=== PATIENT | male | born 1935 | race Caucasian/White ===

== ENCOUNTER 2018-02-16 07:42 | Inpatient (IN) ==
[2018-02-16] MEDS ORDERED: 0.9 % Sodium Chloride 1,000 ML IVC ONE ×2 (08:00→11:02)
[2018-02-16] MEDS ORDERED: GI Cocktail 40 ML EACH PO ONE (08:03)
[2018-02-16] MEDS ORDERED: methylPREDNISolone 125 MG/2 ML VIAL IVP ONE (08:03)
[2018-02-16] MEDS ORDERED: Ipratropium/Albuterol Neb 3 ML IH ONE (08:03)
--- NOTE | 2018-02-16 08:12 | Emergency Department Note ---
Disposition Clinical Impression: Esophagitis, COPD exacerbation, Atrial fibrillation with RVR, Pulmonary nodule Pneumonia Qualifiers: Pneumonia type: due to unspecified organism Laterality: bilateral Lung location : lower lobe of lung Qualified Code(s): J18.1 - Lobar pneumonia, unspecified organism Disposition: Admitted As Inpatient Condition: Fair General Adult HPI - General Chief complaint: ED Nausea/Vomiting/Diarrhea Stated complaint: MATT Time Seen by Provider: 02/16/18 07:45 Source: patient Mode of arrival: private vehicle Limitations: no limitations Nursing Notes Reviewed: Yes Vital Signs Reviewed: Yes - History of Present Illness HPI Narrative: 82-year-old male history of atrial fibrillation not on anticoagulation secondary to prior GI bleed, COPD with oxygen use as needed, GERD who presents to the ER with a complaint of weight loss and intolerance to oral intake. States since October that he has lost 28 pounds which is unintentional. He saw his primary care provider the other day who ordered lab work and was trying to get him scheduled for an upper endoscopy. They had not heard back from the primary care provider. States that over the last 2 weeks that he has been able to keep down very few things. He started throwing up his medications as well as any solids and most liquids. Denies any vomiting when he is not trying to ingest something. He denies any chest pain or abdominal pain. He was last scoped roughly 6 years ago. He denies any shortness of breath. Denies prior history of cancer. He did have a CT scan showing a nodule in 2016. No other complaints. Pt Subjective Complaint: Shortness of breath, vomiting Onset (ago): week(s) Pain Scale: 0 Improves with: nothing Worsens with: nothing Associated symptoms: Reports: nausea/vomiting. Denies: chest pain, cough, fever /chills Treatments Prior to Arrival: none - Related Data Home Medications Medication Instructions Recorded Confirmed Furosemide [Lasix] 40 mg PO BID 11/12/15 02/16/18 Hydralazine HCl 50 mg PO BID 11/12/15 02/16/18 Atenolol [Tenormin] 50 mg PO BID 11/13/15 02/16/18 Calcium Carbonate [Tums] 1,000 mg PO Q4HR PRN 11/13/15 02/16/18 Docusate [Colace] 100 mg PO DAILY PRN 11/13/15 02/16/18 Ipratropium/Albuterol Neb [Duoneb] 3 ml IH Q6HR 11/13/15 02/16/18 Ipratropium/Albuterol Sulfate 1 puff IH Q6HR PRN 11/13/15 02/16/18 [Combivent Respimat Inhal [place]] Polyethylene Glycol 3350 [MiraLAX] 17 gm PO DAILY PRN 11/13/15 02/16/18 amLODIPine [Norvasc] 5 mg PO DAILY 11/13/15 02/16/18 Aspirin [[place] Aspirin EC] 81 mg PO DAILY 02/16/18 02/16/18 Diltiazem HCl [Diltiazem 24Hr Cd] 120 mg PO DAILY 02/16/18 02/16/18 Losartan Potassium [Cozaar] 100 mg PO DAILY 02/16/18 02/16/18 Omeprazole [PriLOSEC] 40 mg PO BID 02/16/18 02/16/18 Sucralfate [Carafate] 1 tab PO BID 02/16/18 02/16/18 Tamsulosin [Flomax] 0.4 mg PO DAILY 02/16/18 02/16/18 Allergies Allergy/AdvReac Type Severity Reaction Status Date / Time clonidine Allergy Vomiting Verified 02/16/18 10:08 Warfarin [From Coumadin] Allergy See Verified 02/16/18 10:08 Comments All systems ED: reviewed and negative except as stated. Constitutional: Denies: fever Cardiovascular: Denies: chest pain Respiratory: Denies: cough, dyspnea Gastrointestinal: Reports: vomiting. Denies: abdominal pain, nausea, diarrhea Past Medical History - Past Medical History Attestation: Yes The following information was validated with the patient. Source: patient Medical history: Reports: aortic aneurysm, arthritis, asthma, atrial fibrillation, CHF, COPD, coronary artery disease, GERD, GI bleed, hyperlipidemia , hypertension, osteoporosis, other Surgical history: Reports: cataract, other Psychiatric history: Reports: no psych history - Social History Smoking Status: Heavy tobacco smoker Smokeless Tobacco Status: No Alcohol use: Reports: none Drug use: Reports: none Physical Exam - General Limitations: no limitations General appearance: alert, in no apparent distress - Head Head exam: atraumatic, normocephalic - Eye Eye exam: Present: normal appearance - ENT ENT exam: normal exam - Neck Neck exam: Present: normal inspection - Chest Chest inspection: Present: normal inspection, symmetric chest wall rise - Respiratory Respiratory exam: Present: wheezes (Diffuse), accessory muscle use, prolonged expiratory phase - Cardiovascular Cardiovascular exam: Present: tachycardia, irregular rhythm, normal heart sounds - Abdominal Exam Abdominal exam: Present: soft, Non-Tender. Absent: tenderness, distention, rigidity - Extremities Exam Extremities exam: Present: normal inspection, full ROM - Expanded Upper Extremity Exam Shoulder exam: Present: normal inspection, full ROM Arm exam: Present: normal inspection, full ROM Elbow exam: Present: normal inspection, full ROM Forearm/Wrist exam: Present: normal inspection, full ROM Hand exam: Present: normal inspection, full ROM Vascular exam: Normal: radial pulse - Expanded Lower Extremity Exam Hip/Pelvis exam: Present: normal inspection, full ROM Upper leg exam: Present: normal inspection, full ROM Knee exam: Present: normal inspection, full ROM Lower leg exam: Present: normal inspection, full ROM Ankle exam: Present: normal inspection, full ROM Foot/toe exam: Present: normal inspection, full ROM - Skin Skin exam: Present: warm, dry Course Course Narrative: Patient seen and examined. Vital signs reviewed. He does have increased work of breathing here being tachypnic Around 30 and tachycardic at 130. He has no abdominal pain on exam. I also discussed his prior chest CT demonstrating a spiculated pulmonary nodule in 2017. Patient states that he has not had a biopsy of this and they are sure he has never had a PET scan. Plan for EKG, chest x-ray, baseline labs, likely admission for COPD exacerbation as well as inability to tolerate PO and concern for underlying malignancy. - Reevaluation(s) Reevaluation #1: Discussed results of imaging labs with the patient. Respiratory symptoms seem to have improved after nebulizer treatments and steroids. He remains tachycardic for which she had artery received 1 L. Appears to remain in atrial fibrillation on the monitor. Plan to start a Cardizem bolus and drip as well as a second liter of IV fluids. Vital Signs Temperature 98.3 F 02/16/18 07:48 Pulse Rate 127 02/16/18 07:48 Respiratory Rate 24 02/16/18 07:48 Blood Pressure 123/80 02/16/18 07:48 O2 Sat by Pulse Oximetry 93 02/16/18 07:48 Temperature 98.3 F 02/16/18 07:48 Pulse Rate 135 02/16/18 09:59 Respiratory Rate 18 02/16/18 09:59 Blood Pressure 110/87 02/16/18 09:59 O2 Sat by Pulse Oximetry 91 02/16/18 09:59 Oxygen Delivery Oxygen Delivery Room Air Medical Decision Making - MDM Narrative Medical decision making narrative: 82-year-old male presenting with vomiting and difficulty swallowing with weight loss over the last few months. Patient did have emesis here with his GI cocktail. His EKG demonstrates atrial fibrillation for which she has a past history of. Heart rate is slowly improved with interventions. CT imaging demonstrates dilation of the distal esophagus consistent with likely reflux esophagitis. He also has the appearance of bilateral lower lobe pneumonia of which we are attributing most likely to aspiration. His labs are grossly benign. Patient was started on Unasyn for suspected aspiration pneumonia. Started on Cardizem bolus and drip for rate control. Concern for occult malignancy in the setting of pulmonary nodule, weight loss and difficulty swallowing. The patient is admitted to the hospitalist service for further evaluation. - Lab Data Lab results reviewed: Yes I reviewed the patient's lab results. Result diagrams: 02/16/18 08:07 02/16/18 08:07 Lab Results 02/16/18 02/16/18 02/16/18 Range/Units 08:07 08:07 08:07 WBC 10.3 (4.3-11.1) K/mcL RBC 4.60 (4.19-5.50) M/mcL Hgb 14.5 (12.9-16.9) g/dL Hct 43.8 (37.5-50.1) % MCV 95.2 (83.0-100.0) fL MCH 31.5 (28.0-33.3) pg MCHC 33.1 (31.6-35.5) g/dL RDW 13.7 (11.5-14.5) % Plt Count 168 (140-400) K/mcL MPV 10.0 (9.4-12.4) fL Immature Gran % 0.4 (0-4) % Seg Neutrophils % 84.1 % Lymphocytes % 8.1 % Monocytes % 6.5 % Eosinophils % 0.4 % Basophils % 0.5 % Neutrophils # 8.7 (1.6-8.9) K/mcL Lymphocytes # 0.8 (0.6-4.6) K/mcL Monocytes # 0.7 (0.0-1.3) K/mcL Eosinophils # 0.0 (0.0-0.6) K/mcL Basophils # 0.1 (0.0-0.2) K/mcL PT 13.2 H (9.4-12.1) Seconds INR 1.2 Sodium 141 (136-145) mEq/L Potassium 4.1 (3.5-5.1) mEq/L Chloride 102 (98-107) mEq/L Carbon Dioxide 28 (23-29) mEq/L BUN 36 H (8-23) mg/dL Creatinine 1.29 (0.70-1.30) mg/dL Est GFR ( Amer) > 60 (> 60) Est GFR (Non-Af Amer) 54 L (> 60) BUN/Creatinine Ratio 28 H (6-26) Glucose 103 (70-105) mg/dL Calculated Osmolality 301 H (280-300) Lactic Acid (0.5-2.2) mmol/L Calcium 9.7 (8.6-10.3) mg/dL Total Bilirubin 1.7 H (0.3-1.0) mg/dL Direct Bilirubin 0.6 H (0.0-0.2) mg/dL Indirect Bilirubin 1.1 (0.0-1.2) mg/dL AST 19 (13-39) Units/L ALT 9 (7-52) Units/L Alkaline Phosphatase 79 (34-104) Units/L Troponin I 0.03 (< 0.04) ng/mL B-Natriuretic Peptide (Less than 100) pg/mL Serum Total Protein 7.0 (6.4-8.9) g/dL Albumin 3.9 (3.5-5.7) g/dL Globulin 3.1 (2.4-3.5) g/dL Albumin/Globulin Ratio 1.3 (1.1-2.2) Lipase 41 (11-82) Units/L 02/16/18 02/16/18 02/16/18 Range/Units 08:07 08:21 10:10 WBC (4.3-11.1) K/mcL RBC (4.19-5.50) M/mcL Hgb (12.9-16.9) g/dL Hct (37.5-50.1) % MCV (83.0-100.0) fL MCH (28.0-33.3) pg MCHC (31.6-35.5) g/dL RDW (11.5-14.5) % Plt Count (140-400) K/mcL MPV (9.4-12.4) fL Immature Gran % (0-4) % Seg Neutrophils % % Lymphocytes % % Monocytes % % Eosinophils % % Basophils % % Neutrophils # (1.6-8.9) K/mcL Lymphocytes # (0.6-4.6) K/mcL Monocytes # (0.0-1.3) K/mcL Eosinophils # (0.0-0.6) K/mcL Basophils # (0.0-0.2) K/mcL PT (9.4-12.1) Seconds INR Sodium (136-145) mEq/L Potassium (3.5-5.1) mEq/L Chloride (98-107) mEq/L Carbon Dioxide (23-29) mEq/L BUN (8-23) mg/dL Creatinine (0.70-1.30) mg/dL Est GFR ( Amer) (> 60) Est GFR (Non-Af Amer) (> 60) BUN/Creatinine Ratio (6-26) Glucose (70-105) mg/dL Calculated Osmolality (280-300) Lactic Acid 1.4 1.3 (0.5-2.2) mmol/L Calcium (8.6-10.3) mg/dL Total Bilirubin (0.3-1.0) mg/dL Direct Bilirubin (0.0-0.2) mg/dL Indirect Bilirubin (0.0-1.2) mg/dL AST (13-39) Units/L ALT (7-52) Units/L Alkaline Phosphatase (34-104) Units/L Troponin I (< 0.04) ng/mL B-Natriuretic Peptide 485 H (Less than 100) pg/mL Serum Total Protein (6.4-8.9) g/dL Albumin (3.5-5.7) g/dL Globulin (2.4-3.5) g/dL Albumin/Globulin Ratio (1.1-2.2) Lipase (11-82) Units/L - Radiology Data Radiology results reviewed: Yes I reviewed the patient's radiology results. Chest X-Ray 02/16/18 08:00 IMPRESSION: Right basilar atelectasis or pneumonia. Follow-up to resolution recommended. D/ / Juan David Hensley MD / Juan David Hensley MD Interpreting Provider: Juan David Hensley MD Abdomen/Pelvis CT 02/16/18 08:32 IMPRESSION: New patchy multifocal airspace disease in both lungs with bronchiectasis and peribronchial cuffing as well as endobronchial opacification in both lower lobes. Along with the finding of a dilated esophagus that is fluid-filled to the upper thoracic level, findings suggest pneumonia likely from chronic aspiration. Patchy nodular areas of consolidation noted in both lung bases likely related to the aspiration pneumonia. 12 mm spiculated nodule in the left upper lobe unchanged since at least 2016 examination. Benign etiology is favored given its senior care stability possibly related to chronic inflammatory process in the lungs. Recommend continued follow-up. Dilated esophagus with fluid to the upper thoracic level and circumferential wall thickening in the distal esophagus. This may be secondary to chronic reflux esophagitis but would recommend endoscopic correlation. Subcentimeter nonpathologically enlarged lymph nodes in the mediastinum suggesting chronic reactive lymph nodes, stable since prior exams. No acute abnormality in the abdomen or pelvis. Stable appearance with stable findings suggesting hepatic cirrhosis. Moderate aortic atherosclerotic disease. No acute bowel abnormality. Normal appendix. D/ / 02/16/2018 09:44:09 Awais Donaldson MD / karla Interpreting Provider: Awais Donaldson MD Chest CT 02/16/18 08:32 IMPRESSION: New patchy multifocal airspace disease in both lungs with bronchiectasis and peribronchial cuffing as well as endobronchial opacification in both lower lobes. Along with the finding of a dilated esophagus that is fluid-filled to the upper thoracic level, findings suggest pneumonia likely from chronic aspiration. Patchy nodular areas of consolidation noted in both lung bases likely related to the aspiration pneumonia. 12 mm spiculated nodule in the left upper lobe unchanged since at least 2016 examination. 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 Recommend continued follow-up. Dilated esophagus with fluid to the upper thoracic level and circumferential wall thickening in the distal esophagus. This may be secondary to chronic reflux esophagitis but would recommend endoscopic correlation. Subcentimeter nonpathologically enlarged lymph nodes in the mediastinum suggesting chronic reactive lymph nodes, stable since prior exams. No acute abnormality in the abdomen or pelvis. Stable appearance with stable findings suggesting hepatic cirrhosis. Moderate aortic atherosclerotic disease. No acute bowel abnormality. Normal appendix. D/ / 02/16/2018 09:44:09 Awais Donaldson MD / karla Interpreting Provider: Awais Donaldson MD - EKG Data EKG #1 EKG attestation: Yes I reviewed and interpreted this EKG. EKG results narrative: EKG demonstrates atrial fibrillation with a rate of 136. Normal axis. Normal intervals. Normal R-wave progression. There are lateral ST depressions of roughly [address] elevations. Changes from prior EKG on 11/13/[address] depression. S.B.A.Gisell. - [place].Brian.Wood Situation: Demographics, MOA Background: Presenting Complaint, Relevant PMH, Meds, & Allergies Assessment: Vital Signs, Course and respsone to treatment, Exam Concerns, Patient/Family Expectation, Pertinant Lab Results Recommendation: Barrier(s) to disposition, Recommendation based on pending studies, treatments, or consults S.B.AJasmin Report Given to: Dr. Mary Givens Repor Time: 12:04
[2018-02-16 08:23] LABS: Basophils # 0.1 K/mcL (0.0-0.2); Basophils % 0.5 %; Eosinophils % 0.4 %; Hematocrit 43.8 % (37.5-50.1); Hemoglobin 14.5 g/dL (12.9-16.9); Immature Granulocytes % 0.4 % (0-4); Lymphocytes # 0.8 K/mcL (0.6-4.6); Lymphocytes % 8.1 %; Mean Corpuscular HGB Conc 33.1 g/dL (31.6-35.5); Mean Corpuscular Hemoglobin 31.5 pg (28.0-33.3); Mean Corpuscular Volume 95.2 fL (83.0-100.0); Monocytes # 0.7 K/mcL (0.0-1.3); Monocytes % 6.5 %; Neutrophils # 8.7 K/mcL (1.6-8.9); Platelet Count 168 K/mcL (140-400); Red Cell Distribution Width 13.7 % (11.5-14.5); Segmented Neutrophils % 84.1 %
[2018-02-16 08:30] LABS: INR 1.2; Prothrombin Time 13.2 Seconds (9.4-12.1)
[2018-02-16] MEDS ORDERED: Isovue-370 500 ML INFUS..BTL IV ONE (08:32)
[2018-02-16 08:38] LABS: Troponin I 0.03 ng/mL (< 0.04)
--- NOTE | 2018-02-16 08:41 | Emergency Department Note ---
Disposition Clinical Impression: Esophagitis, COPD exacerbation, Atrial fibrillation with RVR, Pulmonary nodule Pneumonia Qualifiers: Pneumonia type: due to unspecified organism Laterality: bilateral Lung location : lower lobe of lung Qualified Code(s): J18.1 - Lobar pneumonia, unspecified organism Disposition: Admitted As Inpatient Condition: Fair General Adult HPI - General Chief complaint: ED Nausea/Vomiting/Diarrhea Stated complaint: MATT Time Seen by Provider: 02/16/18 07:45 Source: patient Mode of arrival: private vehicle Limitations: no limitations Nursing Notes Reviewed: Yes Vital Signs Reviewed: Yes - History of Present Illness Pain Scale: 0 Improves with: nothing Worsens with: nothing Associated symptoms: Reports: nausea/vomiting. Denies: chest pain, cough, fever /chills Treatments Prior to Arrival: none - Related Data Home Medications Medication Instructions Recorded Confirmed Furosemide [Lasix] 40 mg PO BID 11/12/15 02/16/18 Hydralazine HCl 50 mg PO BID 11/12/15 02/16/18 Atenolol [Tenormin] 50 mg PO BID 11/13/15 02/16/18 Calcium Carbonate [Tums] 1,000 mg PO Q4HR PRN 11/13/15 02/16/18 Docusate [Colace] 100 mg PO DAILY PRN 11/13/15 02/16/18 Ipratropium/Albuterol Neb [Duoneb] 3 ml IH Q6HR 11/13/15 02/16/18 Ipratropium/Albuterol Sulfate 1 puff IH Q6HR PRN 11/13/15 02/16/18 [Combivent Respimat Inhal [place]] Polyethylene Glycol 3350 [MiraLAX] 17 gm PO DAILY PRN 11/13/15 02/16/18 amLODIPine [Norvasc] 5 mg PO DAILY 11/13/15 02/16/18 Aspirin [[place] Aspirin EC] 81 mg PO DAILY 02/16/18 02/16/18 Diltiazem HCl [Diltiazem 24Hr Cd] 120 mg PO DAILY 02/16/18 02/16/18 Losartan Potassium [Cozaar] 100 mg PO DAILY 02/16/18 02/16/18 Omeprazole [PriLOSEC] 40 mg PO BID 02/16/18 02/16/18 Sucralfate [Carafate] 1 tab PO BID 02/16/18 02/16/18 Tamsulosin [Flomax] 0.4 mg PO DAILY 02/16/18 02/16/18 Allergies Allergy/AdvReac Type Severity Reaction Status Date / Time clonidine Allergy Vomiting Verified 02/16/18 10:08 Warfarin [From Coumadin] Allergy See Verified 02/16/18 10:08 Comments Constitutional: Denies: fever Cardiovascular: Denies: chest pain Respiratory: Denies: cough, dyspnea Gastrointestinal: Reports: vomiting. Denies: abdominal pain, nausea, diarrhea Past Medical History - Past Medical History Medical history: Reports: aortic aneurysm, arthritis, asthma, atrial fibrillation, CHF, COPD, coronary artery disease, GERD, GI bleed, hyperlipidemia , hypertension, osteoporosis, other Surgical history: Reports: cataract, other Psychiatric history: Reports: no psych history - Social History Smoking Status: Heavy tobacco smoker Smokeless Tobacco Status: No Alcohol use: Reports: none Drug use: Reports: none Physical Exam - General Limitations: no limitations General appearance: alert, in no apparent distress Course Vital Signs Temperature 98.3 F 02/16/18 07:48 Pulse Rate 127 02/16/18 07:48 Respiratory Rate 24 02/16/18 07:48 Blood Pressure 123/80 02/16/18 07:48 O2 Sat by Pulse Oximetry 93 02/16/18 07:48 Temperature 98.0 F 02/16/18 13:50 Pulse Rate 117 02/16/18 13:50 Respiratory Rate 16 02/16/18 15:26 Blood Pressure 118/76 02/16/18 13:50 O2 Sat by Pulse Oximetry 93 02/16/18 15:26 Oxygen Delivery Oxygen Delivery Room Air Medical Decision Making - Lab Data Result diagrams: 02/16/18 08:07 02/16/18 08:07 Lab Results 02/16/18 02/16/18 02/16/18 Range/Units 08:07 08:07 08:07 WBC 10.3 (4.3-11.1) K/mcL RBC 4.60 (4.19-5.50) M/mcL Hgb 14.5 (12.9-16.9) g/dL Hct 43.8 (37.5-50.1) % MCV 95.2 (83.0-100.0) fL MCH 31.5 (28.0-33.3) pg MCHC 33.1 (31.6-35.5) g/dL RDW 13.7 (11.5-14.5) % Plt Count 168 (140-400) K/mcL MPV 10.0 (9.4-12.4) fL Immature Gran % 0.4 (0-4) % Seg Neutrophils % 84.1 % Lymphocytes % 8.1 % Monocytes % 6.5 % Eosinophils % 0.4 % Basophils % 0.5 % Neutrophils # 8.7 (1.6-8.9) K/mcL Lymphocytes # 0.8 (0.6-4.6) K/mcL Monocytes # 0.7 (0.0-1.3) K/mcL Eosinophils # 0.0 (0.0-0.6) K/mcL Basophils # 0.1 (0.0-0.2) K/mcL PT 13.2 H (9.4-12.1) Seconds INR 1.2 Sodium 141 (136-145) mEq/L Potassium 4.1 (3.5-5.1) mEq/L Chloride 102 (98-107) mEq/L Carbon Dioxide 28 (23-29) mEq/L BUN 36 H (8-23) mg/dL Creatinine 1.29 (0.70-1.30) mg/dL Est GFR ( Amer) > 60 (> 60) Est GFR (Non-Af Amer) 54 L (> 60) BUN/Creatinine Ratio 28 H (6-26) Glucose 103 (70-105) mg/dL Calculated Osmolality 301 H (280-300) Lactic Acid (0.5-2.2) mmol/L Calcium 9.7 (8.6-10.3) mg/dL Total Bilirubin 1.7 H (0.3-1.0) mg/dL Direct Bilirubin 0.6 H (0.0-0.2) mg/dL Indirect Bilirubin 1.1 (0.0-1.2) mg/dL AST 19 (13-39) Units/L ALT 9 (7-52) Units/L Alkaline Phosphatase 79 (34-104) Units/L Troponin I 0.03 (< 0.04) ng/mL B-Natriuretic Peptide (Less than 100) pg/mL Serum Total Protein 7.0 (6.4-8.9) g/dL Albumin 3.9 (3.5-5.7) g/dL Globulin 3.1 (2.4-3.5) g/dL Albumin/Globulin Ratio 1.3 (1.1-2.2) Lipase 41 (11-82) Units/L 02/16/18 02/16/18 02/16/18 Range/Units 08:07 08:21 10:10 WBC (4.3-11.1) K/mcL RBC (4.19-5.50) M/mcL Hgb (12.9-16.9) g/dL Hct (37.5-50.1) % MCV (83.0-100.0) fL MCH (28.0-33.3) pg MCHC (31.6-35.5) g/dL RDW (11.5-14.5) % Plt Count (140-400) K/mcL MPV (9.4-12.4) fL Immature Gran % (0-4) % Seg Neutrophils % % Lymphocytes % % Monocytes % % Eosinophils % % Basophils % % Neutrophils # (1.6-8.9) K/mcL Lymphocytes # (0.6-4.6) K/mcL Monocytes # (0.0-1.3) K/mcL Eosinophils # (0.0-0.6) K/mcL Basophils # (0.0-0.2) K/mcL PT (9.4-12.1) Seconds INR Sodium (136-145) mEq/L Potassium (3.5-5.1) mEq/L Chloride (98-107) mEq/L Carbon Dioxide (23-29) mEq/L BUN (8-23) mg/dL Creatinine (0.70-1.30) mg/dL Est GFR ( Amer) (> 60) Est GFR (Non-Af Amer) (> 60) BUN/Creatinine Ratio (6-26) Glucose (70-105) mg/dL Calculated Osmolality (280-300) Lactic Acid 1.4 1.3 (0.5-2.2) mmol/L Calcium (8.6-10.3) mg/dL Total Bilirubin (0.3-1.0) mg/dL Direct Bilirubin (0.0-0.2) mg/dL Indirect Bilirubin (0.0-1.2) mg/dL AST (13-39) Units/L ALT (7-52) Units/L Alkaline Phosphatase (34-104) Units/L Troponin I (< 0.04) ng/mL B-Natriuretic Peptide 485 H (Less than 100) pg/mL Serum Total Protein (6.4-8.9) g/dL Albumin (3.5-5.7) g/dL Globulin (2.4-3.5) g/dL Albumin/Globulin Ratio (1.1-2.2) Lipase (11-82) Units/L Attestation Statement - Attestation Attestation: Resident Attestation: I examined this patient and my medical decision making was reviewed with the Resident Physician. I agree with the documented findings, disposition and treatment plan as described except to the extent set forth below. We independently had [id number] contact with the patient. Resident Dr. Eldridge Patient with past medical history of COPD with home oxygen as needed, A. fib, CHF presenting to the emergency department today for evaluation of multiple complaints. Patient's most concerning complaint per the patient is decreased ability to keep down his home medications. Patient has not been able to tolerate his medicines very well over the last week. He states that he has kept it down approximately 3 or 4 times. The patient states that he has pain burning and discomfort with eating. The patient's pills or foods stay in his system for approximately 20-30 minutes and then he vomits. Patient states that he has otherwise had no significant abdominal pain or bowel movements. Patient also appears to be in respiratory distress. He does have a history of COPD. He does have significant wheezing bilaterally. States this has been getting progressively worse. Unknown initial onset. No significant swelling in the lower extremities. We have done a thorough chart review and it has concern for possible malignancy in the lung. Previous spiculated lesion has increased in size over the course of multiple CT scans. Does have a family history of both colon cancer as well as prostate cancer. The patient will undergo further evaluation for dyspnea as well as CT scan with IV contrast of the chest abdomen pelvis to further evaluate possible malignancy versus other explanation for inability to tolerate by mouth. Awake alert and oriented 3, moderate respiratory distress, conversational and able to speak in full sentences. Lungs with moderate wheezing throughout. Heart rate irregular rate and rhythm. Abdomen soft nontender to palpation. No significant peripheral edema. CT scan shows no significant change to spiculated mass. The description of's spiculated however is concerning. He does have concern for pneumonia. Given the fact the patient has not been able to tolerate anything by mouth and has had multiple episodes of vomiting possible aspiration is a concern. The patient also has thickening and fluid within the esophagus. No obstruction. Concern for esophagitis but will need further endoscopy to correlate. Please see resident note for further details and disposition.
[2018-02-16 08:44] LABS: Alanine Aminotransferase 9 Units/L (7-52); Albumin 3.9 g/dL (3.5-5.7); Albumin/Globulin Ratio 1.3 (1.1-2.2); Alkaline Phosphatase 79 Units/L (34-104); Aspartate Amino Transferase 19 Units/L (13-39); BUN/Creatinine Ratio 28 (6-26); Bilirubin,Direct 0.6 mg/dL (0.0-0.2); Bilirubin,Indirect 1.1 mg/dL (0.0-1.2); Bilirubin,Total 1.7 mg/dL (0.3-1.0); Blood Urea Nitrogen 36 mg/dL (8-23); Calcium 9.7 mg/dL (8.6-10.3); Carbon Dioxide 28 mEq/L (23-29); Chloride 102 mEq/L (98-107); Globulin 3.1 g/dL (2.4-3.5); Glucose 103 mg/dL (70-105); Lipase 41 Units/L (11-82); Osmolality,Calculated 301 (280-300); Potassium 4.1 mEq/L (3.5-5.1); Sodium 141 mEq/L (136-145); eGFR For Non-African Americans 54 (> 60)
[2018-02-16] MEDS ORDERED: Ampicillin/Sulbactam 3,000 MG in 0.9 % Sodium Chloride Mini Bag 100 ML IVPB ONE (09:44)
[2018-02-16] MEDS ORDERED: Famotidine 20 MG/2 ML VIAL IVP ONE (12:04)
[2018-02-16] MEDS ORDERED: Naloxone 0.4 MG/ML INJ IVP PRN (13:03)
[2018-02-16] MEDS ORDERED: NON-FORMULARY MEDICATION 1 EACH EACH (Ipratropium/Albuterol Sulfate [Combivent Respimat In IH PRN (13:13)
[2018-02-16] MEDS ORDERED: *HR* Promethazine 25 MG/ML VIAL IVP PRN (13:13)
[2018-02-16] MEDS ORDERED: Ondansetron 4 MG/2 ML VIAL IVP PRN (13:13)
--- NOTE | 2018-02-16 13:41 | Internal Med History&Physical ---
<Pablito White [place] - Last Filed: 02/16/18 15:38> Date of Encounter: 02/16/18 Time of Encounter: 12:30 Internal Medicine - H&P: HPI Chief complaint: Nausea and Vomiting Admitted From: Emergency Dept Plans for Post Hospital Care: Home History of present illness: Mr. Lloyd is a 82 year old male w/PMH of aortic aneurysm, arthritis, asthma, atrial fibrillation not on anticoagulation, CHF, COPD, CAD, GERD, previous GI bleed, HLD, HTN, and osteoporosis presents from the ED w/CC of nausea and vomiting for the past 2-3 weeks when he tries to eat or drink anything. Denies coffee-ground or hematemesis. Pt. reports 33 pound unintentional weight loss since October. States PCP was going to order EGD but has not done so yet. Reports hx of SOB d/t COPD, CHF, asthma, and GERD No alleviating factors. States he smokes 1/2 PPD. Pt. reports cough and wheezing but denies recent illness, fever , chills, changes in vision, headache, unusual bleeding, chest pain, abdominal pain, diarrhea, constipation, dizziness, lightheadedness, numbness, tingling, presyncope, or syncope. Past Med Surg Social Fam HX - Past Medical History Source: patient, old records reviewed, obtained from family Medical history: aortic aneurysm, arthritis, asthma, atrial fibrillation, CHF, COPD, coronary artery disease, GERD, GI bleed, hyperlipidemia, hypertension, osteoporosis, other Additional medical history: Thoracic aortic aneurysm without rupture. Diastolic heart failureLeft ventriculare hypertrophy. DDD. Myalgia. Lumbar stenosis Psychiatric history: no psych history - Past Surgical History Surgical History: cataract, other - Social History Smoking Status: Current every day smoker Packs per day: 1/2 PPD Smokeless Tobacco Status: No Alcohol use: none Drug use: none Current living situation: Home, With Family Activity Level: Independent ambulation Recent Out of Country Travel Within the Last 8 Weeks: No Exposure or Possible Exposure to Illness During Travel: No - Family History Father Adopted: No Family Member Ethnicity: Non- Living Status: Hx Family Cancer: Yes (prostate) Internal Medicine - H&P: Meds RX: Furosemide [Lasix] 40 mg PO BID 11/12/15 [History] RX: Hydralazine HCl 50 mg PO BID 11/12/15 [History] RX: Atenolol [Tenormin] 50 mg PO BID 11/13/15 [History] RX: Calcium Carbonate [Tums] 1,000 mg PO Q4HR PRN 11/13/15 [History] RX: Docusate [Colace] 100 mg PO DAILY PRN 11/13/15 [History] RX: Ipratropium/Albuterol Neb [Duoneb] 3 ml IH Q6HR 11/13/15 [History] RX: Ipratropium/Albuterol Sulfate [Combivent Respimat Inhal [place]] 1 puff IH Q6HR PRN 11/13/15 [History] RX: Polyethylene Glycol 3350 [MiraLAX] 17 gm PO DAILY PRN 11/13/15 [History] RX: amLODIPine [Norvasc] 5 mg PO DAILY 11/13/15 [History] Aspirin [[place] Aspirin EC] 81 mg PO DAILY 02/16/18 [History] Diltiazem HCl [Diltiazem 24Hr Cd] 120 mg PO DAILY 02/16/18 [History] Losartan Potassium [Cozaar] 100 mg PO DAILY 02/16/18 [History] RX: Omeprazole [PriLOSEC] 40 mg PO BID 02/16/18 [History] RX: Sucralfate [Carafate] 1 tab PO BID 02/16/18 [History] RX: Tamsulosin [Flomax] 0.4 mg PO DAILY 02/16/18 [History] 3 Allergy/AdvReac Type Severity Reaction Status Date / Time clonidine Allergy Vomiting Verified 02/16/18 10:08 Warfarin [From Coumadin] Allergy See Verified 02/16/18 10:08 Comments All Systems PM: A 10-system review of systems was performed and is negative for pertinent findings except as documented above in the HPI. - Constitutional Constitutional: as per HPI, weakness, weight loss (33 pounds since October), no chills, no fever(s), no night sweats - EENT Eyes: no change in vision, no discharge, no pain, no photophobia Ears: no ear discharge, no ear pain, no tinnitus Nose, mouth and throat: no dysphagia, no nasal discharge, no neck pain, no sore throat - Breasts Breasts: as per HPI - Cardiovascular Cardiovascular ROS IM: as per HPI, dyspnea, dyspnea on exertion, edema, irregular heart rhythm, no chest pain, no diaphoresis, no lightheadedness, no palpitations, no syncope - Respiratory Respiratory: as per HPI, cough, dyspnea, dyspnea on exertion, wheezing, chest congestion, no excessive phlegm production - Gastrointestinal Gastrointestinal: as per HPI, dyspepsia, heartburn, nausea, vomiting, no abdominal pain, no diarrhea, no hematemesis, no hematochezia, no melena - Genitourinary Genitourinary ROS male: as per HPI - Musculoskeletal Musculoskeletal ROS IM: as per HPI, arthralgias, no numbness, no tingling - Integumentary Integumentary IM: no rash, no unusual bruising - Neurological Neurological ROS: no confusion, no convulsions, no focal weakness, no numbness, no tingling, no tremor(s) - Psychiatric Psychiatric: as per HPI - Endocrine Endocrine IM: as per HPI - Hematologic/Lymphatic Hematologic/Lymphatic: no easy bruising - Allergic/Immunologic Allergic/Immunologic: as per HPI, wheezing - Constitutional Vitals: Temp Pulse Resp BP Pulse Ox 98.3 F 135 18 110/87 91 02/16/18 07:48 02/16/18 09:59 02/16/18 09:59 02/16/18 09:59 02/16/18 09:59 General appearance: Present: cooperative, A&O X 3, pleasant, no acute distress, underweight, loss of weight, answers questions appropriately Exam: Patient examined at bedside in ED. Pt. reports SOB, nausea, and vomiting for the past several weeks. Also reports weakness. States he has lost 33 pound since October. Reports cough and current tobacco use. Denies any other complaints at this time. VS: 98.0F temp, HR 117, RR 16, BP 118/76, SPO2 93% on room air. - Head Head exam: Present: atraumatic, normocephalic - Eye Eye exam: Present: PERRL, conjuntiva pink, sclera anicteric Pupils: Present: PERRL - ENT ENT exam: Present: normal exam - Neck Neck exam general surgery: Present: normal inspection, supple, trachea midline. Absent: lymphadenopathy - Respiratory Respiratory exam: Present: CTAB. Absent: accessory muscle use, rales, rhonchi, wheezes - Cardiovascular Cardiovascular exam: Present: irregular rhythm. Absent: diastolic murmur, gallop, rubs, systolic murmur - GI/Abdominal GI/Abdominal exam: Present: normal bowel sounds, soft, no peritoneal signs. Absent: distended, tenderness - Rectal Rectal exam: Present: deferred - Additional comments: exam deferred. - Extremities Exam Extremities exam: Present: warm, radial pulses palpable and symmetrical. Absent : calf tenderness, cyanotic, pedal edema - Back Exam Back exam: Present: normal inspection - Neurological Exam Neurological exam: Present: alert, CN II-XII intact, oriented X3, no focal deficits. Absent: pronater drift, facial droop, speech deficit - Psychiatric Psychiatric exam: Present: normal affect, normal mood - Skin Skin exam: Present: dry, intact Internal Med - H&P Results - Labs CBC & Chem 7: 02/16/18 08:07 02/16/18 08:07 - EKG Data Prior EKG available for review: yes EKG comments: 02/16/18 13:58 EKG dated 11/13/15 shows sinus rhythm with frequent supraventricular premature complexes and moderate intraventricular conduction delay. EKG dated 02/16/18 shows atrial fibrillation, ST depression that is probably rate related, and borderline prolonged QT interval. - Diagnostic Studies CT scan - chest Additional comments: Impressions Chest X-Ray 02/16/18 08:00 IMPRESSION: Right basilar atelectasis or pneumonia. Follow-up to resolution recommended. D/ / Juan David Hensley MD / Juan David Hensley MD Interpreting Provider: Juan David Hensley MD Abdomen/Pelvis CT 02/16/18 08:32 IMPRESSION: New patchy multifocal airspace disease in both lungs with bronchiectasis and peribronchial cuffing as well as endobronchial opacification in both lower lobes. Along with the finding of a dilated esophagus that is fluid-filled to the upper thoracic level, findings suggest pneumonia likely from chronic aspiration. Patchy nodular areas of consolidation noted in both lung bases likely related to the aspiration pneumonia. 12 mm spiculated nodule in the left upper lobe unchanged since at least 2016 examination. 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 Recommend continued follow-up. Dilated esophagus with fluid to the upper thoracic level and circumferential wall thickening in the distal esophagus. This may be secondary to chronic reflux esophagitis but would recommend endoscopic correlation. Subcentimeter nonpathologically enlarged lymph nodes in the mediastinum suggesting chronic reactive lymph nodes, stable since prior exams. No acute abnormality in the abdomen or pelvis. Stable appearance with stable findings suggesting hepatic cirrhosis. Moderate aortic atherosclerotic disease. No acute bowel abnormality. Normal appendix. Thoracic aortic aneurysm measuring 5.4 cm in diameter. D/ / 02/16/2018 09:44:09 Awais Donaldson MD / karla Interpreting Provider: Awais Donaldson MD Chest CT 02/16/18 08:32 IMPRESSION: New patchy multifocal airspace disease in both lungs with bronchiectasis and peribronchial cuffing as well as endobronchial opacification in both lower lobes. Along with the finding of a dilated esophagus that is fluid-filled to the upper thoracic level, findings suggest pneumonia likely from chronic aspiration. Patchy nodular areas of consolidation noted in both lung bases likely related to the aspiration pneumonia. 12 mm spiculated nodule in the left upper lobe unchanged since at least 2016 examination. 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 Recommend continued follow-up. Dilated esophagus with fluid to the upper thoracic level and circumferential wall thickening in the distal esophagus. This may be secondary to chronic reflux esophagitis but would recommend endoscopic correlation. Subcentimeter nonpathologically enlarged lymph nodes in the mediastinum suggesting chronic reactive lymph nodes, stable since prior exams. No acute abnormality in the abdomen or pelvis. Stable appearance with stable findings suggesting hepatic cirrhosis. Moderate aortic atherosclerotic disease. No acute bowel abnormality. Normal appendix. Thoracic aortic aneurysm measuring 5.4 cm in diameter. D/ / 02/16/2018 09:44:09 Awais Donaldson MD / karla Interpreting Provider: Awais Donaldson MD Chest x-ray Additional comments: Impressions Chest X-Ray 02/16/18 08:00 IMPRESSION: Right basilar atelectasis or pneumonia. Follow-up to resolution recommended. D/ / Juan David Hensley MD / Juan David Hensley MD Interpreting Provider: Juan David Hensley MD CT scan - abdomen Additional comments: Impressions Abdomen/Pelvis CT 02/16/18 08:32 IMPRESSION: New patchy multifocal airspace disease in both lungs with bronchiectasis and peribronchial cuffing as well as endobronchial opacification in both lower lobes. Along with the finding of a dilated esophagus that is fluid-filled to the upper thoracic level, findings suggest pneumonia likely from chronic aspiration. Patchy nodular areas of consolidation noted in both lung bases likely related to the aspiration pneumonia. 12 mm spiculated nodule in the left upper lobe unchanged since at least 2016 examination. 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 Recommend continued follow-up. Dilated esophagus with fluid to the upper thoracic level and circumferential wall thickening in the distal esophagus. This may be secondary to chronic reflux esophagitis but would recommend endoscopic correlation. Subcentimeter nonpathologically enlarged lymph nodes in the mediastinum suggesting chronic reactive lymph nodes, stable since prior exams. No acute abnormality in the abdomen or pelvis. Stable appearance with stable findings suggesting hepatic cirrhosis. Moderate aortic atherosclerotic disease. No acute bowel abnormality. Normal appendix. Thoracic aortic aneurysm measuring 5.4 cm in diameter. D/ / 02/16/2018 09:44:09 Awais Donaldson MD / karla Interpreting Provider: Awais Donaldson MD - Assessment and plan (1) Aspiration pneumonia Current Visit: Yes Status: Acute Assessment and plan: Acute aspiration pneumonia r/t recurrent nausea and vomiting for the past 2-3 weeks. States he is unable to keep any food or liquids down and vomits when he tries to eat. CT of the chest today shows new patchy multifocal airspace disease in both lungs with bronchiectasis and peribronchial cuffing as well as endobronchial opacification in both lower lobes. Along with the finding of a dilated esophagus that is fluid-filled to the upper thoracic level, findings suggest pneumonia likely from chronic aspiration. Patchy nodular areas of consolidation noted in both lung bases likely related to the aspiration pneumonia. Continuous aspiration precautions. Elevate head of bed. GI consult ordered for EGD which needs confirmed d/t ordering on weekend. Pt. reports PCP was attempting to schedule EGD but has not done so yet. Protonix drip. Pt. given GI cocktail in ED. IVPB Unasyn given in ED and will continue 3,000 mg Q6HR for aspiration pneumonia. Xopenex IH w/Respiratory consult for flutter valve. Respiratory infection panel ordered. Blood cultures x2 ordered in ED. Supplemental O2 with titration and SPO2 monitoring. Clear liquid diet ordered to be advanced as tolerated. IVP Zofran and Phenergan for N/V. Pt. discussed w/ Dr. Pate who agrees w/plan of care. Pt. is high risk for further morbidity and complications d/t current aspiration PNA, N/V for 2-3 weeks resulting in unintented weight loss, esophagitis, current CHF exacerbation, SOB d/t COPD/CHF, hx, and risk factors. Observation. Qualifiers: Aspiration pneumonia type: due to regurgitated food Laterality: bilateral Lung location: lower lobe of lung Qualified Code(s): J69.0 - Pneumonitis due to inhalation of food and vomit (2) Esophagitis Current Visit: Yes Status: Acute Assessment and plan: Acute on chronic esophagitis d/t poorly controlled GERD. CT today shows dilated esophagus with fluid to the upper thoracic level and circumferential bulging thickening in the distal esophagus. This may be secondary to chronic reflux esophagitis but would recommend endoscopic correlation. GI consult ordered which needs confirmed d/t ordering on weekend. Pt. reports PCP was attempting to schedule EGD but has not done so yet. Protonix drip. Pt. given GI cocktail in ED. (3) Acute exacerbation of CHF (congestive heart failure) Current Visit: Yes Status: Acute Assessment and plan: Hx of chronic diastolic CHF. Acute exacerbation w/BNP of 485 today. Pt. reports taking PO lasix. No pedal edema at this time but wheezing present in bilateral lungs on exam. Will hold PO lasix at this time d/t current hypotension. Echo in 11/2015 showed LVEF of 55%, normal left ventricular size and systolic function, indeterminate diastolic function, dilated RV with normal function, moderate aortic regurgitation, mild mitral regurgitation, nild tricuspid regurgitation, estimated RVSP was 41 mmHg, mild pulmonary HTN, and dilated aortic root measuring 4.6 cm. Ascending aorta not well visualized. Echocardiogram ordered. Continuous cardiac telemetry. Holding BP meds d/t current hypotension. Cardizem drip for current Afib w/RVR. Qualifiers: Heart failure type: diastolic Qualified Code(s): I50.33 - Acute on chronic diastolic (congestive) heart failure (4) Nausea and vomiting Current Visit: Yes Status: Acute Assessment and plan: Acute nausea and vomiting for the past 2-3 weeks. Hx of poorly controlled GERD. Esophagitis on imaging. Reports 33 pound unintentional weight loss since October. IVP Zofran and Phenergan ordered PRN for N/V. Will start with clear liquid diet and advance as tolerated. Nutrition consult. GI consult for EGD. Monitor I&O and daily weight. Qualifiers: Vomiting type: cyclical vomiting Vomiting Intractability: non-intractable Qualified Code(s): G43.A0 - Cyclical vomiting, not intractable (5) Unintentional weight loss Current Visit: Yes Status: Acute Assessment and plan: Acute unintentional weight loss of 33 pounds since October. Pt. reports N/V for the past several weeks and inability to keep anything down. Vomiting occurs when attempting to eat/drink. Esophagitis on imaging. GI consult ordered but not confirmed d/t after-hours consult status. Nutritional consult ordered for PO supplementation. Will start w/liquid diet and advance as tolerated. Monitor I &O and daily weight. (6) SOB (shortness of breath) Current Visit: Yes Status: Acute Assessment and plan: Acute on chronic SOB d/t COPD, current tobacco abuse, and current CHF exacerbation. Xopenex IH w/flutter valve. Supplemental O2 w/titration and SpO2 monitoring. (7) Aortic aneurysm Current Visit: Yes Status: Chronic Assessment and plan: Hx of chronic thoracic aortic aneurysm w/o rupture. Previous CT in 2016 shows no acute abnormality of the thoracic aorta. The ascending aorta is diffusely dilated measuring 5.8 cm in maximum dimension which is stable. Normal variant of a bovine arch is again demonstrated. There are atherosclerotic calcifications involving the aorta. CT today shows an ascending thoracic aortic aneurysm measuring approximately 5.4 cm in diameter at the level of the main pulmonary artery. Mild to moderate atherosclerotic calcifications are noted in the thoracic aorta. No evidence of aortic dissection. Stable. [place]side consult w /Dr. Ruiz w/recommendation to speak w/Radiology regarding comparison of CT today w/CT from 11/2015. Spoke w/Dr. Donaldson who read today's CT who stated that current ascending thoracic aortic aneurysm appears stable but patient should follow-up with vascular surgery as outpatient for monitoring. I appreciate the consults and recommendations as always. Qualifiers: Aortic location: thoracic aorta Presence of rupture: without rupture Qualified Code(s): I71.2 - Thoracic aortic aneurysm, without rupture (8) COPD (chronic obstructive pulmonary disease) Current Visit: Yes Status: Chronic Assessment and plan: Hx of chronic COPD. Stable. Continue pts. inhaler and add Xopenex IH w/ Respiratory consult added for flutter valve. 125 mg IVP Solu-Medrol given in ED and will follow w/60 mg Q8HR IVP. Supplemental O2 w/titration and SpO2 monitoring. Qualifiers: COPD type: emphysema Emphysema type: unspecified Qualified Code(s): 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, unspecified (9) GERD (gastroesophageal reflux disease) Current Visit: Yes Status: Chronic Assessment and plan: Hx of chronic GERD that is poorly controlled. Hold pts. PO Prilosec and start Protonix drip. IVP Zofran and Phenergan PRN for N/V. Monitor I&O. Qualifiers: Esophagitis presence: with esophagitis Qualified Code(s): K21.0 - Gastro- esophageal reflux disease with esophagitis (10) HLD (hyperlipidemia) Current Visit: Yes Status: Chronic Assessment and plan: Hx of chronic HLD. Lipid panel in a.m. labs. Patient does not currently take statin. Consider adding Lipitor based on lipid panel results. Qualifiers: Hyperlipidemia type: pure hypercholesterolemia Qualified Code(s): E78.00 - Pure hypercholesterolemia, unspecified; E78.0 - Pure hypercholesterolemia (11) HTN (hypertension) Current Visit: Yes Status: Chronic Assessment and plan: Hx of chronic HTN. Pt. currently hypotensive on admission, so pts. PO HTN medications held for now. Will continue Cardizem drip for Afib and monitor VS. Will resume PO medications if pt. becomes hypertensive. Qualifiers: Hypertension type: essential hypertension Qualified Code(s): I10 - Essential (primary) hypertension (12) Atrial fibrillation with RVR Current Visit: Yes Status: Chronic Assessment and plan: Hx of Afib. Now w/RVR on admission. Cardizem drip ordered. Continuous cardiac telemetry. Monitor. (13) DVT prophylaxis Current Visit: Yes Status: Acute Assessment and plan: Bilateral SCDs on LEs for DVT prophylaxis d/t hx of poor response to Coumadin/ anticoagulation and GI bleed. (14) SAMSON (acute kidney injury) Current Visit: Yes Status: Acute Assessment and plan: SAMSON w/GFR of 54 and creatinine of 1.29 on admission. GFR 58 on 02/12. Will use IV fluids judiciously due to current acute exacerbation of CHF. Avoid nephrotoxins. Monitor I&O, daily weight, and f/u labs. - Time Spent With Patient Total time spent is greater than 50% in coordination of care (as documented) at patient's floor/unit and/or counseling patient: Greater than 35 minutes <Mary Pate - Last Filed: 02/16/18 16:49> Date of Encounter: 02/16/18 Internal Medicine - H&P: HPI History of present illness: Mr. Lloyd is a 82 year old male All Systems PM: A 10-system review of systems was performed and is negative for pertinent findings except as documented above in the HPI. - Constitutional Vitals: Temp Pulse Resp BP Pulse Ox 98.0 F 117 16 118/76 93 02/16/18 13:50 02/16/18 13:50 02/16/18 15:26 02/16/18 13:50 02/16/18 15:26 Internal Med - H&P Results - Labs CBC & Chem 7: 02/16/18 08:07 02/16/18 08:07 - Assessment and plan (1) Esophagitis Current Visit: Yes Status: Acute (2) Atrial fibrillation with RVR Current Visit: Yes Status: Chronic (3) Nausea and vomiting Current Visit: Yes Status: Acute Qualifiers: Vomiting type: cyclical vomiting Vomiting Intractability: non-intractable Qualified Code(s): G43.A0 - Cyclical vomiting, not intractable (4) Aspiration pneumonia Current Visit: Yes Status: Acute Qualifiers: Aspiration pneumonia type: due to regurgitated food Laterality: bilateral Lung location: lower lobe of lung Qualified Code(s): J69.0 - Pneumonitis due to inhalation of food and vomit (5) Unintentional weight loss Current Visit: Yes Status: Acute (6) SOB (shortness of breath) Current Visit: Yes Status: Acute (7) Acute exacerbation of CHF (congestive heart failure) Current Visit: Yes Status: Acute Qualifiers: Heart failure type: diastolic Qualified Code(s): I50.33 - Acute on chronic diastolic (congestive) heart failure (8) Aortic aneurysm Current Visit: Yes Status: Chronic Qualifiers: Aortic location: thoracic aorta Presence of rupture: without rupture Qualified Code(s): I71.2 - Thoracic aortic aneurysm, without rupture (9) COPD (chronic obstructive pulmonary disease) Current Visit: Yes Status: Chronic Qualifiers: COPD type: emphysema Emphysema type: unspecified Qualified Code(s): 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, unspecified (10) GERD (gastroesophageal reflux disease) Current Visit: Yes Status: Chronic Qualifiers: Esophagitis presence: with esophagitis Qualified Code(s): K21.0 - Gastro- esophageal reflux disease with esophagitis (11) HLD (hyperlipidemia) Current Visit: Yes Status: Chronic Qualifiers: Hyperlipidemia type: pure hypercholesterolemia Qualified Code(s): E78.00 - Pure hypercholesterolemia, unspecified; E78.0 - Pure hypercholesterolemia (12) HTN (hypertension) Current Visit: Yes Status: Chronic Qualifiers: Hypertension type: essential hypertension Qualified Code(s): I10 - Essential (primary) hypertension (13) DVT prophylaxis Current Visit: Yes Status: Acute (14) SAMSON (acute kidney injury) Current Visit: Yes Status: Acute - Time Spent With Patient Total time spent is greater than 50% in coordination of care (as documented) at patient's floor/unit and/or counseling patient: - Attending Attestation I have personally performed a face to face evaluation on this patient. I have reviewed and agree with the care plan. History and Exam by me shows: Mr. Lloyd is a 82 year old male w/PMH of aortic aneurysm, arthritis, asthma, atrial fibrillation not on anticoagulation, CHF, COPD, CAD, GERD, previous GI bleed, presented to the ED with complaint of nausea and vomiting for the past 2- 3 weeks . As per patient his symptoms worsen when he eats or drinks liquids. He has never had any symptoms like this before. Vomiting is usually food/ drinks that he had ate/drank a few minutes prior, not bile-stained, no blood in his vomitus. In addition he reports unintentional weight loss that started about a few months ago and is more than 30 pounds. He visited his PCP with these complaints and was told that an EGD would be ordered however it was not done so so he decided to come to the emergency department for further evaluation. he denies , fever, chills, chest pain, abdominal pain, diarrhea, constipation, dizziness, lightheadedness, numbness, or syncope. As per patient he follow-up with Dr. Gillis about his thoracic aorta aneurysm and was offered surgery however he would not like to have any invasive surgery performed on his thoracic aortic aneurysm. at bedside I discussed CODE STATUS in depth with patient and he would like to be full code Afebrile, tachycardic in the 117, blood pressure 118/76, saturating 93% on room air General: Patient is alert, oriented, no acute distress, Head: atraumatic, normocephalic, Eye: normal appearance, PERRL, no scleral icterus, no conjunctival injection ENT: mucous membranes moist, normal external ear exam Neck: normal inspection, trachea midline, full ROM, no carotid bruits Chest: normal inspection, symmetric chest rise Respiratory: Decreased breath sounds in the posterior lung soliz with occasional crackles, no wheezing Cardiovascular: Irregularly irregular s1 and s2 , no rubs Abdomen: Bowel sounds present normoactive x-4 quadrants. Abdomen is soft, nondistended. no Epigastric tenderness. No guarding or rebound. No organomegaly noted, obese musculoskeletal: Spontaneously moving all extremities. no edema, no calf tenderness Skin: warm, dry, intact., Multiple ecchymosis in the bilateral upper extremities in different stages of healing Neuro: Alert and oriented x4. Sensation light touch intact. Cranial nerves 2- 12 is intact. No focal deficit Psych: Patient's affect is normal CT chest, abdomen and pelvis: New patchy multifocal airspace disease in both lungs with bronchiectasis and peribronchial cuffing as well as endobronchial opacification in both lower lobes. Along with the finding of a dilated esophagus that is fluid-filled to the upper thoracic level, findings suggest pneumonia likely from chronic aspiration. Patchy nodular areas of consolidation noted in both lung bases likely related to the aspiration pneumonia. 12 mm spiculated nodule in the left upper lobe unchanged since at least 2016 examination. 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 Recommend continued follow-up. Dilated esophagus with fluid to the upper thoracic level and circumferential wall thickening in the distal esophagus. This may be secondary to chronic reflux esophagitis but would recommend endoscopic correlation. Subcentimeter nonpathologically enlarged lymph nodes in the mediastinum suggesting chronic reactive lymph nodes, stable since prior exams. No acute abnormality in the abdomen or pelvis. Stable appearance with stable findings suggesting hepatic cirrhosis. Moderate aortic atherosclerotic disease. No acute bowel abnormality. Normal appendix. Thoracic aortic aneurysm measuring 5.4 cm in diameter. A/P Aspiration pneumonia chronic Esophagitis Atrial fibrillation with RVR not on AC thoracic aorta aneurysm - chronic / stable size COPD Current every day smoker Patient was started on Cardizem drip will continue as he is unable to tolerate by mouth medications Hold all oral antihypertensive medications Continue Unasyn for aspiration pneumonia GI consult for chronic esophagitis for EGD Nothing by mouth Continue PPI drip Patient was previously seen with Dr. Gillis who recommended thoracic aorta aneurysm repair however patient declines to do any invasive procedures for his aneurysm Counseled extensively on smoking cessation Continue inhalers ASpiration precautions, elevated head of bed Rest of the management as per [facility] documentation
[2018-02-16] MEDS: Pantoprazole 40 MG in 0.9 % Sodium Chloride Mini Bag 100 ML IVC SCH ×2 (14:40→19:47)
[2018-02-16] MEDS: Nicotine 14 MG PATCH.TD24 TD SCH (15:16)
[2018-02-16] MEDS: Levalbuterol Neb 1.25 MG/3 ML IH SCH ×2 (15:26→22:51)
[2018-02-16] MEDS: Ampicillin/Sulbactam 3,000 MG in 0.9 % Sodium Chloride Mini Bag 100 ML IVPB SCH ×2 (18:28→23:38)
[2018-02-16 19:28] LABS: Adenovirus Not Detected (Not Detect); Bordetella Pertussis Not Detected (Not Detect); Chlamydophila pneumoniae Not Detected (Not Detect); Coronavirus 229E Not Detected (Not Detect); Coronavirus HKU1 Not Detected (Not Detect); Coronavirus NL63 Not Detected (Not Detect); Coronavirus OC43 Not Detected (Not Detect); Human Metapneumovirus Not Detected (Not Detect); Human Rhinovirus/Enterovirus Not Detected (Not Detect); Influenza A Subtype 2009 H1 Not Detected (Not Detect); Influenza A Untypeable Not Detected (Not Detect); Influenza B Not Detected (Not Detect); Mycoplasma pneumoniae Not Detected (Not Detect); Parainfluenza Virus 1 Not Detected (Not Detect); Parainfluenza Virus 2 Not Detected (Not Detect); Parainfluenza Virus 3 Not Detected (Not Detect); Parainfluenza Virus 4 Not Detected (Not Detect); Respiratory Syncytial Virus Not Detected (Not Detect)
[2018-02-16] MEDS: methylPREDNISolone 125 MG/2 ML VIAL IVP SCH (19:50)
[2018-02-16] MEDS: Sucralfate 1 GM TABLET PO SCH (20:09)
[2018-02-16] MEDS: hydrALAZINE 25 MG TABLET PO SCH ×2 (20:09→20:14)
[2018-02-16] MEDS ORDERED: Furosemide 40 MG TABLET PO SCH (21:00)
[2018-02-17] MEDS: Pantoprazole 40 MG in 0.9 % Sodium Chloride Mini Bag 100 ML IVC SCH ×3 (02:26→11:39)
[2018-02-17] MEDS: Levalbuterol Neb 1.25 MG/3 ML IH SCH ×4 (03:26→22:01)
[2018-02-17] MEDS: methylPREDNISolone 125 MG/2 ML VIAL IVP SCH ×3 (03:36→23:43)
[2018-02-17 04:45] LABS: Hematocrit 39.7 % (37.5-50.1); Hemoglobin 13.1 g/dL (12.9-16.9); Immature Granulocytes % 0.3 % (0-4); Lymphocytes # 0.7 K/mcL (0.6-4.6); Lymphocytes % 9.3 %; Mean Corpuscular Hemoglobin 31.3 pg (28.0-33.3); Mean Corpuscular Volume 94.7 fL (83.0-100.0); Mean Platelet Volume 10.5 fL (9.4-12.4); Monocytes # 0.2 K/mcL (0.0-1.3); Monocytes % 2.3 %; Neutrophils # 6.4 K/mcL (1.6-8.9); Platelet Count 156 K/mcL (140-400); Red Blood Count 4.19 M/mcL (4.19-5.50); Red Cell Distribution Width 14.1 % (11.5-14.5); Segmented Neutrophils % 88.1 %
[2018-02-17 04:49] LABS: INR 1.1; Prothrombin Time 12.8 Seconds (9.4-12.1)
[2018-02-17 04:52] LABS: Activated Partial Thrombo Time 31.2 Seconds (26.0-36.0)
[2018-02-17 05:05] LABS: Albumin 3.7 g/dL (3.5-5.7); Albumin/Globulin Ratio 1.2 (1.1-2.2); Calcium 9.3 mg/dL (8.6-10.3); Chol/HDL Ratio 3.1 (0-4.9); Magnesium 2.1 mg/dL (1.6-2.6); Total Protein 6.7 g/dL (6.4-8.9)
[2018-02-17] MEDS: Ampicillin/Sulbactam 3,000 MG in 0.9 % Sodium Chloride Mini Bag 100 ML IVPB SCH ×4 (05:14→23:44)
[2018-02-17] MEDS: Aspirin Enteric Coated 81 MG Tablet PO SCH (07:37)
[2018-02-17] MEDS: Sucralfate 1 GM TABLET PO SCH ×2 (07:37→17:35)
[2018-02-17] MEDS: Nicotine 14 MG PATCH.TD24 TD SCH (07:37)
[2018-02-17 08:11] LABS: Estimated Average Glucose 103 mg/dl; Hemoglobin A1C 5.2 %
[2018-02-17] MEDS ORDERED: Diltiazem CD (24hr) 120 MG CAPSULE PO SCH (09:00)
[2018-02-17] MEDS ORDERED: amLODIPine 5 MG TABLET PO SCH (09:00)
--- NOTE | 2018-02-17 09:35 | Gastroenterology Consult Note ---
<KrystalAracelis Collins - Last Filed: 02/17/18 09:46> Date of Encounter: 02/17/18 Time of Encounter: 08:55 - Assessment and plan (1) Nausea and vomiting Current Visit: Yes Status: Acute Assessment and plan: CT shows esophageal dilation and thickening. Will schedule for EGD today to rule out esophagitis vs malignancy. Continue PPI, carafate and antiemetics. Qualifiers: Vomiting type: cyclical vomiting Vomiting Intractability: non-intractable Qualified Code(s): G43.A0 - Cyclical vomiting, not intractable (2) Hepatic cirrhosis Current Visit: Yes Status: Acute Assessment and plan: Seen on CT abdomen, is compensated, LFTs are normal, would recommend workup as an outpatient. Qualifiers: Hepatic cirrhosis type: unspecified hepatic cirrhosis Ascites presence: without ascites Qualified Code(s): K74.60 - Unspecified cirrhosis of liver (3) Pneumonia Current Visit: Yes Status: Acute Assessment and plan: May be related to chronic aspiration. Has been started on Unasyn by primary care team. Qualifiers: Pneumonia type: aspiration pneumonia Laterality: bilateral Lung location : lower lobe of lung (4) Unintentional weight loss Current Visit: Yes Status: Acute - Time Spent With Patient Total time spent is greater than 50% in coordination of care (as documented) at patient's floor/unit and/or counseling patient: GI History of Present Illness - Data of Consult Patient: new to practice Consult date: 02/17/18 Requesting Physician: Harry Torres - Consult Narrative Reason for consult: nausea, vomiting and weight loss History of present illness: Mr. Lloyd is a 82 year old male w/PMH of aortic aneurysm, arthritis, asthma, atrial fibrillation not on anticoagulation, CHF, COPD, CAD, GERD, previous GI bleed, HLD, HTN, and osteoporosis. He presents from the ED with complaints of nausea and vomiting which has been ongoing for the past couple months but much worse for the past 2-3 weeks. He states he has been unable to keep any food or liquids down. He complains of odynophagia and burning in his throat whenever he tries to eat or drink anything. He was started on omeprazole but states he hasn' t been able to keep that down either. He denies coffee-ground or hematemesis. Pt. reports 33 pound unintentional weight loss since October. Reports hx of SOB d/ t COPD, CHF, asthma, and GERD No alleviating factors. States he smokes 1/2 PPD. Pt. reports cough and wheezing but denies recent illness, fever, chills, changes in vision, headache, unusual bleeding, chest pain, abdominal pain, diarrhea, constipation, dizziness, lightheadedness, numbness, tingling, presyncope, or syncope. Ct of the abdomen and chest showed bilateral pneumonia likely aspiration, hepatic cirrhosis, aortic aneurysm, and dilated esophagus with fluid to the upper thoracic level and circumferential wall thickening in the distal esophagus. He denies nsaids other than a baby asa. He denies coronary stents or pacemaker. He states he uses O2 at home on occasion. EGD 06/13/2012 hiatal hernia, acute gastritis, gastric ulcers with clean base, negative for H. pylori or dysplasia normal duodenum. Colonoscopy June, 4 mm benign polyp in the rectum. Past Med Surg Social Fam HX - Past Medical History Medical history: aortic aneurysm, arthritis, asthma, atrial fibrillation, CHF, COPD, coronary artery disease, GERD, GI bleed, hyperlipidemia, hypertension, osteoporosis, other Additional medical history: Thoracic aortic aneurysm without rupture. Diastolic heart failureLeft ventriculare hypertrophy. DDD. Myalgia. Lumbar stenosis Psychiatric history: no psych history - Past Surgical History Surgical History: cataract, other - Social History Smoking Status: Heavy tobacco smoker Packs per day: 1/2 PPD Smokeless Tobacco Status: No Alcohol use: none Drug use: none - Family History Father Adopted: No Family Member Ethnicity: Non- Living Status: Hx Family Cancer: Yes (prostate) Review of Systems: GI: as per [place] GENERAL: denies fever, has some chills EYES: denies yellow discoloration ENT: see HPI CARDIO: denies chest pain, palpitations RESP: see HPI : denies change in color of urine NEURO: denies any weakness HEME: Denies any bruising MS: denies joint pain, joint swelling or back pain. DERM: denies rash or itching PSYCH: history of anxiety denies depression - Constitutional Vitals: Temp Pulse Resp BP Pulse Ox 97.6 F 103 18 118/72 95 02/17/18 07:00 02/17/18 07:00 02/17/18 07:00 02/17/18 07:00 02/17/18 07:00 Exam: CONSTITUTIONAL:~alert, no acute distress.~HEAD:~normocephalic.~EYES:~no jaundice.~NECK:~no obvious swelling.~HEART:~regular rate and rhythm, no murmurs. ~LUNGS:~bilateral fair air entry, and wheezes.~ABDOMEN:~non distended, soft, non tender, no masses pulpable, no organomegaly.~RECTAL EXAM:~Deferred.~ EXTREMITIES:~no clubbing, cyanosis or edema.~SKIN:~no stigmata of chronic liver disease.~NEUROLOGIC:~no obvious focal defect.~~~~ Results - Labs CBC & Chem 7: 02/17/18 04:10 02/17/18 04:10 Labs: Last Result Calcium 9.3 mg/dL (8.6-10.3) 02/17/18 04:10 Troponin I 0.03 ng/mL (< 0.04) 02/16/18 08:07 Triglycerides 56 mg/dL (< 150) 02/17/18 04:10 Entire Visit Hgb 13.1 g/dL (12.9-16.9) 02/17/18 04:10 Hct 39.7 % (37.5-50.1) 02/17/18 04:10 PT 12.8 Seconds (9.4-12.1) H 02/17/18 04:10 Total Bilirubin 1.0 mg/dL (0.3-1.0) 02/17/18 04:10 AST 22 Units/L (13-39) 02/17/18 04:10 ALT 10 Units/L (7-52) 02/17/18 04:10 Lipase 41 Units/L (11-82) 02/16/18 08:07 - ABG ABG results: PT/INR, D-dimer PT 12.8 Seconds (9.4-12.1) H 02/17/18 04:10 Consult Discharge Plan - Plan Referrals: Connie Hyde MD [Primary Care Provider] - <Keesha Riggins - Last Filed: 02/17/18 13:25> Date of Encounter: 02/17/18 Time of Encounter: 13:00 - Time Spent With Patient Total time spent is greater than 50% in coordination of care (as documented) at patient's floor/unit and/or counseling patient: GI History of Present Illness - Data of Consult Requesting Physician: Harry Torres - Consult Narrative History of present illness: Mr. Lloyd is a 82 year old male - Constitutional Vitals: Temp Pulse Resp BP Pulse Ox 97.5 F L 112 14 131/70 95 02/17/18 12:52 02/17/18 12:52 02/17/18 12:52 02/17/18 12:52 02/17/18 12:52 Results - Labs CBC & Chem 7: 02/17/18 04:10 02/17/18 04:10 Labs: Last Result Calcium 9.3 mg/dL (8.6-10.3) 02/17/18 04:10 Troponin I 0.03 ng/mL (< 0.04) 02/16/18 08:07 Triglycerides 56 mg/dL (< 150) 02/17/18 04:10 Entire Visit Hgb 13.1 g/dL (12.9-16.9) 02/17/18 04:10 Hct 39.7 % (37.5-50.1) 02/17/18 04:10 PT 12.8 Seconds (9.4-12.1) H 02/17/18 04:10 Total Bilirubin 1.0 mg/dL (0.3-1.0) 02/17/18 04:10 AST 22 Units/L (13-39) 02/17/18 04:10 ALT 10 Units/L (7-52) 02/17/18 04:10 Lipase 41 Units/L (11-82) 02/16/18 08:07 - ABG ABG results: PT/INR, D-dimer PT 12.8 Seconds (9.4-12.1) H 02/17/18 04:10 - Attending Attestation I have personally performed a face to face evaluation on this patient. I have reviewed and agree with the care plan. History and Exam by me shows: Patient seen. Patient with dysphagia and weight loss and abnormal CT of the esophagus. On examination no epigastric tenderness. Assessment: Abnormal CT of the esophagus in this patient with dysphagia rule out esophagitis rule out mass. Recommendation : EGD
--- NOTE | 2018-02-17 10:59 | Anesthesia Evaluation PreOp ---
Date of Encounter: 02/17/18 Time of Encounter: 13:31 - Past History Planned Operation: EGD Cardiac History: CHF, HTN, Hyperlipidemia, Arrhythmia (PAF RVR ON ADMISSION), Other (CAD, TAAA) Pulmonary History: Smoker, Asthma, COPD, Other (NAYELI LOWER LOBE PNEUMONIA) Other Medical History: Renal (CKD, SAMSON), Other (ESOPHAGEAL DILATION, 33 LB UNINTENDED WEIGHT LOSS OVER 4 MONTHS) Anesthesia History: No Prior Anesthetic Complications, Past Anesthesia Alcohol Use: none Drug use: none Medications and Allergies Furosemide [Lasix] 40 mg PO BID 11/12/15 [History] Hydralazine HCl 50 mg PO BID 11/12/15 [History] Atenolol [Tenormin] 50 mg PO BID 11/13/15 [History] Calcium Carbonate [Tums] 1,000 mg PO Q4HR PRN 11/13/15 [History] Docusate [Colace] 100 mg PO DAILY PRN 11/13/15 [History] Ipratropium/Albuterol Neb [Duoneb] 3 ml IH Q6HR 11/13/15 [History] Ipratropium/Albuterol Sulfate [Combivent Respimat Inhal Winter] 1 puff IH Q6HR PRN 11/13/15 [History] Polyethylene Glycol 3350 [MiraLAX] 17 gm PO DAILY PRN 11/13/15 [History] amLODIPine [Norvasc] 5 mg PO DAILY 11/13/15 [History] Aspirin [[place] Aspirin EC] 81 mg PO DAILY 02/16/18 [History] Diltiazem HCl [Diltiazem 24Hr Cd] 120 mg PO DAILY 02/16/18 [History] Losartan Potassium [Cozaar] 100 mg PO DAILY 02/16/18 [History] Omeprazole [PriLOSEC] 40 mg PO BID 02/16/18 [History] Sucralfate [Carafate] 1 tab PO BID 02/16/18 [History] Tamsulosin [Flomax] 0.4 mg PO DAILY 02/16/18 [History] 3 Allergy/AdvReac Type Severity Reaction Status Date / Time clonidine Allergy Vomiting Verified 02/16/18 10:08 Warfarin [From Coumadin] Allergy See Verified 02/16/18 10:08 Comments - Meds/Allergy Pre-op Review Medications Reviewed: Yes Allergies Reviewed: Yes Beta Blockers on Current Med List: Yes Anesthesia Results - Labs 02/17/18 04:10 02/17/18 04:10 Laboratory Last Values WBC 7.3 K/mcL (4.3-11.1) 02/17/18 04:10 RBC 4.19 M/mcL (4.19-5.50) 02/17/18 04:10 Hgb 13.1 g/dL (12.9-16.9) 02/17/18 04:10 Hct 39.7 % (37.5-50.1) 02/17/18 04:10 MCV 94.7 fL (83.0-100.0) 02/17/18 04:10 MCH 31.3 pg (28.0-33.3) 02/17/18 04:10 MCHC 33.0 g/dL (31.6-35.5) 02/17/18 04:10 RDW 14.1 % (11.5-14.5) 02/17/18 04:10 Plt Count 156 K/mcL (140-400) 02/17/18 04:10 MPV 10.5 fL (9.4-12.4) 02/17/18 04:10 Immature Gran % 0.3 % (0-4) 02/17/18 04:10 Seg Neutrophils % 88.1 % 02/17/18 04:10 Lymphocytes % 9.3 % 02/17/18 04:10 Monocytes % 2.3 % 02/17/18 04:10 Eosinophils % 0.0 % 02/17/18 04:10 Basophils % 0.0 % 02/17/18 04:10 Neutrophils # 6.4 K/mcL (1.6-8.9) 02/17/18 04:10 Lymphocytes # 0.7 K/mcL (0.6-4.6) 02/17/18 04:10 Monocytes # 0.2 K/mcL (0.0-1.3) 02/17/18 04:10 Eosinophils # 0.0 K/mcL (0.0-0.6) 02/17/18 04:10 Basophils # 0.0 K/mcL (0.0-0.2) 02/17/18 04:10 PT 12.8 Seconds (9.4-12.1) H 02/17/18 04:10 INR 1.1 02/17/18 04:10 APTT 31.2 Seconds (26.0-36.0) 02/17/18 04:10 Sodium 143 mEq/L (136-145) 02/17/18 04:10 Potassium 4.0 mEq/L (3.5-5.1) 02/17/18 04:10 Chloride 103 mEq/L (98-107) 02/17/18 04:10 Carbon Dioxide 26 mEq/L (23-29) 02/17/18 04:10 BUN 42 mg/dL (8-23) H 02/17/18 04:10 Creatinine 1.45 mg/dL (0.70-1.30) H 02/17/18 04:10 Est GFR ( Amer) 57 (> 60) L 02/17/18 04:10 Est GFR (Non-Af Amer) 47 (> 60) L 02/17/18 04:10 BUN/Creatinine Ratio 29 (6-26) H 02/17/18 04:10 Glucose 134 mg/dL (70-105) H 02/17/18 04:10 Est Mean Plasma Glucose 103 mg/dl 02/17/18 04:10 Hemoglobin A1c 5.2 % (-5.6) 02/17/18 04:10 Calculated Osmolality 308 (280-300) H 02/17/18 04:10 Lactic Acid 1.3 mmol/L (0.5-2.2) 02/16/18 10:10 Calcium 9.3 mg/dL (8.6-10.3) 02/17/18 04:10 Magnesium 2.1 mg/dL (1.6-2.6) 02/17/18 04:10 Total Bilirubin 1.0 mg/dL (0.3-1.0) 02/17/18 04:10 Direct Bilirubin 0.6 mg/dL (0.0-0.2) H 02/16/18 08:07 Indirect Bilirubin 1.1 mg/dL (0.0-1.2) 02/16/18 08:07 AST 22 Units/L (13-39) 02/17/18 04:10 ALT 10 Units/L (7-52) 02/17/18 04:10 Alkaline Phosphatase 66 Units/L (34-104) 02/17/18 04:10 Troponin I 0.03 ng/mL (< 0.04) 02/16/18 08:07 B-Natriuretic Peptide 485 pg/mL (Less than 100) H 02/16/18 08:07 Serum Total Protein 6.7 g/dL (6.4-8.9) 02/17/18 04:10 Albumin 3.7 g/dL (3.5-5.7) 02/17/18 04:10 Globulin 3.0 g/dL (2.4-3.5) 02/17/18 04:10 Albumin/Globulin Ratio 1.2 (1.1-2.2) 02/17/18 04:10 Triglycerides 56 mg/dL (< 150) 02/17/18 04:10 Cholesterol 110 mg/dL (< 200) 02/17/18 04:10 LDL Cholesterol, Calc 63 mg/dL (0-99) 02/17/18 04:10 VLDL Cholesterol, Calc 11 mg/dL (< 31) 02/17/18 04:10 HDL Cholesterol 36 mg/dL (40-59) L 02/17/18 04:10 Cholesterol/HDL Ratio 3.1 (0-4.9) 02/17/18 04:10 Lipase 41 Units/L (11-82) 02/16/18 08:07 Chlamy pneumoniae PCR Not Detected (Not Detect) 02/16/18 14:35 Adenovirus (PCR) Not Detected (Not Detect) 02/16/18 14:35 B. pertussis DNA (PCR) Not Detected (Not Detect) 02/16/18 14:35 B.parapertussis DNA PCR Not Detected (Not Detect) 02/16/18 14:35 Coronavirus OC43 (PCR) Not Detected (Not Detect) 02/16/18 14:35 Coronavirus HKU1 (PCR) Not Detected (Not Detect) 02/16/18 14:35 Coronavirus 229E (PCR) Not Detected (Not Detect) 02/16/18 14:35 Coronavirus NL63 (PCR) Not Detected (Not Detect) 02/16/18 14:35 Human Metapneumovir PCR Not Detected (Not Detect) 02/16/18 14:35 Influenza A (H1) PCR Not Detected (Not Detect) 02/16/18 14:35 Influ A (H1N1/09) PCR Not Detected (Not Detect) 02/16/18 14:35 Influenza A (H3) PCR Not Detected (Not Detect) 02/16/18 14:35 Influenza A Untype (PCR) Not Detected (Not Detect) 02/16/18 14:35 Influenza Type B (PCR) Not Detected (Not Detect) 02/16/18 14:35 M.pneumoniae DNA (PCR) Not Detected (Not Detect) 02/16/18 14:35 Parainfluenza 1 (PCR) Not Detected (Not Detect) 02/16/18 14:35 Parainfluenza 2 (PCR) Not Detected (Not Detect) 02/16/18 14:35 Parainfluenza 3 (PCR) Not Detected (Not Detect) 02/16/18 14:35 Parainfluenza 4 (PCR) Not Detected (Not Detect) 02/16/18 14:35 RSV (PCR) Not Detected (Not Detect) 02/16/18 14:35 Entero/Rhino (PCR) Not Detected (Not Detect) 02/16/18 14:35 - Imaging Additional studies: TTE 11/2015: LVEF 55%. Normal left ventricular size and systolic function. Indeterminate diastolic function. Dilated RV with normal function. Moderate aortic regurgitation. Mild mitral regurgitation. Mild tricuspid regurgitation. Estimated RVSP was 41 mmHg. Mild pulmonary hypertension. Dilated aortic root measuring 4.6 cm. Ascending aorta is not well visualized. Anesthesia Exam Vital Signs/O2 Sat, Most Current Temp Pulse Resp BP Pulse Ox 97.6 F 96 18 118/62 95 02/17/18 10:36 02/17/18 10:36 02/17/18 10:36 02/17/18 10:36 02/17/18 10:36 NPO (# of Hours): 8 - HEENT Mallampati: I Teeth: Poor dentition Oral Opening: Greater than 3 - Cardiac Rhythm: Regular - Pulmonary Breath Sounds: bilateral Clear Respiratory Effort: Symmetrical - Additional Findings Active Medications Acetaminophen (Tylenol) 650 mg PO Q6H PRN PRN Reason: Mild Pain/Fever Stop: 08/18/18 13:04 Amlodipine Besylate (Norvasc) 5 mg PO DAILY [facility] PRN Reason: Protocol Stop: 08/19/18 09:01 Aspirin (Aspirin Ec) 81 mg PO DAILY [facility] Stop: 08/19/18 09:01 Last Admin: 02/17/18 07:37 Dose: 81 mg Atenolol (Tenormin) 50 mg PO BID [facility] Stop: 08/18/18 21:01 Last Admin: 02/16/18 20:09 Dose: 50 mg Calcium Carbonate (Tums) 1,000 mg PO Q4H PRN; Protocol PRN Reason: Heartburn Stop: 08/18/18 13:14 Diltiazem HCl (Cardizem Cd) 120 mg PO DAILY [facility] Stop: 08/19/18 09:01 Furosemide (Lasix) 40 mg PO BIDDIURETIC [facility] Stop: 08/19/18 17:01 Hydralazine HCl (Hydralazine) 50 mg PO BID [facility] Stop: 08/18/18 21:01 Last Admin: 02/16/18 20:14 Dose: 50 mg Diltiazem HCl 50 mg/ Sodium (Chloride) 50 mls @ 5 mls/hr IVC .Q10H [facility]; 5 MG/HR PRN Reason: Protocol Stop: 08/18/18 09:46 Last Admin: 02/17/18 07:34 Dose: 15 mg/hr, 15 mls/hr Ampicillin Sodium/Sulbactam Sodium 3,000 mg/ Sodium Chloride 100 mls @ 200 mls/ hr IVPB Q6HR [facility] Stop: 08/18/18 18:01 Last Infusion: 02/17/18 05:50 Dose: Infused Levalbuterol HCl (Xopenex) 1.25 mg IH [id number] [facility] Stop: 08/18/18 16:01 Last Admin: 02/17/18 10:49 Dose: 1.25 mg Losartan Potassium (Cozaar) 100 mg PO DAILY [facility] Stop: 08/19/18 09:01 Methylprednisolone (Solu-Medrol) 60 mg IVP Q8HR [facility] Stop: 08/19/18 08:01 Naloxone HCl (Narcan) 0.4 mg IVP Q2MIN PRN PRN Reason: SEE COMMENTS Stop: 08/18/18 13:04 Nicotine (Nicoderm) 14 mg TD DAILY [facility] PRN Reason: Protocol Stop: 08/18/18 13:46 Last Admin: 02/17/18 07:37 Dose: 14 mg Ondansetron HCl (Zofran) 4 mg IVP Q4H PRN; Protocol PRN Reason: Nausea And Vomiting Stop: 08/18/18 13:14 Pantoprazole Sodium (Protonix) 40 mg IVP Q12HR [facility] Stop: 08/19/18 10:07 Promethazine HCl (Phenergan) 12.5 mg IVP Q4H PRN PRN Reason: Nausea And Vomiting Stop: 08/18/18 13:14 Sucralfate (Carafate) 1 gm PO 0730,1630 [facility] Stop: 08/19/18 16:31 Tamsulosin HCl (Flomax) 0.4 mg PO DAILY [facility] PRN Reason: Protocol Stop: 08/19/18 09:01 Last Admin: 02/17/18 07:36 Dose: 0.4 mg Anesthesia Assess/Plan ASA Score: 3 Anesthetic Plan: MAC Monitoring Plan: Standard Monitors Recovery Plan: Other
--- NOTE | 2018-02-17 11:14 | Electrocardiograph Report ---
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
[2018-02-17] MEDS: 0.9 % Sodium Chloride w KCl 20 MEQ/1,000 ML MLS IVC SCH (11:37)
[2018-02-17] MEDS: Pantoprazole 40 MG VIAL IVP SCH ×2 (11:52→17:35)
[2018-02-17] MEDS ORDERED: Lidocaine -MPF 2% 2 ML VIAL ONE (12:20)
[2018-02-17] MEDS ORDERED: *HR* Propofol 200 MG/20 ML VIAL IVP ONE (12:22)
[2018-02-17] MEDS ORDERED: 0.9 % Sodium Chloride 500 ML IVC SCH (13:00)
[2018-02-17] MEDS ORDERED: Furosemide 40 MG TABLET PO SCH (17:00)
--- NOTE | 2018-02-18 00:09 | Internal Med Progress Note ---
Hospitalist Progress Note - Encounter Date of Encounter: 02/17/18 Time of Encounter: 19:00 - Subjective Interval History: SUBJECTIVE: The patient feels better. Her nausea and vomiting are under control, when he is taking antiemetics. He continues to have mild/moderate midepigastric pain. Denies chest pain. Denies difficulty breathing; on room air oxygen. He makes fair amounts of urine. OBJECTIVE: Skin: Free of rash and discoloration. ENMT: Oral/pharyngeal mucosa is normal in appearance. Eyes: Sclera is white. There is no discharge from eyes. Respiratory: Normal breath sounds; no crackles or wheezes. CV: Heart is regular; no gallop or murmur. GI: Abdomen is soft and not tender. There is no palpable mass or visceromegaly. Neuro: There is no focal deficits. ADDITIONAL DATA: Upper endoscopy is pending. CBC shows normal findings. Pro time INR is 1.1. Electrolytes are normal. Creatinine is 1.45; 1.29 yesterday. ASSESSMENT AND PLAN: This patient likely developed aspiration pneumonia secondary to nausea and vomiting due to some process in the lower esophagus. It could be esophagitis secondary to long-standing/severe GERD. The patient is treated with Unasyn. He additionally gets Solu-Medrol and nebulizer treatments with Xopenex. He is on Protonix IV drip. Acute kidney injury. Secondary to loss of body fluids. We will continue IV fluids. Chronic atrial fibrillation. Rate controlled. We will continue Cardizem CD. He has underlying aortic aneurysm of ascending aorta. This will require outpatient follow-up visits with cardiovascular surgeon. Hypertension. Seems to be under control. We will continue atenolol, Cardizem CD and amlodipine. COPD. Stable. It is not oxygen dependent. We will continue nebulizer treatments with Xopenex. - Exam Vitals: Temp Pulse Resp BP Pulse Ox 98.3 F 115 18 114/55 92 02/17/18 23:32 02/17/18 23:32 02/17/18 23:32 02/17/18 23:32 02/17/18 23:32 Exam: xx - Assessment and Plan (1) Aspiration pneumonia Current Visit: Yes Status: Acute (2) Esophagitis Current Visit: Yes Status: Acute (3) Nausea and vomiting Current Visit: Yes Status: Acute (4) GERD (gastroesophageal reflux disease) Current Visit: Yes Status: Chronic (5) SAMSON (acute kidney injury) Current Visit: Yes Status: Acute (6) Aortic aneurysm Current Visit: Yes Status: Chronic (7) Atrial fibrillation Current Visit: No Status: Chronic (8) HTN (hypertension) Current Visit: Yes Status: Chronic (9) COPD (chronic obstructive pulmonary disease) Current Visit: Yes Status: Chronic - Time Spent with Patient Total time spent is greater than 50% in coordination of care (as documented) at patient's floor/unit and/or counseling patient: 25 - 35 minutes Plan of Care Discussed with: patient Internal Medicine: Result - Labs CBC & Chem 7: 02/17/18 04:10 02/17/18 04:10 - ABG Interpretation ABG results: PT/INR, D-dimer PT 12.8 Seconds (9.4-12.1) H 02/17/18 04:10 Consult Discharge Plan - Plan Referrals: Connie Hyde MD [Primary Care Provider] - (1) Aspiration pneumonia Qualifiers: Aspiration pneumonia type: due to regurgitated food Laterality: bilateral Lung location: lower lobe of lung Qualified Code(s): J69.0 - Pneumonitis due to inhalation of food and vomit (3) Nausea and vomiting Qualifiers: Vomiting type: cyclical vomiting Vomiting Intractability: non-intractable Qualified Code(s): 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 - Cyclical vomiting, not intractable (4) GERD (gastroesophageal reflux disease) Qualifiers: Esophagitis presence: with esophagitis Qualified Code(s): K21.0 - Gastro- esophageal reflux disease with esophagitis (6) Aortic aneurysm Qualifiers: Aortic location: thoracic aorta Presence of rupture: without rupture Qualified Code(s): I71.2 - Thoracic aortic aneurysm, without rupture (7) Atrial fibrillation Qualifiers: Atrial fibrillation type: chronic Qualified Code(s): I48.2 - Chronic atrial fibrillation (8) HTN (hypertension) Qualifiers: Hypertension type: essential hypertension Qualified Code(s): I10 - Essential (primary) hypertension (9) 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
[2018-02-18] MEDS: Levalbuterol Neb 1.25 MG/3 ML IH SCH ×4 (03:48→21:53)
[2018-02-18] MEDS: Pantoprazole 40 MG VIAL IVP SCH ×2 (05:21→16:33)
[2018-02-18] MEDS: Ampicillin/Sulbactam 3,000 MG in 0.9 % Sodium Chloride Mini Bag 100 ML IVPB SCH ×3 (05:21→16:34)
[2018-02-18] MEDS: 0.9 % Sodium Chloride w KCl 20 MEQ/1,000 ML MLS IVC SCH (05:22)
[2018-02-18 05:24] LABS: Hematocrit 38.6 % (37.5-50.1); Hemoglobin 12.7 g/dL (12.9-16.9); Immature Granulocytes % 0.4 % (0-4); Lymphocytes # 0.4 K/mcL (0.6-4.6); Lymphocytes % 5.6 %; Mean Corpuscular HGB Conc 32.9 g/dL (31.6-35.5); Mean Corpuscular Hemoglobin 31.2 pg (28.0-33.3); Mean Corpuscular Volume 94.8 fL (83.0-100.0); Mean Platelet Volume 10.2 fL (9.4-12.4); Monocytes # 0.2 K/mcL (0.0-1.3); Monocytes % 2.5 %; Neutrophils # 6.9 K/mcL (1.6-8.9); Platelet Count 146 K/mcL (140-400); Red Blood Count 4.07 M/mcL (4.19-5.50); Segmented Neutrophils % 91.5 %
[2018-02-18 05:41] LABS: Alanine Aminotransferase 13 Units/L (7-52); Albumin 3.5 g/dL (3.5-5.7); Albumin/Globulin Ratio 1.4 (1.1-2.2); Alkaline Phosphatase 58 Units/L (34-104); Aspartate Amino Transferase 34 Units/L (13-39); BUN/Creatinine Ratio 35 (6-26); Bilirubin,Total 0.7 mg/dL (0.3-1.0); Blood Urea Nitrogen 44 mg/dL (8-23); Calcium 8.8 mg/dL (8.6-10.3); Carbon Dioxide 25 mEq/L (23-29); Chloride 109 mEq/L (98-107); Globulin 2.5 g/dL (2.4-3.5); Glucose 136 mg/dL (70-105); Osmolality,Calculated 317 (280-300); Potassium 3.5 mEq/L (3.5-5.1); Sodium 147 mEq/L (136-145); eGFR For Non-African Americans 56 (> 60)
[2018-02-18] MEDS: methylPREDNISolone 125 MG/2 ML VIAL IVP SCH (08:17)
[2018-02-18] MEDS: Nicotine 14 MG PATCH.TD24 TD SCH (08:17)
[2018-02-18] MEDS: Sucralfate 1 GM TABLET PO SCH ×2 (08:17→16:33)
[2018-02-18] MEDS: Aspirin Enteric Coated 81 MG Tablet PO SCH (08:17)
--- NOTE | 2018-02-18 09:02 | Gastroenterology Progress Note ---
Date of Encounter: 02/19/18 Time of Encounter: 08:45 - Assessment and plan (1) Esophageal obstruction Current Visit: Yes Status: Acute Assessment and plan: S/p EGD, pt has ulceration and likely mass at GE junction, biopsies are pending. Will be difficult to stent due to the location and would be at high risk for migration. He may need j-tube. He is advised only ice chips or small sips of clear liquids. Pt and his informed of EGD results and verbalize understanding, Dr Riggins to discuss treatment options with pt and when pathology is complete. (2) Nausea and vomiting Current Visit: Yes Status: Resolved Assessment and plan: Continue PPI, carafate and antiemetics. Qualifiers: Vomiting type: cyclical vomiting Vomiting Intractability: non-intractable Qualified Code(s): G43.A0 - Cyclical vomiting, not intractable (3) Hepatic cirrhosis Current Visit: Yes Status: Acute Assessment and plan: Seen on CT abdomen, is compensated, LFTs are normal, would recommend workup as an outpatient. Qualifiers: Hepatic cirrhosis type: unspecified hepatic cirrhosis Ascites presence: without ascites Qualified Code(s): K74.60 - Unspecified cirrhosis of liver (4) Pneumonia Current Visit: Yes Status: Acute Assessment and plan: Likely chronic aspiration, advised only small sips of clear liquids. Has been started on Unasyn by primary care team. Qualifiers: Pneumonia type: due to unspecified organism Laterality: bilateral Lung location: lower lobe of lung Qualified Code(s): J18.1 - Lobar pneumonia, unspecified organism (5) Unintentional weight loss Current Visit: Yes Status: Acute - Time Spent With Patient Total time spent is greater than 50% in coordination of care (as documented) at patient's floor/unit and/or counseling patient: - Subjective Interval history: 82 year old male who is status post EGD which showed severe stricture, likely mass at GE junction. He also had ulcers in the esophagus. He is tolerating small sips of clear liquids. - Constitutional Vitals: Temp Pulse Resp BP Pulse Ox 98.1 F 120 18 117/75 93 02/18/18 05:12 02/18/18 05:12 02/18/18 05:12 02/18/18 08:56 02/18/18 05:12 Exam: CONSTITUTIONAL:~alert, no acute distress.~HEAD:~normocephalic.~EYES:~no jaundice.~NECK:~no obvious swelling.~HEART:~regular rate and rhythm, no murmurs.~LUNGS:~bilateral fair air entry, bilateral wheezes noted.~ABDOMEN:~non distended, soft, non tender, no masses palpable, no organomegaly.~RECTAL EXAM:~Deferred.~EXTREMITIES:~no clubbing, cyanosis or edema.~SKIN:~no stigmata of chronic liver disease.~NEUROLOGIC:~no obvious focal defect.~~~~ Results - Labs CBC & Chem 7: 02/19/18 04:40 02/19/18 04:40 Labs: Last Result Calcium 8.8 mg/dL (8.6-10.3) 02/18/18 05:00 Troponin I 0.03 ng/mL (< 0.04) 02/16/18 08:07 Triglycerides 56 mg/dL (< 150) 02/17/18 04:10 Entire Visit Hgb 12.7 g/dL (12.9-16.9) L 02/18/18 05:00 Hct 38.6 % (37.5-50.1) 02/18/18 05:00 PT 12.8 Seconds (9.4-12.1) H 02/17/18 04:10 Total Bilirubin 0.7 mg/dL (0.3-1.0) 02/18/18 05:00 AST 34 Units/L (13-39) 02/18/18 05:00 ALT 13 Units/L (7-52) 02/18/18 05:00 Lipase 41 Units/L (11-82) 02/16/18 08:07 - ABG ABG results: PT/INR, D-dimer PT 12.8 Seconds (9.4-12.1) H 02/17/18 04:10 Consult Discharge Plan - Plan Referrals: Connie Hyde MD [Primary Care Provider] -
[2018-02-18] MEDS: *HR* Metoprolol 5 MG/5 ML VIAL IVP SCH ×3 (09:09→09:28)
--- NOTE | 2018-02-18 10:01 | Internal Med Progress Note ---
Hospitalist Progress Note - Encounter Date of Encounter: 02/18/18 Time of Encounter: 10:01 - Subjective Interval History: Seen and evaluated at the bedside with his Continues to have difficulty swallowing Heart rate is uncontrolled on Cardizem drip He denies any new complaints EGD from 02/17 noted. Pinhole sized esophagus and mass at that she EEG which was biopsied Consult surgery for PEG tube placement as recommended by GI, patient and his educated about the new findings and agreed with plan of care - Exam Vitals: Temp Pulse Resp BP Pulse Ox 98.1 F 120 18 117/75 93 02/18/18 05:12 02/18/18 05:12 02/18/18 05:12 02/18/18 08:56 02/18/18 05:12 Exam: Gen: Elderly male in no form of distress, alert and awake and oriented 3 Skin: Free of rash and discoloration. ENMT: Oral/pharyngeal mucosa is normal in appearance. Eyes: Sclera is white. There is no discharge from eyes. Respiratory: Normal breath sounds; no crackles or wheezes. CV:Irregular rhythm, no m/g/r, tachcyardic GI: Abdomen is soft and not tender. There is no palpable mass or visceromegaly. Neuro: There is no focal deficits. - Assessment and Plan (1) Atrial fibrillation Current Visit: Yes Status: Acute Assessment and Plan: Uncontrolled HR Continue cardizem Resume home dose of atenolol (crushed) Add metoprolol IV prn (with hold ordered for low BP) ECHO noted for decreased EF 45-50% and multiple WM hypokinesis, EF from 2016 was WNL Will consult cardiology Continue other home meds (2) Esophagitis Current Visit: Yes Status: Acute Assessment and Plan: Acute on chronic esophagitis d/t poorly controlled GERD. CT 02/16 shows dilated esophagus with fluid to the upper thoracic level and circumferential bulging thickening in the distal esophagus. This may be secondary to chronic reflux esophagitis but would recommend endoscopic correlation. GI review noted s/p EGD with regional sphincter also to size of a pinhole scope was not able to be passed, ulcerated lesion on the lower end of the esophagus near the GE junction was biopsied, middle esophagus pretty contained multiple oval-shaped also started biopsied was superficial. Continue nothing by mouth status Continue PPIs Consult general surgery for PEG tube placement as recommended by GI Nothing by mouth except medications (3) Nausea and vomiting Current Visit: Yes Status: Acute Assessment and Plan: as above (4) Aspiration pneumonia Current Visit: Yes Status: Acute Assessment and Plan: Acute aspiration pneumonia r/t recurrent nausea and vomiting for the past 2-3 weeks. States he is unable to keep any food or liquids down and vomits when he tries to eat. CT of the chest 02/16 showed new patchy multifocal airspace disease in both lungs with bronchiectasis and peribronchial cuffing as well as endobronchial opacification in both lower lobes. Continue Unasyn (5) Aortic aneurysm Current Visit: Yes Status: Chronic Assessment and Plan: He has underlying aortic aneurysm of ascending aorta. This will require outpatient follow-up visits with cardiovascular surgeon. (6) COPD (chronic obstructive pulmonary disease) Current Visit: Yes Status: Chronic Assessment and Plan: Hx of chronic COPD. Stable. Wean off solumedrol Continue nebs prn (7) GERD (gastroesophageal reflux disease) Current Visit: Yes Status: Chronic Assessment and Plan: see esophagitis (8) HTN (hypertension) Current Visit: Yes Status: Chronic Assessment and Plan: Continue current meds (9) SAMSON (acute kidney injury) Current Visit: Yes Status: Acute Assessment and Plan: Improved Discontinue current IVF regimen Resume d5/Normal saline if surgery is postponed Consider nutrition eval (10) Esophageal obstruction Current Visit: Yes Status: Acute Assessment and Plan: Due to ulcerated mass GI eval appreciated (11) Malnutrition Current Visit: Yes Status: Acute Assessment and Plan: continue current care (12) CHF (congestive heart failure) Current Visit: Yes Status: Acute Assessment and Plan: Consult cardiology Currently euvolemic - Time Spent with Patient Total time spent is greater than 50% in coordination of care (as documented) at patient's floor/unit and/or counseling patient: Plan of Care Discussed with: family Internal Medicine: Result - Labs CBC & Chem 7: 02/18/18 05:00 02/18/18 05:00 Labs: Short CBC 02/18/18 Range/Units 05:00 WBC 7.5 (4.3-11.1) K/mcL Hgb 12.7 L (12.9-16.9) g/dL Hct 38.6 (37.5-50.1) % Plt Count 146 (140-400) K/mcL Neutrophils # 6.9 (1.6-8.9) K/mcL BMP 02/18/18 05:00 Sodium 147 H Potassium 3.5 Chloride 109 H Carbon Dioxide 25 BUN 44 H Creatinine 1.25 Glucose 136 H Calcium 8.8 Liver Function 02/18/18 Range/Units 05:00 Total Bilirubin 0.7 (0.3-1.0) mg/dL AST 34 (13-39) Units/L ALT 13 (7-52) Units/L Alkaline Phosphatase 58 (34-104) Units/L Albumin 3.5 (3.5-5.7) g/dL - ABG Interpretation ABG results: PT/INR, D-dimer PT 12.8 Seconds (9.4-12.1) H 02/17/18 04:10 Consult Discharge Plan - Plan Referrals: Connie Hyde MD [Primary Care Provider] - (1) Atrial fibrillation Qualifiers: Atrial fibrillation type: chronic Qualified Code(s): I48.2 - Chronic atrial fibrillation (3) Nausea and vomiting Qualifiers: Vomiting type: cyclical vomiting Vomiting Intractability: non-intractable Qualified Code(s): G43.A0 - Cyclical vomiting, not intractable (4) Aspiration pneumonia Qualifiers: Aspiration pneumonia type: due to regurgitated food Laterality: bilateral Lung location: lower lobe of lung Qualified Code(s): J69.0 - Pneumonitis due to inhalation of food and vomit (5) Aortic aneurysm Qualifiers: Aortic location: thoracic aorta Presence of rupture: without rupture Qualified Code(s): I71.2 - Thoracic aortic aneurysm, without rupture (6) 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 (7) GERD (gastroesophageal reflux disease) Qualifiers: Esophagitis presence: with esophagitis Qualified Code(s): K21.0 - Gastro- esophageal reflux disease with esophagitis (8) HTN (hypertension) Qualifiers: Hypertension type: essential hypertension Qualified Code(s): I10 - Essential (primary) hypertension (11) Malnutrition Qualifiers: Malnutrition type: protein-calorie malnutrition Protein-calorie malnutrition severity: severe Qualified Code(s): E43 - Unspecified severe protein-calorie malnutrition (12) CHF (congestive heart failure) Qualifiers: Heart failure type: systolic Heart failure chronicity: acute Qualified Code( s): I50.21 - Acute systolic (congestive) heart failure
[2018-02-18] MEDS: MethylPREDNISolone 40 MG/ML VIAL IVP SCH (16:33)
--- NOTE | 2018-02-18 16:51 | General Surgery Consult Note ---
<Maira Stinson - Last Filed: 02/18/18 18:10> Date of Encounter: 02/18/18 Time of Encounter: 16:42 Assessment and Plan (1) Esophageal obstruction Current Visit: Yes Status: Acute Per patients' wishes we will await pathology report from esophageal ulcers before making any surgical plans. - we would suggest diet changed to clears per primary and GI - agree with consulting nutrition for clear liquid supplements Surgery will continue to follow History of Present Illness Consult date: 02/18/18 Reason for consult: abdominal pain Requesting physician: Rivera Garner History of present illness: 82 y/o male with multiple chronic medial conditions presented with nausea and vomiting was found to have distal esophagus wall thickening on CT resulting in dilations of esophagus. He was evaluated by GI and under went a endoscope on that found a pinhole sized esophageal sphincter that would not allow scope to pass with multiple ulcers with biospy pending. GI suspects mass at GE junctions and suggests peg tube for feeding thus the surgical consult. Patient admits to 3-4 months of dysphasia with inability to consume meat that worsened over the last 2 weeks . He has emesis when ever he attempts to consume a significant volume. He has burning acid reflux pain. Last full meal was over 2 weeks ago with weight loss of 38lns since October. History of chronic constipation. He had no surgical history. Past Med Surg Social Fam HX - Past Medical History Medical history: aortic aneurysm, arthritis, asthma, atrial fibrillation, CHF, COPD, coronary artery disease, GERD, GI bleed, hyperlipidemia, hypertension, osteoporosis, other Additional medical history: Thoracic aortic aneurysm without rupture. Diastolic heart failureLeft ventriculare hypertrophy. DDD. Myalgia. Lumbar stenosis Psychiatric history: no psych history - Past Surgical History Surgical History: cataract, other - Social History Smoking Status: Heavy tobacco smoker Packs per day: 1/2 PPD Smokeless Tobacco Status: No Alcohol use: none Drug use: none - Family History Father Adopted: No Family Member Ethnicity: Non- Living Status: Hx Family Cancer: Yes (prostate) Medications and Allergies Furosemide [Lasix] 40 mg PO BID 11/12/15 [History] Hydralazine HCl 50 mg PO BID 11/12/15 [History] Atenolol [Tenormin] 50 mg PO BID 11/13/15 [History] Calcium Carbonate [Tums] 1,000 mg PO Q4HR PRN 11/13/15 [History] Docusate [Colace] 100 mg PO DAILY PRN 11/13/15 [History] Ipratropium/Albuterol Neb [Duoneb] 3 ml IH Q6HR 11/13/15 [History] Ipratropium/Albuterol Sulfate [Combivent Respimat Inhal [place]] 1 puff IH Q6HR PRN 11/13/15 [History] Polyethylene Glycol 3350 [MiraLAX] 17 gm PO DAILY PRN 11/13/15 [History] amLODIPine [Norvasc] 5 mg PO DAILY 11/13/15 [History] Aspirin [[place] Aspirin EC] 81 mg PO DAILY 02/16/18 [History] Diltiazem HCl [Diltiazem 24Hr Cd] 120 mg PO DAILY 02/16/18 [History] Losartan Potassium [Cozaar] 100 mg PO DAILY 02/16/18 [History] Omeprazole [PriLOSEC] 40 mg PO BID 02/16/18 [History] Sucralfate [Carafate] 1 tab PO BID 02/16/18 [History] Tamsulosin [Flomax] 0.4 mg PO DAILY 02/16/18 [History] 3 Allergy/AdvReac Type Severity Reaction Status Date / Time clonidine Allergy Vomiting Verified 02/16/18 10:08 Warfarin [From Coumadin] Allergy See Verified 02/16/18 10:08 Comments Review of Systems All systems PM: The remainder of the systems were reviewed and are negative - Constitutional no chills, no fever(s) - Cardiovascular no chest pain, no irregular heart rhythm, no palpitations - Respiratory cough, dyspnea on exertion, chest congestion - Gastrointestinal constipation, dyspepsia, dysphagia, early satiety, nausea, vomiting - Genitourinary no dysuria, no hematuria, no urinary incontinence - Musculoskeletal no arthralgias, no joint swelling - Neurological no burning sensations, no headache(s), no syncope General Surgery Exam Initial Vital Signs Temp Pulse Resp BP Pulse Ox 98.3 F 127 24 123/80 93 02/16/18 07:48 02/16/18 07:48 02/16/18 07:48 02/16/18 07:48 02/16/18 07:48 - General physical appearance well developed, no distress, cachectic - Eyes normal ocular movement - ENT normal pinna, normal nares, decreased hearing - Respiratory normal expansion, normal respiratory effort wheezing: bilateral - Cardiovascular Cardiovascular exam: Present: RRR, no murmurs/rubs/gallops - Abdomen Abdomen general surgery: Present: bowel sounds present (decreased), soft, non tender. Absent: guarding, rebound Hernia: Present: none - Integumentary Integumentary general surgery: Present: warm and dry, no abnormal pigmentation. Absent: diaphoresis - Neurologic Present: CN 2-12 grossly intact, normal coordination, normal sensation - Musculoskeletal Present: normal gait, normal posture - Psychiatric Psychiatric general surgery: Present: A&Ox3, speech is normal, memory intact Exam Initial Vital Signs Temp Pulse Resp BP Pulse Ox 98.3 F 127 24 123/80 93 02/16/18 07:48 02/16/18 07:48 02/16/18 07:48 02/16/18 07:48 02/16/18 07:48 Results - Labs 02/18/18 05:00 02/18/18 05:00 Abnormal lab results RBC 4.07 M/mcL (4.19-5.50) L 02/18/18 05:00 Hgb 12.7 g/dL (12.9-16.9) L 02/18/18 05:00 Lymphocytes # 0.4 K/mcL (0.6-4.6) L 02/18/18 05:00 PT 12.8 Seconds (9.4-12.1) H 02/17/18 04:10 Sodium 147 mEq/L (136-145) H 02/18/18 05:00 Chloride 109 mEq/L (98-107) H 02/18/18 05:00 BUN 44 mg/dL (8-23) H 02/18/18 05:00 Est GFR (Non-Af Amer) 56 (> 60) L 02/18/18 05:00 BUN/Creatinine Ratio 35 (6-26) H 02/18/18 05:00 Glucose 136 mg/dL (70-105) H 02/18/18 05:00 POC Glucose 134 mg/dL (70-99) H 02/17/18 06:21 Calculated Osmolality 317 (280-300) H 02/18/18 05:00 Direct Bilirubin 0.6 mg/dL (0.0-0.2) H 02/16/18 08:07 B-Natriuretic Peptide 485 pg/mL (Less than 100) H 02/16/18 08:07 Serum Total Protein 6.0 g/dL (6.4-8.9) L 02/18/18 05:00 HDL Cholesterol 36 mg/dL (40-59) L 02/17/18 04:10 Diabetes panel 02/18/18 Range/Units 05:00 Sodium 147 H (136-145) mEq/L Potassium 3.5 (3.5-5.1) mEq/L Chloride 109 H (98-107) mEq/L Carbon Dioxide 25 (23-29) mEq/L BUN 44 H (8-23) mg/dL Creatinine 1.25 (0.70-1.30) mg/dL Glucose 136 H (70-105) mg/dL Calcium 8.8 (8.6-10.3) mg/dL AST 34 (13-39) Units/L ALT 13 (7-52) Units/L Alkaline Phosphatase 58 (34-104) Units/L Albumin 3.5 (3.5-5.7) g/dL Calcium panel 02/18/18 Range/Units 05:00 Calcium 8.8 (8.6-10.3) mg/dL Albumin 3.5 (3.5-5.7) g/dL Pituitary panel 02/18/18 Range/Units 05:00 Sodium 147 H (136-145) mEq/L Potassium 3.5 (3.5-5.1) mEq/L Chloride 109 H (98-107) mEq/L Carbon Dioxide 25 (23-29) mEq/L BUN 44 H (8-23) mg/dL Creatinine 1.25 (0.70-1.30) mg/dL Glucose 136 H (70-105) mg/dL Calcium 8.8 (8.6-10.3) mg/dL Adrenal panel 02/18/18 Range/Units 05:00 Sodium 147 H (136-145) mEq/L Potassium 3.5 (3.5-5.1) mEq/L Chloride 109 H (98-107) mEq/L Carbon Dioxide 25 (23-29) mEq/L BUN 44 H (8-23) mg/dL Creatinine 1.25 (0.70-1.30) mg/dL Glucose 136 H (70-105) mg/dL Calcium 8.8 (8.6-10.3) mg/dL Total Bilirubin 0.7 (0.3-1.0) mg/dL AST 34 (13-39) Units/L ALT 13 (7-52) Units/L Alkaline Phosphatase 58 (34-104) Units/L Albumin 3.5 (3.5-5.7) g/dL All other labs normal. Consult Discharge Plan - Plan Referrals: Connie Hyde MD [Primary Care Provider] - <Francisco Javier Ramirez - Last Filed: 02/18/18 22:24> Date of Encounter: 02/18/18 Review of Systems All systems PM: The remainder of the systems were reviewed and are negative General Surgery Exam Initial Vital Signs Temp Pulse Resp BP Pulse Ox 98.3 F 127 24 123/80 93 02/16/18 07:48 02/16/18 07:48 02/16/18 07:48 02/16/18 07:48 02/16/18 07:48 Exam Initial Vital Signs Temp Pulse Resp BP Pulse Ox 98.3 F 127 24 123/80 93 02/16/18 07:48 02/16/18 07:48 02/16/18 07:48 02/16/18 07:48 02/16/18 07:48 Results - Labs 02/18/18 05:00 02/18/18 05:00 Abnormal lab results RBC 4.07 M/mcL (4.19-5.50) L 02/18/18 05:00 Hgb 12.7 g/dL (12.9-16.9) L 02/18/18 05:00 Lymphocytes # 0.4 K/mcL (0.6-4.6) L 02/18/18 05:00 PT 12.8 Seconds (9.4-12.1) H 02/17/18 04:10 Sodium 147 mEq/L (136-145) H 02/18/18 05:00 Chloride 109 mEq/L (98-107) H 02/18/18 05:00 BUN 44 mg/dL (8-23) H 02/18/18 05:00 Est GFR (Non-Af Amer) 56 (> 60) L 02/18/18 05:00 BUN/Creatinine Ratio 35 (6-26) H 02/18/18 05:00 Glucose 136 mg/dL (70-105) H 02/18/18 05:00 POC Glucose 134 mg/dL (70-99) H 02/17/18 06:21 Calculated Osmolality 317 (280-300) H 02/18/18 05:00 Direct Bilirubin 0.6 mg/dL (0.0-0.2) H 02/16/18 08:07 B-Natriuretic Peptide 485 pg/mL (Less than 100) H 02/16/18 08:07 Serum Total Protein 6.0 g/dL (6.4-8.9) L 02/18/18 05:00 HDL Cholesterol 36 mg/dL (40-59) L 02/17/18 04:10 Diabetes panel 02/18/18 Range/Units 05:00 Sodium 147 H (136-145) mEq/L Potassium 3.5 (3.5-5.1) mEq/L Chloride 109 H (98-107) mEq/L Carbon Dioxide 25 (23-29) mEq/L BUN 44 H (8-23) mg/dL Creatinine 1.25 (0.70-1.30) mg/dL Glucose 136 H (70-105) mg/dL Calcium 8.8 (8.6-10.3) mg/dL AST 34 (13-39) Units/L ALT 13 (7-52) Units/L Alkaline Phosphatase 58 (34-104) Units/L Albumin 3.5 (3.5-5.7) g/dL Calcium panel 02/18/18 Range/Units 05:00 Calcium 8.8 (8.6-10.3) mg/dL Albumin 3.5 (3.5-5.7) g/dL Pituitary panel 02/18/18 Range/Units 05:00 Sodium 147 H (136-145) mEq/L Potassium 3.5 (3.5-5.1) mEq/L Chloride 109 H (98-107) mEq/L Carbon Dioxide 25 (23-29) mEq/L BUN 44 H (8-23) mg/dL Creatinine 1.25 (0.70-1.30) mg/dL Glucose 136 H (70-105) mg/dL Calcium 8.8 (8.6-10.3) mg/dL Adrenal panel 02/18/18 Range/Units 05:00 Sodium 147 H (136-145) mEq/L Potassium 3.5 (3.5-5.1) mEq/L Chloride 109 H (98-107) mEq/L Carbon Dioxide 25 (23-29) mEq/L BUN 44 H (8-23) mg/dL Creatinine 1.25 (0.70-1.30) mg/dL Glucose 136 H (70-105) mg/dL Calcium 8.8 (8.6-10.3) mg/dL Total Bilirubin 0.7 (0.3-1.0) mg/dL AST 34 (13-39) Units/L ALT 13 (7-52) Units/L Alkaline Phosphatase 58 (34-104) Units/L Albumin 3.5 (3.5-5.7) g/dL All other labs normal. - Attending Attestation I examined this patient and my medical decision-making was reviewed with the Resident Physician. I agree with the documented findings, disposition and treatment plan as described except to the extent set forth below. The patient is seen and evaluated on the floor. He is had progressive dysphagia. Upper endoscopy by Dr. Riggins demonstrated a very narrow opening between the esophagus and stomach. The irregular mucosa in this area was biopsied. Dr. Riggins was unable to enter the stomach with an endoscope. CAT scan of the chest and abdomen demonstrated several findings. There is a pulmonary nodule as well as some airspace disease. I really did not see much in the way of mediastinal adenopathy when I reviewed the films. He has at least 2 enlarged lymph nodes in the celiac plexus. The distal esophagus and proximal stomach is suggestive of a mass. 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 We have been consult for a feeding tube. Certainly at this point, he may be resectable. I would favor jejunostomy tube if feeding tube is indicated. He should be started on supplemental clear liquids as long as he can swallow. Final decision on surgical plan will be based on oncology evaluation as well as pathologic biopsies. I will be glad to follow along with you. Francisco Javier Ramirez MD FACS
[2018-02-19] MEDS: Ampicillin/Sulbactam 3,000 MG in 0.9 % Sodium Chloride Mini Bag 100 ML IVPB SCH ×5 (00:12→23:39)
[2018-02-19] MEDS: Levalbuterol Neb 1.25 MG/3 ML IH SCH ×4 (03:56→22:18)
[2018-02-19] MEDS: Pantoprazole 40 MG VIAL IVP SCH (04:45)
[2018-02-19] MEDS: MethylPREDNISolone 40 MG/ML VIAL IVP SCH ×2 (04:45→17:39)
[2018-02-19] MEDS: *HR* Metoprolol 5 MG/5 ML VIAL IVP PRN ×2 (04:45→23:40)
[2018-02-19 05:10] LABS: Hematocrit 38.8 % (37.5-50.1); Immature Granulocytes % 0.3 % (0-4); Lymphocytes # 0.4 K/mcL (0.6-4.6); Lymphocytes % 5.4 %; Mean Corpuscular HGB Conc 33.5 g/dL (31.6-35.5); Mean Corpuscular Hemoglobin 31.9 pg (28.0-33.3); Mean Corpuscular Volume 95.3 fL (83.0-100.0); Mean Platelet Volume 10.4 fL (9.4-12.4); Monocytes # 0.3 K/mcL (0.0-1.3); Monocytes % 4.1 %; Neutrophils # 6.2 K/mcL (1.6-8.9); Platelet Count 146 K/mcL (140-400); Red Blood Count 4.07 M/mcL (4.19-5.50); Segmented Neutrophils % 90.2 %
[2018-02-19 05:30] LABS: Alanine Aminotransferase 17 Units/L (7-52); Albumin 3.6 g/dL (3.5-5.7); Albumin/Globulin Ratio 1.3 (1.1-2.2); Alkaline Phosphatase 54 Units/L (34-104); Aspartate Amino Transferase 30 Units/L (13-39); BUN/Creatinine Ratio 37 (6-26); Bilirubin,Total 0.8 mg/dL (0.3-1.0); Blood Urea Nitrogen 40 mg/dL (8-23); Calcium 8.9 mg/dL (8.6-10.3); Carbon Dioxide 28 mEq/L (23-29); Chloride 108 mEq/L (98-107); Globulin 2.8 g/dL (2.4-3.5); Glucose 126 mg/dL (70-105); Osmolality,Calculated 317 (280-300); Potassium 3.4 mEq/L (3.5-5.1); Sodium 148 mEq/L (136-145); Total Protein 6.4 g/dL (6.4-8.9); eGFR For Non-African Americans > 60 (> 60)
--- NOTE | 2018-02-19 08:00 | General Surgery Progress Note ---
<Maira Stinson - Last Filed: 02/19/18 18:16> Date of Encounter: 02/19/18 Time of Encounter: 07:58 - Assessment and Plan (1) Esophageal obstruction Current Visit: Yes Status: Acute Patient had wished to put off surgical intervention until after patholgy results came back but now unable to tolerate any PO. Considering the likelihood that the esophageal constriction is due to mass that may need future additional surgical intervention J peg would persevere the arterial structures better than a gastric PEG. Also PEG insertion by endoscope would be complicated by the pinhole sized constriction at GE junction - consult PICC team and start TPN - nutrition already consulted, please start TPN and plan for j peg - Plan for j peg with Dr Ramirez in next 24-48 hours as add on - serial abdominal exams - supportive care and pain management - NPO except ice chips, NPO at midnight Surgery will continue to follow Subjective Patient reports: still having pain (burning ereflux pain wiht liquids), flatus, no bowel movement, afebrile Narrative: He now can not tolerate even small volumes of liquids with out vomiting. He is constipated with out bowel movement in over one week Objective Vital Signs - Last 8 Hours Temp Pulse Resp BP Pulse Ox 02/19/18 07:17 97.7 F 97 17 115/63 94 02/19/18 04:07 97.9 F 120 18 115/73 98 02/19/18 03:56 18 93 Intake and Output 02/18/18 02/18/18 02/19/18 15:59 23:59 07:59 Intake Total 1260 / 1260 150 / 150 100 / 100 Balance 1260 / 1260 150 / 150 100 / 100 Intake: IV Fluids 1200 / 1200 150 / 150 100 / 100 KCl 20 mEq in 0.9% Sodium 1000 / 1000 Chloride 20 meq In 1,000 ml @ 75 mls/hr IVC .[id number] [facility] Rx#: [id number] Cardizem 50 MG In 0.9 % Sodium 100 / 100 50 / 50 Chloride 40 ML @ 5 MG/HR 5 mls/ hr IVC .Q10H [facility] Rx#:[id number] Unasyn 3,000 MG In 0.9 % Sodium 100 / 100 100 / 100 100 / 100 Chloride (Mini-Bag +) 100 ML @ 200 mls/hr IVPB Q6HR [facility] Rx#: [id number] Oral 60 / 60 0 / 0 Other: Meal Breakfast Percent of Meal Consumed 15% # Voids 1 1 Weight 80.796 kg Patient Weight 02/19/18 23:59 Weight 80.796 kg - General physical appearance well developed, moderate pain, chronically ill - Eyes normal ocular movement - ENT normal pinna, normal nares, normal mucosa, decreased hearing - Respiratory normal expansion, normal respiratory effort wheezing: bilateral - Cardiovascular Cardiovascular exam: Present: RRR, distant heart sounds - Abdomen Abdomen: Present: bowel sounds present, soft. Absent: guarding, rebound Hernia: none - Neurologic CN 2-12 grossly intact, normal coordination, normal sensation - Musculoskeletal normal gait - Psychiatric oriented to time, oriented to person, oriented to place, speech is normal, memory intact - Labs 02/19/18 04:40 02/19/18 04:40 Diabetes panel 02/19/18 Range/Units 04:40 Sodium 148 H (136-145) mEq/L Potassium 3.4 L (3.5-5.1) mEq/L Chloride 108 H (98-107) mEq/L Carbon Dioxide 28 (23-29) mEq/L BUN 40 H (8-23) mg/dL Creatinine 1.09 (0.70-1.30) mg/dL Glucose 126 H (70-105) mg/dL Calcium 8.9 (8.6-10.3) mg/dL AST 30 (13-39) Units/L ALT 17 (7-52) Units/L Alkaline Phosphatase 54 (34-104) Units/L Albumin 3.6 (3.5-5.7) g/dL Calcium panel 02/19/18 Range/Units 04:40 Calcium 8.9 (8.6-10.3) mg/dL Albumin 3.6 (3.5-5.7) g/dL Pituitary panel 02/19/18 Range/Units 04:40 Sodium 148 H (136-145) mEq/L Potassium 3.4 L (3.5-5.1) mEq/L Chloride 108 H (98-107) mEq/L Carbon Dioxide 28 (23-29) mEq/L BUN 40 H (8-23) mg/dL Creatinine 1.09 (0.70-1.30) mg/dL Glucose 126 H (70-105) mg/dL Calcium 8.9 (8.6-10.3) mg/dL Adrenal panel 02/19/18 Range/Units 04:40 Sodium 148 H (136-145) mEq/L Potassium 3.4 L (3.5-5.1) mEq/L Chloride 108 H (98-107) mEq/L Carbon Dioxide 28 (23-29) mEq/L BUN 40 H (8-23) mg/dL Creatinine 1.09 (0.70-1.30) mg/dL Glucose 126 H (70-105) mg/dL Calcium 8.9 (8.6-10.3) mg/dL Total Bilirubin 0.8 (0.3-1.0) mg/dL AST 30 (13-39) Units/L ALT 17 (7-52) Units/L Alkaline Phosphatase 54 (34-104) Units/L Albumin 3.6 (3.5-5.7) g/dL Consult Discharge Plan - Plan Referrals: Connie Hyde MD [Primary Care Provider] - 02/27/18 9:00 am (Dr. Gutierres in radiation 02/27/18 at 9 AM in the cancer center. ) <Francisco Javier Ramirez - Last Filed: 02/20/18 16:48> Objective Vital Signs - Last 8 Hours Temp Pulse Resp BP Pulse Ox 02/20/18 16:30 97.5 F L 125 18 109/72 98 02/20/18 16:25 22 98 02/20/18 09:00 24 98 Intake and Output 02/20/18 02/20/18 02/20/18 07:59 15:59 23:59 Intake Total 100 / 100 0 / 0 Balance 100 / 100 0 / 0 Intake: IV Fluids 100 / 100 Unasyn 3,000 MG In 0.9 % Sodium 100 / 100 Chloride (Mini-Bag +) 100 ML @ 200 mls/hr IVPB Q6HR [facility] Rx#: [id number] Oral 0 / 0 Other: Meal Lunch Percent of Meal Consumed 0% - Labs 02/20/18 05:35 02/20/18 05:25 Diabetes panel 02/20/18 02/20/18 Range/Units 05:25 05:35 Sodium 141 (136-145) mEq/L Potassium 3.8 (3.5-5.1) mEq/L Chloride 106 (98-107) mEq/L Carbon Dioxide 30 H (23-29) mEq/L BUN 40 H (8-23) mg/dL Creatinine 1.02 (0.70-1.30) mg/dL Glucose 189 H (70-105) mg/dL Calcium 8.6 (8.6-10.3) mg/dL AST 24 (13-39) Units/L ALT 18 (7-52) Units/L Alkaline Phosphatase 44 (34-104) Units/L Albumin 3.3 L (3.5-5.7) g/dL Triglycerides 76 (< 150) mg/dL Calcium panel 02/20/18 02/20/18 Range/Units 05:25 05:35 Calcium 8.6 (8.6-10.3) mg/dL Phosphorus 2.7 (2.7-4.5) mg/dL Albumin 3.3 L (3.5-5.7) g/dL Pituitary panel 02/20/18 Range/Units 05:25 Sodium 141 (136-145) mEq/L Potassium 3.8 (3.5-5.1) mEq/L Chloride 106 (98-107) mEq/L Carbon Dioxide 30 H (23-29) mEq/L BUN 40 H (8-23) mg/dL Creatinine 1.02 (0.70-1.30) mg/dL Glucose 189 H (70-105) mg/dL Calcium 8.6 (8.6-10.3) mg/dL Adrenal panel 02/20/18 Range/Units 05:25 Sodium 141 (136-145) mEq/L Potassium 3.8 (3.5-5.1) mEq/L Chloride 106 (98-107) mEq/L Carbon Dioxide 30 H (23-29) mEq/L BUN 40 H (8-23) mg/dL Creatinine 1.02 (0.70-1.30) mg/dL Glucose 189 H (70-105) mg/dL Calcium 8.6 (8.6-10.3) mg/dL Total Bilirubin 0.8 (0.3-1.0) mg/dL AST 24 (13-39) Units/L ALT 18 (7-52) Units/L Alkaline Phosphatase 44 (34-104) Units/L Albumin 3.3 L (3.5-5.7) g/dL - Attending Attestation I examined this patient and my medical decision-making was reviewed with the Resident Physician. I agree with the documented findings, disposition and treatment plan as described except to the extent set forth below. The patient is seen and evaluated on morning rounds with resident. Patient appears to have gastroesophageal junction. Operative planning be based on whether or not diagnostic pathology has been obtained on biopsy. We will plan jejunostomy tube after histologic diagnosis is made. I have recommended PICC line and TPN Francisco Javier Ramirez MD FACS
[2018-02-19] MEDS: Sucralfate 1 GM TABLET PO SCH (09:37)
[2018-02-19] MEDS: D5% in Water 1,000 ML IVC SCH ×2 (09:37→23:38)
[2018-02-19] MEDS: Aspirin Enteric Coated 81 MG Tablet PO SCH (09:38)
[2018-02-19] MEDS: Nicotine 14 MG PATCH.TD24 TD SCH (09:38)
[2018-02-19] MEDS ORDERED: hydrOXYzine pamoate 25 MG CAPSULE PO PRN (10:13)
--- NOTE | 2018-02-19 10:25 | Internal Med Progress Note ---
Hospitalist Progress Note - Encounter Date of Encounter: 02/19/18 Time of Encounter: 10:25 - Subjective Interval History: Seen and evaluated at the bedside with his Very aggravated this a.m Continues to have difficulty swallowing solids, able to swallow liquids He denies any new complaints EGD from 02/17 noted. Pinhole sized esophagus and mass at that she EEG which was biopsied Consult surgery for J-tube placement , appreciate input GI following According to surgery draft, will need PICC and TPN Biopsy is pending - Exam Vitals: Temp Pulse Resp BP Pulse Ox 97.7 F 97 17 115/63 94 02/19/18 07:17 02/19/18 07:17 02/19/18 07:17 02/19/18 07:17 02/19/18 07:17 Exam: Gen: Elderly male in no form of distress, alert and awake and oriented 3 Skin: Free of rash and discoloration. ENMT: Oral/pharyngeal mucosa is normal in appearance. Eyes: Sclera is white. There is no discharge from eyes. Respiratory: Normal breath sounds; no crackles or wheezes. CV:Irregular rhythm, no m/g/r, tachcyardic GI: Abdomen is soft and not tender. There is no palpable mass or visceromegaly. Neuro: There is no focal deficits. - Assessment and Plan (1) Atrial fibrillation Current Visit: Yes Status: Acute Assessment and Plan: Uncontrolled HR Continue cardizem Continue home dose of atenolol (crushed) Add metoprolol IV prn (with hold ordered for low BP) ECHO noted for decreased EF 45-50% and multiple WM hypokinesis, EF from 2016 was WNL cardiology eval pending Patient is aymptomatic Continue other home meds (2) Esophagitis Current Visit: Yes Status: Acute Assessment and Plan: Acute on chronic esophagitis d/t poorly controlled GERD. CT 02/16 shows dilated esophagus with fluid to the upper thoracic level and circumferential bulging thickening in the distal esophagus. This may be secondary to chronic reflux esophagitis but would recommend endoscopic correlation. GI review noted s/p EGD with regional sphincter also to size of a pinhole scope was not able to be passed, ulcerated lesion on the lower end of the esophagus near the GE junction was biopsied, middle esophagus pretty contained multiple oval-shaped also started biopsied was superficial. Continue nothing by mouth status, except for meds Continue PPIs Consulted general surgery for J tube placement-input appreciated Biopsy is pending-Will need Onc consulted after biopsy report (3) Nausea and vomiting Current Visit: Yes Status: Resolved Assessment and Plan: resolved as above (4) Aspiration pneumonia Current Visit: Yes Status: Acute Assessment and Plan: Acute aspiration pneumonia r/t recurrent nausea and vomiting for the past 2-3 weeks. States he is unable to keep any food or liquids down and vomits when he tries to eat. CT of the chest 02/16 showed new patchy multifocal airspace disease in both lungs with bronchiectasis and peribronchial cuffing as well as endobronchial opacification in both lower lobes. Continue Unasyn-Day 4 (5) Aortic aneurysm Current Visit: Yes Status: Chronic Assessment and Plan: He has underlying aortic aneurysm of ascending aorta. This will require outpatient follow-up visits with cardiovascular surgeon. (6) COPD (chronic obstructive pulmonary disease) Current Visit: Yes Status: Chronic Assessment and Plan: Hx of chronic COPD. Stable. Wean off solumedrol Continue nebs prn (7) GERD (gastroesophageal reflux disease) Current Visit: Yes Status: Chronic Assessment and Plan: see esophagitis (8) HTN (hypertension) Current Visit: Yes Status: Chronic Assessment and Plan: Continue current meds (9) SAMSON (acute kidney injury) Current Visit: Yes Status: Resolved Assessment and Plan: Improved Discontinue current IVF regimen Resume d5/W due to hypernatremia [employer] Consultant consulted (10) Esophageal obstruction Current Visit: Yes Status: Acute Assessment and Plan: Due to ulcerated mass GI eval appreciated (11) Malnutrition Current Visit: Yes Status: Acute Assessment and Plan: continue current care (12) CHF (congestive heart failure) Current Visit: Yes Status: Acute Assessment and Plan: Consult cardiology Currently euvolemic (13) Hypernatremia Current Visit: Yes Status: Acute Assessment and Plan: Na 148 this a.m Encourage free water Started on D5W Continue to monitor (14) Tobacco abuse Current Visit: Yes Status: Chronic Assessment and Plan: Encouraged cessation Continue NRT - Time Spent with Patient Total time spent is greater than 50% in coordination of care (as documented) at patient's floor/unit and/or counseling patient: Plan of Care Discussed with: patient Internal Medicine: Result - Labs CBC & Chem 7: 02/19/18 04:40 02/19/18 04:40 Labs: Short CBC 02/19/18 Range/Units 04:40 WBC 6.9 (4.3-11.1) K/mcL Hgb 13.0 (12.9-16.9) g/dL Hct 38.8 (37.5-50.1) % Plt Count 146 (140-400) K/mcL Neutrophils # 6.2 (1.6-8.9) K/mcL BMP 02/19/18 04:40 Sodium 148 H Potassium 3.4 L Chloride 108 H Carbon Dioxide 28 BUN 40 H Creatinine 1.09 Glucose 126 H Calcium 8.9 Liver Function 02/19/18 Range/Units 04:40 Total Bilirubin 0.8 (0.3-1.0) mg/dL AST 30 (13-39) Units/L ALT 17 (7-52) Units/L Alkaline Phosphatase 54 (34-104) Units/L Albumin 3.6 (3.5-5.7) g/dL - ABG Interpretation ABG results: PT/INR, D-dimer PT 12.8 Seconds (9.4-12.1) H 02/17/18 04:10 - Impressions Impressions Echocardiogram 02/18/18 13:20 Impressions: LVEF 45-50%. Mild left ventricular diastolic dysfunction. Mild concentric left ventricular hypertrophy. Normal right ventricular structure and function. Severely dilated left atrium. Mild-moderate aortic regurgitation. The aortic root is moderately dilated. Mild pulmonary hypertension. Consult Discharge Plan - Plan Referrals: Connie Hyde MD [Primary Care Provider] - (1) Atrial fibrillation Qualifiers: Atrial fibrillation type: chronic Qualified Code(s): I48.2 - Chronic atrial fibrillation (3) Nausea and vomiting Qualifiers: Vomiting type: cyclical vomiting Vomiting Intractability: non-intractable Qualified Code(s): G43.A0 - Cyclical vomiting, not intractable (4) Aspiration pneumonia Qualifiers: Aspiration pneumonia type: due to regurgitated food Laterality: bilateral Lung location: lower lobe of lung Qualified Code(s): J69.0 - Pneumonitis due to inhalation of food and vomit (5) Aortic aneurysm Qualifiers: Aortic location: thoracic aorta Presence of rupture: without rupture Qualified Code(s): I71.2 - Thoracic aortic aneurysm, without rupture (6) 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 (7) GERD (gastroesophageal reflux disease) Qualifiers: Esophagitis presence: with esophagitis Qualified Code(s): K21.0 - Gastro- esophageal reflux disease with esophagitis (8) HTN (hypertension) Qualifiers: Hypertension type: essential hypertension Qualified Code(s): I10 - Essential (primary) hypertension (11) Malnutrition Qualifiers: Malnutrition type: protein-calorie malnutrition Protein-calorie malnutrition severity: severe Qualified Code(s): E43 - Unspecified severe protein-calorie malnutrition (12) CHF (congestive heart failure) Qualifiers: Heart failure type: systolic Heart failure chronicity: chronic Qualified Code(s): I50.22 - Chronic systolic (congestive) heart failure
--- NOTE | 2018-02-19 10:50 | Cardiology Consult Note ---
<Alyssa Corey - Last Filed: 02/19/18 12:39> Date of Encounter: 02/19/18 Time of Encounter: 09:40 Assessment and Plan (1) Atrial fibrillation Current Visit: Yes Status: Acute Heart rate has been 100-130s.RVR on admission likely to patient unable to tolerate PO medications for 2 weeks. Improving. Today now 90-110. Not on anticoagulation secondary to GIB. Evaluated in the past. High risk for stroke. Only on Aspirin. Discussed this with the patient. No anticoagulation at this time as he has a history of GIB, unknown esophageal mass, and possibility of further procedures. On Cardizem IV 15mls/hr. Continue IV medications and switch to PO home medications until he can tolerate PO and keep down his medications. Continue current management. No further intervention from cardiology standpoint. Qualifiers: Atrial fibrillation type: chronic Qualified Code(s): I48.2 - Chronic atrial fibrillation (2) CHF (congestive heart failure) Current Visit: Yes Status: Acute Echo completed on 02/18/18 showed EF now 45-50%, decreased from 55% on last echo. There is mild left ventricular diastolic dysfunction, mild concentric left ventricular hypertrophy, dilated left atrium, mild-moderate aortic regurgitation, mild pulmonary hypertension, stable dilated aortic root. Clinically does not appear to be fluid overloaded. Resume home medications when he can tolerate and keep down his medications. Qualifiers: Heart failure type: systolic Heart failure chronicity: chronic Qualified Code(s): I50.22 - Chronic systolic (congestive) heart failure (3) Esophagitis Current Visit: Yes Status: Acute Acute on chronic, poorly controlled GERD. Esophageal mass on EGD. Management per GI and surgery. Biopsies pending. Plan for PICC for TPN. (4) Aspiration pneumonia Current Visit: Yes Status: Acute On Unasyn. Management per medicine. Qualifiers: Aspiration pneumonia type: due to regurgitated food Laterality: bilateral Lung location: lower lobe of lung Qualified Code(s): J69.0 - Pneumonitis due to inhalation of food and vomit (5) Esophageal obstruction Current Visit: Yes Status: Acute Plan as above. GI following patient. (6) Aortic aneurysm Current Visit: Yes Status: Chronic Of ascending aorta. Stable on CT. Not ruptured. Will need outpatient follow up with cardiovascular surgery. Qualifiers: Aortic location: thoracic aorta Presence of rupture: without rupture Qualified Code(s): I71.2 - Thoracic aortic aneurysm, without rupture (7) HTN (hypertension) Current Visit: Yes Status: Chronic Blood pressures stable. Continue current medications Qualifiers: Hypertension type: essential hypertension Qualified Code(s): I10 - Essential (primary) hypertension Discussion w patient/family: The assessment and plan as outlined above was discussed with the patient and/or family members who expressed understanding and agreement. All questions were answered. Thank you for involving us in the care of your patient. Please call with any questions. History of Present Illness Consult date: 02/18/18 Requesting physician: Rivera Garner Consult reason: AFib with RVR, new low EF Chief complaint: nausea and vomiting History of present illness: Mr. Lloyd is a 82 year old male with past medical history including atrial fibrillation not on anticoagulation secondary to history of GI bleed on warfarin , aortic aneurysm, congestive heart failure, COPD, hyperlipidemia, hypertension , who presents to the ED on 02/16/18 with chief complaint of nausea, vomiting, difficulty holding down his medications for two weeks. He complains of dysphagia and has been able to keep his medications down approximately 3-4 times since his symptoms started. He develops burning and epigastric discomfort when swallowing. He denies any other abdominal pain, diarrhea, chest pain, shortness of breath, fevers. States he lost approximately 30 pounds since October unintentionally. He followed up with his PCP this past week who started him on Cardizem and ordered lab work. He was going to be scheduled for an upper endoscopy. In the ED, patient was started on cardizem drip and IV fluids for atrial fibrillation with RVR, rate 130s. Imaging showed reflux esophagitis, bilateral lower lobe aspiration pneumonia. Patient was evaluated by gastroenterology and had an upper endoscopy on 02/17/18 which showed regional sphincter pinhole sized, ulcerated lesion near GE junction was biopsied, multiple oval shaped ulcers in mid esophagus that was biopsied. Seen by surgery for possible PEG placement. Patient would like to wait until biopsy results return. He will have a PICC line placed to start TPN. Echocardiogram was also completed that showed EF now 45-50%, decreased from 55% on last echo. There is mild left ventricular diastolic dysfunction, mild concentric left ventricular hypertrophy, dilated left atrium, mild-moderate aortic regurgitation, mild pulmonary hypertension, stable dilated aortic root. Patient's heart rate has been uncontrolled, ranging from 100-130s the past few days. He remains on cardizem drip and was restarted on atenolol yesterday. Cardiology consulted for atrial fibrillation with RVR and new low ejection fraction. This morning, heart rate better controlled. Heart rate in the 90s-110. He still remains on cardizem drip 15mls/hr. Patient denies chest pin, shortness of breath, palpitations. States he felt nauseous and discomfort when he swallowed his medications and water this morning. Past Med Surg Social Fam HX - Past Medical History Medical history: aortic aneurysm, arthritis, asthma, atrial fibrillation, CHF, COPD, coronary artery disease, GERD, GI bleed, hyperlipidemia, hypertension, osteoporosis, other Additional medical history: Thoracic aortic aneurysm without rupture. Diastolic heart failureLeft ventriculare hypertrophy. DDD. Myalgia. Lumbar stenosis Psychiatric history: no psych history - Past Surgical History Surgical History: cataract, other - Social History Smoking Status: Heavy tobacco smoker Packs per day: 1/2 PPD Smokeless Tobacco Status: No Alcohol use: none Drug use: none - Family History Father Adopted: No Family Member Ethnicity: Non- Living Status: Hx Family Cancer: Yes (prostate) Medications and Allergies Furosemide [Lasix] 40 mg PO BID 11/12/15 [History] Hydralazine HCl 50 mg PO BID 11/12/15 [History] Atenolol [Tenormin] 50 mg PO BID 11/13/15 [History] Calcium Carbonate [Tums] 1,000 mg PO Q4HR PRN 11/13/15 [History] Docusate [Colace] 100 mg PO DAILY PRN 11/13/15 [History] Ipratropium/Albuterol Neb [Duoneb] 3 ml IH Q6HR 11/13/15 [History] Ipratropium/Albuterol Sulfate [Combivent Respimat Inhal [place]] 1 puff IH Q6HR PRN 11/13/15 [History] Polyethylene Glycol 3350 [MiraLAX] 17 gm PO DAILY PRN 11/13/15 [History] amLODIPine [Norvasc] 5 mg PO DAILY 11/13/15 [History] Aspirin [[place] Aspirin EC] 81 mg PO DAILY 02/16/18 [History] Diltiazem HCl [Diltiazem 24Hr Cd] 120 mg PO DAILY 02/16/18 [History] Losartan Potassium [Cozaar] 100 mg PO DAILY 02/16/18 [History] Omeprazole [PriLOSEC] 40 mg PO BID 02/16/18 [History] Sucralfate [Carafate] 1 tab PO BID 02/16/18 [History] Tamsulosin [Flomax] 0.4 mg PO DAILY 02/16/18 [History] 3 Allergy/AdvReac Type Severity Reaction Status Date / Time clonidine Allergy Vomiting Verified 02/16/18 10:08 Warfarin [From Coumadin] Allergy See Verified 02/16/18 10:08 Comments All Systems Review: The remainder of the systems were reviewed and are negative - Constitutional Constitutional: weakness, weight loss, no headache(s) - EENT Eyes: no blurred vision Nose, mouth and throat: dysphagia - Cardiovascular Cardiovascular: irregular heart rhythm, no chest pain at rest, no chest pain with exertion, no dyspnea on exertion, no leg edema, no lightheadedness, no palpitations - Respiratory Respiratory: no cough, no dyspnea - Gastrointestinal Gastrointestinal: dysphagia, nausea, no abdominal pain, no diarrhea, no hematemesis, no hematochezia - Genitourinary Genitourinary: no dysuria - Musculoskeletal Musculoskeletal: no back pain, no myalgias - Integumentary Integumentary: no rash - Neurological Neurological: no dizziness, no numbness, no tingling - Hematological/Lymphatic Hematologic/Lymphatic: no easy bleeding Physical Examination Vital Signs, Last 4 Hours Temp Pulse Resp BP Pulse Ox 02/19/18 07:17 97.7 F 97 17 115/63 94 General: Conversant, No Apparent Distress HEENT: Atraumatic, Normocephaly Neck: No JVD, Normal carotid pulses Cardiac: Other (irregular rate and rhythm. Rate 90's at time of evaluation.) Lungs: Other (Bilateral expiratory wheezing. No crackles.) Neuro: Alert and responsive, No focal deficits noted Abdomen: Soft, Non-Tender Skin: No rashes noted on visualized skin Musculoskeletal: No Chest Wall Tenderness Extremities: No Edema Results 02/19/18 04:40 02/19/18 04:40 Lab Results 02/19/18 02/19/18 04:40 04:40 WBC 6.9 Hgb 13.0 Hct 38.8 Plt Count 146 Sodium 148 H Potassium 3.4 L Chloride 108 H Carbon Dioxide 28 BUN 40 H Creatinine 1.09 Glucose 126 H Calcium 8.9 Total Bilirubin 0.8 AST 30 ALT 17 Alkaline Phosphatase 54 - Imaging and Cardiology Echo: report reviewed Consult Discharge Plan - Plan Referrals: Connie Hyde MD [Primary Care Provider] - <Franci Colbert - Last Filed: 02/19/18 14:44> Date of Encounter: 02/19/18 - Attending Attestation Patient was seen and evaluated independently by me. Findings, assessment and plan were discussed at length with patient, questions answered. Agree with nurse practitioner's documentation. Addition as follows, 82 yoCM ho chronic Afib no A/C due to ho GIB, ascending aortic aneurysm 5.4cm f/ u CT surgery, CAD, GIB, GERD, HTN, HLD. P/w dysphagia, EGD severe GE junction obstruction, biopsy result pending. PEG/J- tube in plan. Consulted for Afib with RVR unable to take pills. VR better on cardizem drip. LVEF 45-50%. No cp, palpitations, dizziness. VSS, no JVD, CTA, IR , tachy, NT, no LE edema. 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 All questions were answered. Thank you for involving us in the care of your patient. Please call with any questions. History of Present Illness History of present illness: Mr. Lloyd is a 82 year old male All Systems Review: The remainder of the systems were reviewed and are negative Physical Examination Vital Signs, Last 4 Hours Temp Pulse Resp BP Pulse Ox 02/19/18 11:10 18 92 02/19/18 10:54 97.8 F 121 17 108/63 94 Results 02/19/18 04:40 02/19/18 04:40 Lab Results 02/19/18 02/19/18 02/19/18 04:40 04:40 11:19 WBC 6.9 Hgb 13.0 Hct 38.8 Plt Count 146 Sodium 148 H Potassium 3.4 L Chloride 108 H Carbon Dioxide 28 BUN 40 H Creatinine 1.09 Glucose 126 H Calcium 8.9 Magnesium 2.3 Total Bilirubin 0.8 AST 30 ALT 17 Alkaline Phosphatase 54
[2018-02-19] MEDS ORDERED: D10% in Water 500 ML IVC PRN (11:40)
[2018-02-19 11:55] LABS: Magnesium 2.3 mg/dL (1.6-2.6); Phosphorous 2.5 mg/dL (2.7-4.5)
--- NOTE | 2018-02-19 16:58 | Oncology Inp Consult Note ---
<MacoAllison Cortez - Last Filed: 02/20/18 12:00> Date of Encounter: 02/18/18 Time of Encounter: 16:58 Assessment and Plan (1) Esophageal adenocarcinoma Status: Acute Assessment and plan: GE junction mass biopsy revels well-differentiated adenocarcinoma at least intramucosal. CT chest abdomen and pelvis with IV contrast 02/16/2018 showed fluid-filled esophagus. Also up to 8 mm mediastinal lymphadenopathy. 12 mm spiculated nodule left upper lobe stable since 2016 EGD showed malignant ulcerated lesion in the GE junction, with esophageal sphincter closed to the size of a pinhole. Pathology reveals adenocarcinoma well differentiated. Dr. Ramirez is planning to do a J-tube for feeding purposes, he has had a 30 pound weight loss over the past 3 months, he is unable to swallow any food/liquid without vomiting x2 weeks If necessary would proceed with PET scan We discussed imaging, diagnostic results, and pathology consistent with esophageal adenocarcinoma. Treatment options were introduced which may include concurrent chemoradiation versus neoadjuvant chemotherapy followed by surgical intervention Mr. Lloyd is of poor performance status at this time (ECOG 2-3) but this may improve with placement of J PEG and nutritional support. Toxicity and surgical candidacy is of concern. We will arrange for consult with radiation oncology and follow up with Dr. Martinez as an outpatient. Patient wishes to undergo J PEG placement and be discharged from the hospital and feeling a bit better prior to discussing treatment options which is a reasonable request. (2) CHF (congestive heart failure) Status: Acute Assessment and plan: Echo completed on 02/18/18 showed EF now 45-50%, decreased from 55% on last echo. Also, admitted with AiFib with RVR (he had been unable to tolerate his PO medications x2 weeks) Not on Anticoagulation secondary to history of significant GIB on coumadin Cardiology following, HR is improving Qualifiers: Heart failure type: systolic Heart failure chronicity: chronic Qualified Code(s): I50.22 - Chronic systolic (congestive) heart failure - Data of Consult Patient: new to practice Consult date: 02/19/18 Requesting Physician: Rivera Garner MD Primary Care Provider: Connie Hyde - Consult Narrative Reason for consult: Esophageal adenocarcinoma History of present illness: Mr. Lloyd is a 82 year old male w/PMH of aortic aneurysm, arthritis, asthma, atrial fibrillation not on anticoagulation, CHF, COPD, CAD, GERD, previous GI bleed, HLD, HTN, and osteoporosis presented to the ED on 02/16/2018 with report of nausea and vomiting for the past 2-3 weeks when he tries to eat or drink anything. Denies coffee-ground or hematemesis. He reports 33 pound unintentional weight loss since October. States PCP was going to order EGD but has not done so yet. Reports hx of SOB d/t COPD, CHF, asthma, and GERD. He has smoked about 1/2 PPD on average for 65 years. Pt. reports cough and wheezing but denies recent illness, fever, chills, changes in vision, headache, unusual bleeding, chest pain, abdominal pain, diarrhea, constipation, dizziness, lightheadedness, numbness, tingling, presyncope, or syncope. He had an EGD with Dr. Riggins on 02/17/2018 which revealed that his esophageal sphincter was closed tto a pinhole with an ulcerated lesion at the lower end of the esophagus near the GE junction, biopsies were taken. GE junction pathology reveals well-differentiated adenocarcinoma at least intramucosal. He has had a surgical evaluation and is planned for J-Peg placement tomorrow. He is on TPN. Mr. Lloyd has a family history of cancer with his father having prostate cancer, at age 85 due to other complications, his brother at age 66 from colon cancer and his second brother at age 79 from prostate cancer. Past Med Surg Social Fam HX - Past Medical History Medical history: aortic aneurysm, arthritis, asthma, atrial fibrillation, CHF, COPD, coronary artery disease, GERD, GI bleed, hyperlipidemia, hypertension, osteoporosis, other Additional medical history: Thoracic aortic aneurysm without rupture. Diastolic heart failureLeft ventriculare hypertrophy. DDD. Myalgia. Lumbar stenosis Psychiatric history: no psych history - Past Surgical History Surgical History: cataract, other - Social History Smoking Status: Heavy tobacco smoker Packs per day: 1/2 PPD Smokeless Tobacco Status: No Alcohol use: none Drug use: none - Family History Father Adopted: No Family Member Ethnicity: Non- Living Status: Hx Family Cancer: Yes (prostate) Medications and Allergies RX: Furosemide [Lasix] 40 mg PO BID 11/12/15 [History] RX: Hydralazine HCl 50 mg PO BID 11/12/15 [History] RX: Atenolol [Tenormin] 50 mg PO BID 11/13/15 [History] RX: Calcium Carbonate [Tums] 1,000 mg PO Q4HR PRN 11/13/15 [History] RX: Docusate [Colace] 100 mg PO DAILY PRN 11/13/15 [History] RX: Ipratropium/Albuterol Neb [Duoneb] 3 ml IH Q6HR 11/13/15 [History] RX: Ipratropium/Albuterol Sulfate [Combivent Respimat Inhal [place]] 1 puff IH Q6HR PRN 11/13/15 [History] RX: Polyethylene Glycol 3350 [MiraLAX] 17 gm PO DAILY PRN 11/13/15 [History] RX: amLODIPine [Norvasc] 5 mg PO DAILY 11/13/15 [History] Aspirin [[place]una Aspirin EC] 81 mg PO DAILY 02/16/18 [History] Diltiazem HCl [Diltiazem 24Hr Cd] 120 mg PO DAILY 02/16/18 [History] Losartan Potassium [Cozaar] 100 mg PO DAILY 02/16/18 [History] RX: Omeprazole [PriLOSEC] 40 mg PO BID 02/16/18 [History] RX: Sucralfate [Carafate] 1 tab PO BID 02/16/18 [History] RX: Tamsulosin [Flomax] 0.4 mg PO DAILY 02/16/18 [History] Allergy/AdvReac Type Severity Reaction Status Date / Time clonidine Allergy Vomiting Verified 02/16/18 10:08 Warfarin [From Coumadin] Allergy See Verified 02/16/18 10:08 Comments Constitutional: Present: anorexia, fatigue, weakness, weight loss. Absent: chills, fever(s), night sweats Eyes: Absent: change in vision Nose, mouth and throat: Present: as per HPI, dysphagia. Absent: mouth lesions Cardiovascular: Absent: chest pain, palpitations Respiratory: Present: cough, dyspnea, wheezing Gastrointestinal: Present: as per HPI, dysphagia, heartburn, odynophagia, vomiting. Absent: change in bowel habits, coffee ground emesis, hematemesis, hematochezia, melena Additional comments: denies dysuria Musculoskeletal: Present: muscle weakness Integumentary: Absent: wounds Neurological: Absent: focal weakness, frequent falls Hematologic/Lymphatic: Present: as per HPI Oncology - Exam - Constitutional Vitals: Temp Pulse Resp BP Pulse Ox 97.9 F 106 18 111/70 94 02/19/18 15:13 02/19/18 15:13 02/19/18 15:27 02/19/18 15:13 02/19/18 15:27 General appearance: cooperative, no acute distress, no febrile - Head Head exam: Present: atraumatic - Respiratory Respiratory exam: Present: wheezes. Absent: respiratory distress - Cardiovascular Cardiovascular exam: Present: RRR, +S1, +S2 - GI/Abdominal GI/Abdominal exam: Present: hypoactive bowel sounds, soft. Absent: guarding, rebound, tenderness - Extremities Exam Extremities exam: Absent: calf tenderness - Neurological Exam Neurological exam: Present: alert, oriented X3, no focal deficits, strengths equal and symetr throughout - Psychiatric Psychiatric exam: Present: flat affect - Skin Skin exam: Present: dry, intact, normal color, warm Oncology - Results Labs: 02/19/18 02/19/18 02/19/18 11:19 04:40 04:40 WBC 6.9 RBC 4.07 L Hgb 13.0 Hct 38.8 MCV 95.3 MCH 31.9 MCHC 33.5 RDW 14.0 Plt Count 146 MPV 10.4 Immature Gran % 0.3 Seg Neutrophils % 90.2 Lymphocytes % 5.4 Monocytes % 4.1 Eosinophils % 0.0 Basophils % 0.0 Neutrophils # 6.2 Lymphocytes # 0.4 L Monocytes # 0.3 Eosinophils # 0.0 Basophils # 0.0 Sodium 148 H Potassium 3.4 L Chloride 108 H Carbon Dioxide 28 BUN 40 H Creatinine 1.09 Est GFR ( Amer) > 60 Est GFR (Non-Af Amer) > 60 BUN/Creatinine Ratio 37 H Glucose 126 H Calculated Osmolality 317 H Calcium 8.9 Phosphorus 2.5 L Magnesium 2.3 Total Bilirubin 0.8 AST 30 ALT 17 Alkaline Phosphatase 54 Serum Total Protein 6.4 Albumin 3.6 Globulin 2.8 Albumin/Globulin Ratio 1.3 02/18/18 02/18/18 05:00 05:00 WBC 7.5 RBC 4.07 L Hgb 12.7 L Hct 38.6 MCV 94.8 MCH 31.2 MCHC 32.9 RDW 14.0 Plt Count 146 MPV 10.2 Immature Gran % 0.4 Seg Neutrophils % 91.5 Lymphocytes % 5.6 Monocytes % 2.5 Eosinophils % 0.0 Basophils % 0.0 Neutrophils # 6.9 Lymphocytes # 0.4 L Monocytes # 0.2 Eosinophils # 0.0 Basophils # 0.0 Sodium 147 H Potassium 3.5 Chloride 109 H Carbon Dioxide 25 BUN 44 H Creatinine 1.25 Est GFR ( Amer) > 60 Est GFR (Non-Af Amer) 56 L BUN/Creatinine Ratio 35 H Glucose 136 H Calculated Osmolality 317 H Calcium 8.8 Phosphorus Magnesium Total Bilirubin 0.7 AST 34 ALT 13 Alkaline Phosphatase 58 Serum Total Protein 6.0 L Albumin 3.5 Globulin 2.5 Albumin/Globulin Ratio 1.4 Consult Discharge Plan - Plan Referrals: Connie Hyde MD [Primary Care Provider] - 02/27/18 9:00 am (Dr. Gutierres in radiation 02/27/18 at 9 AM in the cancer center. ) <Rolando Martinez S - Last Filed: 02/20/18 14:04> Date of Encounter: 02/19/18 - Data of Consult Requesting Physician: Rivera Garner MD Primary Care Provider: Connie Hyde - Consult Narrative History of present illness: Mr. Lloyd is a 82 year old male Oncology - Exam - Constitutional Vitals: Temp Pulse Resp BP Pulse Ox 97.9 F 106 18 111/70 94 02/19/18 15:13 02/19/18 15:13 02/19/18 15:27 02/19/18 15:13 02/19/18 15:27 Oncology - Results Labs: 02/19/18 02/19/18 02/19/18 11:19 04:40 04:40 WBC 6.9 RBC 4.07 L Hgb 13.0 Hct 38.8 MCV 95.3 MCH 31.9 MCHC 33.5 RDW 14.0 Plt Count 146 MPV 10.4 Immature Gran % 0.3 Seg Neutrophils % 90.2 Lymphocytes % 5.4 Monocytes % 4.1 Eosinophils % 0.0 Basophils % 0.0 Neutrophils # 6.2 Lymphocytes # 0.4 L Monocytes # 0.3 Eosinophils # 0.0 Basophils # 0.0 Sodium 148 H Potassium 3.4 L Chloride 108 H Carbon Dioxide 28 BUN 40 H Creatinine 1.09 Est GFR ( Amer) > 60 Est GFR (Non-Af Amer) > 60 BUN/Creatinine Ratio 37 H Glucose 126 H Calculated Osmolality 317 H Calcium 8.9 Phosphorus 2.5 L Magnesium 2.3 Total Bilirubin 0.8 AST 30 ALT 17 Alkaline Phosphatase 54 Serum Total Protein 6.4 Albumin 3.6 Globulin 2.8 Albumin/Globulin Ratio 1.3 02/18/18 02/18/18 05:00 05:00 WBC 7.5 RBC 4.07 L Hgb 12.7 L Hct 38.6 MCV 94.8 MCH 31.2 MCHC 32.9 RDW 14.0 Plt Count 146 MPV 10.2 Immature Gran % 0.4 Seg Neutrophils % 91.5 Lymphocytes % 5.6 Monocytes % 2.5 Eosinophils % 0.0 Basophils % 0.0 Neutrophils # 6.9 Lymphocytes # 0.4 L Monocytes # 0.2 Eosinophils # 0.0 Basophils # 0.0 Sodium 147 H Potassium 3.5 Chloride 109 H Carbon Dioxide 25 BUN 44 H Creatinine 1.25 Est GFR ( Amer) > 60 Est GFR (Non-Af Amer) 56 L BUN/Creatinine Ratio 35 H Glucose 136 H Calculated Osmolality 317 H Calcium 8.8 Phosphorus Magnesium Total Bilirubin 0.7 AST 34 ALT 13 Alkaline Phosphatase 58 Serum Total Protein 6.0 L Albumin 3.5 Globulin 2.5 Albumin/Globulin Ratio 1.4 - Attending Attestation 1. GE junction adenocarcinoma CT chest abdomen and pelvis 02/16/2018 showed fluid-filled esophagus. Also up to 8 mm mediastinal lymphadenopathy. 12 mm spiculated nodule left upper lobe stable since 2016 Multifocal airspace disease both lungs EGD showed malignant mass in the GE junction with significant narrowing. Pathology showed adenocarcinoma well differentiated. Dr. Ramirez is planning to do a J-tube for feeding purposes Treatment recommendation If necessary would proceed with PET scan Reviewed NCCN guidelines If there is no evidence of metastasis treatment options include 1. Concurrent chemoradiation (either nodule or definitive) versus neoadjuvant chemotherapy followed by surgery followed by further chemotherapy Recent trials shown FLOT superior to ECF-based chemotherapy regimen . But has significant toxicity as well. Given his poor performance status and not be a candidate for neoadjuvant chemotherapy 2. Congestive heart failure. Echocardiogram showed ejection fraction 45% to 50% Had a long discussion with the patient and the family. He is depressed over the diagnosis. He wants to feeling better now including the swallowing problem. I did percent chemoradiation is an option. We will make an appointment with radiation oncology as an outpatient. The patient and the family family understands the natural course and consequences of not getting treatment. We will make further recommendation as an outpatient Inpatient Charges Provider: Dr. Nato Martinez Consult - Inpatient Medicare Only: [id number]
[2018-02-19] MEDS ORDERED: Clinimix E 5%-15% SOLUTION 2,000 ML with MVI, adult with vitamin K 10 ML IVC SCH (17:00)
--- NOTE | 2018-02-19 19:05 | Anesthesia Evaluation PreOp ---
Date of Encounter: 02/19/18 Time of Encounter: 23:40 - Past History Planned Operation: Jejunostomy Tube Insertion Cardiac History: CHF, HTN, Hyperlipidemia, Arrhythmia (paroxysmal A-Fib), Other (thoracic AAA) Pulmonary History: Smoker (65 years), Asthma, COPD, Other (aspiration pneumonia) HEAD CHOPPER History: Denies Any Significant HX Other Medical History: Hepatic (cirrhosis), Renal (CKD) Anesthesia History: Past Anesthesia (no prior GA) Alcohol Use: none Drug use: none Medications and Allergies Furosemide [Lasix] 40 mg PO BID 11/12/15 [History] Hydralazine HCl 50 mg PO BID 11/12/15 [History] Atenolol [Tenormin] 50 mg PO BID 11/13/15 [History] Calcium Carbonate [Tums] 1,000 mg PO Q4HR PRN 11/13/15 [History] Docusate [Colace] 100 mg PO DAILY PRN 11/13/15 [History] Ipratropium/Albuterol Neb [Duoneb] 3 ml IH Q6HR 11/13/15 [History] Ipratropium/Albuterol Sulfate [Combivent Respimat Inhal [place]] 1 puff IH Q6HR PRN 11/13/15 [History] Polyethylene Glycol 3350 [MiraLAX] 17 gm PO DAILY PRN 11/13/15 [History] amLODIPine [Norvasc] 5 mg PO DAILY 11/13/15 [History] Aspirin [Avery Aspirin EC] 81 mg PO DAILY 02/16/18 [History] Diltiazem HCl [Diltiazem 24Hr Cd] 120 mg PO DAILY 02/16/18 [History] Losartan Potassium [Cozaar] 100 mg PO DAILY 02/16/18 [History] Omeprazole [PriLOSEC] 40 mg PO BID 02/16/18 [History] Sucralfate [Carafate] 1 tab PO BID 02/16/18 [History] Tamsulosin [Flomax] 0.4 mg PO DAILY 02/16/18 [History] 3 Allergy/AdvReac Type Severity Reaction Status Date / Time clonidine Allergy Vomiting Verified 02/16/18 10:08 Warfarin [From Coumadin] Allergy See Verified 02/16/18 10:08 Comments - Meds/Allergy Pre-op Review Medications Reviewed: Yes Allergies Reviewed: Yes Beta Blockers on Current Med List: Yes If Beta Blockers taken, Date/Time (Last Dose taken): 02/19/2018 at 2041 Anesthesia Results - Labs 02/19/18 04:40 02/19/18 04:40 - Imaging EKG: report reviewed (02/16/[address] depression, probably rate related) Additional studies: 02/18/2018 Echo Impressions: LVEF 45-50%. Mild left ventricular diastolic dysfunction. Mild concentric left ventricular hypertrophy. Normal right ventricular structure and function. Severely dilated left atrium. Mild-moderate aortic regurgitation. The aortic root is moderately dilated. Mild pulmonary hypertension. TTE 11/2015: LVEF 55%. Normal left ventricular size and systolic function. Indeterminate diastolic function. Dilated RV with normal function. Moderate aortic regurgitation. Mild mitral regurgitation. Mild tricuspid regurgitation. Estimated RVSP was 41 mmHg. Mild pulmonary hypertension. Dilated aortic root measuring 4.6 cm. Ascending aorta is not well visualized. Anesthesia Exam Vital Signs/O2 Sat/Glucose, Most Recent Temp Pulse Resp BP Pulse Ox 97.9 F 106 18 111/70 94 02/19/18 15:13 02/19/18 15:13 02/19/18 15:27 02/19/18 15:13 02/19/18 15:27 Blood Glucose* 153 Height: 6'/1.83m Weight: 178 lbs/80.796 kg - HEENT Pupil (Motor): EOMI Mallampati: II Teeth: Normal, Missing Oral Opening: Greater than 3 - HEAD CHOPPER LOC: Oriented HEAD CHOPPER Motor: Normal RUE, Normal LUE, Normal RLE, Normal LLE, Normal Face HEAD CHOPPER Sensory: Normal: RUE, LUE, RLE, LLE, Face - Cardiac Rhythm: Regular Murmur: None - Pulmonary Breath Sounds: bilateral Rhonchi (bilateral wheezes ) Respiratory Effort: Symmetrical Anesthesia Assess/Plan ASA Score: 4 Modified [place] Scale for Level of Consciousness: Cooperative, oriented, and tranquil Anesthetic Plan: General Monitoring Plan: Standard Monitors Recovery Plan: PACU
[2018-02-20] MEDS: Levalbuterol Neb 1.25 MG/3 ML IH SCH ×4 (09:00→21:17)
[2018-02-20] MEDS ORDERED: Levalbuterol Neb 1.25 MG/3 ML IH ONE ×2 (10:03)
[2018-02-20] MEDS ORDERED: Aspirin Enteric Coated 81 MG Tablet PO ONE (10:03)
[2018-02-20] MEDS ORDERED: Pantoprazole 40 MG VIAL IVC ONE (10:03)
[2018-02-20] MEDS ORDERED: D5 IVC ONE (10:03)
[2018-02-20] MEDS ORDERED: Nicotine 14 MG PATCH.TD24 TD ONE (10:03)
[2018-02-20] MEDS ORDERED: WATER IVC ONE (10:03)
[2018-02-20] MEDS ORDERED: MethylPREDNISolone 40 MG/ML VIAL IVP ONE (10:03)
[2018-02-20] MEDS ORDERED: hydrOXYzine pamoate 25 MG CAPSULE PO ONE (10:03)
[2018-02-20] MEDS ORDERED: 0.9 % Sodium Chloride (Mini-Bag +) 100 ML IVBAG IVC ONE (10:03)
[2018-02-20 11:42] LABS: Basophils % 0.1 %; Hemoglobin 12.5 g/dL (12.9-16.9); Immature Granulocytes % 0.5 % (0-4); Lymphocytes # 0.3 K/mcL (0.6-4.6); Lymphocytes % 4.2 %; Mean Corpuscular HGB Conc 32.1 g/dL (31.6-35.5); Mean Corpuscular Hemoglobin 31.3 pg (28.0-33.3); Mean Corpuscular Volume 97.7 fL (83.0-100.0); Mean Platelet Volume 10.8 fL (9.4-12.4); Monocytes # 0.4 K/mcL (0.0-1.3); Monocytes % 4.9 %; Neutrophils # 6.9 K/mcL (1.6-8.9); Platelet Count 129 K/mcL (140-400); Red Blood Count 3.99 M/mcL (4.19-5.50); Red Cell Distribution Width 13.6 % (11.5-14.5); Segmented Neutrophils % 90.3 %
[2018-02-20 11:49] LABS: Alanine Aminotransferase 18 Units/L (7-52); Albumin 3.3 g/dL (3.5-5.7); Albumin/Globulin Ratio 1.4 (1.1-2.2); Alkaline Phosphatase 44 Units/L (34-104); Aspartate Amino Transferase 24 Units/L (13-39); BUN/Creatinine Ratio 39 (6-26); Bilirubin,Total 0.8 mg/dL (0.3-1.0); Blood Urea Nitrogen 40 mg/dL (8-23); Calcium 8.6 mg/dL (8.6-10.3); Carbon Dioxide 30 mEq/L (23-29); Chloride 106 mEq/L (98-107); Globulin 2.3 g/dL (2.4-3.5); Glucose 189 mg/dL (70-105); Osmolality,Calculated 307 (280-300); Potassium 3.8 mEq/L (3.5-5.1); Sodium 141 mEq/L (136-145); Total Protein 5.6 g/dL (6.4-8.9); eGFR For Non-African Americans > 60 (> 60)
[2018-02-20 11:49] LABS: Magnesium 2.3 mg/dL (1.6-2.6); Phosphorous 2.7 mg/dL (2.7-4.5)
[2018-02-20] MEDS: Ampicillin/Sulbactam 3,000 MG in 0.9 % Sodium Chloride Mini Bag 100 ML IVPB SCH ×3 (11:50→17:28)
[2018-02-20] MEDS: MethylPREDNISolone 40 MG/ML VIAL IVP SCH ×2 (12:15→17:29)
[2018-02-20] MEDS: Pantoprazole 40 MG VIAL IVP SCH (12:16)
[2018-02-20] MEDS: Nicotine 14 MG PATCH.TD24 TD SCH (12:16)
[2018-02-20] MEDS: Aspirin Enteric Coated 81 MG Tablet PO SCH (12:16)
[2018-02-20] MEDS: D5% in Water 1,000 ML IVC SCH (12:17)
--- NOTE | 2018-02-20 13:02 | Internal Med Progress Note ---
Hospitalist Progress Note - Encounter Date of Encounter: 02/20/18 Time of Encounter: 08:40 - Subjective Interval History: Seen and evaluated at the bedside with his Biopsy confirmed adenocarcinoma of the GEJ junction, he has no new complains He had just returned from the bathroom this am and was significantly SOB We will stop IVF and continue TPN, labs are WNL He is awaiting surgery - Exam Vitals: Temp Pulse Resp BP Pulse Ox 98.0 F 122 24 119/53 98 02/19/18 23:04 02/19/18 23:04 02/20/18 09:00 02/19/18 23:04 02/20/18 09:00 Exam: Gen: Elderly male in no form of distress, alert and awake and oriented 3 Skin: Free of rash and discoloration. ENMT: Oral/pharyngeal mucosa is normal in appearance. Eyes: Sclera is white. There is no discharge from eyes. Respiratory: Diffuse bilateral wheezes CV:Irregular rhythm, no m/g/r, tachcyardic GI: Abdomen is soft and not tender. There is no palpable mass or visceromegaly. Neuro: There is no focal deficits. - Assessment and Plan (1) Atrial fibrillation Current Visit: Yes Status: Acute Assessment and Plan: HR mostly controlled Continue cardizem Continue home dose of atenolol (crushed) Add metoprolol IV prn (with hold ordered for low BP) ECHO noted for decreased EF 45-50% and multiple WM hypokinesis, EF from 2016 was WNL cardiology eval noted Patient is aymptomatic Continue other home meds (2) Esophagitis Current Visit: Yes Status: Acute Assessment and Plan: Acute on chronic esophagitis d/t poorly controlled GERD. CT 02/16 shows dilated esophagus with fluid to the upper thoracic level and circumferential bulging thickening in the distal esophagus. This may be secondary to chronic reflux esophagitis but would recommend endoscopic correlation. GI review noted s/p EGD with regional sphincter also to size of a pinhole scope was not able to be passed, ulcerated lesion on the lower end of the esophagus near the GE junction was biopsied, middle esophagus pretty contained multiple oval-shaped also started biopsied Bisopsy showed adenocarcinoma, Oncology consulted, eval noted Continue nothing by mouth status, except for meds Continue PPIs Consulted general surgery for J tube placement-input appreciated (3) Nausea and vomiting Current Visit: Yes Status: Resolved Assessment and Plan: resolved as above (4) Aspiration pneumonia Current Visit: Yes Status: Acute Assessment and Plan: Acute aspiration pneumonia r/t recurrent nausea and vomiting for the past 2-3 weeks. States he is unable to keep any food or liquids down and vomits when he tries to eat. CT of the chest 02/16 showed new patchy multifocal airspace disease in both lungs with bronchiectasis and peribronchial cuffing as well as endobronchial opacification in both lower lobes. Continue Unasyn-Day 5 (5) Aortic aneurysm Current Visit: Yes Status: Chronic Assessment and Plan: He has underlying aortic aneurysm of ascending aorta. This will require outpatient follow-up visits with cardiovascular surgeon. (6) COPD (chronic obstructive pulmonary disease) Current Visit: Yes Status: Chronic Assessment and Plan: Hx of chronic COPD. Stable. Wean off solumedrol Continue nebs prn (7) GERD (gastroesophageal reflux disease) Current Visit: Yes Status: Chronic Assessment and Plan: see esophagitis (8) HTN (hypertension) Current Visit: Yes Status: Chronic Assessment and Plan: Continue current meds (9) SAMSON (acute kidney injury) Current Visit: Yes Status: Resolved Assessment and Plan: Resolved (10) Esophageal obstruction Current Visit: Yes Status: Acute Assessment and Plan: Due to GEJ adenocarcinoma GI eval appreciated (11) Malnutrition Current Visit: Yes Status: Acute Assessment and Plan: continue current care TPN per pharmaceutical officer (12) CHF (congestive heart failure) Current Visit: Yes Status: Acute Assessment and Plan: Cardio eval noted Currently euvolemic (13) Hypernatremia Current Visit: Yes Status: Resolved Assessment and Plan: Na 141 today, improved from 148 02/19 (14) Tobacco abuse Current Visit: Yes Status: Chronic Assessment and Plan: Encouraged cessation Continue NRT (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 Current Visit: Yes Status: Acute Assessment and Plan: onc eval noted - Time Spent with Patient Total time spent is greater than 50% in coordination of care (as documented) at patient's floor/unit and/or counseling patient: Plan of Care Discussed with: family Internal Medicine: Result - Labs CBC & Chem 7: 02/20/18 05:35 02/20/18 05:25 Labs: Short CBC 02/20/18 Range/Units 05:35 WBC 7.6 (4.3-11.1) K/mcL Hgb 12.5 L (12.9-16.9) g/dL Hct 39.0 (37.5-50.1) % Plt Count 129 L (140-400) K/mcL Neutrophils # 6.9 (1.6-8.9) K/mcL BMP 02/20/18 05:25 Sodium 141 Potassium 3.8 Chloride 106 Carbon Dioxide 30 H BUN 40 H Creatinine 1.02 Glucose 189 H Calcium 8.6 Liver Function 02/20/18 Range/Units 05:25 Total Bilirubin 0.8 (0.3-1.0) mg/dL AST 24 (13-39) Units/L ALT 18 (7-52) Units/L Alkaline Phosphatase 44 (34-104) Units/L Albumin 3.3 L (3.5-5.7) g/dL - ABG Interpretation ABG results: PT/INR, D-dimer PT 12.8 Seconds (9.4-12.1) H 02/17/18 04:10 Consult Discharge Plan - Plan Referrals: Connie Hyde MD [Primary Care Provider] - (1) Atrial fibrillation Qualifiers: Atrial fibrillation type: chronic Qualified Code(s): I48.2 - Chronic atrial fibrillation (3) Nausea and vomiting Qualifiers: Vomiting type: cyclical vomiting Vomiting Intractability: non-intractable Qualified Code(s): G43.A0 - Cyclical vomiting, not intractable (4) Aspiration pneumonia Qualifiers: Aspiration pneumonia type: due to regurgitated food Laterality: bilateral Lung location: lower lobe of lung Qualified Code(s): J69.0 - Pneumonitis due to inhalation of food and vomit (5) Aortic aneurysm Qualifiers: Aortic location: thoracic aorta Presence of rupture: without rupture Qualified Code(s): I71.2 - Thoracic aortic aneurysm, without rupture (6) 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 (7) GERD (gastroesophageal reflux disease) Qualifiers: Esophagitis presence: with esophagitis Qualified Code(s): K21.0 - Gastro- esophageal reflux disease with esophagitis (8) HTN (hypertension) Qualifiers: Hypertension type: essential hypertension Qualified Code(s): I10 - Essential (primary) hypertension (11) Malnutrition Qualifiers: Malnutrition type: protein-calorie malnutrition Protein-calorie malnutrition severity: severe Qualified Code(s): E43 - Unspecified severe protein-calorie malnutrition (12) CHF (congestive heart failure) Qualifiers: Heart failure type: systolic Heart failure chronicity: chronic Qualified Code(s): I50.22 - Chronic systolic (congestive) heart failure
--- NOTE | 2018-02-20 13:43 | Event Note ---
Date of Encounter: 02/20/18 Time of Encounter: 08:15 - Cardiology Event Note Patient seen and examined during [employer] down time. Labs and vitals reviewed since. No electrolyte abnormalities. Heart rate ranges from 110-140s. Please see complete Cardiology progress note completed on paper chart and scanned during [employer] down time. Recommend current management for atrial fibrillation with RVR and resume home medications when patient able to tolerate PO/has J tube placed. On cardizem drip, prn lopressor IV, and atenolol PO. No anticoagulation due to history of GI bleed and future procedures. Continue aspirin. No additional orders at this time.
--- NOTE | 2018-02-20 15:19 | Event Note ---
Date of Encounter: 02/20/18 Time of Encounter: 15:19 Please see hard chart for surgery progress note
[2018-02-20] MEDS: *HR* Metoprolol 5 MG/5 ML VIAL IVP PRN (16:46)
[2018-02-20] MEDS ORDERED: Clinimix E 5%-15% SOLUTION 2,000 ML with MVI, adult with vitamin K 10 ML IVC SCH (17:00)
[2018-02-21] MEDS ORDERED: 0.9 % Sodium Chloride 1,000 ML IVC SCH (00:01)
[2018-02-21] MEDS: Ampicillin/Sulbactam 3,000 MG in 0.9 % Sodium Chloride Mini Bag 100 ML IVPB SCH ×5 (00:29→23:20)
[2018-02-21] MEDS: Levalbuterol Neb 1.25 MG/3 ML IH SCH ×4 (03:26→22:11)
[2018-02-21 04:56] LABS: Hematocrit 38.1 % (37.5-50.1); Hemoglobin 12.5 g/dL (12.9-16.9); Immature Granulocytes % 0.7 % (0-4); Lymphocytes # 0.3 K/mcL (0.6-4.6); Lymphocytes % 4.1 %; Mean Corpuscular HGB Conc 32.8 g/dL (31.6-35.5); Mean Corpuscular Hemoglobin 31.4 pg (28.0-33.3); Mean Corpuscular Volume 95.7 fL (83.0-100.0); Mean Platelet Volume 10.8 fL (9.4-12.4); Monocytes # 0.3 K/mcL (0.0-1.3); Monocytes % 4.4 %; Neutrophils # 6.2 K/mcL (1.6-8.9); Platelet Count 117 K/mcL (140-400); Red Blood Count 3.98 M/mcL (4.19-5.50); Red Cell Distribution Width 13.3 % (11.5-14.5); Segmented Neutrophils % 90.8 %
[2018-02-21 04:59] LABS: VBG Ionized Calcium 1.16 mmol/L (1.15-1.35)
[2018-02-21 05:00] LABS: INR 1.3; Prothrombin Time 14.3 Seconds (9.4-12.1)
[2018-02-21 05:10] LABS: BUN/Creatinine Ratio 45 (6-26); Blood Urea Nitrogen 40 mg/dL (8-23); Calcium 8.3 mg/dL (8.6-10.3); Carbon Dioxide 33 mEq/L (23-29); Chloride 104 mEq/L (98-107); Glucose 188 mg/dL (70-105); Magnesium 2.3 mg/dL (1.6-2.6); Osmolality,Calculated 307 (280-300); Phosphorous 2.7 mg/dL (2.7-4.5); Potassium 3.8 mEq/L (3.5-5.1); Sodium 141 mEq/L (136-145); eGFR For Non-African Americans > 60 (> 60)
[2018-02-21] MEDS: MethylPREDNISolone 40 MG/ML VIAL IVP SCH ×2 (06:10→17:03)
--- NOTE | 2018-02-21 08:52 | Cardiology Progress Note ---
Date of Encounter: 02/21/18 Time of Encounter: 08:30 Assessment and Plan (1) Atrial fibrillation Current Visit: Yes Status: Acute RVR on admisison likely to patient not able to tolerate PO medications for 2 weeks due to vomiting, dysphagia Heart rate 75-105 overnight. No anticoagulation at this time as he has a history of GIB, and possibility of further procedures. Continue current management with Cardizem drip, atenolol 50mg BID, prn lopressor. Convert to home oral medications once J tube placed or able to tolerate PO medications. Qualifiers: Atrial fibrillation type: chronic Qualified Code(s): I48.2 - Chronic atrial fibrillation (2) CHF (congestive heart failure) Current Visit: Yes Status: Acute Echo completed on 02/18/18 showed EF now 45-50%. There is mild left ventricular diastolic dysfunction, mild concentric left ventricular hypertrophy, dilated left atrium, mild-moderate aortic regurgitation, mild pulmonary hypertension, stable dilated aortic root. Euvolemic. Resume home medications when feeding tube placed. Qualifiers: Heart failure type: systolic Heart failure chronicity: chronic Qualified Code(s): I50.22 - Chronic systolic (congestive) heart failure (3) Esophageal adenocarcinoma Current Visit: Yes Status: Acute Management per surgery and oncology. (4) Aspiration pneumonia Current Visit: Yes Status: Acute On Unasyn. Management per medicine. Qualifiers: Aspiration pneumonia type: due to regurgitated food Laterality: bilateral Lung location: lower lobe of lung Qualified Code(s): J69.0 - Pneumonitis due to inhalation of food and vomit (5) Aortic aneurysm Current Visit: Yes Status: Chronic Ascending aorta. Stable on CT. Outpatient follow up with cardiovascular surgery. Qualifiers: Aortic location: thoracic aorta Presence of rupture: without rupture Qualified Code(s): I71.2 - Thoracic aortic aneurysm, without rupture (6) HTN (hypertension) Current Visit: Yes Status: Chronic Blood pressures stable. Continue current medications Qualifiers: Hypertension type: essential hypertension Qualified Code(s): I10 - Essential (primary) hypertension Discussion w patient/family: The assessment and plan as outlined above was discussed with the patient and/or family members who expressed understanding and agreement. All questions were answered. Thank you for involving us in the care of your patient. Please call with any questions. Subjective Principal diagnosis: atrial fibrillation, esophageal adenocarcinoma Interval history: Patient states he is doing well. Denies chest pain, shortness of breath, lightheadedness, or any new complaints. Heart rate 75-105 overnight and this mor shannon. Improved from yesterday. Objective Vital Signs, Last 4 Hours Temp Pulse Resp BP Pulse Ox 02/21/18 07:00 97.9 F 97 17 115/59 98 General: Conversant, No Apparent Distress HEENT: Atraumatic, Normocephaly Neck: No JVD Cardiac: No Murmur, Other (irregular rhythm, rate 90s.) Lungs: Normal Breath Sounds, No Wheeze, Rales, Rhonchi Neuro: Alert and responsive, No focal deficits noted Abdomen: Soft, Non-Tender Skin: No rashes noted on visualized skin Musculoskeletal: No Chest Wall Tenderness Extremities: No Edema Results 02/21/18 04:29 02/21/18 04:29 Lab Results 02/20/18 02/20/18 02/20/18 05:25 05:35 05:35 WBC 7.6 Hgb 12.5 L Hct 39.0 Plt Count 129 L INR Sodium 141 Potassium 3.8 Chloride 106 Carbon Dioxide 30 H BUN 40 H Creatinine 1.02 Glucose 189 H Calcium 8.6 Magnesium 2.3 Total Bilirubin 0.8 AST 24 ALT 18 Alkaline Phosphatase 44 02/21/18 02/21/18 02/21/18 04:29 04:29 04:29 WBC 6.8 Hgb 12.5 L Hct 38.1 Plt Count 117 L INR 1.3 Sodium 141 Potassium 3.8 Chloride 104 Carbon Dioxide 33 H BUN 40 H Creatinine 0.88 Glucose 188 H Calcium 8.3 L Magnesium 2.3 Total Bilirubin AST ALT Alkaline Phosphatase Consult Discharge Plan - Plan Referrals: Connie Hyde MD [Primary Care Provider] - 02/27/18 9:00 am (Dr. Gutierres in radiation 02/27/18 at 9 AM in the cancer center. )
--- NOTE | 2018-02-21 08:53 | Internal Med Progress Note ---
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 ENMT: Oral/pharyngeal mucosa is normal in appearance. Eyes: Sclera is white. There is no discharge from eyes. Respiratory: coarse breath sounds bilaterally,, no rhonchi, no wheezes CV:Irregular rhythm, no m/g/r, tachcyardic GI: Abdomen is soft and not tender. There is no palpable mass or visceromegaly. Neuro: There is no focal deficits. - Assessment and Plan (1) Atrial fibrillation Current Visit: Yes Status: Acute Assessment and Plan: HR mostly controlled Continue cardizem Continue home dose of atenolol (crushed) Continue metoprolol IV prn (with hold ordered for low BP) ECHO noted for decreased EF 45-50% and multiple WM hypokinesis, EF from 2016 was WNL cardiology eval noted Patient is aymptomatic Continue other home meds (2) Esophagitis Current Visit: Yes Status: Acute Assessment and Plan: Acute on chronic esophagitis d/t poorly controlled GERD. CT 02/16 shows dilated esophagus with fluid to the upper thoracic level and circumferential bulging thickening in the distal esophagus. This may be secondary to chronic reflux esophagitis but would recommend endoscopic correlation. GI review noted s/p EGD with regional sphincter also to size of a pinhole scope was not able to be passed, ulcerated lesion on the lower end of the esophagus near the GE junction was biopsied, middle esophagus pretty contained multiple oval-shaped also started biopsied Bisopsy showed adenocarcinoma, Oncology consulted, eval noted Continue nothing by mouth status, except for meds Continue PPIs Consulted general surgery for J tube placement-input appreciated, for surgery today 02/21 p.m (3) Nausea and vomiting Current Visit: Yes Status: Resolved Assessment and Plan: resolved as above (4) Aspiration pneumonia Current Visit: Yes Status: Acute Assessment and Plan: Acute aspiration pneumonia r/t recurrent nausea and vomiting for the past 2-3 weeks. States he is unable to keep any food or liquids down and vomits when he tries to eat. CT of the chest 02/16 showed new patchy multifocal airspace disease in both lungs with bronchiectasis and peribronchial cuffing as well as endobronchial opacification in both lower lobes. Continue Unasyn-Day 10/13 (5) Aortic aneurysm Current Visit: Yes Status: Chronic Assessment and Plan: He has underlying aortic aneurysm of ascending aorta. This will require outpatient follow-up visits with cardiovascular surgeon. (6) COPD (chronic obstructive pulmonary disease) Current Visit: Yes Status: Chronic Assessment and Plan: Hx of chronic COPD. Stable. Wean off solumedrol Continue nebs prn (7) GERD (gastroesophageal reflux disease) Current Visit: Yes Status: Chronic Assessment and Plan: see esophagitis (8) HTN (hypertension) Current Visit: Yes Status: Chronic Assessment and Plan: Continue current meds (9) SAMSON (acute kidney injury) Current Visit: Yes Status: Resolved Assessment and Plan: Resolved (10) Esophageal obstruction Current Visit: Yes Status: Acute Assessment and Plan: Due to GEJ adenocarcinoma GI eval appreciated (11) Malnutrition Current Visit: Yes Status: Acute Assessment and Plan: continue current care TPN per district engineer, for J tube placement today (12) CHF (congestive heart failure) Current Visit: Yes Status: Acute Assessment and Plan: Cardio eval noted Currently euvolemic (13) Hypernatremia Current Visit: Yes Status: Resolved Assessment and Plan: Na 141 today, improved from 148 02/19 (14) Tobacco abuse Current Visit: Yes Status: Chronic Assessment and Plan: Encouraged cessation Continue NRT (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 Current Visit: Yes Status: Acute Assessment and Plan: onc eval noted - Time Spent with Patient Total time spent is greater than 50% in coordination of care (as documented) at patient's floor/unit and/or counseling patient: Plan of Care Discussed with: patient Internal Medicine: Result - Labs CBC & Chem 7: 02/21/18 04:29 02/21/18 04:29 Labs: Short CBC 02/20/18 02/21/18 Range/Units 05:35 04:29 WBC 7.6 6.8 (4.3-11.1) K/mcL Hgb 12.5 L 12.5 L (12.9-16.9) g/dL Hct 39.0 38.1 (37.5-50.1) % Plt Count 129 L 117 L (140-400) K/mcL Neutrophils # 6.9 6.2 (1.6-8.9) K/mcL BMP 02/20/18 02/21/18 05:25 04:29 Sodium 141 141 Potassium 3.8 3.8 Chloride 106 104 Carbon Dioxide 30 H 33 H BUN 40 H 40 H Creatinine 1.02 0.88 Glucose 189 H 188 H Calcium 8.6 8.3 L Liver Function 02/20/18 Range/Units 05:25 Total Bilirubin 0.8 (0.3-1.0) mg/dL AST 24 (13-39) Units/L ALT 18 (7-52) Units/L Alkaline Phosphatase 44 (34-104) Units/L Albumin 3.3 L (3.5-5.7) g/dL - ABG Interpretation ABG results: PT/INR, D-dimer PT 14.3 Seconds (9.4-12.1) H 02/21/18 04:29 Consult Discharge Plan - Plan Referrals: Cnonie Hyde MD [Primary Care Provider] - 02/27/18 9:00 am (Dr. Gutierres in radiation 02/27/18 at 9 AM in the cancer center. ) (1) Atrial fibrillation Qualifiers: Atrial fibrillation type: chronic Qualified Code(s): I48.2 - Chronic atrial fibrillation (3) Nausea and vomiting Qualifiers: Vomiting type: cyclical vomiting Vomiting Intractability: non-intractable Qualified Code(s): G43.A0 - Cyclical vomiting, not intractable (4) Aspiration pneumonia Qualifiers: Aspiration pneumonia type: due to regurgitated food Laterality: bilateral Lung location: lower lobe of lung Qualified Code(s): J69.0 - Pneumonitis due to inhalation of food and vomit (5) Aortic aneurysm Qualifiers: Aortic location: thoracic aorta Presence of rupture: without rupture Qualified Code(s): I71.2 - Thoracic aortic aneurysm, without rupture (6) 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 (7) GERD (gastroesophageal reflux disease) Qualifiers: Esophagitis presence: with esophagitis Qualified Code(s): K21.0 - Gastro- esophageal reflux disease with esophagitis (8) HTN (hypertension) Qualifiers: Hypertension type: essential hypertension Qualified Code(s): I10 - Essential (primary) hypertension (11) Malnutrition Qualifiers: Malnutrition type: protein-calorie malnutrition Protein-calorie malnutrition severity: severe Qualified Code(s): E43 - Unspecified severe protein-calorie malnutrition (12) CHF (congestive heart failure) Qualifiers: Heart failure type: systolic Heart failure chronicity: chronic Qualified Code(s): I50.22 - Chronic systolic (congestive) heart failure
--- NOTE | 2018-02-21 09:28 | Event Note ---
Date of Encounter: 02/21/18 Time of Encounter: 09:25 Plan for OR today as add on with Dr Ramirez for j tube insertion in order to preserve the options of future transhiatal esophagectomy if needed for cancer treatment. Plan to start tube feeds over the weekend. Continue TPN until tolerating tube feeds.
[2018-02-21] MEDS: Pantoprazole 40 MG VIAL IVP SCH (09:57)
[2018-02-21] MEDS: Nicotine 14 MG PATCH.TD24 TD SCH (09:57)
[2018-02-21] MEDS: 0.9 % Sodium Chloride 1,000 ML IVC SCH (11:46)
[2018-02-21] MEDS ORDERED: Clinimix E 5%-15% SOLUTION 2,000 ML with MVI, adult with vitamin K 10 ML IVC SCH (17:00)
[2018-02-21] MEDS ORDERED: CefOXitin 1,000 MG VIAL ONE (18:29)
[2018-02-21] MEDS ORDERED: *HR* Rocuronium Bromide 50 MG/5 ML VIAL ONE (18:35)
[2018-02-21] MEDS ORDERED: *HR* Propofol 200 MG/20 ML VIAL IVP ONE (18:35)
[2018-02-21] MEDS ORDERED: Lidocaine -MPF 2% 2 ML VIAL ONE (18:35)
[2018-02-21] MEDS ORDERED: *HR* Succinylcholine 200 MG/10 ML VIAL IVP ONE (18:35)
[2018-02-21] MEDS ORDERED: Ondansetron 4 MG/2 ML VIAL ONE (18:35)
[2018-02-21] MEDS ORDERED: *HR* FentaNYL (PF) 100 MCG/2 ML VIAL ONE (18:35)
--- NOTE | 2018-02-21 20:03 | Operative Note ---
Date of procedure: 02/21/18 Pre-op diagnosis: gastroesophageal cancer Post-op diagnosis: same Procedure: #1 jejunostomy tube #2 enteroenterostomy Anesthesia: BULMAROA Surgeon: Francisco Javier Ramirez Was there an administrative sales assistant present: Yes Government Contracts Manager: Beth Myers Estimated blood loss (cc): 10 Specimen: None Condition: stable Disposition: PACU Procedure in Detail: After informed consent patient was taken major operating suite placed in position given adequate general endotracheal anesthesia. The abdomen was prepped and draped in sterile fashion utilizing ChloraPrep standard draping techniques. Timeout was taken patient was identified. I made a vertical midline incision about the width of my hand just above the umbilicus. I am of the abdomen. I identified the ligament of Treitz and proximal jejunum. I created a enteroenterostomy with seromuscular stitches of 2-0 silk on the back wall and I opened the 2 sides of the small bowel and created a mucosal layer using running 3-0 chromic and then an anterior layer of interrupted 2-0 silk. This gave an excellent technical result. This enteroenterostomy was at the bottom of a 15 cm loop. At the apex of the loop I placed a box stitch and placed the jejunostomy tube into the lumen and pass the enteroenterostomy. I closed the box stitch and then creating a day 4 stitches wietzel tunnel using 2- 0 silk. I then brought the jejunostomy through the anterior abdominal wall and secured this with 2 buttons secured heavy silks. The small bowel was attached to the jejunostomy entry site on the anterior abdominal wall with a pursestring of 3-0 Prolene. This given excellent technical result. The enteroenterostomy will prevent any obstructive symptoms from the jejunostomy. The abdomen and irrigated with copious amounts of antibiotic containing solution. I closed the fascia with looped 0 PDS. Skin was closed with interrupted Vicryl and skin clips. She tolerated the procedure well.
--- NOTE | 2018-02-21 21:13 | Anesthesia Evaluation Post Op ---
Date of Encounter: 02/21/18 Time of Encounter: 21:10 - Vital Signs Vital Signs: Vital Signs/O2 Sat, Most Current Temp Pulse Resp BP Pulse Ox 97.4 F L 117 18 111/87 95 02/21/18 20:41 02/21/18 21:01 02/21/18 21:01 02/21/18 21:01 02/21/18 21:01 - Lungs Lungs: Clear Ascult./Percussion (decreased BS) - Airway Airway: Non-obstructed - Cardiovascular Irregular Rate, Baseline Rhythm - Mental Status Mental Status: Asleep with brisk response to light stimulation - Pain Pain Scale: 2 Pain Scale used: Numeric (1 - 10) - Nausea Vomiting Nausea Vomiting: Not Present - Hydration Hydration: NPO, Has not voided - Discharge PostOp Status: Transfer Patient to floor
[2018-02-21] MEDS: Acetaminophen 325 MG TABLET PO PRN (23:20)
[2018-02-22] MEDS: Levalbuterol Neb 1.25 MG/3 ML IH SCH ×4 (03:43→22:35)
[2018-02-22] MEDS: Ampicillin/Sulbactam 3,000 MG in 0.9 % Sodium Chloride Mini Bag 100 ML IVPB SCH ×3 (06:17→17:32)
[2018-02-22 06:44] LABS: Alanine Aminotransferase 83 Units/L (7-52); Albumin 3.1 g/dL (3.5-5.7); Albumin/Globulin Ratio 1.3 (1.1-2.2); Alkaline Phosphatase 41 Units/L (34-104); Aspartate Amino Transferase 53 Units/L (13-39); BUN/Creatinine Ratio 47 (6-26); Blood Urea Nitrogen 38 mg/dL (8-23); Calcium 8.6 mg/dL (8.6-10.3); Carbon Dioxide 34 mEq/L (23-29); Chloride 106 mEq/L (98-107); Globulin 2.3 g/dL (2.4-3.5); Glucose 211 mg/dL (70-105); Magnesium 2.2 mg/dL (1.6-2.6); Osmolality,Calculated 309 (280-300); Phosphorous 2.2 mg/dL (2.7-4.5); Potassium 3.8 mEq/L (3.5-5.1); Sodium 142 mEq/L (136-145); Total Protein 5.4 g/dL (6.4-8.9); eGFR For Non-African Americans > 60 (> 60)
[2018-02-22] MEDS: Pantoprazole 40 MG VIAL IVP SCH (08:01)
[2018-02-22] MEDS: MethylPREDNISolone 40 MG/ML VIAL IVP SCH (08:01)
[2018-02-22] MEDS: Aspirin Enteric Coated 81 MG Tablet PO SCH (08:02)
[2018-02-22] MEDS: Nicotine 14 MG PATCH.TD24 TD SCH (08:02)
[2018-02-22] MEDS: 0.9 % Sodium Chloride 1,000 ML IVC SCH (08:23)
--- NOTE | 2018-02-22 09:09 | Event Note ---
Date of Encounter: 02/22/18 Time of Encounter: 09:08 - Cardiology Event Note Discussed and reviewed with Dr.John Parra, recommend starting cardizem CD 180mg oral, when able to take oral medications, then wean cardizem drip to off. Cardiology will sign off and will follow in outpatient setting. Follow up set.
--- NOTE | 2018-02-22 10:05 | Internal Med Progress Note ---
Hospitalist Progress Note - Encounter Date of Encounter: 02/22/18 Time of Encounter: 10:03 - Subjective Interval History: POD 1 Seen and evaluated at the bedside Patient with known Afib, CHFrEF, HTN, tobacco abuse, COPD, CRF on O2, admitted and being managed for aspiration PNA secondary to dysphagia with biopsy findings of adenocarcinoma of the GEJ he is on TPN and is s/p j-tube placement and enterostomy 02/21 p.m He is pain free and has no new complains - Exam Vitals: Temp Pulse Resp BP Pulse Ox 97.9 F 78 18 119/73 98 02/22/18 07:00 02/22/18 07:00 02/22/18 07:00 02/22/18 07:00 02/22/18 07:00 Exam: Gen: Elderly male in no form of distress, alert and awake and oriented 3 Skin: Free of rash and discoloration. ENMT: Oral/pharyngeal mucosa is normal in appearance. Eyes: Sclera is white. There is no discharge from eyes. Respiratory: coarse breath sounds bilaterally,, no rhonchi, no wheezes CV:Irregular rhythm, no m/g/r, tachcyardic GI: Abdomen is soft and not tender. There is no palpable mass or visceromegaly. L mid quadrant J tube, dressings soaked with blood, no tenderness Neuro: There is no focal deficits. - Assessment and Plan (1) Atrial fibrillation Current Visit: Yes Status: Acute Assessment and Plan: HR mostly controlled Continue cardizem Continue home dose of atenolol after J tube begins to be used for feeds Continue metoprolol IV prn (with hold ordered for low BP) ECHO noted for decreased EF 45-50% and multiple WM hypokinesis, EF from 2016 was WNL cardiology eval noted Patient is asymptomatic Continue other home meds (2) Esophagitis Current Visit: Yes Status: Acute Assessment and Plan: Acute on chronic esophagitis d/t poorly controlled GERD. CT 02/16 shows dilated esophagus with fluid to the upper thoracic level and c ircumferential bulging thickening in the distal esophagus. This may be secondary to chronic reflux esophagitis but would recommend endoscopic correlation. GI review noted s/p EGD with regional sphincter also to size of a pinhole scope was not able to be passed, ulcerated lesion on the lower end of the esophagus near the GE junction was biopsied, middle esophagus pretty contained multiple oval-shaped also started biopsied Bisopsy showed adenocarcinoma, Oncology consulted, eval noted Continue nothing by mouth status, except for meds Continue PPIs s/p J tube placement and entero-enterostomy 02/21 p.m Per surgery, tube feeds may resume tmrw, will await final recs, continue TPN (3) Nausea and vomiting Current Visit: Yes Status: Resolved Assessment and Plan: resolved as above (4) Aspiration pneumonia Current Visit: Yes Status: Acute Assessment and Plan: Acute aspiration pneumonia r/t recurrent nausea and vomiting for the past 2-3 weeks. States he is unable to keep any food or liquids down and vomits when he tries to eat. CT of the chest 02/16 showed new patchy multifocal airspace disease in both lungs with bronchiectasis and peribronchial cuffing as well as endobronchial opacification in both lower lobes. Continue Unasyn-Day 11/12 (5) Aortic aneurysm Current Visit: Yes Status: Chronic Assessment and Plan: He has underlying aortic aneurysm of ascending aorta. This will require outpatient follow-up visits with cardiovascular surgeon. (6) COPD (chronic obstructive pulmonary disease) Current Visit: Yes Status: Chronic Assessment and Plan: Hx of chronic COPD. Stable. Wean off solumedrol Continue nebs prn (7) GERD (gastroesophageal reflux disease) Current Visit: Yes Status: Chronic Assessment and Plan: see esophagitis (8) HTN (hypertension) Current Visit: Yes Status: Chronic Assessment and Plan: Continue current meds (9) SAMSON (acute kidney injury) Current Visit: Yes Status: Resolved Assessment and Plan: Resolved (10) Esophageal obstruction Current Visit: Yes Status: Acute Assessment and Plan: Due to GEJ adenocarcinoma GI eval appreciated (11) Malnutrition Current Visit: Yes Status: Acute Assessment and Plan: continue current care TPN per autocad operator, s/p J tube placement, for TF from a.m per surgery (12) CHF (congestive heart failure) Current Visit: Yes Status: Chronic Assessment and Plan: Cardio eval noted Currently euvolemic (13) Hypernatremia Current Visit: Yes Status: Resolved Assessment and Plan: Na 142 today, improved from 148 02/19 Will begin free water by J tube when cleared by surgery Continue ice chips as tolerated (14) Tobacco abuse Current Visit: Yes Status: Chronic Assessment and Plan: Encouraged cessation Continue NRT (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 Current Visit: Yes Status: Acute Assessment and Plan: onc aakash noted - Time Spent with Patient Total time spent is greater than 50% in coordination of care (as documented) at patient's floor/unit and/or counseling patient: Plan of Care Discussed with: patient Internal Medicine: Result - Labs CBC & Chem 7: 02/21/18 04:29 02/22/18 06:16 Labs: BMP 02/22/18 06:16 Sodium 142 Potassium 3.8 Chloride 106 Carbon Dioxide 34 H BUN 38 H Creatinine 0.81 Glucose 211 H Calcium 8.6 Liver Function 02/22/18 Range/Units 06:16 Total Bilirubin 1.0 (0.3-1.0) mg/dL AST 53 H (13-39) Units/L ALT 83 H (7-52) Units/L Alkaline Phosphatase 41 (34-104) Units/L Albumin 3.1 L (3.5-5.7) g/dL - ABG Interpretation ABG results: PT/INR, D-dimer PT 14.3 Seconds (9.4-12.1) H 02/21/18 04:29 - Impressions Impressions KUB X-Ray 02/21/18 20:24 IMPRESSION: Limited field of view. No retained surgical instruments or sponges identified. D/ / Brian Givens MD / Brian Givens MD Interpreting Provider: Brian Givens MD Consult Discharge Plan - Plan Referrals: Connie Hyde MD [Primary Care Provider] - 02/27/18 9:00 am (Dr. Gutierres in radiation 02/27/18 at 9 AM in the cancer center. ) (1) Atrial fibrillation Qualifiers: Atrial fibrillation type: chronic Qualified Code(s): I48.2 - Chronic atrial fibrillation (3) Nausea and vomiting Qualifiers: Vomiting type: cyclical vomiting Vomiting Intractability: non-intractable Qualified Code(s): G43.A0 - Cyclical vomiting, not intractable (4) Aspiration pneumonia Qualifiers: Aspiration pneumonia type: due to regurgitated food Laterality: bilateral Lung location: lower lobe of lung Qualified Code(s): J69.0 - Pneumonitis due to inhalation of food and vomit (5) Aortic aneurysm Qualifiers: Aortic location: thoracic aorta Presence of rupture: without rupture Qualified Code(s): I71.2 - Thoracic aortic aneurysm, without rupture (6) 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 (7) GERD (gastroesophageal reflux disease) Qualifiers: Esophagitis presence: with esophagitis Qualified Code(s): K21.0 - Gastro- esophageal reflux disease with esophagitis (8) HTN (hypertension) Qualifiers: Hypertension type: essential hypertension Qualified Code(s): I10 - Essential (primary) hypertension (11) Malnutrition Qualifiers: Malnutrition type: protein-calorie malnutrition Protein-calorie malnutrition severity: severe Qualified Code(s): E43 - Unspecified severe protein-calorie malnutrition (12) CHF (congestive heart failure) Qualifiers: Heart failure type: systolic Heart failure chronicity: chronic Qualified Code(s): I50.22 - Chronic systolic (congestive) heart failure
--- NOTE | 2018-02-22 12:06 | General Surgery Progress Note ---
<Antonia Gustafson - Last Filed: 02/22/18 12:03> Date of Encounter: 02/22/18 Time of Encounter: 10:00 - Assessment and Plan (1) Esophageal adenocarcinoma Current Visit: Yes Status: Acute ate of procedure: 02/21/18 Pre-op diagnosis: gastroesophageal cancer Post-op diagnosis: same Procedure: #1 jejunostomy tube #2 enteroenterostomy Anesthesia: GETA Surgeon: Francisco Javier Ramirez POD #1 as above. Exam is unremarkable. OK for ICe chips. Consideration given for starting TF tomorrow. Surgery will continue to follow. Subjective Patient reports: no new complaints, feels better, voiding w/o difficulty, flatus, no bowel movement, afebrile Objective Vital Signs - Last 8 Hours Temp Pulse Resp BP Pulse Ox 02/22/18 11:16 98.9 F 82 18 116/72 99 02/22/18 10:49 16 98 02/22/18 07:00 97.9 F 78 18 119/73 98 02/22/18 05:19 98 F 97 18 114/73 98 Intake and Output 02/21/18 02/22/18 02/22/18 23:59 07:59 15:59 Intake Total 300 / 300 225 / 225 495 / 495 Output Total 305 / 305 Balance -5 / -5 225 / 225 495 / 495 Intake: IV Fluids 300 / 300 225 / 225 475 / 475 0.9 % Sodium Chloride 1,000 ML 200 / 200 @ 75 mls/hr IVC .[id number] [facility] Rx #:[id number] Cardizem 125 MG In 0.9 % Sodium 0 / 0 125 / 125 125 / 125 Chloride 100 ML @ 5 MG/HR 5 mls/hr IVC .Q24H [facility] Rx#: [id number] Unasyn 3,000 MG In 0.9 % Sodium 100 / 100 100 / 100 100 / 100 Chloride (Mini-Bag +) 100 ML @ 200 mls/hr IVPB Q6HR [facility] Rx#: [id number] Intralipid 20% 250 ML @ 21 mls/ 250 / 250 hr IVPB DAILY@1700 [facility] Rx#: [id number] Oral 0 / 0 20 / 20 Output: Urine 300 / 300 Estimated Blood Loss 5 / 5 Other: # Voids 1 Blood Glucose* 162 200 155 - General physical appearance no distress, no pain - Eyes normal ocular movement - ENT atraumatic, normocephalic - Neck Neck exam: trachea midline - Respiratory normal expansion, normal respiratory effort, clear to auscultation - Abdomen Abdomen: Present: bowel sounds present, soft, non tender, wound (J-tube site un remarkable) Hernia: none - Integumentary no rash - Neurologic normal sensation - Musculoskeletal normal posture - Psychiatric oriented to time, oriented to person, oriented to place - Labs 02/21/18 04:29 02/22/18 06:16 Diabetes panel 02/22/18 Range/Units 06:16 Sodium 142 (136-145) mEq/L Potassium 3.8 (3.5-5.1) mEq/L Chloride 106 (98-107) mEq/L Carbon Dioxide 34 H (23-29) mEq/L BUN 38 H (8-23) mg/dL Creatinine 0.81 (0.70-1.30) mg/dL Glucose 211 H (70-105) mg/dL Calcium 8.6 (8.6-10.3) mg/dL AST 53 H (13-39) Units/L ALT 83 H (7-52) Units/L Alkaline Phosphatase 41 (34-104) Units/L Albumin 3.1 L (3.5-5.7) g/dL Calcium panel 02/22/18 Range/Units 06:16 Calcium 8.6 (8.6-10.3) mg/dL Phosphorus 2.2 L (2.7-4.5) mg/dL Albumin 3.1 L (3.5-5.7) g/dL Pituitary panel 02/22/18 Range/Units 06:16 Sodium 142 (136-145) mEq/L Potassium 3.8 (3.5-5.1) mEq/L Chloride 106 (98-107) mEq/L Carbon Dioxide 34 H (23-29) mEq/L BUN 38 H (8-23) mg/dL Creatinine 0.81 (0.70-1.30) mg/dL Glucose 211 H (70-105) mg/dL Calcium 8.6 (8.6-10.3) mg/dL Adrenal panel 02/22/18 Range/Units 06:16 Sodium 142 (136-145) mEq/L Potassium 3.8 (3.5-5.1) mEq/L Chloride 106 (98-107) mEq/L Carbon Dioxide 34 H (23-29) mEq/L BUN 38 H (8-23) mg/dL Creatinine 0.81 (0.70-1.30) mg/dL Glucose 211 H (70-105) mg/dL Calcium 8.6 (8.6-10.3) mg/dL Total Bilirubin 1.0 (0.3-1.0) mg/dL AST 53 H (13-39) Units/L ALT 83 H (7-52) Units/L Alkaline Phosphatase 41 (34-104) Units/L Albumin 3.1 L (3.5-5.7) g/dL Consult Discharge Plan - Plan Referrals: Connie Hyde MD [Primary Care Provider] - 02/27/18 9:00 am (Dr. Gutierres in radiation 02/27/18 at 9 AM in the cancer center. ) <Zakcary Madden - Last Filed: 02/22/18 13:13> Objective Vital Signs - Last 8 Hours Temp Pulse Resp BP Pulse Ox 02/22/18 11:16 98.9 F 82 18 116/72 99 02/22/18 10:49 16 98 02/22/18 07:00 97.9 F 78 18 119/73 98 02/22/18 05:19 98 F 97 18 114/73 98 Intake and Output 02/21/18 02/22/18 02/22/18 23:59 07:59 15:59 Intake Total 300 / 300 225 / 225 495 / 495 Output Total 305 / 305 Balance -5 / -5 225 / 225 495 / 495 Intake: IV Fluids 300 / 300 225 / 225 475 / 475 0.9 % Sodium Chloride 1,000 ML 200 / 200 @ 75 mls/hr IVC .[id number] [facility] Rx #:[id number] Cardizem 125 MG In 0.9 % Sodium 0 / 0 125 / 125 125 / 125 Chloride 100 ML @ 5 MG/HR 5 mls/hr IVC .Q24H [facility] Rx#: [id number] Unasyn 3,000 MG In 0.9 % Sodium 100 / 100 100 / 100 100 / 100 Chloride (Mini-Bag +) 100 ML @ 200 mls/hr IVPB Q6HR [facility] Rx#: [id number] Intralipid 20% 250 ML @ 21 mls/ 250 / 250 hr IVPB DAILY@1700 [facility] Rx#: [id number] Oral 0 / 0 Output: Urine 300 / 300 Estimated Blood Loss / Other: Meal Pt. is NPO # Voids 1 Blood Glucose* 162 200 155 - Labs 02/21/18 04:29 02/22/18 06:16 Diabetes panel 02/22/18 Range/Units 06:16 Sodium 142 (136-145) mEq/L Potassium 3.8 (3.5-5.1) mEq/L Chloride 106 (98-107) mEq/L Carbon Dioxide 34 H (23-29) mEq/L BUN 38 H (8-23) mg/dL Creatinine 0.81 (0.70-1.30) mg/dL Glucose 211 H (70-105) mg/dL Calcium 8.6 (8.6-10.3) mg/dL AST 53 H (13-39) Units/L ALT 83 H (7-52) Units/L Alkaline Phosphatase 41 (34-104) Units/L Albumin 3.1 L (3.5-5.7) g/dL Calcium panel 02/22/18 Range/Units 06:16 Calcium 8.6 (8.6-10.3) mg/dL Phosphorus 2.2 L (2.7-4.5) mg/dL Albumin 3.1 L (3.5-5.7) g/dL Pituitary panel 02/22/18 Range/Units 06:16 Sodium 142 (136-145) mEq/L Potassium 3.8 (3.5-5.1) mEq/L Chloride 106 (98-107) mEq/L Carbon Dioxide 34 H (23-29) mEq/L BUN 38 H (8-23) mg/dL Creatinine 0.81 (0.70-1.30) mg/dL Glucose 211 H (70-105) mg/dL Calcium 8.6 (8.6-10.3) mg/dL Adrenal panel 02/22/18 Range/Units 06:16 Sodium 142 (136-145) mEq/L Potassium 3.8 (3.5-5.1) mEq/L Chloride 106 (98-107) mEq/L Carbon Dioxide 34 H (23-29) mEq/L BUN 38 H (8-23) mg/dL Creatinine 0.81 (0.70-1.30) mg/dL Glucose 211 H (70-105) mg/dL Calcium 8.6 (8.6-10.3) mg/dL Total Bilirubin 1.0 (0.3-1.0) mg/dL AST 53 H (13-39) Units/L ALT 83 H (7-52) Units/L Alkaline Phosphatase 41 (34-104) Units/L Albumin 3.1 L (3.5-5.7) g/dL - Attending Attestation patient seen and examined. i have reviewed all labs, imaging, and notes. I have discussed the case in detail with the FOOD RUNNER. I agree with the above assessment and plan and wish to add the following... TF in AM
[2018-02-22] MEDS ORDERED: Clinimix E 5%-15% SOLUTION 2,000 ML with MVI, adult with vitamin K 10 ML IVC SCH ×2 (17:00→20:54)
[2018-02-22] MEDS: Acetaminophen 325 MG TABLET PO PRN (20:42)
[2018-02-22] MEDS ORDERED: *HR* Metoprolol 5 MG/5 ML VIAL IVP PRN (20:54)
[2018-02-22] MEDS ORDERED: Acetaminophen 325 MG TABLET PO PRN (20:54)
[2018-02-22] MEDS ORDERED: D10% in Water 500 ML IVC PRN (20:54)
[2018-02-22] MEDS ORDERED: Naloxone 0.4 MG/ML INJ IVP PRN (20:54)
[2018-02-22] MEDS ORDERED: *HR* Promethazine 25 MG/ML VIAL IVP PRN (20:54)
[2018-02-22] MEDS ORDERED: Ondansetron 4 MG/2 ML VIAL IVP PRN (20:54)
[2018-02-23] MEDS: Ampicillin/Sulbactam 3,000 MG in 0.9 % Sodium Chloride Mini Bag 100 ML IVPB SCH ×5 (00:58→23:11)
[2018-02-23] MEDS: Levalbuterol Neb 1.25 MG/3 ML IH SCH ×4 (03:41→22:07)
[2018-02-23 07:00] LABS: Basophils % 0.2 %; Hematocrit 36.3 % (37.5-50.1); Immature Granulocytes % 1.1 % (0-4); Lymphocytes # 0.3 K/mcL (0.6-4.6); Lymphocytes % 2.2 %; Mean Corpuscular HGB Conc 33.1 g/dL (31.6-35.5); Mean Corpuscular Hemoglobin 31.7 pg (28.0-33.3); Mean Corpuscular Volume 95.8 fL (83.0-100.0); Mean Platelet Volume 11.5 fL (9.4-12.4); Monocytes # 0.7 K/mcL (0.0-1.3); Monocytes % 5.7 %; Neutrophils # 11.8 K/mcL (1.6-8.9); Platelet Count 105 K/mcL (140-400); Red Blood Count 3.79 M/mcL (4.19-5.50); Red Cell Distribution Width 13.4 % (11.5-14.5); Segmented Neutrophils % 90.8 %
[2018-02-23 07:21] LABS: Magnesium 2.2 mg/dL (1.6-2.6); Phosphorous 2.3 mg/dL (2.7-4.5)
[2018-02-23] MEDS: amLODIPine 5 MG TABLET PO SCH (09:57)
[2018-02-23] MEDS: Nicotine 14 MG PATCH.TD24 TD SCH (09:58)
[2018-02-23] MEDS: MethylPREDNISolone 40 MG/ML VIAL IVP SCH (09:58)
[2018-02-23] MEDS: Pantoprazole 40 MG VIAL IVP SCH (09:58)
[2018-02-23] MEDS: Aspirin Enteric Coated 81 MG Tablet PO SCH (09:58)
--- NOTE | 2018-02-23 11:11 | Internal Med Progress Note ---
Hospitalist Progress Note - Encounter Date of Encounter: 02/23/18 Time of Encounter: 11:11 - Subjective Interval History: POD 2 Seen and evaluated at the bedside Patient with known Afib, CHFrEF, HTN, tobacco abuse, COPD, CRF on O2, admitted and being managed for aspiration PNA secondary to dysphagia with biopsy findings of adenocarcinoma of the GEJ he is on TPN and is s/p j-tube placement and enterostomy 02/[address] flores this mrn, who stated we may begin using the J tube for feeds Awaiting nutrition and dietitian for same The patient complains of pain this morning also be relieved by Tylenol. abdomen is soft and nontender he is not in obvious distress - Exam Vitals: Temp Pulse Resp BP Pulse Ox 97.7 F 74 21 141/74 96 02/23/18 07:53 02/23/18 07:53 02/23/18 10:14 02/23/18 07:53 02/23/18 10:14 Exam: Gen: Elderly male in no form of distress, alert and awake and oriented 3 Skin: Free of rash and discoloration. ENMT: Oral/pharyngeal mucosa is normal in appearance. Eyes: Sclera is white. There is no discharge from eyes. Respiratory: coarse breath sounds bilaterally,, no rhonchi, no wheezes CV:Irregular rhythm, no m/g/r, tachcyardic GI: Abdomen is soft and not tender. There is no palpable mass or visceromegaly. L mid quadrant J tube, dressings clean, no tenderness Neuro: There is no focal deficits. - Assessment and Plan (1) Atrial fibrillation Current Visit: Yes Status: Acute Assessment and Plan: HR mostly controlled Continue cardizem IV, we will switch to po via J tube when patient tolerates Continue home dose of atenolol after J tube begins to be used for feeds Continue metoprolol IV prn (with hold ordered for low BP) ECHO noted for decreased EF 45-50% and multiple WM hypokinesis, EF from 2016 was WNL cardiology eval noted Patient is asymptomatic Continue other home meds (2) Esophagitis Current Visit: Yes Status: Acute Assessment and Plan: Acute on chronic esophagitis d/t poorly controlled GERD. CT 02/16 shows dilated esophagus with fluid to the upper thoracic level and circumferential bulging thickening in the distal esophagus. This may be secondary to chronic reflux esophagitis but would recommend endoscopic correlation. GI review noted s/p EGD with regional sphincter also to size of a pinhole scope was not able to be passed, ulcerated lesion on the lower end of the esophagus near the GE junction was biopsied, middle esophagus pretty contained multiple oval-shaped also started biopsied Bisopsy showed adenocarcinoma, Oncology consulted, eval noted Continue nothing by mouth status, except for meds Continue PPIs s/p J tube placement and entero-enterostomy 02/21 p.m Per surgery, tube feeds may resume today Continue current care per dietary and surgery (3) Nausea and vomiting Current Visit: Yes Status: Resolved Assessment and Plan: resolved as above (4) Aspiration pneumonia Current Visit: Yes Status: Acute Assessment and Plan: Acute aspiration pneumonia r/t recurrent nausea and vomiting for the past 2-3 weeks. States he is unable to keep any food or liquids down and vomits when he tries to eat. CT of the chest 02/16 showed new patchy multifocal airspace disease in both lungs with bronchiectasis and peribronchial cuffing as well as endobronchial opacification in both lower lobes. Continue Unasyn-Day 12/13 (5) Aortic aneurysm Current Visit: Yes Status: Chronic Assessment and Plan: He has underlying aortic aneurysm of ascending aorta. This will require outpatient follow-up visits with cardiovascular surgeon. (6) COPD (chronic obstructive pulmonary disease) Current Visit: Yes Status: Chronic Assessment and Plan: Hx of chronic COPD. Stable. Wean off solumedrol Continue nebs prn (7) GERD (gastroesophageal reflux disease) Current Visit: Yes Status: Chronic Assessment and Plan: see esophagitis (8) HTN (hypertension) Current Visit: Yes Status: Chronic Assessment and Plan: Continue current meds (9) SAMSON (acute kidney injury) Current Visit: Yes Status: Resolved Assessment and Plan: Resolved (10) Esophageal obstruction Current Visit: Yes Status: Acute Assessment and Plan: Due to GEJ adenocarcinoma GI eval appreciated (11) Malnutrition Current Visit: Yes Status: Acute Assessment and Plan: continue current care TPN per planner intern, s/p J tube placement, for TF from a.m per surgery (12) CHF (congestive heart failure) Current Visit: Yes Status: Chronic Assessment and Plan: Cardio eval noted Currently euvolemic (13) Hypernatremia Current Visit: Yes Status: Resolved Assessment and Plan: Na 142 02/22, improved from 148 02/19 labs from today pending Will begin free water by J tube when cleared by surgery Continue ice chips as tolerated (14) Tobacco abuse Current Visit: Yes Status: Chronic Assessment and Plan: Encouraged cessation Continue NRT (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 Current Visit: Yes Status: Acute Assessment and Plan: onc aakash noted - Time Spent with Patient Total time spent is greater than 50% in coordination of care (as documented) at patient's floor/unit and/or counseling patient: Plan of Care Discussed with: family Internal Medicine: Result - Labs CBC & Chem 7: 02/23/18 06:38 02/22/18 06:16 Labs: Short CBC 02/23/18 Range/Units 06:38 WBC 13.0 H D (4.3-11.1) K/mcL Hgb 12.0 L (12.9-16.9) g/dL Hct 36.3 L (37.5-50.1) % Plt Count 105 L (140-400) K/mcL Neutrophils # 11.8 H (1.6-8.9) K/mcL - ABG Interpretation ABG results: PT/INR, D-dimer PT 14.3 Seconds (9.4-12.1) H 02/21/18 04:29 Consult Discharge Plan - Plan Referrals: Connie Hyde MD [Primary Care Provider] - 02/27/18 9:00 am (Dr. Gutierres in radiation 02/27/18 at 9 AM in the cancer center. ) (1) Atrial fibrillation Qualifiers: Atrial fibrillation type: chronic Qualified Code(s): I48.2 - Chronic atrial fibrillation (3) Nausea and vomiting Qualifiers: Vomiting type: cyclical vomiting Vomiting Intractability: non-intractable Qualified Code(s): G43.A0 - Cyclical vomiting, not intractable (4) Aspiration pneumonia Qualifiers: Aspiration pneumonia type: due to regurgitated food Laterality: bilateral Lung location: lower lobe of lung Qualified Code(s): J69.0 - Pneumonitis due to inhalation of food and vomit (5) Aortic aneurysm Qualifiers: Aortic location: thoracic aorta Presence of rupture: without rupture Qualified Code(s): I71.2 - Thoracic aortic aneurysm, without rupture (6) 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 (7) GERD (gastroesophageal reflux disease) Qualifiers: Esophagitis presence: with esophagitis Qualified Code(s): K21.0 - Gastro- esophageal reflux disease with esophagitis (8) HTN (hypertension) Qualifiers: Hypertension type: essential hypertension Qualified Code(s): I10 - Essential (primary) hypertension (11) Malnutrition Qualifiers: Malnutrition type: protein-calorie malnutrition Protein-calorie malnutrition severity: severe Qualified Code(s): E43 - Unspecified severe protein-calorie malnutrition (12) CHF (congestive heart failure) Qualifiers: Heart failure type: systolic Heart failure chronicity: chronic Qualified Code(s): I50.22 - Chronic systolic (congestive) heart failure
--- NOTE | 2018-02-23 11:51 | General Surgery Progress Note ---
Date of Encounter: 02/23/18 Time of Encounter: 11:49 - Assessment and Plan (1) Esophageal adenocarcinoma Current Visit: Yes Status: Acute 82M with esophageal CA POD #2 s/p feeding jejunstomy; HDS; start tube feeds today cont TPN activity as tolerated will cont to follow Subjective Patient reports: no new complaints, pain is less Objective Vital Signs - Last 8 Hours Temp Pulse Resp BP Pulse Ox 02/23/18 11:18 97.7 F 103 18 117/81 96 02/23/18 10:14 21 96 02/23/18 07:53 97.7 F 74 18 141/74 91 Intake and Output 02/22/18 02/23/18 02/23/18 23:59 07:59 15:59 Intake Total 225 / 225 100 / 100 130 / 130 Balance 225 / 225 100 / 100 130 / 130 Intake: IV Fluids 225 / 225 100 / 100 100 / 100 Cardizem 125 MG In 0.9 % Sodium 125 / 125 Chloride 100 ML @ 5 MG/HR 5 mls/hr IVC .Q24H [facility] Rx#: [id number] Unasyn 3,000 MG In 0.9 % Sodium 100 / 100 100 / 100 100 / 100 Chloride (Mini-Bag +) 100 ML @ 200 mls/hr IVPB Q6HR [facility] Rx#: [id number] Oral 0 / 0 30 / 30 Other: Meal NPO Blood Glucose* 157 157 139 - General physical appearance no distress - Respiratory normal expansion, normal respiratory effort - Cardiovascular Cardiovascular exam: Present: RRR - Abdomen Abdomen: Present: soft, tender (appropriately tender) - Integumentary no rash - Neurologic CN 2-12 grossly intact - Labs 02/23/18 06:38 02/22/18 06:16 Calcium panel 02/23/18 Range/Units 06:38 Phosphorus 2.3 L (2.7-4.5) mg/dL Consult Discharge Plan - Plan Referrals: Connie Hyde MD [Primary Care Provider] - 02/27/18 9:00 am (Dr. Gutierres in radiation 02/27/18 at 9 AM in the cancer center. )
[2018-02-23] MEDS: hydrOXYzine pamoate 25 MG CAPSULE PO PRN (13:10)
[2018-02-23] MEDS ORDERED: OXYCODONE Oral CONC 10 MG/0.5 ML ORAL.SYG SL PRN (13:52)
[2018-02-23] MEDS: OXYCODONE Oral CONC 10 MG/0.5 ML ORAL.SYG SL PRN (14:10)
[2018-02-23] MEDS ORDERED: Clinimix E 5%-15% SOLUTION 2,000 ML with MVI, adult with vitamin K 10 ML IVC SCH ×2 (17:00)
[2018-02-23] MEDS ORDERED: Furosemide 20 MG/2 ML VIAL IVP ONE (18:37)
[2018-02-24 01:25] LABS: BUN/Creatinine Ratio 47 (6-26); Blood Urea Nitrogen 38 mg/dL (8-23); Calcium 8.2 mg/dL (8.6-10.3); Carbon Dioxide 37 mEq/L (23-29); Chloride 103 mEq/L (98-107); Glucose 194 mg/dL (70-105); Osmolality,Calculated 308 (280-300); Potassium 3.6 mEq/L (3.5-5.1); Sodium 142 mEq/L (136-145); eGFR For Non-African Americans > 60 (> 60)
[2018-02-24] MEDS: Levalbuterol Neb 1.25 MG/3 ML IH SCH (04:21)
[2018-02-24] MEDS: Ampicillin/Sulbactam 3,000 MG in 0.9 % Sodium Chloride Mini Bag 100 ML IVPB SCH ×4 (05:08→23:44)
[2018-02-24 05:37] LABS: Basophils % 0.3 %; Hematocrit 34.7 % (37.5-50.1); Hemoglobin 11.4 g/dL (12.9-16.9); Immature Granulocytes % 1.4 % (0-4); Lymphocytes # 0.4 K/mcL (0.6-4.6); Lymphocytes % 2.7 %; Mean Corpuscular HGB Conc 32.9 g/dL (31.6-35.5); Mean Corpuscular Hemoglobin 31.7 pg (28.0-33.3); Mean Corpuscular Volume 96.4 fL (83.0-100.0); Mean Platelet Volume 11.4 fL (9.4-12.4); Monocytes # 0.8 K/mcL (0.0-1.3); Monocytes % 6.2 %; Platelet Count 109 K/mcL (140-400); Red Cell Distribution Width 13.3 % (11.5-14.5); Segmented Neutrophils % 89.4 %
[2018-02-24 05:53] LABS: BUN/Creatinine Ratio 51 (6-26); Blood Urea Nitrogen 38 mg/dL (8-23); Calcium 8.2 mg/dL (8.6-10.3); Carbon Dioxide 37 mEq/L (23-29); Chloride 103 mEq/L (98-107); Glucose 158 mg/dL (70-105); Osmolality,Calculated 308 (280-300); Potassium 3.6 mEq/L (3.5-5.1); Sodium 143 mEq/L (136-145); eGFR For Non-African Americans > 60 (> 60)
[2018-02-24 05:54] LABS: Phosphorous 3.2 mg/dL (2.7-4.5)
[2018-02-24] MEDS: OXYCODONE Oral CONC 10 MG/0.5 ML ORAL.SYG SL PRN (06:44)
[2018-02-24] MEDS: hydrOXYzine pamoate 25 MG CAPSULE PO PRN ×2 (06:44→18:45)
--- NOTE | 2018-02-24 07:53 | General Surgery Progress Note ---
<Hugh Vega S - Last Filed: 02/24/18 07:51> Date of Encounter: 02/24/18 Time of Encounter: 07:51 - Assessment and Plan (1) Esophageal adenocarcinoma Current Visit: Yes Status: Acute Post-op day 3 feeding jejunostomy for esophageal cancer Started tube feeds yesterday Advanced trickle feeds to 25 cc/hr today Continue TPN Will continue to follow Subjective Patient reports: no new complaints, no flatus, no bowel movement, afebrile Objective Vital Signs - Last 8 Hours Temp Pulse Resp BP Pulse Ox 02/24/18 07:13 98.6 F 90 18 120/69 98 02/24/18 04:52 97.9 F 82 17 145/63 98 02/24/18 04:23 16 99 02/24/18 01:16 97.5 F L 99 17 122/74 96 Intake and Output 02/23/18 02/23/18 02/24/18 15:59 23:59 07:59 Intake Total 230 / 230 255 / 255 984 / 984 Balance 230 / 230 255 / 255 984 / 984 Intake: IV Fluids 200 / 200 225 / 225 835 / 835 Cardizem 125 MG In 0.9 % Sodium 125 / 125 125 / 125 Chloride 100 ML @ 5 MG/HR 5 mls/hr IVC .Q24H [facility] Rx#: [id number] Unasyn 3,000 MG In 0.9 % Sodium 200 / 200 100 / 100 200 / 200 Chloride (Mini-Bag +) 100 ML @ 200 mls/hr IVPB Q6HR [facility] Rx#: [id number] Intralipid 20% 250 ML @ 21 mls/ 250 / 250 hr IVPB DAILY@1700 [facility] Rx#: [id number] Sodium Phosphate 30 MMOL In 0.9 260 / 260 % Sodium Chloride 250 ML @ 42 mls/hr IVPB ONCE ONE Rx#: [id number] Oral 30 / 30 30 / 30 Tube Feeding 149 / 149 Other: Meal NPO Weight 88 kg Blood Glucose* 139 183 154 Patient Weight 02/24/18 23:59 Weight 88 kg - General physical appearance well developed - Respiratory normal expansion, normal respiratory effort - Cardiovascular Cardiovascular exam: Present: RRR - Abdomen Abdomen: Present: bowel sounds present, soft, tender (appropriately tender) - Incision Incision: Present: clean and dry, intact - Psychiatric oriented to time, oriented to person, oriented to place - Labs 02/24/18 05:00 02/24/18 05:00 Diabetes panel 02/24/18 02/24/18 Range/Units 00:50 05:00 Sodium 142 143 (136-145) mEq/L Potassium 3.6 3.6 (3.5-5.1) mEq/L Chloride 103 103 (98-107) mEq/L Carbon Dioxide 37 H 37 H (23-29) mEq/L BUN 38 H 38 H (8-23) mg/dL Creatinine 0.81 0.74 (0.70-1.30) mg/dL Glucose 194 H 158 H (70-105) mg/dL Calcium 8.2 L 8.2 L (8.6-10.3) mg/dL Calcium panel 02/24/18 02/24/18 02/24/18 Range/Units 00:50 05:00 05:00 Calcium 8.2 L 8.2 L (8.6-10.3) mg/dL Phosphorus 3.2 (2.7-4.5) mg/dL Pituitary panel 02/24/18 02/24/18 Range/Units 00:50 05:00 Sodium 142 143 (136-145) mEq/L Potassium 3.6 3.6 (3.5-5.1) mEq/L Chloride 103 103 (98-107) mEq/L Carbon Dioxide 37 H 37 H (23-29) mEq/L BUN 38 H 38 H (8-23) mg/dL Creatinine 0.81 0.74 (0.70-1.30) mg/dL Glucose 194 H 158 H (70-105) mg/dL Calcium 8.2 L 8.2 L (8.6-10.3) mg/dL Adrenal panel 02/24/18 02/24/18 Range/Units 00:50 05:00 Sodium 142 143 (136-145) mEq/L Potassium 3.6 3.6 (3.5-5.1) mEq/L Chloride 103 103 (98-107) mEq/L Carbon Dioxide 37 H 37 H (23-29) mEq/L BUN 38 H 38 H (8-23) mg/dL Creatinine 0.81 0.74 (0.70-1.30) mg/dL Glucose 194 H 158 H (70-105) mg/dL Calcium 8.2 L 8.2 L (8.6-10.3) mg/dL Consult Discharge Plan - Plan Referrals: Connie Hyde MD [Primary Care Provider] - 02/27/18 9:00 am (Dr. Gutierres in radiation 02/27/18 at 9 AM in the cancer center. ) <Francisco Javier Ramirez - Last Filed: 02/24/18 08:36> Objective Vital Signs - Last 8 Hours Temp Pulse Resp BP Pulse Ox 02/24/18 07:13 98.6 F 90 18 120/69 98 02/24/18 04:52 97.9 F 82 17 145/63 98 02/24/18 04:23 16 99 02/24/18 01:16 97.5 F L 99 17 122/74 96 Intake and Output 02/23/18 02/24/18 02/24/18 23:59 07:59 15:59 Intake Total 255 / 255 1014 / 1014 Balance 255 / 255 1014 / 1014 Intake: IV Fluids 225 / 225 835 / 835 Cardizem 125 MG In 0.9 % Sodium 125 / 125 125 / 125 Chloride 100 ML @ 5 MG/HR 5 mls/hr IVC .Q24H [facility] Rx#: [id number] Unasyn 3,000 MG In 0.9 % Sodium 100 / 100 200 / 200 Chloride (Mini-Bag +) 100 ML @ 200 mls/hr IVPB Q6HR [facility] Rx#: [id number] Intralipid 20% 250 ML @ 21 mls/ 250 / 250 hr IVPB DAILY@1700 [facility] Rx#: [id number] Sodium Phosphate 30 MMOL In 0.9 260 / 260 % Sodium Chloride 250 ML @ 42 mls/hr IVPB ONCE ONE Rx#: [id number] Oral 30 / 30 Tube Feeding 149 / 149 Free Water Intake Amount 30 / 30 Other: Weight 88 kg Blood Glucose* 183 154 Patient Weight 02/24/18 23:59 Weight 88 kg - Labs 02/24/18 05:00 02/24/18 05:00 Diabetes panel 02/24/18 02/24/18 Range/Units 00:50 05:00 Sodium 142 143 (136-145) mEq/L Potassium 3.6 3.6 (3.5-5.1) mEq/L Chloride 103 103 (98-107) mEq/L Carbon Dioxide 37 H 37 H (23-29) mEq/L BUN 38 H 38 H (8-23) mg/dL Creatinine 0.81 0.74 (0.70-1.30) mg/dL Glucose 194 H 158 H (70-105) mg/dL Calcium 8.2 L 8.2 L (8.6-10.3) mg/dL Calcium panel 02/24/18 02/24/18 02/24/18 Range/Units 00:50 05:00 05:00 Calcium 8.2 L 8.2 L (8.6-10.3) mg/dL Phosphorus 3.2 (2.7-4.5) mg/dL Pituitary panel 02/24/18 02/24/18 Range/Units 00:50 05:00 Sodium 142 143 (136-145) mEq/L Potassium 3.6 3.6 (3.5-5.1) mEq/L Chloride 103 103 (98-107) mEq/L Carbon Dioxide 37 H 37 H (23-29) mEq/L BUN 38 H 38 H (8-23) mg/dL Creatinine 0.81 0.74 (0.70-1.30) mg/dL Glucose 194 H 158 H (70-105) mg/dL Calcium 8.2 L 8.2 L (8.6-10.3) mg/dL Adrenal panel 02/24/18 02/24/18 Range/Units 00:50 05:00 Sodium 142 143 (136-145) mEq/L Potassium 3.6 3.6 (3.5-5.1) mEq/L Chloride 103 103 (98-107) mEq/L Carbon Dioxide 37 H 37 H (23-29) mEq/L BUN 38 H 38 H (8-23) mg/dL Creatinine 0.81 0.74 (0.70-1.30) mg/dL Glucose 194 H 158 H (70-105) mg/dL Calcium 8.2 L 8.2 L (8.6-10.3) mg/dL - Attending Attestation I examined this patient and my medical decision-making was reviewed with the Resident Physician. I agree with the documented findings, disposition and treatment plan as described except to the extent set forth below. The patient is seen and evaluated with the resident and the clinical nurse pr actitioner on morning rounds. He has good bowel sounds and is tolerating 10 mL/h of feedings. We will advance to 25 mL/h and continue the TPN today. We will continue to work with oncology to see if neoadjuvant therapy will be necessary for the gastroesophageal junction tumor. Francisco Javier Ramirez MD FACS
[2018-02-24] MEDS: Aspirin Enteric Coated 81 MG Tablet PO SCH (08:03)
[2018-02-24] MEDS: MethylPREDNISolone 40 MG/ML VIAL IVP SCH ×2 (08:04→11:46)
[2018-02-24] MEDS: Pantoprazole 40 MG VIAL IVP SCH (08:04)
[2018-02-24] MEDS: Nicotine 14 MG PATCH.TD24 TD SCH (08:04)
[2018-02-24] MEDS: amLODIPine 5 MG TABLET PO SCH (08:04)
--- NOTE | 2018-02-24 11:34 | Internal Med Progress Note ---
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 ENMT: Oral/pharyngeal mucosa is normal in appearance. Eyes: Sclera is white. There is no discharge from eyes. Respiratory: coarse breath sounds bilaterally,, no rhonchi, no wheezes CV:Irregular rhythm, no m/g/r, GI: Abdomen is soft and not tender. There is no palpable mass or visceromegaly. L mid quadrant J tube, no tenderness Neuro: There is no focal deficits. - Assessment and Plan (1) Atrial fibrillation Current Visit: Yes Status: Acute Assessment and Plan: HR mostly controlled ECHO noted for decreased EF 45-50% and multiple WM hypokinesis, EF from 2016 was WNL cardiology eval noted Patient is asymptomatic Wean off IV cardizem Started on Cardizem by J tube 60mg TID Continue Atenolol by J tube Continue Metorpolol IV prn Continue other home meds No anticoagulation at this time as he has a history of GIB (2) Esophagitis Current Visit: Yes Status: Acute Assessment and Plan: Acute on chronic esophagitis d/t poorly controlled GERD. CT 02/16 shows dilated esophagus with fluid to the upper thoracic level and circumferential bulging thickening in the distal esophagus. This may be secondary to chronic reflux esophagitis but would recommend endoscopic correlation. GI review noted s/p EGD with regional sphincter also to size of a pinhole scope was not able to be passed, ulcerated lesion on the lower end of the esophagus near the GE junction was biopsied, middle esophagus pretty contained multiple oval-shaped also started biopsied Bisopsy showed adenocarcinoma, Oncology consulted, eval noted Continue PPIs s/p J tube placement and entero-enterostomy 02/21 p.m Continue tube feeds Continue current care per dietary and surgery (3) Nausea and vomiting Current Visit: Yes Status: Resolved Assessment and Plan: resolved as above (4) Aspiration pneumonia Current Visit: Yes Status: Acute Assessment and Plan: Acute aspiration pneumonia r/t recurrent nausea and vomiting for the past 2-3 weeks. States he is unable to keep any food or liquids down and vomits when he tries to eat. CT of the chest 02/16 showed new patchy multifocal airspace disease in both lungs with bronchiectasis and peribronchial cuffing as well as endobronchial opacification in both lower lobes. Continue Unasyn-Day 01/13 (5) Aortic aneurysm Current Visit: Yes Status: Chronic Assessment and Plan: He has underlying aortic aneurysm of ascending aorta. This will require outpatient follow-up visits with cardiovascular surgeon. (6) COPD (chronic obstructive pulmonary disease) Current Visit: Yes Status: Chronic Assessment and Plan: Hx of chronic COPD. Stable. Wean off solumedrol Continue nebs prn (7) GERD (gastroesophageal reflux disease) Current Visit: Yes Status: Chronic Assessment and Plan: see esophagitis Change PPI to G tube (8) HTN (hypertension) Current Visit: Yes Status: Chronic Assessment and Plan: Continue current meds (9) SAMSON (acute kidney injury) Current Visit: Yes Status: Resolved Assessment and Plan: Resolved (10) Esophageal obstruction Current Visit: Yes Status: Acute Assessment and Plan: Due to GEJ adenocarcinoma GI eval appreciated (11) Malnutrition Current Visit: Yes Status: Acute Assessment and Plan: continue current care TPN per gold charmer, s/p J tube placement, for TF from a.m per surgery Continue feeds (12) CHF (congestive heart failure) Current Visit: Yes Status: Chronic Assessment and Plan: Cardio eval noted Resume home dose of lasix, patient began having SOB and is on TPN for prolonged time MOnitor Chem (13) Hypernatremia Current Visit: Yes Status: Resolved Assessment and Plan: Na 142 02/22, improved from 148 02/19 Na stable at 142 Start free water by J tube Continue ice chips as tolerated (14) Tobacco abuse Current Visit: Yes Status: Chronic Assessment and Plan: Encouraged cessation Continue NRT (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 Current Visit: Yes Status: Acute Assessment and Plan: onc aakash noted - Time Spent with Patient Total time spent is greater than 50% in coordination of care (as documented) at patient's floor/unit and/or counseling patient: Plan of Care Discussed with: patient Internal Medicine: Result - Labs CBC & Chem 7: 02/24/18 05:00 02/24/18 05:00 Labs: Short CBC 02/24/18 Range/Units 05:00 WBC 13.5 H (4.3-11.1) K/mcL Hgb 11.4 L (12.9-16.9) g/dL Hct 34.7 L (37.5-50.1) % Plt Count 109 L (140-400) K/mcL Neutrophils # 12.0 H (1.6-8.9) K/mcL BMP 02/24/18 02/24/18 00:50 05:00 Sodium 142 143 Potassium 3.6 3.6 Chloride 103 103 Carbon Dioxide 37 H 37 H BUN 38 H 38 H Creatinine 0.81 0.74 Glucose 194 H 158 H Calcium 8.2 L 8.2 L - ABG Interpretation ABG results: PT/INR, D-dimer PT 14.3 Seconds (9.4-12.1) H 02/21/18 04:29 Consult Discharge Plan - Plan Referrals: Connie Hyde MD [Primary Care Provider] - 02/27/18 9:00 am (Dr. Gutierres in radiation 02/27/18 at 9 AM in the cancer center. ) (1) Atrial fibrillation Qualifiers: Atrial fibrillation type: chronic Qualified Code(s): I48.2 - Chronic atrial fibrillation (3) Nausea and vomiting Qualifiers: Vomiting type: cyclical vomiting Vomiting Intractability: non-intractable Qualified Code(s): G43.A0 - Cyclical vomiting, not intractable (4) Aspiration pneumonia Qualifiers: Aspiration pneumonia type: due to regurgitated food Laterality: bilateral Lung location: lower lobe of lung Qualified Code(s): J69.0 - Pneumonitis due to inhalation of food and vomit (5) Aortic aneurysm Qualifiers: Aortic location: thoracic aorta Presence of rupture: without rupture Qualified Code(s): I71.2 - Thoracic aortic aneurysm, without rupture (6) 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 (7) GERD (gastroesophageal reflux disease) Qualifiers: Esophagitis presence: with esophagitis Qualified Code(s): K21.0 - Gastro- esophageal reflux disease with esophagitis (8) HTN (hypertension) Qualifiers: Hypertension type: essential hypertension Qualified Code(s): I10 - Essential (primary) hypertension (11) Malnutrition Qualifiers: Malnutrition type: protein-calorie malnutrition Protein-calorie malnutrition severity: severe Qualified Code(s): E43 - Unspecified severe protein-calorie malnutrition (12) CHF (congestive heart failure) Qualifiers: Heart failure type: systolic Heart failure chronicity: chronic Qualified Code(s): I50.22 - Chronic systolic (congestive) heart failure
[2018-02-24] MEDS: Furosemide Oral Soln 40 MG/4 ML UDC PO SCH (11:46)
[2018-02-24] MEDS ORDERED: Clinimix E 5%-15% SOLUTION 2,000 ML with MVI, adult with vitamin K 10 ML IVC SCH (17:00)
[2018-02-25 04:15] LABS: Basophils % 0.3 %; Hematocrit 37.2 % (37.5-50.1); Hemoglobin 12.2 g/dL (12.9-16.9); Immature Granulocytes % 1.7 % (0-4); Lymphocytes # 0.5 K/mcL (0.6-4.6); Lymphocytes % 3.3 %; Mean Corpuscular HGB Conc 32.8 g/dL (31.6-35.5); Mean Corpuscular Hemoglobin 31.6 pg (28.0-33.3); Mean Corpuscular Volume 96.4 fL (83.0-100.0); Mean Platelet Volume 11.4 fL (9.4-12.4); Monocytes % 6.5 %; Neutrophils # 13.3 K/mcL (1.6-8.9); Platelet Count 143 K/mcL (140-400); Red Blood Count 3.86 M/mcL (4.19-5.50); Red Cell Distribution Width 13.3 % (11.5-14.5); Segmented Neutrophils % 88.2 %
[2018-02-25 04:59] LABS: BUN/Creatinine Ratio 50 (6-26); Blood Urea Nitrogen 40 mg/dL (8-23); Calcium 8.4 mg/dL (8.6-10.3); Carbon Dioxide 38 mEq/L (23-29); Chloride 101 mEq/L (98-107); Glucose 165 mg/dL (70-105); Osmolality,Calculated 309 (280-300); Sodium 143 mEq/L (136-145); eGFR For Non-African Americans > 60 (> 60)
[2018-02-25] MEDS: Ampicillin/Sulbactam 3,000 MG in 0.9 % Sodium Chloride Mini Bag 100 ML IVPB SCH ×3 (05:32→16:39)
[2018-02-25] MEDS: OXYCODONE Oral CONC 10 MG/0.5 ML ORAL.SYG SL PRN (06:15)
--- NOTE | 2018-02-25 08:13 | General Surgery Progress Note ---
<GaryHugh S - Last Filed: 02/25/18 08:28> Date of Encounter: 02/25/18 Time of Encounter: 08:11 - Assessment and Plan (1) Esophageal adenocarcinoma Current Visit: Yes Status: Acute Post-op day 4 for feeding jejunostomy and enteroenterostomy for esophageal cancer On tube feeds Advanced trickle feeds 25 > 35 cc/hr today Continue TPN Started patient on IV Reglan 20 mg every 8 hours for 36 hours Will continue to follow Subjective Patient reports: no new complaints, still having pain, flatus, no bowel movement, afebrile Narrative: No acute events overnight. Patient still complains of abdominal pain this morning. He denies nausea/vomiting, CP, SOB. No bowel movements this AM. Passing some flatus. Objective Vital Signs - Last 8 Hours Temp Pulse Resp BP Pulse Ox 02/25/18 07:07 97.7 F 114 20 117/69 97 02/25/18 03:56 20 96 02/25/18 03:45 97.4 F L 104 19 130/87 96 Intake and Output 02/24/18 02/25/18 02/25/18 23:59 07:59 15:59 Intake Total 1175 / 1175 100 / 100 Balance 1175 / 1175 100 / 100 Intake: IV Fluids 225 / 225 100 / 100 Cardizem 125 MG In 0.9 % Sodium 125 / 125 Chloride 100 ML @ 5 MG/HR 5 mls/hr IVC .Q24H [facility] Rx#: [id number] Unasyn 3,000 MG In 0.9 % Sodium 100 / 100 100 / 100 Chloride (Mini-Bag +) 100 ML @ 200 mls/hr IVPB Q6HR [facility] Rx#: [id number] Tube Feeding 200 / 200 Free Water 250 / 250 Free Water Intake Amount 500 / 500 Other: # Voids 1 1 Blood Glucose* 201 207 - General physical appearance well developed - Respiratory normal expansion, normal respiratory effort - Cardiovascular Cardiovascular exam: Present: RRR - Abdomen Abdomen: Present: bowel sounds present, soft, non tender - Incision Incision: Present: clean and dry, intact - Integumentary no rash - Psychiatric oriented to time, oriented to person, oriented to place - Labs 02/25/18 03:35 02/25/18 03:35 Diabetes panel 02/25/18 Range/Units 03:35 Sodium 143 (136-145) mEq/L Potassium 4.0 (3.5-5.1) mEq/L Chloride 101 (98-107) mEq/L Carbon Dioxide 38 H (23-29) mEq/L BUN 40 H (8-23) mg/dL Creatinine 0.80 (0.70-1.30) mg/dL Glucose 165 H (70-105) mg/dL Calcium 8.4 L (8.6-10.3) mg/dL Calcium panel 02/25/18 Range/Units 03:35 Calcium 8.4 L (8.6-10.3) mg/dL Phosphorus 3.0 (2.7-4.5) mg/dL Pituitary panel 02/25/18 Range/Units 03:35 Sodium 143 (136-145) mEq/L Potassium 4.0 (3.5-5.1) mEq/L Chloride 101 (98-107) mEq/L Carbon Dioxide 38 H (23-29) mEq/L BUN 40 H (8-23) mg/dL Creatinine 0.80 (0.70-1.30) mg/dL Glucose 165 H (70-105) mg/dL Calcium 8.4 L (8.6-10.3) mg/dL Adrenal panel 02/25/18 Range/Units 03:35 Sodium 143 (136-145) mEq/L Potassium 4.0 (3.5-5.1) mEq/L Chloride 101 (98-107) mEq/L Carbon Dioxide 38 H (23-29) mEq/L BUN 40 H (8-23) mg/dL Creatinine 0.80 (0.70-1.30) mg/dL Glucose 165 H (70-105) mg/dL Calcium 8.4 L (8.6-10.3) mg/dL Consult Discharge Plan - Plan Referrals: Rolando Martinez MD [Partnered Physician] - 03/07/18 1:30 pm (Please follow up as schedule...) Connie Hyde MD [Primary Care Provider] - 02/27/18 9:00 am (Dr. Gutierres in radiation 02/27/18 at 9 AM in the cancer center. ) <Francisco Javier Ramirez - Last Filed: 02/26/18 06:57> Objective Vital Signs - Last 8 Hours Temp Pulse Resp BP Pulse Ox 02/26/18 05:44 98.1 F 116 17 113/70 98 02/26/18 00:37 97.6 F 95 17 111/66 98 Intake and Output 02/25/18 02/25/18 02/26/18 15:59 23:59 07:59 Intake Total 654 / 654 100 / 100 254 / 254 Output Total 500 / 500 Balance 654 / 654 -400 / -400 254 / 254 Intake: IV Fluids 154 / 154 100 / 100 254 / 254 Unasyn 3,000 MG In 0.9 % Sodium 100 / 100 100 / 100 200 / 200 Chloride (Mini-Bag +) 100 ML @ 200 mls/hr IVPB Q6HR [facility] Rx#: [id number] Reglan 20 MG In 0.9 % Sodium 54 / 54 54 / 54 Chloride 50 ML @ 108 mls/hr IVPB Q8HR [facility] Rx#:[id number] Free Water Intake Amount 500 / 500 Output: Urine 500 / 500 Other: Blood Glucose* 190 242 - Labs 02/26/18 04:00 02/26/18 04:00 Diabetes panel 02/26/18 Range/Units 04:00 Sodium 141 (136-145) mEq/L Potassium 3.7 (3.5-5.1) mEq/L Chloride 100 (98-107) mEq/L Carbon Dioxide 38 H (23-29) mEq/L BUN 47 H (8-23) mg/dL Creatinine 0.76 (0.70-1.30) mg/dL Glucose 212 H (70-105) mg/dL Calcium 8.1 L (8.6-10.3) mg/dL Calcium panel 02/26/18 02/26/18 Range/Units 04:00 04:00 Calcium 8.1 L (8.6-10.3) mg/dL Phosphorus 2.6 L (2.7-4.5) mg/dL Pituitary panel 02/26/18 Range/Units 04:00 Sodium 141 (136-145) mEq/L Potassium 3.7 (3.5-5.1) mEq/L Chloride 100 (98-107) mEq/L Carbon Dioxide 38 H (23-29) mEq/L BUN 47 H (8-23) mg/dL Creatinine 0.76 (0.70-1.30) mg/dL Glucose 212 H (70-105) mg/dL Calcium 8.1 L (8.6-10.3) mg/dL Adrenal panel 02/26/18 Range/Units 04:00 Sodium 141 (136-145) mEq/L Potassium 3.7 (3.5-5.1) mEq/L Chloride 100 (98-107) mEq/L Carbon Dioxide 38 H (23-29) mEq/L BUN 47 H (8-23) mg/dL Creatinine 0.76 (0.70-1.30) mg/dL Glucose 212 H (70-105) mg/dL Calcium 8.1 L (8.6-10.3) mg/dL - Attending Attestation I examined this patient and my medical decision-making was reviewed with the Resident Physician. I agree with the documented findings, disposition and treatment plan as described except to the extent set forth below. The patient is seen and evaluated by the resident. We will increase tube feedings. As soon as he has flatus and bowel movement TPN to be weaned to off. Francisco Javier Ramirez MD FACS
[2018-02-25] MEDS ORDERED: Metoclopramide 10 MG/2 ML VIAL IVP SCH (08:15)
[2018-02-25] MEDS: Nicotine 14 MG PATCH.TD24 TD SCH (09:31)
[2018-02-25] MEDS: Aspirin Enteric Coated 81 MG Tablet PO SCH (09:31)
[2018-02-25] MEDS: amLODIPine 5 MG TABLET PO SCH (09:31)
[2018-02-25] MEDS: Furosemide Oral Soln 40 MG/4 ML UDC PO SCH (09:32)
[2018-02-25] MEDS: MethylPREDNISolone 40 MG/ML VIAL IVP SCH (09:32)
--- NOTE | 2018-02-25 14:34 | Electrocardiograph Report ---
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
[2018-02-25] MEDS: Metoclopramide 20 MG in 0.9 % Sodium Chloride 50 ML IVPB SCH (15:13)
[2018-02-25] MEDS: hydrOXYzine pamoate 25 MG CAPSULE PO PRN ×2 (16:17→19:54)
[2018-02-25] MEDS ORDERED: Clinimix E 5%-15% SOLUTION 2,000 ML with MVI, adult with vitamin K 10 ML IVC SCH (17:00)
--- NOTE | 2018-02-25 19:20 | Internal Med Progress Note ---
Hospitalist Progress Note - Encounter Date of Encounter: 02/25/18 Time of Encounter: 11:00 - Subjective Interval History: Patient with dysphagia secondary to adenocarcinoma of the GE junction now requiring TPN with tube feeds through J-tube; general surgery/nutrition following Patient has completed a 10 day course of Unasyn for aspiration pneumonia Patient declining [facility] facility therefore being set up for home health - Exam Vitals: Temp Pulse Resp BP Pulse Ox 97.6 F 97 16 145/83 98 02/25/18 15:55 02/25/18 15:55 02/25/18 16:50 02/25/18 15:55 02/25/18 16:50 Exam: Gen.: Nonacute distress, alert and oriented 3 ENT: Mucosal membranes moist Respiratory: Lungs are clear to auscultation bilaterally without any wheezing rhonchi or rales Cardiovascular: Normal S1 and S2 regular rate rhythm no murmurs rubs or gallops Abdomen: Soft, nontender and nondistended with positive bowel sounds Extremities: No lower extremity edema Skin: Normal color - Assessment and Plan (1) Esophageal adenocarcinoma Current Visit: Yes Status: Acute Assessment and Plan: Patient with dysphagia secondary to esophageal obstruction due to adenocarcinoma of the GE junction Hematology oncology consulted with recommendations to follow-up as an outpatient for continue dialogue about options. (2) Malnutrition Current Visit: Yes Status: Acute Assessment and Plan: TPN per informatics manager s/p J tube placement, for TF Recommendations per general surgery to start patient on IV Reglan and to advance feeds (3) Atrial fibrillation Current Visit: Yes Status: Acute Assessment and Plan: ECHO noted for decreased EF 45-50% and multiple WM hypokinesis, EF from 2016 was WNL Patient this morning with continued atrial fibrillation with RVR on Cardizem by J tube 60mg TID Cardizem dose increased to 360 mg daily; continue to monitor No anticoagulation at this time as he has a history of GIB (4) Aspiration pneumonia Current Visit: Yes Status: Acute Assessment and Plan: Patient will complete a 10 day course of Unasyn today (5) Aortic aneurysm Current Visit: Yes Status: Chronic Assessment and Plan: Patient noted to have an underlying aortic aneurysm of ascending aorta which will require outpatient follow-up visits with cardiovascular surgeon. (6) COPD (chronic obstructive pulmonary disease) Current Visit: Yes Status: Chronic Assessment and Plan: Stable; continue nebs as needed (7) GERD (gastroesophageal reflux disease) Current Visit: Yes Status: Chronic Assessment and Plan: Continue PPI and Carafate (8) HTN (hypertension) Current Visit: Yes Status: Chronic Assessment and Plan: Continue current meds (9) SAMSON (acute kidney injury) Current Visit: Yes Status: Resolved Assessment and Plan: Resolved (10) CHF (congestive heart failure) Current Visit: Yes Status: Chronic Assessment and Plan: Echocardiogram on 02/18/18 showed LVEF of 45-50% with mild left ventricular diastolic dysfunction Patient currently euvolemic; continue home dose of furosemide (11) Tobacco abuse Current Visit: Yes Status: Chronic Assessment and Plan: Continue NRT - Time Spent with Patient Total time spent is greater than 50% in coordination of care (as documented) at patient's floor/unit and/or counseling patient: Internal Medicine: Result - Labs CBC & Chem 7: 02/26/18 04:00 02/26/18 04:00 Labs: Short CBC 02/25/18 Range/Units 03:35 WBC 15.1 H (4.3-11.1) K/mcL Hgb 12.2 L (12.9-16.9) g/dL Hct 37.2 L (37.5-50.1) % Plt Count 143 (140-400) K/mcL Neutrophils # 13.3 H (1.6-8.9) K/mcL BMP 02/25/18 03:35 Sodium 143 Potassium 4.0 Chloride 101 Carbon Dioxide 38 H BUN 40 H Creatinine 0.80 Glucose 165 H Calcium 8.4 L - ABG Interpretation ABG results: PT/INR, D-dimer PT 14.3 Seconds (9.4-12.1) H 02/21/18 04:29 Consult Discharge Plan - Plan Referrals: Rolando Martinez MD [Partnered Physician] - 03/07/18 1:30 pm (Please follow up as schedule...) Connie Hyde MD [Primary Care Provider] - 02/27/18 9:00 am (Dr. Gutierres in radiation 02/27/18 at 9 AM in the cancer center. ) (2) Malnutrition Qualifiers: Malnutrition type: protein-calorie malnutrition Protein-calorie malnutrition severity: severe Qualified Code(s): E43 - Unspecified severe protein-calorie malnutrition (3) Atrial fibrillation Qualifiers: Atrial fibrillation type: chronic Qualified Code(s): I48.2 - Chronic atrial fibrillation (4) Aspiration pneumonia Qualifiers: Aspiration pneumonia type: due to regurgitated food Laterality: bilateral Lung location: lower lobe of lung Qualified Code(s): J69.0 - Pneumonitis due to inhalation of food and vomit (5) Aortic aneurysm Qualifiers: Aortic location: thoracic aorta Presence of rupture: without rupture Qualified Code(s): I71.2 - Thoracic aortic aneurysm, without rupture (6) 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
[2018-02-26] MEDS: Metoclopramide 20 MG in 0.9 % Sodium Chloride 50 ML IVPB SCH ×3 (00:53→16:16)
[2018-02-26] MEDS: Ampicillin/Sulbactam 3,000 MG in 0.9 % Sodium Chloride Mini Bag 100 ML IVPB SCH ×3 (00:59→11:25)
[2018-02-26] MEDS: OXYCODONE Oral CONC 10 MG/0.5 ML ORAL.SYG SL PRN ×2 (03:23→23:00)
[2018-02-26] MEDS: hydrOXYzine pamoate 25 MG CAPSULE PO PRN ×3 (03:23→23:53)
[2018-02-26 04:39] LABS: Basophils % 0.2 %; Hematocrit 34.3 % (37.5-50.1); Hemoglobin 11.3 g/dL (12.9-16.9); Immature Granulocytes % 1.8 % (0-4); Lymphocytes # 0.3 K/mcL (0.6-4.6); Lymphocytes % 2.4 %; Mean Corpuscular HGB Conc 32.9 g/dL (31.6-35.5); Mean Corpuscular Hemoglobin 31.2 pg (28.0-33.3); Mean Corpuscular Volume 94.8 fL (83.0-100.0); Monocytes % 6.8 %; Neutrophils # 12.8 K/mcL (1.6-8.9); Platelet Count 133 K/mcL (140-400); Red Blood Count 3.62 M/mcL (4.19-5.50); Red Cell Distribution Width 13.1 % (11.5-14.5); Segmented Neutrophils % 88.8 %
[2018-02-26 04:57] LABS: Phosphorous 2.6 mg/dL (2.7-4.5)
[2018-02-26 05:00] LABS: BUN/Creatinine Ratio 62 (6-26); Blood Urea Nitrogen 47 mg/dL (8-23); Calcium 8.1 mg/dL (8.6-10.3); Carbon Dioxide 38 mEq/L (23-29); Chloride 100 mEq/L (98-107); Glucose 212 mg/dL (70-105); Osmolality,Calculated 311 (280-300); Potassium 3.7 mEq/L (3.5-5.1); Sodium 141 mEq/L (136-145); eGFR For Non-African Americans > 60 (> 60)
[2018-02-26] MEDS: Furosemide Oral Soln 40 MG/4 ML UDC PO SCH (08:00)
[2018-02-26] MEDS: amLODIPine 5 MG TABLET PO SCH (08:00)
[2018-02-26] MEDS: Aspirin 81 MG TAB.CHEW PO SCH (08:01)
[2018-02-26] MEDS: Nicotine 14 MG PATCH.TD24 TD SCH (08:18)
[2018-02-26] MEDS: predniSONE 20 MG TABLET PO SCH (08:19)
--- NOTE | 2018-02-26 08:20 | General Surgery Progress Note ---
<Hugh Vega - Last Filed: 02/26/18 08:59> Date of Encounter: 02/26/18 Time of Encounter: 08:18 - Assessment and Plan (1) Esophageal adenocarcinoma Current Visit: Yes Status: Acute Post-op day 5 for feeding jejunostomy and enteroenterostomy for esophageal cancer On tube feeds Advanced trickle feeds 35 > 45 cc/hr today Continue TPN Started patient on IV Reglan 20 mg every 8 hours (02/25) - discontinue after 36 hours Ordered 10 mg dulcolax suppositories daily until BM Physical therapy consulted to assist with patient out of bed Will continue to follow (2) Aspiration pneumonia Current Visit: Yes Status: Acute Management per primary team Patient completed 10 day course of unasyn on 02/25 WBC 15.1 > 14.4 today Ordered incentive spirometer today, would recommend respiratory therapy assist with use 2-3 times per day Patient saturating at 98% on 2 liter nasal cannula Qualifiers: Aspiration pneumonia type: due to regurgitated food Laterality: bilateral Lung location: lower lobe of lung Qualified Code(s): J69.0 - Pneumonitis due to inhalation of food and vomit Subjective Patient reports: no new complaints, feels better, pain is less, no bowel movement, afebrile Narrative: Denies nausea, vomiting. Objective Vital Signs - Last 8 Hours Temp Pulse Resp BP Pulse Ox 02/26/18 07:08 97.9 F 124 18 107/65 99 02/26/18 05:44 98.1 F 116 17 113/70 98 02/26/18 00:37 97.6 F 95 17 111/66 98 Intake and Output 02/25/18 02/26/18 02/26/18 23:59 07:59 15:59 Intake Total 100 / 100 254 / 254 Output Total 500 / 500 Balance -400 / -400 254 / 254 Intake: IV Fluids 100 / 100 254 / 254 Unasyn 3,000 MG In 0.9 % Sodium 100 / 100 200 / 200 Chloride (Mini-Bag +) 100 ML @ 200 mls/hr IVPB Q6HR [facility] Rx#: [id number] Reglan 20 MG In 0.9 % Sodium 54 / 54 Chloride 50 ML @ 108 mls/hr IVPB Q8HR [facility] Rx#:[id number] Output: Urine 500 / 500 Other: Blood Glucose* 242 202 - General physical appearance well developed - Respiratory normal expansion, normal respiratory effort - Cardiovascular Cardiovascular exam: Present: RRR - Abdomen Abdomen: Present: bowel sounds present, soft, non tender - Incision Incision: Present: clean and dry, intact - Integumentary no rash - Psychiatric oriented to time, oriented to person, oriented to place - Labs 02/26/18 04:00 02/26/18 04:00 Diabetes panel 02/26/18 Range/Units 04:00 Sodium 141 (136-145) mEq/L Potassium 3.7 (3.5-5.1) mEq/L Chloride 100 (98-107) mEq/L Carbon Dioxide 38 H (23-29) mEq/L BUN 47 H (8-23) mg/dL Creatinine 0.76 (0.70-1.30) mg/dL Glucose 212 H (70-105) mg/dL Calcium 8.1 L (8.6-10.3) mg/dL Calcium panel 02/26/18 02/26/18 Range/Units 04:00 04:00 Calcium 8.1 L (8.6-10.3) mg/dL Phosphorus 2.6 L (2.7-4.5) mg/dL Pituitary panel 02/26/18 Range/Units 04:00 Sodium 141 (136-145) mEq/L Potassium 3.7 (3.5-5.1) mEq/L Chloride 100 (98-107) mEq/L Carbon Dioxide 38 H (23-29) mEq/L BUN 47 H (8-23) mg/dL Creatinine 0.76 (0.70-1.30) mg/dL Glucose 212 H (70-105) mg/dL Calcium 8.1 L (8.6-10.3) mg/dL Adrenal panel 02/26/18 Range/Units 04:00 Sodium 141 (136-145) mEq/L Potassium 3.7 (3.5-5.1) mEq/L Chloride 100 (98-107) mEq/L Carbon Dioxide 38 H (23-29) mEq/L BUN 47 H (8-23) mg/dL Creatinine 0.76 (0.70-1.30) mg/dL Glucose 212 H (70-105) mg/dL Calcium 8.1 L (8.6-10.3) mg/dL Consult Discharge Plan - Plan Referrals: Rolando Martinez MD [Partnered Physician] - 03/07/18 1:30 pm (Please follow up as schedule...) Connie Hyde MD [Primary Care Provider] - 02/27/18 9:00 am (Dr. Gutierres in radiation 02/27/18 at 9 AM in the cancer center. ) <Francisco Javier Ramirez - Last Filed: 02/27/18 08:17> Objective Vital Signs - Last 8 Hours Temp Pulse Resp BP Pulse Ox 02/27/18 07:39 97.6 F 117 18 99/54 99 02/27/18 07:27 18 98 02/27/18 04:33 98 F 112 17 101/77 97 02/27/18 02:54 18 99 Intake and Output 02/26/18 02/27/18 02/27/18 23:59 07:59 15:59 Other: Stool Size Large # Voids 1 Blood Glucose* 109 106 - Labs 02/26/18 04:00 02/26/18 04:00 - Attending Attestation I examined this patient and my medical decision-making was reviewed with the Resident Physician. I agree with the documented findings, disposition and treatment plan as described except to the extent set forth below. The patient is seen and evaluated with the resident and the clinical nurse practitioner on morning rounds. He does have a few bowel sounds. He has no nausea or vomiting. He has not had any flatus or bowel movement yet. We will increase his tube feeding rate and begin weaning his TPN soon as he has a bowel movement. Overall is doing quite well Francisco Javier Ramirez MD FACS
--- NOTE | 2018-02-26 08:25 | Internal Med Progress Note ---
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 now requiring TPN with tube feeds through J-tube; transitioning TPN to all tube feeds Patient now rate controlled with atrial fibrillation after increasing Cardizem dose yesterday Patient has completed a 10 day course of Unasyn for aspiration pneumonia Patient declining intermediate facility therefore being set up for home health Patient also with diffuse rash on upper torso with no improvement in addition to inguinal and sacral area; dermatology consulted for recommendations - Exam Vitals: Temp Pulse Resp BP Pulse Ox 97.9 F 124 18 107/65 99 02/26/18 07:08 02/26/18 07:08 02/26/18 07:08 02/26/18 07:08 02/26/18 07:08 Exam: Gen.: Nonacute distress, alert and oriented 3 ENT: Mucosal membranes moist Respiratory: Lungs are clear to auscultation bilaterally without any wheezing rhonchi or rales Cardiovascular: Normal S1 and S2 regular rate rhythm no murmurs rubs or gallops Abdomen: Soft, nontender and nondistended with positive bowel sounds Extremities: No lower extremity edema Skin: Chest-rays demarcated erythematous scaly plaque; inguinal region bilateral erythematous plaque; sacral lesion excoriated erythematous lesions - Assessment and Plan (1) Malnutrition Current Visit: Yes Status: Acute Assessment and Plan: TPN being transitioned to all tube feeds per [employer] recommendations s/p J tube placement, for TF Recommendations per general surgery to continue IV Reglan and to advance feeds (2) Esophageal adenocarcinoma Current Visit: Yes Status: Acute Assessment and Plan: Patient with dysphagia secondary to esophageal obstruction due to adenocarcinoma of the GE junction Hematology oncology consulted with recommendations to follow-up as an outpatient for continue dialogue about options. (3) Atrial fibrillation Current Visit: Yes Status: Acute Assessment and Plan: Patient yesterday morning with continued atrial fibrillation with RVR on Cardizem by J tube 60mg TID Cardizem dose increased to 360 mg daily yesterday; continue to monitor No anticoagulation at this time as he has a history of GIB (4) Aspiration pneumonia Current Visit: Yes Status: Acute Assessment and Plan: Patient completed a 10 day course of Unasyn on 02/25/18 (5) Aortic aneurysm Current Visit: Yes Status: Chronic Assessment and Plan: Patient noted to have an underlying aortic aneurysm of ascending aorta which will require outpatient follow-up visits with cardiovascular surgeon. (6) COPD (chronic obstructive pulmonary disease) Current Visit: Yes Status: Chronic Assessment and Plan: Stable; continue nebs as needed (7) GERD (gastroesophageal reflux disease) Current Visit: Yes Status: Chronic Assessment and Plan: Continue PPI and Carafate (8) HTN (hypertension) Current Visit: Yes Status: Chronic Assessment and Plan: Controlled; continue current meds (9) SAMSON (acute kidney injury) Current Visit: Yes Status: Resolved Assessment and Plan: Resolved (10) CHF (congestive heart failure) Current Visit: Yes Status: Chronic Assessment and Plan: Echocardiogram on 02/18/18 showed LVEF of 45-50% with mild left ventricular diastolic dysfunction Patient currently euvolemic; continue home dose of furosemide (11) Tobacco abuse Current Visit: Yes Status: Chronic Assessment and Plan: Continue NRT - Time Spent with Patient Total time spent is greater than 50% in coordination of care (as documented) at patient's floor/unit and/or counseling patient: Internal Medicine: Result - Labs CBC & Chem 7: 02/26/18 04:00 02/26/18 04:00 Labs: Short CBC 02/26/18 Range/Units 04:00 WBC 14.4 H (4.3-11.1) K/mcL Hgb 11.3 L (12.9-16.9) g/dL Hct 34.3 L (37.5-50.1) % Plt Count 133 L (140-400) K/mcL Neutrophils # 12.8 H (1.6-8.9) K/mcL BMP 02/26/18 04:00 Sodium 141 Potassium 3.7 Chloride 100 Carbon Dioxide 38 H BUN 47 H Creatinine 0.76 Glucose 212 H Calcium 8.1 L - ABG Interpretation ABG results: PT/INR, D-dimer PT 14.3 Seconds (9.4-12.1) H 02/21/18 04:29 Consult Discharge Plan - Plan Referrals: Rolando Martinez MD [Partnered Physician] - 03/07/18 1:30 pm (Please follow up as schedule...) Connie Hyde MD [Primary Care Provider] - 02/27/18 9:00 am (Dr. Gutierres in radiation 02/27/18 at 9 AM in the cancer center. ) (1) Malnutrition Qualifiers: Malnutrition type: protein-calorie malnutrition Protein-calorie malnutrition severity: severe Qualified Code(s): E43 - Unspecified severe protein-calorie malnutrition (3) Atrial fibrillation Qualifiers: Atrial fibrillation type: chronic Qualified Code(s): I48.2 - Chronic atrial fibrillation (4) Aspiration pneumonia Qualifiers: Aspiration pneumonia type: due to regurgitated food Laterality: bilateral Lung location: lower lobe of lung Qualified Code(s): J69.0 - Pneumonitis due to inhalation of food and vomit (5) Aortic aneurysm Qualifiers: Aortic location: thoracic aorta Presence of rupture: without rupture Qualified Code(s): I71.2 - Thoracic aortic aneurysm, without rupture (6) 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
[2018-02-26] MEDS: Bisacodyl 10 MG RECTAL SUPPOSITORY RC SCH (11:25)
--- NOTE | 2018-02-26 17:47 | Dermatology Consult Note ---
Date of Encounter: 02/26/18 Time of Encounter: 17:44 History of Present Illness Reason for Consult: Rash History of Present Illness: Bessy Collins, is an 82-year-old male admitted to the hospital due to symptoms of malnutrition and a newly diagnosed esophageal adenocarcinoma. He has had a rash on his buttocks for a few months. He reports moderate intermittent tenderness. Since being in the hospital, the rash has spread to his thighs and chest. He has mild intermittent itching. He reports trying anti fungal creams and moisturizers at home with no help. He denies any history of skin rashes in the past. Review of Systems General/Constitutional: Patient denies fevers, chills, nor recent unintended weight loss, night sweats, no change in appetite or malaise. Hematologic: Patient denies new or enlarging lumps or bumps. Skin: Patient denies new or changing moles, or rash other than what is mentioned above. Past Med Surg Social Fam HX - Past Medical History Medical history: aortic aneurysm, arthritis, asthma, atrial fibrillation, CHF, COPD, coronary artery disease, GERD, GI bleed, hyperlipidemia, hypertension, osteoporosis, other Additional medical history: Thoracic aortic aneurysm without rupture. Diastolic heart failureLeft ventriculare hypertrophy. DDD. Myalgia. Lumbar stenosis Psychiatric history: no psych history - Past Surgical History Surgical History: cataract, other - Social History Smoking Status: Heavy tobacco smoker Packs per day: 1/2 PPD Smokeless Tobacco Status: No Alcohol use: none Drug use: none - Family History Father Adopted: No Family Member Ethnicity: Non- Living Status: Hx Family Cancer: Yes (prostate) Medications and Allergies Furosemide [Lasix] 40 mg PO BID 11/12/15 [History] Hydralazine HCl 50 mg PO BID 11/12/15 [History] Atenolol [Tenormin] 50 mg PO BID 11/13/15 [History] Calcium Carbonate [Tums] 1,000 mg PO Q4HR PRN 11/13/15 [History] Docusate [Colace] 100 mg PO DAILY PRN 11/13/15 [History] Ipratropium/Albuterol Neb [Duoneb] 3 ml IH Q6HR 11/13/15 [History] Ipratropium/Albuterol Sulfate [Combivent Respimat Inhal [place]] 1 puff IH Q6HR PRN 11/13/15 [History] Polyethylene Glycol 3350 [MiraLAX] 17 gm PO DAILY PRN 11/13/15 [History] amLODIPine [Norvasc] 5 mg PO DAILY 11/13/15 [History] Aspirin [[place] Aspirin EC] 81 mg PO DAILY 02/16/18 [History] Diltiazem HCl [Diltiazem 24Hr Cd] 120 mg PO DAILY 02/16/18 [History] Losartan Potassium [Cozaar] 100 mg PO DAILY 02/16/18 [History] Omeprazole [PriLOSEC] 40 mg PO BID 02/16/18 [History] Sucralfate [Carafate] 1 tab PO BID 02/16/18 [History] Tamsulosin [Flomax] 0.4 mg PO DAILY 02/16/18 [History] Allergy/AdvReac Type Severity Reaction Status Date / Time clonidine Allergy Vomiting Verified 02/16/18 10:08 Warfarin [From Coumadin] Allergy See Verified 02/16/18 10:08 Comments Examination Vital Signs: Temp Pulse Resp BP Pulse Ox 98.0 F 82 18 124/75 100 02/26/18 15:15 02/26/18 15:15 02/26/18 15:15 02/26/18 15:15 02/26/18 15:15 General Examination: The patient appears alert, oriented X3, in no acute distress, healthy-appearing, normal mood. A detailed skin examination of sites including: scalp, head, neck, face, conjunctive, lids, lips, back, chest/breast/axilla, abdomen, bilateral upper extremities including hands/digits/fingernails, bilateral lower extremities including feet/digits/toenails, genital/groin/buttock, lymph nodes, was completed and found to be normal except: -Well-defined pink scaly plaques involving medial and lateral thighs, scrotum, mons pubis, buttocks- focally eroded on buttocks. Light pink well-defined scaly patches on Central chest -History of toenails bilaterally peeling skin of heels bilaterally - Assessment and Plan (1) Rash and other nonspecific skin eruption Current Visit: Yes Status: Acute Favor psoriasiform dermatitis --psoriais vs Basex paraneoplastic dermatitis vs sebopsoriasis vs nutritional deficiency doubt fungal origin punch biopsy taken today and submitted to [facility] for faster processing -- recommend topical triamcinolone cream 0.1 % TWICE DAILY TO AFFECTED AREAS X 2 WEEKS, THEN TWICE WEEKLY NEEDED FOR RASH Procedure: Dermatology Date of procedure: 02/26/18 Procedure: Punch biopsy(s) of the lesion noted above to establish and confirm diagnosis. The procedure, risks, benefits, alternatives and expected outcomes were discussed with the patient and consent was obtained. Time out called. Patient identified, procedure verified, site(s) identified and verified. Patient and staff present in agreement. Area(s) prepped with alcohol and anesthetized with 1.0% lidocaine with epinephrine at 1:100,000 concentration. [default value] ml of lidocaine with epinephrine were injected left thigh Biopsy(s) of lesion performed. Lesion(s) closed with 5-0 fast gut absorbable suture and bandaging applied. Specimen(s) sent to pathology. Patient instructed in routine post-op care. Patient instructed in routine post-op care and wound care handout given. Consult Discharge Plan - Plan Referrals: Rolando Martinez MD [Partnered Physician] - 03/07/18 1:30 pm (Please follow up as schedule...) Connie Hyde MD [Primary Care Provider] - 02/27/18 9:00 am (Dr. Gutierres in radiation 02/27/18 at 9 AM in the cancer center. )
[2018-02-26] MEDS: MICONAZOLE NITRATE 57 GM TUBE TP SCH (20:24)
[2018-02-27] MEDS: Albuterol 2.5 MG/3 ML NEBULIZER IH PRN ×2 (02:52→07:24)
[2018-02-27] MEDS: OXYCODONE Oral CONC 10 MG/0.5 ML ORAL.SYG SL PRN ×2 (05:32→17:37)
[2018-02-27] MEDS ORDERED: *HR* LORazepam 2 MG/ML VIAL IVP ONE (07:42)
[2018-02-27] MEDS ORDERED: Albuterol 2.5 MG/3 ML NEBULIZER IH PRN (07:45)
[2018-02-27] MEDS: Aspirin 81 MG TAB.CHEW PO SCH (08:14)
[2018-02-27] MEDS: Nicotine 14 MG PATCH.TD24 TD SCH (08:15)
[2018-02-27] MEDS: predniSONE 20 MG TABLET PO SCH (08:15)
[2018-02-27] MEDS: Bisacodyl 10 MG RECTAL SUPPOSITORY RC SCH (08:15)
[2018-02-27] MEDS: Furosemide Oral Soln 40 MG/4 ML UDC PO SCH (08:15)
[2018-02-27] MEDS: amLODIPine 5 MG TABLET PO SCH (08:16)
[2018-02-27] MEDS: MICONAZOLE NITRATE 57 GM TUBE TP SCH (08:17)
[2018-02-27 10:29] LABS: Hematocrit 32.3 % (37.5-50.1); Hemoglobin 10.7 g/dL (12.9-16.9); Immature Granulocytes % 1.4 % (0-4); Lymphocytes % 2.6 %; Mean Corpuscular HGB Conc 33.1 g/dL (31.6-35.5); Mean Corpuscular Hemoglobin 31.8 pg (28.0-33.3); Mean Corpuscular Volume 95.8 fL (83.0-100.0); Mean Platelet Volume 10.9 fL (9.4-12.4); Monocytes % 5.3 %; Platelet Count 118 K/mcL (140-400); Red Blood Count 3.37 M/mcL (4.19-5.50); Red Cell Distribution Width 13.4 % (11.5-14.5); Segmented Neutrophils % 90.1 %
[2018-02-27 10:30] LABS: Basophils % 0.1 %; Eosinophils # 0.1 K/mcL (0.0-0.6); Eosinophils % 0.5 %; Lymphocytes # 0.4 K/mcL (0.6-4.6); Monocytes # 0.8 K/mcL (0.0-1.3); Neutrophils # 13.4 K/mcL (1.6-8.9)
--- NOTE | 2018-02-27 10:45 | General Surgery Progress Note ---
<Antonia Gustafson - Last Filed: 02/27/18 08:19> Date of Encounter: 02/27/18 Time of Encounter: 07:30 - Assessment and Plan (1) Esophageal adenocarcinoma Current Visit: Yes Status: Acute ate of procedure: 02/21/18 Pre-op diagnosis: gastroesophageal cancer Post-op diagnosis: same Procedure: #1 jejunostomy tube #2 enteroenterostomy Anesthesia: GETA Surgeon: Francisco Javier Ramierz POD #6 as above. Exam is unremarkable. Advance to TF goal. Wean TPN PT/OT Add IV lorazepam x1 days for acute anxiety. Surgery will sign off at this time. Thank you for allowing us to participate in Mr. Lloyd's care. (2) Aspiration pneumonia Current Visit: Yes Status: Acute TF as above. Further dietary recommendations per primary team. Recommend speech therapy consult for pleasure p.o. Qualifiers: Aspiration pneumonia type: due to regurgitated food Laterality: bilateral Lung location: lower lobe of lung Qualified Code(s): J69.0 - Pneumonitis due to inhalation of food and vomit Subjective Narrative: Unable to obtain ROS. Pt is anxious and unable to answer ROS at this time. RT at bedside Objective Vital Signs - Last 8 Hours Temp Pulse Resp BP Pulse Ox 02/27/18 07:39 97.6 F 117 18 99/54 99 02/27/18 07:27 18 98 02/27/18 04:33 98 F 112 17 101/77 97 02/27/18 02:54 18 99 Intake and Output 02/26/18 02/27/18 02/27/18 23:59 07:59 15:59 Other: Stool Size Large # Voids 1 Blood Glucose* 109 106 - General physical appearance moderate distress, other (RT at bedside; O2 therapy in progress) - ENT atraumatic, normocephalic - Respiratory other (decreased; restless; RT in progress) - Cardiovascular Cardiovascular exam: Present: tachycardia - Abdomen Abdomen: Present: bowel sounds present, soft, non tender - Neurologic other (anxious) - Labs 02/26/18 04:00 02/26/18 04:00 Consult Discharge Plan - Plan Additional Instructions: Tube feeds per dietary recommendations Report any fevers, chills, increase in abdominal pain, or inability to pass gas/have BM. Referrals: Rolando Martinez MD [Partnered Physician] - 03/07/18 1:30 pm (Please follow up as schedule...) Connie Hyde MD [Primary Care Provider] - 02/27/18 9:00 am (Dr. Gutierres in radiation 02/27/18 at 9 AM in the cancer center. ) Francisco Javier Ramirez MD [Partnered Physician] - 03/11/18 8:55 am <Francisco Javier Ramirez - Last Filed: 02/27/18 11:24> Objective Vital Signs - Last 8 Hours Temp Pulse Resp BP Pulse Ox 02/27/18 10:57 97.6 F 82 18 102/62 100 02/27/18 07:39 97.6 F 117 18 99/54 99 02/27/18 07:27 18 98 02/27/18 04:33 98 F 112 17 101/77 97 Intake and Output 02/26/18 02/27/18 02/27/18 23:59 07:59 15:59 Intake Total 649 / 649 Output Total 0 / 0 Balance 649 / 649 Intake: Oral 0 / 0 Tube Feeding 449 / 449 Free Water 200 / 200 Output: Urine 0 / 0 Other: Meal Breakfast/Enteral TF Percent of Meal Consumed 0% Stool Size Large # Voids 1 Blood Glucose* 109 106 132 - Labs 02/27/18 10:18 02/27/18 10:18 Diabetes panel 02/27/18 Range/Units 10:18 Sodium 141 (136-145) mEq/L Potassium 3.6 (3.5-5.1) mEq/L Chloride 99 (98-107) mEq/L Carbon Dioxide 39 H (23-29) mEq/L BUN 50 H (8-23) mg/dL Creatinine 0.83 (0.70-1.30) mg/dL Glucose 117 H (70-105) mg/dL Calcium 7.9 L (8.6-10.3) mg/dL Calcium panel 02/27/18 Range/Units 10:18 Calcium 7.9 L (8.6-10.3) mg/dL Pituitary panel 02/27/18 Range/Units 10:18 Sodium 141 (136-145) mEq/L Potassium 3.6 (3.5-5.1) mEq/L Chloride 99 (98-107) mEq/L Carbon Dioxide 39 H (23-29) mEq/L BUN 50 H (8-23) mg/dL Creatinine 0.83 (0.70-1.30) mg/dL Glucose 117 H (70-105) mg/dL Calcium 7.9 L (8.6-10.3) mg/dL Adrenal panel 02/27/18 Range/Units 10:18 Sodium 141 (136-145) mEq/L Potassium 3.6 (3.5-5.1) mEq/L Chloride 99 (98-107) mEq/L Carbon Dioxide 39 H (23-29) mEq/L BUN 50 H (8-23) mg/dL Creatinine 0.83 (0.70-1.30) mg/dL Glucose 117 H (70-105) mg/dL Calcium 7.9 L (8.6-10.3) mg/dL - Attending Attestation I examined this patient and my medical decision-making was reviewed with the Resident Physician. I agree with the documented findings, disposition and treatment plan as described except to the extent set forth below. The patient is seen and evaluated with the clinical nurse practitioner on morning rounds. He has started have bowel function. We will recommend advancing to target tube feeding rate and wean TPN to off. I will be glad to follow him as an outpatient in conjunction with oncology to coordinate future surgical therapy Francisco Javier Ramirez MD FACS
[2018-02-27 10:48] LABS: BUN/Creatinine Ratio 60 (6-26); Blood Urea Nitrogen 50 mg/dL (8-23); Calcium 7.9 mg/dL (8.6-10.3); Carbon Dioxide 39 mEq/L (23-29); Chloride 99 mEq/L (98-107); Glucose 117 mg/dL (70-105); Osmolality,Calculated 306 (280-300); Potassium 3.6 mEq/L (3.5-5.1); Sodium 141 mEq/L (136-145); eGFR For Non-African Americans > 60 (> 60)
--- NOTE | 2018-02-27 15:33 | Discharge Summary ---
- NOTES TO OUTPATIENT PROVIDER Notes to Outpatient Provider: Patient to follow-up with hematology oncology for management of esophageal adenocarcinoma Orders not resulted at time of discharge: Pending orders 02/21/18 04:29 Ionized Calcium,venous blood AM 0400 Date of Encounter: 02/27/18 Time of Encounter: 11:00 - Discharge Diagnosis (1) Malnutrition Priority: Secondary Status: Acute Qualifiers: Malnutrition type: protein-calorie malnutrition Protein-calorie malnutrition severity: severe Qualified Code(s): E43 - Unspecified severe protein-calorie malnutrition (2) Esophageal adenocarcinoma Priority: Primary Status: Acute (3) Atrial fibrillation Priority: Secondary Status: Acute Qualifiers: Atrial fibrillation type: chronic Qualified Code(s): I48.2 - Chronic atrial fibrillation (4) Aspiration pneumonia Priority: Primary Status: Acute Qualifiers: Aspiration pneumonia type: due to regurgitated food Laterality: bilateral Lung location: lower lobe of lung Qualified Code(s): J69.0 - Pneumonitis due to inhalation of food and vomit (5) Aortic aneurysm Priority: Secondary Status: Chronic Qualifiers: Aortic location: thoracic aorta Presence of rupture: without rupture Qualified Code(s): I71.2 - Thoracic aortic aneurysm, without rupture (6) COPD (chronic obstructive pulmonary disease) Priority: Secondary Status: Chronic Qualifiers: COPD type: emphysema Emphysema type: unspecified Qualified Code(s): 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, unspecified (7) GERD (gastroesophageal reflux disease) Priority: Secondary Status: Chronic Qualifiers: Esophagitis presence: with esophagitis Qualified Code(s): K21.0 - Gastro- esophageal reflux disease with esophagitis (8) HTN (hypertension) Priority: Secondary Status: Chronic Qualifiers: Hypertension type: essential hypertension Qualified Code(s): I10 - Essential (primary) hypertension (9) SAMSON (acute kidney injury) Priority: Secondary Status: Resolved (10) CHF (congestive heart failure) Priority: Secondary Status: Chronic Qualifiers: Heart failure type: systolic Heart failure chronicity: chronic Qualified Code(s): I50.22 - Chronic systolic (congestive) heart failure (11) Tobacco abuse Priority: Secondary Status: Chronic Hospital course: Patient is an 82-year-old male with past medical history significant for CHFrEF, chronic hypoxic respiratory failure, smoker, atrial fibrillation (not on oral anticoagulation) hypertension, history of GI bleed and thoracic aortic aneurysm who presented to the ER on 02/17/18 due to nausea and vomiting. In the ER, CT of the chest showed new patchy multifocal airspace disease and bilateral lungs with bronchiectasis and peribronchial cuffing as well as endobronchial opacification in both lower lobes. She was also found to be in atrial fibrillation with RVR in addition to acute renal failure. During patients hospital stay, his heart rate for his atrial fibrillation was controlled. Patient also completed a 10 day course of Unasyn for aspiration pneumonia. His dysphagia and was worked up in GI consult with recommendations for EGD which showed esophageal adenocarcinoma the GE junction per biopsy. Hematology oncology was consulted with recommendations for patient to follow-up as an outpatient for workup/treatment. Nutrition was also consulted due to malnutrition secondary to esophageal obstruction and TPN was started. General surgery was also consulted due to nutritional needs and a J-tube was placed. Patient was later weaned off TPN and tube feeds to J-tube were titrated to goal rate. 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 Physical therapy was consulted with recommendations for fdc facility placement for strengthening and reconditioning. Patient is medically stable to be discharged to fdc facility. - Time Spent with Patient Total time spent providing and/or coordinating discharge services: Less than 30 minutes - Discharge Medications Home Medications: Furosemide [Lasix] 40 mg PO BID 11/12/15 [History] Hydralazine HCl 50 mg PO BID 11/12/15 [History] Atenolol [Tenormin] 50 mg PO BID 11/13/15 [History] Calcium Carbonate [Tums] 1,000 mg PO Q4HR PRN 11/13/15 [History] Docusate [Colace] 100 mg PO DAILY PRN 11/13/15 [History] Ipratropium/Albuterol Neb [Duoneb] 3 ml IH Q6HR 11/13/15 [History] Ipratropium/Albuterol Sulfate [Combivent Respimat Inhal [place]] 1 puff IH Q6HR PRN 11/13/15 [History] Polyethylene Glycol 3350 [MiraLAX] 17 gm PO DAILY PRN 11/13/15 [History] amLODIPine [Norvasc] 5 mg PO DAILY 11/13/15 [History] Aspirin [[place] Aspirin EC] 81 mg PO DAILY 02/16/18 [History] Diltiazem HCl [Diltiazem 24Hr Cd] 120 mg PO DAILY 02/16/18 [History] Losartan Potassium [Cozaar] 100 mg PO DAILY 02/16/18 [History] Omeprazole [PriLOSEC] 40 mg PO BID 02/16/18 [History] Sucralfate [Carafate] 1 tab PO BID 02/16/18 [History] Tamsulosin [Flomax] 0.4 mg PO DAILY 02/16/18 [History] Allergies/Adverse Reactions: Allergy/AdvReac Type Severity Reaction Status Date / Time clonidine Allergy Vomiting Verified 02/16/18 10:08 Warfarin [From Coumadin] Allergy See Verified 02/16/18 10:08 Comments Date of admission: 02/17/18 17:26 Primary care physician: Connie Hyde Consults: 02/16/18 13:05 Consult to Medical Esthetician [CONS] Routine Reason for SW Consult: Please assess patient for possible home needs for post-discharge planning. 02/16/18 13:08 Consult to Gastroenterology [CONS] Routine Consulting Provider: Gastroenterology Faye Reason for Consult: Patient has hx of GI upset w/vomiting for the past 2-3 weeks. States he is unable to keep anything down. Reports unintentional weight loss of 33 pounds since October. Imaging shows esophagitis. Pts. PCP was attempting to schedule EGD but has not done so yet. Pt. has also been aspirating and has aspiration PNA. Pt. needs EGD. Protnix drip ordered. Will use Zofran/Phenergan and attempt clear liquid diet if pt. can tolerate. Call Completed: No 02/16/18 13:21 Consult to Respiratory Therapy [CONS] Routine Reason for Consult: Add flutter valve to pts. Xopenex breathing txs. Call Completed: Yes 02/16/18 13:29 Consult to Nutrition [CONS] Routine Comment: TPN now not tolerate PO, plan for j peg later wk Consulting Provider: NUTRITION Reason for Dietary Consult: PO Supplementation TPN Start and Manage Tube Feed Start & Manage 02/18/18 12:31 Consult to Surgery [CONS] Routine Consulting Provider: Surgery [facility] Reason for Consult: GEJ mass, dysphagia, for PEG tube placement Call Completed: Yes 02/18/18 14:56 Consult to Cardiology [CONS] Routine Comment: Consulting Provider: Cardiology Faye Reason for Consult: Afib with RVR, new low EF, Patient admitted for SAMSON with esophageal mass Call Completed: No 02/19/18 07:56 Consult to Invasive Line Access Team [CONS] Routine Reason for Consult: TPN Line Type: PICC 02/19/18 15:28 Consult to Oncology [CONS] Routine Consulting Provider: [facility] Reason for Consult: Adenocarcinoma of esophagus-GEJ Call Completed: Yes 02/24/18 11:02 Consult to Physical Therapy [CONS] Routine Comment: Evaluate, develop and implement POC Reason for Consult: eval for poss ecf Does patient have active BEDREST order?: No Is patient medically & hemodynamically stable?: Yes 02/25/18 19:19 Consult to Wound Care [CONS] Routine Reason for Consult: Excoriations on sacral area Call Completed: No 02/26/18 17:18 Consult to Dermatology [CONS] Routine Consulting Provider: Dermatology Faye Reason for Consult: Rash Call Completed: Yes 02/27/18 10:10 Consult to Speech Therapy [CONS] Routine Comment: Evaluate, develop and implement POC Reason for Consult: Pleasure by mouth Call Completed: No - Constitutional Vitals: Temp Pulse Resp BP Pulse Ox 97.6 F 82 18 102/62 100 02/27/18 10:57 02/27/18 10:57 02/27/18 10:57 02/27/18 10:57 02/27/18 10:57 General appearance: Present: cooperative, A&O X 3, pleasant, no acute distress, underweight, loss of weight, answers questions appropriately Exam: Gen.: Nonacute distress, alert and oriented 3 ENT: Mucosal membranes moist Respiratory: Lungs are clear to auscultation bilaterally without any wheezing rhonchi or rales Cardiovascular: Normal S1 and S2 regular rate rhythm no murmurs rubs or gallops Abdomen: Soft, nontender and nondistended with positive bowel sounds Extremities: No lower extremity edema Skin: Chest-rays demarcated erythematous scaly plaque; inguinal region bilateral erythematous plaque; sacral lesion excoriated erythematous lesions - Patient Status Disposition: Transfer SNF Condition: Fair - Ambulatory Orders Ambulatory Orders: PET CT skull to thigh DX/initi [PE] Time Frame: 03/05/18, Facility: [facility], Location: Radiology - Discharge Instructions Follow Up With: Francisco Javier Ramirez MD [Partnered Physician] - 03/11/18 8:55 am Rolando Martinez MD [Partnered Physician] - 03/07/18 1:00 pm (Please follow up as schedule...) Drew Bui MD [Partnered Physician] - 03/07/18 1:30 pm (In radiation) Connie Hyde MD [Primary Care Provider] - 02/27/18 9:00 am (Dr. Gutierres in radiation 02/27/18 at 9 AM in the cancer center. ) Additional Instructions: Tube feeds per dietary recommendations Report any fevers, chills, increase in abdominal pain, or inability to pass gas/have BM.
--- NOTE | 2018-02-27 15:36 | Physician Discharge Referral ---
ExtendedCare Referral Info Institutional Level of Care: Skilled - Diagnosis (1) Malnutrition Status: Acute (2) Esophageal adenocarcinoma Status: Acute (3) Atrial fibrillation Status: Acute (4) Aspiration pneumonia Status: Acute (5) Aortic aneurysm Status: Chronic (6) COPD (chronic obstructive pulmonary disease) Status: Chronic (7) GERD (gastroesophageal reflux disease) Status: Chronic (8) HTN (hypertension) Status: Chronic (9) SAMSON (acute kidney injury) Status: Resolved (10) CHF (congestive heart failure) Status: Chronic (11) Tobacco abuse Status: Chronic - Transfer Medications Home Medications: Furosemide [Lasix] 40 mg PO BID 11/12/15 [History] Hydralazine HCl 50 mg PO BID 11/12/15 [History] Atenolol [Tenormin] 50 mg PO BID 11/13/15 [History] Calcium Carbonate [Tums] 1,000 mg PO Q4HR PRN 11/13/15 [History] Docusate [Colace] 100 mg PO DAILY PRN 11/13/15 [History] Ipratropium/Albuterol Neb [Duoneb] 3 ml IH Q6HR 11/13/15 [History] Ipratropium/Albuterol Sulfate [Combivent Respimat Inhal [place]] 1 puff IH Q6HR PRN 11/13/15 [History] Polyethylene Glycol 3350 [MiraLAX] 17 gm PO DAILY PRN 11/13/15 [History] amLODIPine [Norvasc] 5 mg PO DAILY 11/13/15 [History] Aspirin [[place] Aspirin EC] 81 mg PO DAILY 02/16/18 [History] Diltiazem HCl [Diltiazem 24Hr Cd] 120 mg PO DAILY 02/16/18 [History] Losartan Potassium [Cozaar] 100 mg PO DAILY 02/16/18 [History] Omeprazole [PriLOSEC] 40 mg PO BID 02/16/18 [History] Sucralfate [Carafate] 1 tab PO BID 02/16/18 [History] Tamsulosin [Flomax] 0.4 mg PO DAILY 02/16/18 [History] Allergies/Adverse Reactions: Allergy/AdvReac Type Severity Reaction Status Date / Time clonidine Allergy Vomiting Verified 02/16/18 10:08 Warfarin [From Coumadin] Allergy See Verified 02/16/18 10:08 Comments - Respiratory Orders Smoking Cessation: Smoking cessation has been advised. For more information, call the [place] Tobacco Quit Line at 9-287-FGTL-NOW. CERTIFICATION: I certify that the transfer of the above named patient to an Extended Care Facility is necessary for the continuing treatment of the diagnosis listed. The above information is true and accurate reflection of patient's current condition. Confidential - Redisclosure prohibited without a patient's written consent.
[2018-02-27] MEDS ORDERED: Triamcinolone Acet 0.1% CRM 15 GM TUBE TP SCH (21:00)
[2018-02-28] MEDS: Nicotine 14 MG PATCH.TD24 TD SCH (07:50)
[2018-02-28] MEDS: Furosemide Oral Soln 40 MG/4 ML UDC PO SCH (07:51)
[2018-02-28] MEDS: Aspirin 81 MG TAB.CHEW PO SCH (07:52)
[2018-02-28] MEDS: predniSONE 20 MG TABLET PO SCH (07:52)
[2018-02-28] MEDS: amLODIPine 5 MG TABLET PO SCH (07:52)
[2018-02-28] MEDS: hydrOXYzine pamoate 25 MG CAPSULE PO PRN (07:52)
[2018-02-28 11:30] VITALS: BP 119/69
--- NOTE | 2018-02-28 12:02 | Oncology Inp Progress Note ---
Date of Encounter: 02/28/18 Time of Encounter: 12:02 (1) Esophageal adenocarcinoma Status: Acute Assessment and plan: GE junction mass biopsy revels well-differentiated adenocarcinoma at least intramucosal. CT chest abdomen and pelvis with IV contrast 02/16/2018 showed fluid-filled esophagus. Also up to 8 mm mediastinal lymphadenopathy. 12 mm spiculated nodule left upper lobe stable since 2016 EGD showed malignant ulcerated lesion in the GE junction, with esophageal sphincter closed to the size of a pinhole. Pathology reveals adenocarcinoma well differentiated. Treatment options were introduced which may include concurrent chemoradiation versus neoadjuvant chemotherapy followed by surgical intervention Mr. Lloyd is of poor performance status at this time (ECOG 2-3) but this may improve with placement of J PEG and physical therapy/nutritional support. Treatment toxicity and surgical candidacy is of concern. Patient has follow up arranged with radiation oncology and medical oncology next week following PET scan. He is preparing for discharge today to a nursing facility for short term rehab. He continues to appear agitated and reluctant to discuss treatment options, this will be an ongoing discussion. (2) CHF (congestive heart failure) Status: Chronic Assessment and plan: Echo completed on 02/18/18 showed EF now 45-50%, decreased from 55% on last echo. Also, admitted with AiFib with RVR (he had been unable to tolerate his PO medications x2 weeks) Not on Anticoagulation secondary to history of significant GIB on coumadin Cardiology following, HR is improving Qualifiers: Heart failure type: systolic Heart failure chronicity: chronic Qualified Code(s): I50.22 - Chronic systolic (congestive) heart failure (3) Anxiety Status: Acute Assessment and plan: History of depression/anxiety not controlled on any medication Since diagnosis and hospitalization, anxiety has worsened He is sensitive to hydroxyzine and ativan which have caused significant drowsiness Discussed options for medical management with patient and at bedside today Recommendation made to trial buspar (4) Malnutrition Status: Acute Assessment and plan: POD #6 of jejunostomy tube and enteroenterostomy. He has successfully advanced to TF goal. Discharging to SNF today Oncology dietitian will continue to follow patient on an outpatient basis Qualifiers: Malnutrition type: protein-calorie malnutrition Protein-calorie malnut rition severity: severe Qualified Code(s): E43 - Unspecified severe protein- calorie malnutrition Oncology: Subj Interval history: Mr. Gabino had no acute events overnight. He denies fever/chill, pain, SOB, chest/abdominal pain, nausea, vomiting or diarrhea. Tolerating goal on his TF well. Continues to express concern for depression/anxiety. He had a bowel movement this morning. He has been OOB to use the bathroom - Constitutional Vitals: Vital Signs Temp Pulse Resp BP Pulse Ox 02/28/18 11:21 98.2 F 88 16 119/69 97 02/28/18 07:22 99.0 F 105 16 103/61 99 02/28/18 04:54 97.6 F 108 15 103/66 100 02/27/18 23:56 97.6 F 83 17 109/62 97 02/27/18 20:06 97.7 F 96 16 99/69 97 02/27/18 16:23 98.0 F 102 16 106/75 98 Intake and Output 02/27/18 02/28/18 02/28/18 23:59 07:59 15:59 Intake Total 240 / 240 100 / 100 Output Total 0 / 0 Balance 240 / 240 0 / 0 100 / 100 Intake: Oral 240 / 240 Free Water Intake Amount 100 / 100 Output: Urine 0 / 0 Other: Meal Dinner Percent of Meal Consumed 25% # Voids 1 Weight 85.5 kg Blood Glucose* 172 162 200 Patient Weight 02/28/18 23:59 Weight 85.5 kg General appearance: no acute distress, no febrile - Head Head exam: Present: atraumatic - ENT ENT exam: Present: mucous membranes moist - Respiratory Respiratory exam: Present: wheezes. Absent: respiratory distress - Cardiovascular Cardiovascular exam: Present: RRR, +S1, +S2 - GI/Abdominal GI/Abdominal exam: Present: normal bowel sounds, soft. Absent: tenderness - Extremities Exam Extremities exam: Absent: calf tenderness Additional comments: Generalized edema - Neurological Exam Neurological exam: Present: alert, oriented X3, no focal deficits, strengths equal and symetr throughout - Psychiatric Psychiatric exam: Present: normal affect, normal mood - Skin Skin exam: Present: dry, intact, normal color, warm Oncology: Obj Data - Labs CBC & Chem 7: 02/27/18 10:18 02/27/18 10:18 - ABG Interpretation ABG results: PT/INR, D-dimer PT 14.3 Seconds (9.4-12.1) H 02/21/18 04:29 Consult Discharge Plan - Plan Additional Instructions: Tube feeds per dietary recommendations Report any fevers, chills, increase in abdominal pain, or inability to pass gas/have BM. Referrals: Francisco Javier Ramirez MD [Partnered Physician] - 03/11/18 8:55 am Rolando Martinez MD [Partnered Physician] - 03/07/18 1:00 pm (Please follow up as schedule...) Drew Bui MD [Partnered Physician] - 03/07/18 1:30 pm (In radiation) Connie Hyde MD [Primary Care Provider] - 02/27/18 9:00 am (Dr. Gutierres in radiation 02/27/18 at 9 AM in the cancer center. ) Inpatient Charges Provider: Allison Dewey CNP Follow up - Inpatient: [id number]
--- NOTE | 2018-02-28 19:41 | Internal Med Progress Note ---
Hospitalist Progress Note - Encounter Date of Encounter: 02/28/18 Time of Encounter: 11:00 - Subjective Interval History: Patient's bed available today for half-way facility and medically stable to be discharged - Exam Vitals: Temp Pulse Resp BP Pulse Ox 98.2 F 88 16 119/69 97 02/28/18 11:21 02/28/18 11:21 02/28/18 11:21 02/28/18 11:21 02/28/18 11:21 Exam: Gen.: Nonacute distress, alert and oriented 3 Skin: pale - Assessment and Plan (1) Malnutrition Status: Acute Assessment and Plan: Continue tube feeds via J-tube (2) Esophageal adenocarcinoma Status: Acute Assessment and Plan: Patient with dysphagia secondary to esophageal obstruction due to adenocarcinoma of the GE junction Hematology oncology consulted with recommendations to follow-up as an outpatient for continue dialogue about options. - Time Spent with Patient Total time spent is greater than 50% in coordination of care (as documented) at patient's floor/unit and/or counseling patient: Internal Medicine: Result - Labs CBC & Chem 7: 02/27/18 10:18 02/27/18 10:18 - ABG Interpretation ABG results: PT/INR, D-dimer PT 14.3 Seconds (9.4-12.1) H 02/21/18 04:29 Consult Discharge Plan - Plan Additional Instructions: Tube feeds per dietary recommendations Report any fevers, chills, increase in abdominal pain, or inability to pass gas/have BM. Referrals: Francisco Javier Ramirez MD [Partnered Physician] - 03/11/18 8:55 am Rolando Martinez MD [Partnered Physician] - 03/07/18 1:00 pm (Please follow up as schedule...) Drew Bui MD [Partnered Physician] - 03/07/18 1:30 pm (In radiation) Connie Hyde MD [Primary Care Provider] - 02/27/18 9:00 am (Dr. Gutierres in radiation 02/27/18 at 9 AM in the cancer center. ) (1) Malnutrition Qualifiers: Malnutrition type: protein-calorie malnutrition Protein-calorie malnutrition severity: severe Qualified Code(s): E43 - Unspecified severe protein-calorie malnutrition
== END 2018-02-28 12:30 | DRG 374 ==
LOC: EMEROOARM 07:42 → 2ANU 07:42 → SUATTDRO 12:26 → 2ANU 12:52 → SUATTDRO 02-17 17:26 → 2ANU 02-26 23:41
PROVIDERS: ADMIT Internal Medicine; ATTEND Hospitalist
PROC: ENDOEBX (2018-02-17 13:30)

== ENCOUNTER 2018-03-31 04:11 | Inpatient (IN) ==
--- NOTE | 2018-03-31 04:49 | Emergency Department Note ---
Disposition Clinical Impression: Acute retention of urine, Atrial fibrillation with RVR, Esophageal adenocarcinoma, Fecal impaction in rectum Pneumonia Qualifiers: Pneumonia type: due to unspecified organism Laterality: unspecified laterality Lung location: unspecified part of lung Qualified Code(s): J18.9 - Pneumonia, unspecified organism Disposition: Admitted As Inpatient Condition: Good Referrals: Connie Hyde MD [Primary Care Provider] - Forms: ED Satisfaction Letter Time of Disposition: 07:18 General Adult HPI - General Chief complaint: ED Urogenital-Male Stated complaint: urinary problem Time Seen by Provider: 03/31/18 04:19 Source: patient, family, EMS Limitations: no limitations Nursing Notes Reviewed: Yes Vital Signs Reviewed: Yes - History of Present Illness HPI Narrative: 82-year-old male smoker with known history of gastroesophageal cancer presents with complaint of urinary retention, decreased bowel movements and and generalized abdominal pain. No BM in the last ten days. He feels most of his pressure is over the suprapubic region. He mentions he has not been able to urinate since 2 days ago, and has not had a bowel movement 2 days. Patient currently has a J-tube placed and is currently nothing by mouth other than clear liquids. His mentions that had noticed some drainage around the G-tube insertion site and that it appears further out. He does mention that he takes tamsulosin, but otherwise denies any other prostate issues, or previous urinary issues. He has been having some dysuria, no relief with basal. He mentions a history of A. fib, and congestive heart failure, but mentions his shortness of breath is no worse than it normally is. He denies any chest pain, fever, diarrhea. Pain Scale: 9 - Related Data Home Medications Medication Instructions Recorded Confirmed Furosemide [Lasix] 40 mg PO BID 11/12/15 03/07/18 Docusate [Colace] 100 mg PO DAILY PRN 11/13/15 03/07/18 Ipratropium/Albuterol Neb [Duoneb] 3 ml IH Q6HR 11/13/15 03/07/18 Ipratropium/Albuterol Sulfate 1 puff IH Q6HR PRN 11/13/15 03/07/18 [Combivent Respimat Inhal [place]] Polyethylene Glycol 3350 [MiraLAX] 17 gm PO DAILY PRN 11/13/15 03/07/18 amLODIPine [Norvasc] 5 mg PO DAILY 11/13/15 03/07/18 Losartan Potassium [Cozaar] 100 mg PO DAILY 02/16/18 03/07/18 Omeprazole [PriLOSEC] 40 mg PO BID 02/16/18 03/07/18 Tamsulosin [Flomax] 0.4 mg PO DAILY 02/16/18 03/07/18 Atenolol [Tenormin] 50 mg PO DAILY 03/07/18 03/07/18 Diltiazem HCl [Cardizem LA] 120 mg PO DAILY 03/07/18 03/07/18 Sucralfate [Carafate] 1 gm PO DAILY 03/07/18 03/07/18 Allergies Allergy/AdvReac Type Severity Reaction Status Date / Time clonidine Allergy Vomiting Verified 02/16/18 10:08 Warfarin [From Coumadin] Allergy See Verified 02/16/18 10:08 Comments All systems ED: reviewed and negative except as stated. Review of Systems: As Per HPI Constitutional: Denies: fever, chills Eyes: Denies: vision change ENT ED: Denies: throat pain Cardiovascular: Denies: palpitations Respiratory: Reports: dyspnea. Denies: cough, wheezes Gastrointestinal: Reports: as per HPI, constipation. Denies: diarrhea Genitourinary: Denies: dysuria, frequency Musculoskeletal: Denies: back pain Integumentary: Denies: rash Neurological: Denies: headache Endocrine: Denies: fatigue Hematological/Lymphatic: Denies: easy bleeding Allergic/Immunologic: Denies: facial swelling Past Medical History - Past Medical History Medical history: Reports: aortic aneurysm, arthritis, asthma, atrial fibrillation, cancer, CHF, COPD, coronary artery disease, GERD, GI bleed, hyperlipidemia, hypertension, osteoporosis, other Surgical history: Reports: cataract, other Psychiatric history: Reports: no psych history - Social History Smoking Status: Former smoker Smokeless Tobacco Status: No Alcohol use: Reports: none Drug use: Reports: none Physical Exam - General Limitations: no limitations General appearance: alert, in no apparent distress - Head Head exam: normocephalic - Eye Eye exam: Present: EOMI. Absent: conjunctival injection - ENT ENT exam: mucous membranes moist - Neck Neck exam: Present: full ROM - Chest Chest inspection: Absent: symmetric chest wall rise - Respiratory Respiratory exam: Present: normal lung sounds bilaterally. Absent: respiratory distress - Cardiovascular Cardiovascular exam: Present: tachycardia - Abdominal Exam Abdominal exam: Present: soft, tenderness, other (J-tube in place, mild discharge) Abdominal tenderness: Present: suprapubic - Rectal Exam [employer] present during exam: Yes Rectal exam: Present: fecal impaction, hemorrhoids - Extremities Exam Extremities exam: Absent: tenderness, pedal edema - Back Exam Back exam: Present: full ROM, other (aprox 1.5cm stage 2 decub ulcer on cocyx, with no surround erythema, cellulitis) - Neurological Exam Neurological exam: Present: alert - Psychiatric Psychiatric exam: Present: normal affect, normal mood - Skin Skin exam: Present: warm, dry, intact, normal color. Absent: rash, cyanosis, diaphoresis Course Course Narrative: 82-year-old male presents with acute urinary retention, suprapubic pain. He has had some dysuria as well. J-tube appears that sutures are no longer fastened into insertion site. No erythema. He is tachycardic, with history of A. fib. He is afebrile here as well as at h ome. No significant lower extremity edema, mild suprapubic pain. Bedside ultrasound shows distended bladder. We will plan for EKG , jordan catheter, blood work - Reevaluation(s) Reevaluation #1: Pt discussed with Dr. Dacosta who advised for CT without contrast. EKG shows A-fib with RVR rate of 119. Pt has h/o J-tube, esophageal cancer, COPD, CHF, malnutrition, afib. Pt is afebrile. BP low, but appears to be at his baseline, pt denies any CP, near syncope. No BLE edema. 500mL fluids ordered. Time: 05:06 Reevaluation #2: Chest x-ray and CT abdomen and pelvis discussed with and reviewed with Dr. Dacosta who also had face time with patient and agreed with decision for admission. Patient's chest x-ray and CT concerning for pneumonia. Additionally patient has A. fib with RVR., Acute urinary retention. CT findings also consistent for possible fecal impaction. We will plan to discuss with hospitalist for admission. Care of this patient was also discussed with oncoming provider Maira Nicholas PA-C, who will arrange for admission. Time: 06:38 Vital Signs Temperature 98.1 F 03/31/18 04:16 Pulse Rate 124 03/31/18 04:16 Respiratory Rate 16 03/31/18 04:16 Blood Pressure 99/61 03/31/18 04:16 O2 Sat by Pulse Oximetry 97 03/31/18 04:16 Temperature 98.1 F 03/31/18 04:16 Pulse Rate 124 03/31/18 06:52 Respiratory Rate 15 03/31/18 06:52 Blood Pressure 95/81 03/31/18 06:52 O2 Sat by Pulse Oximetry 95 03/31/18 06:52 Oxygen Delivery Oxygen Delivery Nasal Cannula Procedures - Rectal Disimpaction Consent Obtained: verbal consent Time out performed rectal disimpaction: Yes Indication: fecal impaction Procedural Sedation: No Sedation/Analgesia: none Technique: manual disimpaction with gloved finger Result: significant stool output Patient Tolerated Procedure: well Complications: none Medical Decision Making - MDM Narrative Medical decision making narrative: Patient presented with diffuse abdominal pain, suprapubic tenderness, and urinary retention. After Jordan was placed, there was significant amount of voiding of urine, and he did have relief of pain. On repeat abdominal examination, he denied any abdominal pain. However his workup did show concerning signs for pneumonia, A. fib RVR, fecal impaction. Digital disimpaction was performed by myself. He did have relief. He did have a history of CHF, so patient was given 500 mL saline bolus, but no improvement of his heart rate. Examination, he was given another. He is been afebrile here. He does have a history of adeno carcinoma of the esophagus, and is followed by [facility]. He does have a J-tube placed, that the is concerned had been dislodged since the sutures had been on tethered from the insertion report. CT scan showed that this was placed appropriately. No significant erythema around the insertion site. He has had a recent PET scan 5 days ago, and has plans to follow up with oncology on the to discuss the results of this. Patient was discussed with Dr. Dacosta who also had face time with patient, and agreed with workup and disposition. Patient was accepted by hospitalist for further evaluation and evaluation. Chest X-Ray 03/31/18 04:48 IMPRESSION: Increased heterogeneous right basilar opacities, suspicious for aspiration sequela versus developing pneumonia. Small right pleural effusion, not substantially changed. D/ / Uziel Leslie / Uziel Leslie Interpreting Provider: Uziel Leslei Abdomen/Pelvis CT 03/31/18 05:09 IMPRESSION: Small rectal stool ball with rectal wall thickening and surrounding inflammatory fat stranding, altogether suspicious for stercoral proctitis. No pneumoperitoneum to suggest perforation. Recommend disimpaction. Appropriate percutaneous jejunostomy catheter positioning. 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 D/ / Uziel Leslie / Uziel Leslie Interpreting Provider: Uziel Leslie Laboratory Tests 03/31/18 03/31/18 03/31/18 04:55 05:00 05:00 WBC 9.8 RBC 2.98 L Hgb 9.3 L Hct 28.6 L MCV 96.0 MCH 31.2 MCHC 32.5 RDW 15.4 H Plt Count 173 MPV 9.7 Immature Gran % 0.6 Seg Neutrophils % 81.4 Lymphocytes % 10.1 Monocytes % 7.3 Eosinophils % 0.3 Basophils % 0.3 Neutrophils # 8.0 Lymphocytes # 1.0 Monocytes # 0.7 Eosinophils # 0.0 Basophils # 0.0 PT 12.9 H INR 1.1 APTT 37.1 H Sodium Potassium Chloride Carbon Dioxide BUN Creatinine Est GFR ( Amer) Est GFR (Non-Af Amer) BUN/Creatinine Ratio Glucose Calculated Osmolality Lactic Acid Calcium Urine Color [place] A Urine Clarity Clear Urine pH 7.0 Ur Specific [place] 1.009 L Urine Protein Negative Urine Glucose (UA) Normal Urine Ketones Negative Urine Blood Negative Urine Nitrite Positive A Urine Bilirubin Negative Urine Urobilinogen 2.0 H Ur Leukocyte Esterase Trace H Urine Microscopic RBC 0-3 Urine Microscopic WBC 0-3 Ur Squamous Epith Cells Many H Urine Bacteria None Seen Hyaline Casts None Seen Ur Culture Indicated? NO. A 03/31/18 03/31/18 05:00 05:00 WBC RBC Hgb Hct MCV MCH MCHC RDW Plt Count MPV Immature Gran % Seg Neutrophils % Lymphocytes % Monocytes % Eosinophils % Basophils % Neutrophils # Lymphocytes # Monocytes # Eosinophils # Basophils # PT INR APTT Sodium 130 L Potassium 4.5 Chloride 91 L Carbon Dioxide 34 H BUN 25 H Creatinine 0.88 Est GFR ( Amer) > 60 Est GFR (Non-Af Amer) > 60 BUN/Creatinine Ratio 28 H Glucose 98 Calculated Osmolality 274 L Lactic Acid 1.1 Calcium 8.6 Urine Color Urine Clarity Urine pH Ur Specific [place] Urine Protein Urine Glucose (UA) Urine Ketones Urine Blood Urine Nitrite Urine Bilirubin Urine Urobilinogen Ur Leukocyte Esterase Urine Microscopic RBC Urine Microscopic WBC Ur Squamous Epith Cells Urine Bacteria Hyaline Casts Ur Culture Indicated? - Lab Data Lab results reviewed: Yes I reviewed the patient's lab results. Result diagrams: 03/31/18 05:00 03/31/18 05:00 Lab Results 03/31/18 03/31/18 03/31/18 Range/Units 04:55 05:00 05:00 WBC 9.8 (4.3-11.1) K/mcL RBC 2.98 L (4.19-5.50) M/mcL Hgb 9.3 L (12.9-16.9) g/dL Hct 28.6 L (37.5-50.1) % MCV 96.0 (83.0-100.0) fL MCH 31.2 (28.0-33.3) pg MCHC 32.5 (31.6-35.5) g/dL RDW 15.4 H (11.5-14.5) % Plt Count 173 (140-400) K/mcL MPV 9.7 (9.4-12.4) fL Immature Gran % 0.6 (0-4) % Seg Neutrophils % 81.4 % Lymphocytes % 10.1 % Monocytes % 7.3 % Eosinophils % 0.3 % Basophils % 0.3 % Neutrophils # 8.0 (1.6-8.9) K/mcL Lymphocytes # 1.0 (0.6-4.6) K/mcL Monocytes # 0.7 (0.0-1.3) K/mcL Eosinophils # 0.0 (0.0-0.6) K/mcL Basophils # 0.0 (0.0-0.2) K/mcL PT 12.9 H (9.4-12.1) Seconds INR 1.1 APTT 37.1 H (26.0-36.0) Seconds Sodium (136-145) mEq/L Potassium (3.5-5.1) mEq/L Chloride (98-107) mEq/L Carbon Dioxide (23-29) mEq/L BUN (8-23) mg/dL Creatinine (0.70-1.30) mg/dL Est GFR ( Amer) (> 60) Est GFR (Non-Af Amer) (> 60) BUN/Creatinine Ratio (6-26) Glucose (70-105) mg/dL Calculated Osmolality (280-300) Lactic Acid (0.5-2.2) mmol/L Calcium (8.6-10.3) mg/dL Urine Color [place] A (Yellow) Urine Clarity Clear (Clear) Urine pH 7.0 (5.0-8.0) pH Units Ur Specific [place] 1.009 L (1.010-1.025) Urine Protein Negative (Neg-Trace) mg/dL Urine Glucose (UA) Normal (Normal) mg/dL Urine Ketones Negative (Negative) mg/dL Urine Blood Negative (Negative) Urine Nitrite Positive A (Negative) Urine Bilirubin Negative (Negative) Urine Urobilinogen 2.0 H (Normal) mg/dL Ur Leukocyte Esterase Trace H (Negative) Urine Microscopic RBC 0-3 (0-3) per hpf Urine Microscopic WBC 0-3 (0-3) per hpf Ur Squamous Epith Cells Many H (None-Few) per lpf Urine Bacteria None Seen (None-Few) per hpf Hyaline Casts None Seen (None-Few) per lpf Ur Culture Indicated? NO. A (NO) 03/31/18 03/31/18 Range/Units 05:00 05:00 WBC (4.3-11.1) K/mcL RBC (4.19-5.50) M/mcL Hgb (12.9-16.9) g/dL Hct (37.5-50.1) % MCV (83.0-100.0) fL MCH (28.0-33.3) pg MCHC (31.6-35.5) g/dL RDW (11.5-14.5) % Plt Count (140-400) K/mcL MPV (9.4-12.4) fL Immature Gran % (0-4) % Seg Neutrophils % % Lymphocytes % % Monocytes % % Eosinophils % % Basophils % % Neutrophils # (1.6-8.9) K/mcL Lymphocytes # (0.6-4.6) K/mcL Monocytes # (0.0-1.3) K/mcL Eosinophils # (0.0-0.6) K/mcL Basophils # (0.0-0.2) K/mcL PT (9.4-12.1) Seconds INR APTT (26.0-36.0) Seconds Sodium 130 L (136-145) mEq/L Potassium 4.5 (3.5-5.1) mEq/L Chloride 91 L (98-107) mEq/L Carbon Dioxide 34 H (23-29) mEq/L BUN 25 H (8-23) mg/dL Creatinine 0.88 (0.70-1.30) mg/dL Est GFR ( Amer) > 60 (> 60) Est GFR (Non-Af Amer) > 60 (> 60) BUN/Creatinine Ratio 28 H (6-26) Glucose 98 (70-105) mg/dL Calculated Osmolality 274 L (280-300) Lactic Acid 1.1 (0.5-2.2) mmol/L Calcium 8.6 (8.6-10.3) mg/dL Urine Color (Yellow) Urine Clarity (Clear) Urine pH (5.0-8.0) pH Units Ur Specific [place] (1.010-1.025) Urine Protein (Neg-Trace) mg/dL Urine Glucose (UA) (Normal) mg/dL Urine Ketones (Negative) mg/dL Urine Blood (Negative) Urine Nitrite (Negative) Urine Bilirubin (Negative) Urine Urobilinogen (Normal) mg/dL Ur Leukocyte Esterase (Negative) Urine Microscopic RBC (0-3) per hpf Urine Microscopic WBC (0-3) per hpf Ur Squamous Epith Cells (None-Few) per lpf Urine Bacteria (None-Few) per hpf Hyaline Casts (None-Few) per lpf Ur Culture Indicated? (NO) - Radiology Data Radiology results reviewed: Yes I reviewed the patient's radiology results. - EKG Data EKG #1 EKG attestation: Yes I reviewed and interpreted this EKG. Rate: tachycardia Rhythm: A.Fib Interpretation: other (Afib with RVR)
[2018-03-31 05:02] LABS: Bilirubin,Urine Negative (Negative); Blood,Urine Negative (Negative); Clarity,Urine Clear (Clear); Color,Urine Orange (Yellow); Glucose,Urine (UA) Normal (Normal); Ketones,Urine Negative (Negative); Leukocyte Esterase,Urine Trace (Negative); Nitrite,Urine Positive (Negative); Protein,Urine Negative (Neg-Trace); Specific Gravity,Urine 1.009 (1.010-1.025)
[2018-03-31 05:04] LABS: Bacteria,Urine None Seen per hpf (None-Few); Hyaline Casts,Urine None Seen per lpf (None-Few); RBC,Urine 0-3 per hpf (0-3); Squamous Epithelial Cell,Urine Many per lpf (None-Few); WBC,Urine 0-3 per hpf (0-3)
[2018-03-31] MEDS ORDERED: 0.9 % Sodium Chloride 500 ML IVC ONE ×2 (05:04→06:19)
[2018-03-31 05:19] LABS: Basophils % 0.3 %; Eosinophils % 0.3 %; Hematocrit 28.6 % (37.5-50.1); Hemoglobin 9.3 g/dL (12.9-16.9); Immature Granulocytes % 0.6 % (0-4); Lymphocytes % 10.1 %; Mean Corpuscular HGB Conc 32.5 g/dL (31.6-35.5); Mean Corpuscular Hemoglobin 31.2 pg (28.0-33.3); Mean Platelet Volume 9.7 fL (9.4-12.4); Monocytes # 0.7 K/mcL (0.0-1.3); Monocytes % 7.3 %; Platelet Count 173 K/mcL (140-400); Red Blood Count 2.98 M/mcL (4.19-5.50); Red Cell Distribution Width 15.4 % (11.5-14.5); Segmented Neutrophils % 81.4 %
[2018-03-31 05:26] LABS: INR 1.1; Prothrombin Time 12.9 Seconds (9.4-12.1)
[2018-03-31 05:29] LABS: Activated Partial Thrombo Time 37.1 Seconds (26.0-36.0)
[2018-03-31 05:38] LABS: BUN/Creatinine Ratio 28 (6-26); Blood Urea Nitrogen 25 mg/dL (8-23); Calcium 8.6 mg/dL (8.6-10.3); Carbon Dioxide 34 mEq/L (23-29); Chloride 91 mEq/L (98-107); Glucose 98 mg/dL (70-105); Osmolality,Calculated 274 (280-300); Potassium 4.5 mEq/L (3.5-5.1); Sodium 130 mEq/L (136-145); eGFR For Non-African Americans > 60 (> 60)
--- NOTE | 2018-03-31 06:21 | Emergency Department Note ---
Disposition Clinical Impression: Acute retention of urine, Atrial fibrillation with RVR, Esophageal adenocarcinoma, Fecal impaction in rectum Pneumonia Qualifiers: Pneumonia type: due to unspecified organism Laterality: unspecified laterality Lung location: unspecified part of lung Qualified Code(s): J18.9 - Pneumonia, unspecified organism Disposition: Admitted As Inpatient Condition: Good General Adult HPI - General Chief complaint: ED Urogenital-Male Stated complaint: urinary problem Time Seen by Provider: 03/31/18 04:19 Source: patient, family, EMS Limitations: no limitations Nursing Notes Reviewed: Yes Vital Signs Reviewed: Yes - History of Present Illness Pain Scale: 9 - Related Data Home Medications Medication Instructions Recorded Confirmed Furosemide [Lasix] 40 mg GTUBE BID 11/12/15 03/31/18 Docusate [Colace] 100 mg GTUBE DAILY 11/13/15 03/31/18 Ipratropium/Albuterol Neb [Duoneb] 3 ml IH Q6HR 11/13/15 03/31/18 Ipratropium/Albuterol Sulfate 1 puff IH Q6HR PRN 11/13/15 03/31/18 [Combivent Respimat Inhal [place]] Losartan Potassium [Cozaar] 100 mg GTUBE DAILY 02/16/18 03/31/18 Omeprazole [PriLOSEC] 40 mg GTUBE BID 02/16/18 03/31/18 Tamsulosin [Flomax] 0.4 mg GTUBE DAILY 02/16/18 03/31/18 Atenolol [Tenormin] 50 mg GTUBE DAILY 03/07/18 03/31/18 Aspirin 81 mg PO DAILY 03/31/18 03/31/18 Diltiazem [Cardizem] 30 mg GTUBE QID 03/31/18 03/31/18 Oxycodone HCl/Acetaminophen 1 tab GTUBE Q4H PRN 03/31/18 03/31/18 [Percocet 5-325 mg Tablet] Sertraline HCl [Zoloft] 100 mg GTUBE DAILY 03/31/18 03/31/18 clonazePAM [Klonopin] 0.5 mg GTUBE BID 03/31/18 03/31/18 Allergies Allergy/AdvReac Type Severity Reaction Status Date / Time clonidine Allergy Vomiting Verified 02/16/18 10:08 Warfarin [From Coumadin] AdvReac See Verified 03/31/18 09:25 Comments Past Medical History - Past Medical History Medical history: Reports: aortic aneurysm, arthritis, asthma, atrial fibrillation, cancer, CHF, COPD, coronary artery disease, GERD, GI bleed, hyperlipidemia, hypertension, osteoporosis, other Surgical history: Reports: cataract, other Psychiatric history: Reports: no psych history - Social History Smoking Status: Former smoker Smokeless Tobacco Status: No Alcohol use: Reports: none Drug use: Reports: none Physical Exam - General Limitations: no limitations General appearance: alert, in no apparent distress Course Vital Signs Temperature 98.1 F 03/31/18 04:16 Pulse Rate 124 03/31/18 04:16 Respiratory Rate 16 03/31/18 04:16 Blood Pressure 99/61 03/31/18 04:16 O2 Sat by Pulse Oximetry 97 03/31/18 04:16 Temperature 98.5 F 04/01/18 00:26 Pulse Rate 103 04/01/18 00:26 Respiratory Rate 18 04/01/18 00:26 Blood Pressure 121/75 04/01/18 00:26 O2 Sat by Pulse Oximetry 97 04/01/18 00:26 Oxygen Delivery Oxygen Delivery Nasal Cannula Medical Decision Making - Medical Records Medical records reviewed: Yes I reviewed the patient's medical records. - Lab Data Lab results reviewed: Yes I reviewed the patient's lab results. Result diagrams: 03/31/18 05:00 03/31/18 05:00 Lab Results 03/31/18 03/31/18 03/31/18 Range/Units 04:55 05:00 05:00 WBC 9.8 (4.3-11.1) K/mcL RBC 2.98 L (4.19-5.50) M/mcL Hgb 9.3 L (12.9-16.9) g/dL Hct 28.6 L (37.5-50.1) % MCV 96.0 (83.0-100.0) fL MCH 31.2 (28.0-33.3) pg MCHC 32.5 (31.6-35.5) g/dL RDW 15.4 H (11.5-14.5) % Plt Count 173 (140-400) K/mcL MPV 9.7 (9.4-12.4) fL Immature Gran % 0.6 (0-4) % Seg Neutrophils % 81.4 % Lymphocytes % 10.1 % Monocytes % 7.3 % Eosinophils % 0.3 % Basophils % 0.3 % Neutrophils # 8.0 (1.6-8.9) K/mcL Lymphocytes # 1.0 (0.6-4.6) K/mcL Monocytes # 0.7 (0.0-1.3) K/mcL Eosinophils # 0.0 (0.0-0.6) K/mcL Basophils # 0.0 (0.0-0.2) K/mcL PT 12.9 H (9.4-12.1) Seconds INR 1.1 APTT 37.1 H (26.0-36.0) Seconds Sodium (136-145) mEq/L Potassium (3.5-5.1) mEq/L Chloride (98-107) mEq/L Carbon Dioxide (23-29) mEq/L BUN (8-23) mg/dL Creatinine (0.70-1.30) mg/dL Est GFR ( Amer) (> 60) Est GFR (Non-Af Amer) (> 60) BUN/Creatinine Ratio (6-26) Glucose (70-105) mg/dL Calculated Osmolality (280-300) Lactic Acid (0.5-2.2) mmol/L Calcium (8.6-10.3) mg/dL Urine Color [place] A (Yellow) Urine Clarity Clear (Clear) Urine pH 7.0 (5.0-8.0) pH Units Ur Specific [place] 1.009 L (1.010-1.025) Urine Protein Negative (Neg-Trace) mg/dL Urine Glucose (UA) Normal (Normal) mg/dL Urine Ketones Negative (Negative) mg/dL Urine Blood Negative (Negative) Urine Nitrite Positive A (Negative) Urine Bilirubin Negative (Negative) Urine Urobilinogen 2.0 H (Normal) mg/dL Ur Leukocyte Esterase Trace H (Negative) Urine Microscopic RBC 0-3 (0-3) per hpf Urine Microscopic WBC 0-3 (0-3) per hpf Ur Squamous Epith Cells Many H (None-Few) per lpf Urine Bacteria None Seen (None-Few) per hpf Hyaline Casts None Seen (None-Few) per lpf Ur Culture Indicated? NO. A (NO) 03/31/18 03/31/18 Range/Units 05:00 05:00 WBC (4.3-11.1) K/mcL RBC (4.19-5.50) M/mcL Hgb (12.9-16.9) g/dL Hct (37.5-50.1) % MCV (83.0-100.0) fL MCH (28.0-33.3) pg MCHC (31.6-35.5) g/dL RDW (11.5-14.5) % Plt Count (140-400) K/mcL MPV (9.4-12.4) fL Immature Gran % (0-4) % Seg Neutrophils % % Lymphocytes % % Monocytes % % Eosinophils % % Basophils % % Neutrophils # (1.6-8.9) K/mcL Lymphocytes # (0.6-4.6) K/mcL Monocytes # (0.0-1.3) K/mcL Eosinophils # (0.0-0.6) K/mcL Basophils # (0.0-0.2) K/mcL PT (9.4-12.1) Seconds INR APTT (26.0-36.0) Seconds Sodium 130 L (136-145) mEq/L Potassium 4.5 (3.5-5.1) mEq/L Chloride 91 L (98-107) mEq/L Carbon Dioxide 34 H (23-29) mEq/L BUN 25 H (8-23) mg/dL Creatinine 0.88 (0.70-1.30) mg/dL Est GFR ( Amer) > 60 (> 60) Est GFR (Non-Af Amer) > 60 (> 60) BUN/Creatinine Ratio 28 H (6-26) Glucose 98 (70-105) mg/dL Calculated Osmolality 274 L (280-300) Lactic Acid 1.1 (0.5-2.2) mmol/L Calcium 8.6 (8.6-10.3) mg/dL Urine Color (Yellow) Urine Clarity (Clear) Urine pH (5.0-8.0) pH Units Ur Specific [place] (1.010-1.025) Urine Protein (Neg-Trace) mg/dL Urine Glucose (UA) (Normal) mg/dL Urine Ketones (Negative) mg/dL Urine Blood (Negative) Urine Nitrite (Negative) Urine Bilirubin (Negative) Urine Urobilinogen (Normal) mg/dL Ur Leukocyte Esterase (Negative) Urine Microscopic RBC (0-3) per hpf Urine Microscopic WBC (0-3) per hpf Ur Squamous Epith Cells (None-Few) per lpf Urine Bacteria (None-Few) per hpf Hyaline Casts (None-Few) per lpf Ur Culture Indicated? (NO) - Radiology Data Radiology results reviewed: Yes I reviewed the patient's radiology results. Chest X-Ray 03/31/18 04:48 IMPRESSION: Increased heterogeneous right basilar opacities, suspicious for aspiration sequela versus developing pneumonia. Small right pleural effusion, not substantially changed. D/ / Uziel Leslie / Uziel Leslie Interpreting Provider: Uziel Leslie Abdomen/Pelvis CT 03/31/18 05:09 IMPRESSION: Small rectal stool ball with rectal wall thickening and surrounding inflammatory fat stranding, altogether suspicious for stercoral proctitis. No pneumoperitoneum to suggest perforation. Recommend disimpaction. Appropriate percutaneous jejunostomy catheter positioning. 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 D/ / Uziel Leslie / Uziel Leslie Interpreting Provider: Uziel Leslie - EKG Data EKG #1 EKG attestation: Yes I reviewed and interpreted this EKG. EKG results narrative: EKG shows atrial fibrillation with RVR with ventricular rate of 119. No acute ST segment elevation or depression. Critical Care Time Critical Care Time: Yes Total Critical Care Time: 35 Attestation: Critical care performed: Time is exclusive of separately billable procedures. Time includes: direct patient care, patient reassessment, coordination of patient care, interpretation of data (laboratory data, radiology data, and respiratory data), review of patient's medical records, medical consultation and documentation of patient care. Procedures included in critical care time: Procedures excluded from critical care time: Attestation Statement - Attestation Attestation: IHeladio MD, personally evaluated this patient and discussed their management with the midlevel provicer, PAC/[employer]ARNISH FINISHER. I reviewed the midlevel provider's note and agree with the documented findings, medical decision making, and plan of care. 82-year-old male presents to the emergency department with a complaint of urinary retention. reports that for the past several days he has had decreasing urinary output and difficulty urinating. Yesterday he essentially was unable to urinate all day. He is supposed to take Lasix but has recently not been taking the Lasix because he does not want to have to get up and move around to go to the bathroom. Patient was in the hospital here for 11 days last month. [facility] a [facility] and spent [facility] weeks at the [facility] but then has been at home for the past several weeks. Symptoms seem to be getting progressively worse. He denies chest pain. He does admit to some shortness of breath. No cough. He has not noticed any fever. He does complain of some generalized abdominal pain. He has a G-tube. He has had problems with aspiration pneumonia because of the G-tube. On examination patient is a well-developed well-nourished elderly male in no acute distress. He does appear chronically ill. No cyanosis or diaphoresis. He is alert and oriented 3. Breath sounds are decreased bilaterally. Heart is irregularly irregular with a moderate tachycardia. Abdomen is soft with mild diffuse tenderness, worse in the mid lower abdomen. Rodriguez catheter was inserted with significant relief of his lower abdominal discomfort. Labs reviewed. No significant changes from his baseline. Chest x-ray and abdominal CT shows some bibasilar chronic aspiration pneumonia. CT the abdomen and pelvis showed a fecal impaction. Patient started on Cardizem drip for his atrial fibrillation. Blood pressures were soft with systolic in the range of 95-105. Due to this he was not given a bolus of the Cardizem but just started on a drip. He also received 500 mL saline bolus that we are reluctant to give too much fluid because he does have a history of CHF and has been off his Lasix. He also has some edema of the upper extremities right greater than left. Mild pitting edema of the lower extremities. We will consult the hospitalist for admission. Hospitalist consulted and accepted admission of the patient.
[2018-03-31] MEDS ORDERED: Lidocaine 4% CREAM (LMX) 5 GM TP ONE (07:05)
[2018-03-31] MEDS ORDERED: Piperacillin/Tazobactam 3.375 GM in 0.9 % Sodium Chloride Mini Bag 100 ML IVPB SCH (08:00)
--- NOTE | 2018-03-31 08:10 | Emergency Department Note ---
Disposition Clinical Impression: Acute retention of urine, Atrial fibrillation with RVR, Esophageal adenocarcinoma, Fecal impaction in rectum Pneumonia Qualifiers: Pneumonia type: due to unspecified organism Laterality: unspecified laterality Lung location: unspecified part of lung Qualified Code(s): J18.9 - Pneumonia, unspecified organism Disposition: Admitted As Inpatient Condition: Good General Adult HPI - General Chief complaint: ED Urogenital-Male Stated complaint: urinary problem Time Seen by Provider: 03/31/18 04:19 Source: patient, family, EMS Limitations: no limitations Nursing Notes Reviewed: Yes Vital Signs Reviewed: Yes - History of Present Illness Pain Scale: 9 - Related Data Home Medications Medication Instructions Recorded Confirmed RX: Furosemide [Lasix] 40 mg GTUBE BID 11/12/15 03/31/18 RX: Docusate [Colace] 100 mg GTUBE DAILY 11/13/15 03/31/18 RX: Ipratropium/Albuterol Neb 3 ml IH Q6HR 11/13/15 03/31/18 [Duoneb] RX: Ipratropium/Albuterol Sulfate 1 puff IH Q6HR PRN 11/13/15 03/31/18 [Combivent Respimat Inhal [place]] Losartan Potassium [Cozaar] 100 mg GTUBE DAILY 02/16/18 03/31/18 RX: Omeprazole [PriLOSEC] 40 mg GTUBE BID 02/16/18 03/31/18 RX: Tamsulosin [Flomax] 0.4 mg GTUBE DAILY 02/16/18 03/31/18 Atenolol [Tenormin] 50 mg GTUBE DAILY 03/07/18 03/31/18 Diltiazem [Cardizem] 30 mg GTUBE QID 03/31/18 03/31/18 Oxycodone HCl/Acetaminophen 1 tab GTUBE Q4H PRN 03/31/18 03/31/18 [Percocet 5-325 mg Tablet] RX: Aspirin 81 mg PO DAILY 03/31/18 03/31/18 Sertraline HCl [Zoloft] 100 mg GTUBE DAILY 03/31/18 03/31/18 clonazePAM [Klonopin] 0.5 mg GTUBE BID 03/31/18 03/31/18 Allergies Allergy/AdvReac Type Severity Reaction Status Date / Time clonidine Allergy Vomiting Verified 02/16/18 10:08 Warfarin [From Coumadin] AdvReac See Verified 03/31/18 09:25 Comments Constitutional: Denies: fever, chills Eyes: Denies: vision change ENT ED: Denies: throat pain Cardiovascular: Denies: palpitations Respiratory: Reports: dyspnea. Denies: cough, wheezes Gastrointestinal: Reports: as per HPI, constipation. Denies: diarrhea Genitourinary: Denies: dysuria, frequency Musculoskeletal: Denies: back pain Integumentary: Denies: rash Neurological: Denies: headache Endocrine: Denies: fatigue Hematological/Lymphatic: Denies: easy bleeding Allergic/Immunologic: Denies: facial swelling Past Medical History - Past Medical History Medical history: Reports: aortic aneurysm, arthritis, asthma, atrial fibrillation, cancer, CHF, COPD, coronary artery disease, GERD, GI bleed, hyperlipidemia, hypertension, osteoporosis, other Surgical history: Reports: cataract, other Psychiatric history: Reports: no psych history - Social History Smoking Status: Former smoker Smokeless Tobacco Status: No Alcohol use: Reports: none Drug use: Reports: none Physical Exam - General Limitations: no limitations General appearance: alert, in no apparent distress Course Course Narrative: Assumed care of this patient from Mao Sol PA-C at shift change. Patient reportedly had urinary retention, acute in onset, which prompted his visit to the ER. He also has had no bowel movement in about 10 days. He has a J tube for feeding and the sutures that secure the tube to the skin have come loose. Rodriguez was placed which relieved the urinary retention. Patient is in A-fib with RVR. Cardizem drip was ordered. Labs, CXR and CT were ordered. CT is still pending. CXR shows possible developing pneumonia. Cultures and ABX ordered. Case was already staffed with Dr. Dacosta. He has added an attestation to the original chart. CT shows acute on chronic pneumonia, fecal impaction in rectum with inflammatio n. Disimpaction done by Mao with good outcome. Patient tolerated this well. Hospitalist contacted for admission. Patient accepted. - Reevaluation(s) Reevaluation #1: Patient sleeping. No complaints. Vitals are improved - systolic BP up to 107 and heart rate at 115. The Cardizem is being hung at this time. Time: 08:10 Vital Signs Temperature 98.1 F 03/31/18 04:16 Pulse Rate 124 03/31/18 04:16 Respiratory Rate 16 03/31/18 04:16 Blood Pressure 99/61 03/31/18 04:16 O2 Sat by Pulse Oximetry 97 03/31/18 04:16 Temperature 98.2 F 03/31/18 16:19 Pulse Rate 126 03/31/18 16:19 Respiratory Rate 19 03/31/18 16:19 Blood Pressure 112/66 03/31/18 16:19 O2 Sat by Pulse Oximetry 99 03/31/18 16:19 Oxygen Delivery Oxygen Delivery Nasal Cannula Medical Decision Making - Lab Data Result diagrams: 03/31/18 05:00 03/31/18 05:00 Lab Results 03/31/18 03/31/18 03/31/18 Range/Units 04:55 05:00 05:00 WBC 9.8 (4.3-11.1) K/mcL RBC 2.98 L (4.19-5.50) M/mcL Hgb 9.3 L (12.9-16.9) g/dL Hct 28.6 L (37.5-50.1) % MCV 96.0 (83.0-100.0) fL MCH 31.2 (28.0-33.3) pg MCHC 32.5 (31.6-35.5) g/dL RDW 15.4 H (11.5-14.5) % Plt Count 173 (140-400) K/mcL MPV 9.7 (9.4-12.4) fL Immature Gran % 0.6 (0-4) % Seg Neutrophils % 81.4 % Lymphocytes % 10.1 % Monocytes % 7.3 % Eosinophils % 0.3 % Basophils % 0.3 % Neutrophils # 8.0 (1.6-8.9) K/mcL Lymphocytes # 1.0 (0.6-4.6) K/mcL Monocytes # 0.7 (0.0-1.3) K/mcL Eosinophils # 0.0 (0.0-0.6) K/mcL Basophils # 0.0 (0.0-0.2) K/mcL PT 12.9 H (9.4-12.1) Seconds INR 1.1 APTT 37.1 H (26.0-36.0) Seconds Sodium (136-145) mEq/L Potassium (3.5-5.1) mEq/L Chloride (98-107) mEq/L Carbon Dioxide (23-29) mEq/L BUN (8-23) mg/dL Creatinine (0.70-1.30) mg/dL Est GFR ( Amer) (> 60) Est GFR (Non-Af Amer) (> 60) BUN/Creatinine Ratio (6-26) Glucose (70-105) mg/dL Calculated Osmolality (280-300) Lactic Acid (0.5-2.2) mmol/L Calcium (8.6-10.3) mg/dL Urine Color [place] A (Yellow) Urine Clarity Clear (Clear) Urine pH 7.0 (5.0-8.0) pH Units Ur Specific [place] 1.009 L (1.010-1.025) Urine Protein Negative (Neg-Trace) mg/dL Urine Glucose (UA) Normal (Normal) mg/dL Urine Ketones Negative (Negative) mg/dL Urine Blood Negative (Negative) Urine Nitrite Positive A (Negative) Urine Bilirubin Negative (Negative) Urine Urobilinogen 2.0 H (Normal) mg/dL Ur Leukocyte Esterase Trace H (Negative) Urine Microscopic RBC 0-3 (0-3) per hpf Urine Microscopic WBC 0-3 (0-3) per hpf Ur Squamous Epith Cells Many H (None-Few) per lpf Urine Bacteria None Seen (None-Few) per hpf Hyaline Casts None Seen (None-Few) per lpf Ur Culture Indicated? NO. A (NO) 03/31/18 03/31/18 Range/Units 05:00 05:00 WBC (4.3-11.1) K/mcL RBC (4.19-5.50) M/mcL Hgb (12.9-16.9) g/dL Hct (37.5-50.1) % MCV (83.0-100.0) fL MCH (28.0-33.3) pg MCHC (31.6-35.5) g/dL RDW (11.5-14.5) % Plt Count (140-400) K/mcL MPV (9.4-12.4) fL Immature Gran % (0-4) % Seg Neutrophils % % Lymphocytes % % Monocytes % % Eosinophils % % Basophils % % Neutrophils # (1.6-8.9) K/mcL Lymphocytes # (0.6-4.6) K/mcL Monocytes # (0.0-1.3) K/mcL Eosinophils # (0.0-0.6) K/mcL Basophils # (0.0-0.2) K/mcL PT (9.4-12.1) Seconds INR APTT (26.0-36.0) Seconds Sodium 130 L (136-145) mEq/L Potassium 4.5 (3.5-5.1) mEq/L Chloride 91 L (98-107) mEq/L Carbon Dioxide 34 H (23-29) mEq/L BUN 25 H (8-23) mg/dL Creatinine 0.88 (0.70-1.30) mg/dL Est GFR ( Amer) > 60 (> 60) Est GFR (Non-Af Amer) > 60 (> 60) BUN/Creatinine Ratio 28 H (6-26) Glucose 98 (70-105) mg/dL Calculated Osmolality 274 L (280-300) Lactic Acid 1.1 (0.5-2.2) mmol/L Calcium 8.6 (8.6-10.3) mg/dL Urine Color (Yellow) Urine Clarity (Clear) Urine pH (5.0-8.0) pH Units Ur Specific [place] (1.010-1.025) Urine Protein (Neg-Trace) mg/dL Urine Glucose (UA) (Normal) mg/dL Urine Ketones (Negative) mg/dL Urine Blood (Negative) Urine Nitrite (Negative) Urine Bilirubin (Negative) Urine Urobilinogen (Normal) mg/dL Ur Leukocyte Esterase (Negative) Urine Microscopic RBC (0-3) per hpf Urine Microscopic WBC (0-3) per hpf Ur Squamous Epith Cells (None-Few) per lpf Urine Bacteria (None-Few) per hpf Hyaline Casts (None-Few) per lpf Ur Culture Indicated? (NO)
[2018-03-31] MEDS ORDERED: Naloxone 0.4 MG/ML INJ IVP PRN (09:28)
--- NOTE | 2018-03-31 09:28 | Internal Med History&Physical ---
<Pablito Brannon - Last Filed: 03/31/18 09:38> Date of Encounter: 03/31/18 Time of Encounter: 08:30 Internal Medicine - H&P: HPI Chief complaint: cant urinate or deficate Admitted From: Home Plans for Post Hospital Care: Home History of present illness: Mr. Lloyd is a 82 year old male with significant past medical history of atrial fibrillation, diastolic heart failure, COPD wears 2 L nasal Oxygen at night, hypertension and recent diagnosis of esophageal adenocarcinoma recently hospitalized for J-tube placement and treatment for aspiration pneumonia. He presents to the emergency department with 3 days of inability to defecate or urinate with his at bedside. He states that he has a history of chronic constipation difficulty prior to J-tube placement and chronic opioid pain medica tions. Since being on opiate pain medications and his constipation has gotten worse. Since he cannot take anything orally he has been taking milk of magnesia through the J-tube and enema which did not relieve his impaction. He also notes that he has been more fatigued over the last 3 weeks with progressive worsening. He was diagnosed with esophageal adenocarcinoma roughly a month ago after hav ing a 30+ pound weight loss, frequent vomiting with oral intake and difficulty swallowing. His states that she usually has to help him initially get out of bed and ambulate on his own but in the last week he has been more fatigued and difficulty even walking to the bathroom. He denies any fevers, chills, diaphoresis, sputum production, worsening of shortness of breath from baseline or chest pain. He has also been treated for a coccygeal decubitus ulcer at the correction after his last discharge from the hospital but has had little improvement overall healing. He has not started any chemotherapy or radiation therapy, does not have any reports or mechanical devices. He recently had a PET scan but is still awaiting the final results. Past Med Surg Social Fam HX - Past Medical History Medical history: aortic aneurysm, arthritis, asthma, atrial fibrillation, cancer, CHF, COPD, coronary artery disease, GERD, GI bleed, hyperlipidemia, hypertension, osteoporosis, other Additional medical history: Thoracic aortic aneurysm without rupture. Diastolic heart failureLeft ventriculare hypertrophy. DDD. Myalgia. Lumbar stenosis. esophageal cancer, feeding tube Psychiatric history: no psych history - Past Surgical History Surgical History: cataract, other - Social History Smoking Status: Former smoker Smokeless Tobacco Status: No Alcohol use: none Drug use: none - Family History Father Adopted: No Family Member Ethnicity: Non- Living Status: Hx Family Cancer: Yes (prostate) Internal Medicine - H&P: Meds Furosemide [Lasix] 40 mg GTUBE BID 11/12/15 [History] Docusate [Colace] 100 mg GTUBE DAILY 11/13/15 [History] Ipratropium/Albuterol Neb [Duoneb] 3 ml IH Q6HR 11/13/15 [History] Ipratropium/Albuterol Sulfate [Combivent Respimat Inhal [place]] 1 puff IH Q6HR PRN 11/13/15 [History] Losartan Potassium [Cozaar] 100 mg GTUBE DAILY 02/16/18 [History] Omeprazole [PriLOSEC] 40 mg GTUBE BID 02/16/18 [History] Tamsulosin [Flomax] 0.4 mg GTUBE DAILY 02/16/18 [History] Atenolol [Tenormin] 50 mg GTUBE DAILY 03/07/18 [History] Aspirin 81 mg PO DAILY 03/31/18 [History] Diltiazem [Cardizem] 30 mg GTUBE QID 03/31/18 [History] Oxycodone HCl/Acetaminophen [Percocet 5-325 mg Tablet] 1 tab GTUBE Q4H PRN 03/31/18 [History] Sertraline HCl [Zoloft] 100 mg GTUBE DAILY 03/31/18 [History] clonazePAM [Klonopin] 0.5 mg GTUBE BID 03/31/18 [History] Allergy/AdvReac Type Severity Reaction Status Date / Time clonidine Allergy Vomiting Verified 02/16/18 10:08 Warfarin [From Coumadin] AdvReac See Verified 03/31/18 09:25 Comments All Systems PM: A 10-system review of systems was performed and is negative for pertinent findings except as documented above in the HPI. - Constitutional Constitutional: anorexia, fatigue, lethargy, weakness, weight loss, no chills, no excessive sweating, no falls, no night sweats, no weight gain - EENT Eyes: no blurry vision, no diplopia, no pain Ears: no ear pain Nose, mouth and throat: dry mouth, dysphagia, no epistaxis, no mouth pain, no sore throat - Cardiovascular Cardiovascular ROS IM: irregular heart rhythm, no chest pain, no diaphoresis, no edema, no palpitations, no syncope - Respiratory Respiratory: cough, dyspnea, no hemoptysis, no dyspnea on exertion, no excessive phlegm production, no change in phlegm color - Gastrointestinal Gastrointestinal: change in stool character, constipation, vomiting, no dyspepsia, no dysphagia, no fecal incontinence, no loose stools, no melena - Genitourinary Genitourinary ROS male: difficulty urinating, no genital pain - Musculoskeletal Musculoskeletal ROS IM: muscle weakness - Integumentary Integumentary IM: non-healing lesions, skin ulcer - Neurological Neurological ROS: no confusion, no dizziness, no headache(s) - Constitutional Vitals: Temp Pulse Resp BP Pulse Ox 988 F H 108 16 108/82 91 03/31/18 08:56 03/31/18 08:56 03/31/18 08:56 03/31/18 08:56 03/31/18 08:56 Exam: Alert, oriented interactive in no acute distress HEENT normocephalic, atraumatic, pupils equal reactive, and oral mucosa dry, poor dentition Cardiac: Irregularly irregular heart rate and rhythm, radial pulses 2+ bilateral, capillary refill less than 2 seconds Respiratory: Mild diffuse wheezes, rhonchi appreciated right lower lung bases Abdomen: Soft, nontender to palpation, diffuse ecchymosis across abdominal wall which patient says improved, J-tube and left mid abdomen wall Extremities: Symmetric bilateral, no edema Skin: Grade 2-3 decubitus ulcer on the coccyx, nonpurulent discharge Internal Med - H&P Results - Labs CBC & Chem 7: 03/31/18 05:00 03/31/18 05:00 Labs: Short CBC 03/31/18 Range/Units 05:00 WBC 9.8 (4.3-11.1) K/mcL Hgb 9.3 L (12.9-16.9) g/dL Hct 28.6 L (37.5-50.1) % Plt Count 173 (140-400) K/mcL Neutrophils # 8.0 (1.6-8.9) K/mcL BMP 03/31/18 05:00 Sodium 130 L Potassium 4.5 Chloride 91 L Carbon Dioxide 34 H BUN 25 H Creatinine 0.88 Glucose 98 Calcium 8.6 Urine 03/31/18 Range/Units 04:55 Urine Color [place] A (Yellow) Urine Clarity Clear (Clear) Urine pH 7.0 (5.0-8.0) pH Units Ur Specific [place] 1.009 L (1.010-1.025) Urine Protein Negative (Neg-Trace) mg/dL Urine Glucose (UA) Normal (Normal) mg/dL - Impressions ITS Impressions Chest X-Ray 03/31/18 04:48 IMPRESSION: Increased heterogeneous right basilar opacities, suspicious for aspiration sequela versus developing pneumonia. Small right pleural effusion, not substantially changed. D/ / Uziel Leslie / Uziel Leslie Interpreting Provider: Uziel Leslie Abdomen/Pelvis CT 03/31/18 05:09 IMPRESSION: Small rectal stool ball with rectal wall thickening and surrounding inflammatory fat stranding, altogether suspicious for stercoral proctitis. No pneumoperitoneum to suggest perforation. Recommend disimpaction. Appropriate percutaneous jejunostomy catheter positioning. 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 D/ / Uziel Leslie / Uziel Leslie Interpreting Provider: Uziel Leslie - Assessment and plan (1) Pneumonia Current Visit: Yes Status: Acute Assessment and plan: Hospital associated pneumonia: Recent hospitalization in February at that time treated for aspiration pneumonia with Unasyn. Has been in a correction with esophageal cancer, decreased ambulation increased aspiration risk. CXR: Right lower lobe infiltration concerning for pneumonia may be carryover from previous diagnosis but patient does have increased fatigue, crackles in right lower lung base. Plan: - We will add Unasyn with risk for aspiration pneumonia more likely. - Starting vancomycin as patient had recent hospitalization, soft blood pressures. We will obtain MRSA nasal swab - Nasal cannula oxygen currently at patient's baseline. Continue to monitor - Dual nebs Qualifiers: Pneumonia type: due to unspecified organism Laterality: unspecified laterality Lung location: unspecified part of lung Qualified Code(s): J18.9 - Pneumonia, unspecified organism (2) Atrial fibrillation with RVR Current Visit: Yes Status: Chronic Assessment and plan: Patient has diagnosis of atrial fibrillation, admitted with rapid ventricular rate. - Exacerbation possibly secondary to pneumonia - Patient appears euvolemic - Patient placed on Cardizem drip in the emergency department, we will discontinue J-tube dosing. - Rate goal 80-110 - Patient not on any chronic anticoagulation as he was previously on warfarin and had a major GI bleed. - Continue aspirin 81 mg (3) Esophageal adenocarcinoma Current Visit: Yes Status: Acute Assessment and plan: Patient recently diagnosed with esophageal adenocarcinoma, has not started any chemotherapy or radiation therapy. Patient has J-tube in place. - Recent PET scan done demonstrating multiple lesions sites that may be consistent with metastatic disease. - Patient to continue following with oncology (4) CHF (congestive heart failure) Current Visit: No Status: Chronic Assessment and plan: History of diastolic heart failure with a recent echocardiogram in February of this year demonstrating EF of 40-55% - Euvolemic on examination - We will hold beta carmen, furosemide and losartan in the setting of soft blood pressures. - Monitor fluid intake and output - 2 g sodium diet restriction - Daily weights - Restart blood pressure medications when blood pressure stable. Qualifiers: Heart failure type: systolic Heart failure chronicity: chronic Qualified Code(s): I50.22 - Chronic systolic (congestive) heart failure (5) COPD (chronic obstructive pulmonary disease) Current Visit: No Status: Chronic Assessment and plan: Known history of COPD, patient uses 2 L nasal cane auction at home while at rest - Continue nasal cannula oxygen - Dual nebs when necessary Qualifiers: COPD type: emphysema Emphysema type: unspecified Qualified Code(s): 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, unspecified (6) HTN (hypertension) Current Visit: No Status: Chronic Assessment and plan: History of hypertension, blood pressures soft will hold antihypertensives at this time. Qualifiers: Hypertension type: essential hypertension Qualified Code(s): I10 - Essential (primary) hypertension (7) Decubitus ulcer of coccyx, stage 2 Current Visit: Yes Status: Acute Assessment and plan: Patient has stage II decubitus ulcer likely secondary to immobility, poor nutritional intake - Rotate patient every 2 hours - Wound care - Dietary onboard for nutritional recommendations and J-tube feedings (8) Constipation Current Visit: Yes Status: Acute Assessment and plan: Patient has a history of chronic constipation, he has started opiate pain medications in February and has noticed a worsening of his constipation to the point that he was unable to have a bowel movement after medical treatment. He had relief of symptoms after manual disimpaction in the emergency department today. - Start senna through J-tube twice a day - Continue J-tube feedings and hydration Qualifiers: Qualified Code(s): K59.03 - Drug induced constipation (9) DVT prophylaxis Current Visit: No Status: Acute Assessment and plan: Subcutaneous Lovenox (10) Urinary retention Current Visit: Yes Status: Acute Assessment and plan: Patient is a history of BPH, on imaging studies demonstrated a large prostate, significant family history for prostate cancer. The patient does demonstrate multiple lesions that could be related to his esophageal cancer but also may be related. No known prostate cancer history. - Current urinary retention thought to be secondary to bowel impaction, improvement in symptoms after disimpaction - Urinary catheter placed in emergency department, will continue inpatient with plans to de-escalate and remove to allow for urination on his own. - We will continue Flomax after patient's blood pressure stabilized. - Time Spent With Patient Total time spent is greater than 50% in coordination of care (as documented) at patient's floor/unit and/or counseling patient: <Biju Jimenez - Last Filed: 03/31/18 19:28> Date of Encounter: 03/31/18 Internal Medicine - H&P: HPI History of present illness: Mr. Lloyd is a 82 year old male All Systems PM: A 10-system review of systems was performed and is negative for pertinent findings except as documented above in the HPI. - Constitutional Vitals: Temp Pulse Resp BP Pulse Ox 98.2 F 126 19 112/66 99 03/31/18 16:19 03/31/18 16:19 03/31/18 16:19 03/31/18 16:19 03/31/18 16:19 Internal Med - H&P Results - Labs CBC & Chem 7: 03/31/18 05:00 03/31/18 05:00 Labs: Short CBC 03/31/18 Range/Units 05:00 WBC 9.8 (4.3-11.1) K/mcL Hgb 9.3 L (12.9-16.9) g/dL Hct 28.6 L (37.5-50.1) % Plt Count 173 (140-400) K/mcL Neutrophils # 8.0 (1.6-8.9) K/mcL BMP 03/31/18 05:00 Sodium 130 L Potassium 4.5 Chloride 91 L Carbon Dioxide 34 H BUN 25 H Creatinine 0.88 Glucose 98 Calcium 8.6 Urine 03/31/18 Range/Units 04:55 Urine Color [place] A (Yellow) Urine Clarity Clear (Clear) Urine pH 7.0 (5.0-8.0) pH Units Ur Specific [place] 1.009 L (1.010-1.025) Urine Protein Negative (Neg-Trace) mg/dL Urine Glucose (UA) Normal (Normal) mg/dL - Impressions ITS Impressions Chest X-Ray 03/31/18 04:48 IMPRESSION: Increased heterogeneous right basilar opacities, suspicious for aspiration sequela versus developing pneumonia. Small right pleural effusion, not substantially changed. D/ / Uziel Leslie / Uziel Leslie Interpreting Provider: Uziel Leslie Abdomen/Pelvis CT 03/31/18 05:09 IMPRESSION: Small rectal stool ball with rectal wall thickening and surrounding inflammatory fat stranding, altogether suspicious for stercoral proctitis. No pneumoperitoneum to suggest perforation. Recommend disimpaction. Appropriate percutaneous jejunostomy catheter positioning. 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 D/ / Uziel Leslie / Uziel Leslie Interpreting Provider: Uziel Leslie - Assessment and plan (1) Pneumonia Current Visit: Yes Status: Acute Qualifiers: Pneumonia type: due to unspecified organism Laterality: unspecified laterality Lung location: unspecified part of lung Qualified Code(s): J18.9 - Pneumonia, unspecified organism (2) Atrial fibrillation with RVR Current Visit: Yes Status: Chronic (3) COPD (chronic obstructive pulmonary disease) Current Visit: No Status: Chronic Qualifiers: COPD type: emphysema Emphysema type: unspecified Qualified Code(s): 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, unspecified (4) HTN (hypertension) Current Visit: No Status: Chronic Qualifiers: Hypertension type: essential hypertension Qualified Code(s): I10 - Essential (primary) hypertension (5) DVT prophylaxis Current Visit: No Status: Acute (6) CHF (congestive heart failure) Current Visit: No Status: Chronic Qualifiers: Heart failure type: systolic Heart failure chronicity: chronic Qualified Code(s): I50.22 - Chronic systolic (congestive) heart failure (7) Esophageal adenocarcinoma Current Visit: Yes Status: Acute (8) Decubitus ulcer of coccyx, stage 2 Current Visit: Yes Status: Acute (9) Constipation Current Visit: Yes Status: Acute Qualifiers: Qualified Code(s): K59.03 - Drug induced constipation (10) Urinary retention Current Visit: Yes Status: Acute - Time Spent With Patient Total time spent is greater than 50% in coordination of care (as documented) at patient's floor/unit and/or counseling patient: - Attending Attestation Discussed with resident and agree with assessment and plan as above. Patient is an 82-year-old male who presented to the ER due to inability to urinate found to be in atrial fibrillation with RVR in addition to have a pneumonia suspected aspiration. Will treat pneumonia with IV antibiotics as above. Cardizem drip has been discontinued and patient placed back on Cardizem through his G-tube. Patients urinary retention has resolved after fecal impaction and placement of Rodriguez catheter. We will continue to monitor.
[2018-03-31] MEDS ORDERED: Ipratropium/Albuterol Neb 3 ML IH PRN (09:37)
[2018-03-31] MEDS ORDERED: DILTIAZEM HCL 120 MG PO SCH (10:11)
--- NOTE | 2018-03-31 10:58 | Event Note ---
Date of Encounter: 03/31/18 Time of Encounter: 10:56 It was identified that Mr. Lloyd is on long acting Cardizem which he had crushed up at home and put through his J-tube. He will be switched to Cardizem 30 Q8hrs inpatient and adjusted as necessary but at the time of discharge he should be discharged on short acting Cardizem that can be given through his J- tube.
[2018-03-31] MEDS: Ampicillin/Sulbactam 3,000 MG in 0.9 % Sodium Chloride Mini Bag 100 ML IVPB SCH ×2 (13:26→18:50)
[2018-03-31] MEDS ORDERED: *HR* Metoprolol 5 MG/5 ML VIAL IVP ONE (15:56)
[2018-03-31] MEDS: Docusate Oral Soln 100 MG/10 ML UDC GTUBE SCH (20:17)
[2018-03-31] MEDS ORDERED: Sennosides/Docusate Sodium TABLET GTUBE SCH (21:00)
[2018-04-01] MEDS: Ampicillin/Sulbactam 3,000 MG in 0.9 % Sodium Chloride Mini Bag 100 ML IVPB SCH ×5 (00:30→23:18)
[2018-04-01] MEDS: *HR* Enoxaparin 40 MG/0.4 ML SYRINGE SQ SCH (05:43)
[2018-04-01 05:47] LABS: Basophils # 0.1 K/mcL (0.0-0.2); Basophils % 0.9 %; Eosinophils % 0.6 %; Hemoglobin 8.3 g/dL (12.9-16.9); Immature Granulocytes % 0.6 % (0-4); Lymphocytes # 1.1 K/mcL (0.6-4.6); Lymphocytes % 15.6 %; Mean Corpuscular HGB Conc 31.9 g/dL (31.6-35.5); Mean Corpuscular Hemoglobin 30.7 pg (28.0-33.3); Mean Corpuscular Volume 96.3 fL (83.0-100.0); Mean Platelet Volume 9.7 fL (9.4-12.4); Monocytes # 0.6 K/mcL (0.0-1.3); Monocytes % 8.9 %; Neutrophils # 5.1 K/mcL (1.6-8.9); Platelet Count 141 K/mcL (140-400); Red Cell Distribution Width 15.6 % (11.5-14.5); Segmented Neutrophils % 73.4 %
[2018-04-01 06:06] LABS: Alanine Aminotransferase 10 Units/L (7-52); Albumin 2.5 g/dL (3.5-5.7); Albumin/Globulin Ratio 0.9 (1.1-2.2); Alkaline Phosphatase 86 Units/L (34-104); Aspartate Amino Transferase 13 Units/L (13-39); BUN/Creatinine Ratio 23 (6-26); Bilirubin,Total 0.6 mg/dL (0.3-1.0); Blood Urea Nitrogen 18 mg/dL (8-23); Calcium 8.1 mg/dL (8.6-10.3); Carbon Dioxide 33 mEq/L (23-29); Chloride 98 mEq/L (98-107); Globulin 2.7 g/dL (2.4-3.5); Glucose 119 mg/dL (70-105); Osmolality,Calculated 285 (280-300); Potassium 3.8 mEq/L (3.5-5.1); Sodium 136 mEq/L (136-145); Total Protein 5.2 g/dL (6.4-8.9); eGFR For Non-African Americans > 60 (> 60)
[2018-04-01] MEDS: Docusate Oral Soln 100 MG/10 ML UDC GTUBE SCH ×2 (08:09→20:59)
[2018-04-01] MEDS ORDERED: DILTIAZEM HCL 120 MG PO SCH (09:00)
--- NOTE | 2018-04-01 10:47 | Internal Med Progress Note ---
<Dinora Ayers - Last Filed: 04/01/18 14:46> Hospitalist Progress Note - Encounter Date of Encounter: 04/01/18 - Exam Vitals: Temp Pulse Resp BP Pulse Ox 98.3 F 123 20 115/76 98 04/01/18 12:34 04/01/18 12:34 04/01/18 12:34 04/01/18 12:34 04/01/18 12:34 - Assessment and Plan (1) Pneumonia Current Visit: Yes Status: Acute (2) Atrial fibrillation with RVR Current Visit: Yes Status: Chronic (3) COPD (chronic obstructive pulmonary disease) Current Visit: No Status: Chronic (4) HTN (hypertension) Current Visit: No Status: Chronic (5) DVT prophylaxis Current Visit: No Status: Acute (6) CHF (congestive heart failure) Current Visit: No Status: Chronic (7) Esophageal adenocarcinoma Current Visit: Yes Status: Acute (8) Decubitus ulcer of coccyx, stage 2 Current Visit: Yes Status: Acute (9) Constipation Current Visit: Yes Status: Acute (10) Urinary retention Current Visit: Yes Status: Acute - Time Spent with Patient Total time spent is greater than 50% in coordination of care (as documented) at patient's floor/unit and/or counseling patient: Internal Medicine: Result - Labs CBC & Chem 7: 04/01/18 05:27 04/01/18 05:27 Labs: Short CBC 04/01/18 Range/Units 05:27 WBC 7.0 (4.3-11.1) K/mcL Hgb 8.3 L (12.9-16.9) g/dL Hct 26.0 L (37.5-50.1) % Plt Count 141 (140-400) K/mcL Neutrophils # 5.1 (1.6-8.9) K/mcL BMP 04/01/18 05:27 Sodium 136 Potassium 3.8 Chloride 98 Carbon Dioxide 33 H BUN 18 Creatinine 0.79 Glucose 119 H Calcium 8.1 L Liver Function 04/01/18 Range/Units 05:27 Total Bilirubin 0.6 (0.3-1.0) mg/dL AST 13 (13-39) Units/L ALT 10 (7-52) Units/L Alkaline Phosphatase 86 (34-104) Units/L Albumin 2.5 L (3.5-5.7) g/dL - ABG Interpretation ABG results: PT/INR, D-dimer PT 12.9 Seconds (9.4-12.1) H 03/31/18 05:00 Consult Discharge Plan - Plan Referrals: Connie Hyde MD [Primary Care Provider] - - Attending Attestation The history, physical exam, and medical decision making was performed by medical student Yvette either while I was physically present and actively involved or I personally re-performed the exam and medical decision making. I have verified the accuracy of the medical student's documentation with regards to the history, physical exam findings, and medical decision making. Mr Gabino has esopahgeal cancer and was admitted with constipation with rectal stool ball requiring manual disimpaction in ED, urinary retention and possible pna, uti and proctitis. awake, at bedside. mild cramping abd pain, no nausea, emesis. no bm since disimpaction. no fevers, chills. no sob. + chronic wheezing per pt, no new cough or sputum. cont to smoke at home requesting nicotine patch. j tube in place and funcitoning. no cp, palpitations, presyncope. gen- alert, awake,appears stated age eyes- pupils equal round cv- irreg/irreg rhythm, normal rate, normal s1,s2, no murmurs appreciated, no le edema lungs-+ expiratory wheezing anteriorly, no rhonchi or crackles, normal resp effort abd- soft, non tender, non distended, + bs neuro- AAOx3, CN grossly intact Afib RVR, now rate controlled afib- off cardizem gtt, pharm confirmed home QID cardizem and resumed, BPs low normotensive so holding atenolol at this time and will add as needed/tolerated, no AC given major gib in past, cont asa, monitor lytes, prn lopressor Possible pna- imaging suggests may be chronic aspiration- currently vanc + unasyn and will cont, sputum studies pending, supplemental o2 nc prn, ipratropium nebs COPD on 2L NC at baseline- nictoine patch, prn nebs Constipation with fecal ball on imaging, possible proctitis- disimpacted in ed, recent enema without relief, colace + senna + miralax, given possible proctitis will check stool studies to rule out infectious, to my knowledge no radiation hx, this clinical picutre is not consistent with inflammatory bowel disease, cont to monitor Urinary retention most likely 2/2 constipation- cont jordan cath, resume flomax, monitor output, send ucx Chronic anemia, stable- most recent in 03/14 8.1, prior to that in february 12-, fu with heme outptu, suspect related to esophageal cancer and anemia of chronic disease, will cont to monitor for active bleeding Diastolic CHF, stable, euvolemic on exam- holding furosemide as received IVF hydration on admit with constipation, cont to monitor volume status, holding atenolol as above and arb given low normal bps, add back as able Esophageal cancer with j tube- follows outpt with oncology Coccyx decub ulcer on admit- wound care following <Jaswinder Crawford - Last Filed: 04/01/18 17:06> Hospitalist Progress Note - Encounter Date of Encounter: 04/01/18 Time of Encounter: 09:00 - Subjective Interval History: Mr. Lloyd is a 82 year old male who was seen bedside on hospital day 2 for constipation and urinary retention concerns. He presented to the ER on 03/31/18 with 3 day history of inability to urinate and 10 day history of inability to defecate. Jordan catheter was placed and manual bowel disimpaction was performed in ER, and patient was admitted. Patient has J tube placed in left abdomen. Patient reports diffuse dull abdominal pain, fatigue, nausea, vomiting, shortness of breath, constipation, urinary strain and burning on urination but denies cough, palpitations, chest pain, blood in stool, urinary strain. - Exam Vitals: Temp Pulse Resp BP Pulse Ox 97.3 F L 120 20 117/68 97 04/01/18 08:02 04/01/18 08:02 04/01/18 08:02 04/01/18 08:02 04/01/18 08:02 Exam: General: Alert, oriented, in no acute distress HEENT: Normocephalic, oral mucosa dry, poor dentition Cardiac: Irregularly irregular heart rate and rhythm, radial pulses 2+ bilateral Respiratory: Diffuse wheezing noted, no accessory muscle use, rhonchi noted at bases Abdomen: Soft, non tender, ecchymoses present across abdomen (patient reports improving), bowel sounds absent Extremities: No peripheral edema noted on lower extremities - Assessment and Plan (1) Pneumonia Current Visit: Yes Status: Acute Assessment and Plan: Patient is on Unasyn and Vancomycin IV for suspected aspiration pneumonia. Patient has esophageal adenocarcinoma and previous history of aspiration pneumonia. CT of abdomen and pelvis showed chronic aspiration pneumonia. Chest X ray showed right basilar consolidation. Staph pneumoniae and Legionella urine antigen testing was negative. Sputum culture pending. Afebrile, WBC wnl. Continue antibiotics and monitoring. (2) Atrial fibrillation Current Visit: No Status: Chronic Assessment and Plan: Patient has chronic AFib w/ RVR. Patient had previous history of massive GI bleed, which is why he was not on chronic antiplatelet therapy. Blood pressure was 99/61 upon admission so Lopressor was removed. Most recently 115/76 at 1234 04/01/18 Continue cardizem 30 mg QID and aspirin 81mg. (3) Nicotine dependence with nicotine-induced disorder Current Visit: No Status: Chronic Assessment and Plan: Patient has 7 mg nicotine patch at home for patient's nicotine dependence Continue 7 mg nicotine patch. (4) Chronic diastolic congestive heart failure Current Visit: No Status: Chronic Assessment and Plan: Patient has history of diastolic CHF. Echo done in 02/20 shows EF of 40-55%. Continue holding Lopressor, Lasix and losartan due to low BP. Monitor fluid intake and output 2g sodium diet restriction Restart BP medications when blood pressure is stable (5) Esophageal adenocarcinoma Current Visit: Yes Status: Acute Assessment and Plan: Recent diagnosis prior to this admission with J tube in place. Continue following with oncology. Appointment with Dr. Martinez scheduled for t omorrow, patient's will likely reschedule. (6) Anxiety Current Visit: No Status: Acute Assessment and Plan: Patient has standing history of anxiety. Patient's noted he had some agitation. Continue home medications of Klonopin and Zoloft for anxiety. (7) Decubitus ulcer of coccyx, stage 2 Current Visit: Yes Status: Acute Assessment and Plan: Patient has stage II decubitus ulcer likely secondary to immobility, poor nutritional intake Continue rotating patient every 2 hours, wound care Dietary onboard for nutritional recommendations and J-tube feedings (8) Constipation Current Visit: Yes Status: Acute Assessment and Plan: Patient's constipation is still ongoing with no bowel movements since admission. Opioids were on board prior to admission; with no opioids prescribed upon admission, expecting regimen of Colace and Senna with Miralax addition to relieve constipation. Continue colace and senna. Add miralax. (9) Urinary retention Current Visit: Yes Status: Acute Assessment and Plan: Patient notes urinary retention upon admission. Urinalysis shows proctatitis Jordan catheter in place. Patient also reports burning upon urination but antibiotic regimen of Unasyn and Vancomycin should cover. Urine culture pending. Resume home medication of Flomax. Continue Unasyn and Vancomycin DVT Prophylaxis: Lovenox subcutaneous - Time Spent with Patient Total time spent is greater than 50% in coordination of care (as documented) at patient's floor/unit and/or counseling patient: Internal Medicine: Result - Labs CBC & Chem 7: 04/01/18 05:27 04/01/18 05:27 Labs: Short CBC 04/01/18 Range/Units 05:27 WBC 7.0 (4.3-11.1) K/mcL Hgb 8.3 L (12.9-16.9) g/dL Hct 26.0 L (37.5-50.1) % Plt Count 141 (140-400) K/mcL Neutrophils # 5.1 (1.6-8.9) K/mcL BMP 04/01/18 05:27 Sodium 136 Potassium 3.8 Chloride 98 Carbon Dioxide 33 H BUN 18 Creatinine 0.79 Glucose 119 H Calcium 8.1 L Liver Function 04/01/18 Range/Units 05:27 Total Bilirubin 0.6 (0.3-1.0) mg/dL AST 13 (13-39) Units/L ALT 10 (7-52) Units/L Alkaline Phosphatase 86 (34-104) Units/L Albumin 2.5 L (3.5-5.7) g/dL - ABG Interpretation ABG results: PT/INR, D-dimer PT 12.9 Seconds (9.4-12.1) H 03/31/18 05:00 <Dinora Ayers M - Last Filed: 04/01/18 14:46> (1) Pneumonia Qualifiers: Pneumonia type: due to unspecified organism Laterality: unspecified laterality Lung location: unspecified part of lung Qualified Code(s): J18.9 - Pneumonia, unspecified organism (3) 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 <Jaswinder Crawford - Last Filed: 04/01/18 17:06> (1) Pneumonia Qualifiers: Pneumonia type: due to unspecified organism Laterality: unspecified laterality Lung location: unspecified part of lung Qualified Code(s): J18.9 - Pneumonia, unspecified organism (2) Atrial fibrillation Qualifiers: Atrial fibrillation type: chronic Qualified Code(s): I48.2 - Chronic atrial fibrillation (3) Nicotine dependence with nicotine-induced disorder Qualifiers: Nicotine product type: cigarettes Qualified Code(s): F17.219 - Nicotine dependence, cigarettes, with unspecified nicotine-induced disorders (8) Constipation Qualifiers: Qualified Code(s): K59.03 - Drug induced constipation
[2018-04-01] MEDS ORDERED: Aminoglycoside Consult 1 EACH MC ONE (11:17)
[2018-04-01] MEDS: Nicotine 7 MG PATCH.TD24 TD SCH (13:02)
[2018-04-01] MEDS ORDERED: Potassium Chloride Elixir 20 MEQ/15 ML UDC GTUBE ONE (14:51)
[2018-04-01] MEDS: Aspirin Enteric Coated 81 MG Tablet PO SCH (17:04)
[2018-04-01] MEDS: clonazePAM 0.5 MG TABLET GTUBE SCH (20:59)
[2018-04-02] MEDS: Melatonin 3 MG TABLET PO SCH (00:18)
[2018-04-02 05:45] LABS: Basophils # 0.1 K/mcL (0.0-0.2); Basophils % 0.6 %; Eosinophils # 0.1 K/mcL (0.0-0.6); Eosinophils % 0.8 %; Hematocrit 29.1 % (37.5-50.1); Hemoglobin 9.3 g/dL (12.9-16.9); Immature Granulocytes % 0.5 % (0-4); Lymphocytes # 0.9 K/mcL (0.6-4.6); Mean Corpuscular Hemoglobin 31.3 pg (28.0-33.3); Mean Platelet Volume 9.6 fL (9.4-12.4); Monocytes # 0.8 K/mcL (0.0-1.3); Monocytes % 9.6 %; Neutrophils # 6.1 K/mcL (1.6-8.9); Platelet Count 154 K/mcL (140-400); Red Blood Count 2.97 M/mcL (4.19-5.50); Red Cell Distribution Width 15.7 % (11.5-14.5); Segmented Neutrophils % 77.5 %
[2018-04-02] MEDS: Ampicillin/Sulbactam 3,000 MG in 0.9 % Sodium Chloride Mini Bag 100 ML IVPB SCH (05:46)
[2018-04-02] MEDS: *HR* Enoxaparin 40 MG/0.4 ML SYRINGE SQ SCH (05:46)
[2018-04-02 06:04] LABS: BUN/Creatinine Ratio 32 (6-26); Blood Urea Nitrogen 21 mg/dL (8-23); Calcium 8.3 mg/dL (8.6-10.3); Carbon Dioxide 32 mEq/L (23-29); Chloride 101 mEq/L (98-107); Glucose 148 mg/dL (70-105); Osmolality,Calculated 288 (280-300); Potassium 4.1 mEq/L (3.5-5.1); Sodium 136 mEq/L (136-145); eGFR For Non-African Americans > 60 (> 60)
[2018-04-02] MEDS: Aspirin Enteric Coated 81 MG Tablet PO SCH (07:41)
[2018-04-02] MEDS: Docusate Oral Soln 100 MG/10 ML UDC GTUBE SCH ×2 (07:42→21:17)
[2018-04-02] MEDS: Nicotine 7 MG PATCH.TD24 TD SCH (07:42)
[2018-04-02] MEDS: clonazePAM 0.5 MG TABLET GTUBE SCH ×2 (07:42→21:17)
[2018-04-02] MEDS: *HR* Metoprolol 5 MG/5 ML VIAL IVP PRN ×2 (07:58→16:48)
--- NOTE | 2018-04-02 09:23 | Internal Med Progress Note ---
<Dinora Ayers - Last Filed: 04/02/18 10:40> Hospitalist Progress Note - Encounter Date of Encounter: 04/02/18 - Exam Vitals: Temp Pulse Resp BP Pulse Ox 97.7 F 138 17 124/76 97 04/02/18 08:00 04/02/18 08:00 04/02/18 08:00 04/02/18 08:00 04/02/18 08:00 - Assessment and Plan (1) Pneumonia Current Visit: Yes Status: Acute (2) Atrial fibrillation with RVR Current Visit: Yes Status: Chronic (3) COPD (chronic obstructive pulmonary disease) Current Visit: No Status: Chronic (4) HTN (hypertension) Current Visit: No Status: Chronic (5) DVT prophylaxis Current Visit: No Status: Acute (6) CHF (congestive heart failure) Current Visit: No Status: Chronic (7) Esophageal adenocarcinoma Current Visit: Yes Status: Acute (8) Decubitus ulcer of coccyx, stage 2 Current Visit: Yes Status: Acute (9) Constipation Current Visit: Yes Status: Acute (10) Urinary retention Current Visit: Yes Status: Acute - Time Spent with Patient Total time spent is greater than 50% in coordination of care (as documented) at patient's floor/unit and/or counseling patient: Internal Medicine: Result - Labs CBC & Chem 7: 04/02/18 05:21 04/02/18 05:21 Labs: Short CBC 04/02/18 Range/Units 05:21 WBC 7.9 (4.3-11.1) K/mcL Hgb 9.3 L (12.9-16.9) g/dL Hct 29.1 L (37.5-50.1) % Plt Count 154 (140-400) K/mcL Neutrophils # 6.1 (1.6-8.9) K/mcL BMP 04/02/18 05:21 Sodium 136 Potassium 4.1 Chloride 101 Carbon Dioxide 32 H BUN 21 Creatinine 0.66 L Glucose 148 H Calcium 8.3 L - ABG Interpretation ABG results: PT/INR, D-dimer PT 12.9 Seconds (9.4-12.1) H 03/31/18 05:00 Consult Discharge Plan - Plan Referrals: Connie Hyde MD [Primary Care Provider] - - Attending Attestation The history, physical exam, and medical decision making was performed by medical student Yvette either while I was physically present and actively involved or I personally re-performed the exam and medical decision making. I have verified the accuracy of the medical student's documentation with regards to the history, physical exam findings, and medical decision making. Mr Gabino has esopahgeal cancer and was admitted with constipation with rectal stool ball requiring manual disimpaction in ED, urinary retention Found to have chronic aspiration changes in the lungs, Ucx without growth, and ct findings of possible proctitis with assoicated stool ball which is being in vestigated awake, at bedside. poor sleep overnight. no abd pain. loose brown bm last night. no fevers, chills, n/v, cough, sputum. jordan remains in place. Had HR into 140s afib this morning, asx then and no cp,palpitations now. given prn lopressor and am cardizem with resolution gen- alert, awake,appears stated age eyes- pupils equal round cv- irreg/irreg rhythm, normal rate, normal s1,s2, no murmurs appreciated, no le edema lungs- no wheezing rhonchi or crackles, normal resp effort on home 4L NC O2 abd- soft, non tender, non distended, + bs neuro- AAOx3 Afib RVR, now rate controlled afib- home QID cardizem and resume atenolol, uptitrate as needed (start with lower than home dose due to bps yesterday) no AC given major gib in past, cont asa, monitor lytes, prn lopressor Possible pna now determined to be chronic aspiration changes as evidenced on abd ct-remains afebrile without leukocytosis and no new cough/sputum or resp changes- dc abx, cont prn nebs and home o2 nc COPD on 4L NC at baseline- nicotine patch, prn nebs Constipation with fecal ball on imaging, possible proctitis, resolved- disimpacted in ed, recent enema without relief, colace + senna + miralax, given possible proctitis will check stool studies to rule out infectious, to my knowledge no radiation hx, this clinical picture is not consistent with inflammatory bowel disease, cont to monitor, dc vanc + unasyn as above and if stool studies + would treat with appropriate abx at that time -lg loose bm 11/27, cont current treatment Urinary retention most likely 2/2 constipation- cont jordan cath,flomax, monitor output,ucx neg Chronic anemia, stable- most recent in 03/14 8.1, prior to that in february 12-, fu with heme outptu, suspect related to esophageal cancer and anemia of chronic disease, will cont to monitor for active bleeding Diastolic CHF, stable, euvolemic on exam- holding furosemide as received IVF hydration on admit with constipation, cont to monitor volume status, cont BB, hold arb given low normal bps, add back as able Esophageal cancer with j tube- follows outpt with oncology Coccyx decub ulcer on admit- wound care following pt/ot evals ordered <Jaswinder Crawford - Last Filed: 04/02/18 11:16> Hospitalist Progress Note - Encounter Date of Encounter: 04/02/18 Time of Encounter: 09:00 - Subjective Interval History: Mr. Lloyd is a 82 year old male who was seen bedside on hospital day 3 for constipation and urinary retention concerns. He presented to the ER on 03/31/18 with 3 day history of inability to urinate and 10 day history of inability to defecate. Jordan catheter was placed and manual bowel disimpaction was performed in ER, and patient was admitted. Patient has J tube placed in left abdomen. He had a moderate sized liquid bowel movement yesterday after addition of Miralax to his Colace and Senna laxatives. Patient reports weight loss of 20 lbs over last few months, shortness of breath, wheezes, urinary urgency and frequency, and anxiety and denies fever, chills, night sweats, chest pain, palpitations, cough, heartburn, bloody stool, abdominal pain, and depression. - Exam Vitals: Temp Pulse Resp BP Pulse Ox 97.7 F 138 17 124/76 97 04/02/18 08:00 04/02/18 08:00 04/02/18 08:00 04/02/18 08:00 04/02/18 08:00 Exam: General: Alert, oriented, in no acute distress HEENT: Normocephalic, oral mucosa dry, poor dentition Cardiac: Irregularly irregular heart rate and rhythm, radial pulses 2+ bilateral Respiratory: Diffuse wheezing noted, no accessory muscle use, rhonchi noted at bases Abdomen: Soft, non tender, ecchymoses present across abdomen (patient reports improving), bowel sounds present Extremities: No peripheral edema noted on lower extremities, pulses present bilaterally - Assessment and Plan (1) Pneumonia Current Visit: Yes Status: Acute Assessment and Plan: Patient has chronic aspiration pneumonia. Awaiting sputum culture. Discontinue Unasyn and Vancomycin; cultures were negative. Continue O2 via nasal cannula PRN and ipratropium nebulizer (2) Atrial fibrillation Current Visit: No Status: Chronic Assessment and Plan: Patient had sustaining AFib overnight 140, cardizem given via J tube and lopressor IVP was given, dropped to 100. Resume Atenolol for AFib rate control. Antiplatelet therapy is 81mg aspirin only due to previous massive GI bleed. (3) Nicotine dependence with nicotine-induced disorder Current Visit: No Status: Chronic Assessment and Plan: Patient on 7 mg nicotine patch daily at home for nicotine dependence Continue nicotine patch. (4) Chronic diastolic congestive heart failure Current Visit: No Status: Chronic Assessment and Plan: Patient has history of diastolic CHF. Echo done in 02/20 shows EF of 40-55%. Continue holding Lopressor, Lasix and losartan due to low BP. Monitor fluid intake and output 2g sodium diet restriction Restart BP medications when blood pressure is stable (5) Esophageal adenocarcinoma Current Visit: Yes Status: Acute Assessment and Plan: Recent diagnosis prior to this admission with J tube in place. Continue following with oncology. Appointment with Dr. Martinez scheduled for today, patient's will likely reschedule (6) Anxiety Current Visit: No Status: Acute Assessment and Plan: Patient has standing history of anxiety. Patient's noted he had some agitation yesterday. Continue home medications of Klonopin and Zoloft for anxiety. (7) Decubitus ulcer of coccyx, stage 2 Current Visit: Yes Status: Acute Assessment and Plan: Patient has stage II decubitus ulcer likely secondary to immobility, poor nu tritional intake Continue rotating patient every 2 hours, wound care Dietary onboard for nutritional recommendations and J-tube feedings (8) Constipation Current Visit: Yes Status: Acute Assessment and Plan: Patient's constipation is resolving with one bowel movement overnight (04/01- 04/02) since admission. Opioids were on board prior to admission; with no opioids prescribed upon admission, expecting regimen of Colace and Senna with Miralax addition to relieve constipation. Continue colace, senna and miralax for constipation. Add lactulose. (9) Urinary retention Current Visit: Yes Status: Acute Assessment and Plan: Patient notes urinary retention upon admission. Urinalysis shows proctatitis Jordan catheter in place. Patient also reports burning upon urination but likely due to jordan catheter p lacement. Urine culture negative. Discontinue Unasyn and Vancomycin as cultures were negative. Stool occult and enema to rule out proctatitis. Continue Flomax home medication DVT Prophylaxis: Lovenox subcutaneous - Time Spent with Patient Total time spent is greater than 50% in coordination of care (as documented) at patient's floor/unit and/or counseling patient: Internal Medicine: Result - Labs CBC & Chem 7: 04/02/18 05:21 04/02/18 05:21 Labs: Short CBC 04/02/18 Range/Units 05:21 WBC 7.9 (4.3-11.1) K/mcL Hgb 9.3 L (12.9-16.9) g/dL Hct 29.1 L (37.5-50.1) % Plt Count 154 (140-400) K/mcL Neutrophils # 6.1 (1.6-8.9) K/mcL BMP 04/02/18 05:21 Sodium 136 Potassium 4.1 Chloride 101 Carbon Dioxide 32 H BUN 21 Creatinine 0.66 L Glucose 148 H Calcium 8.3 L - ABG Interpretation ABG results: PT/INR, D-dimer PT 12.9 Seconds (9.4-12.1) H 03/31/18 05:00 <Dinora Ayers - Last Filed: 04/02/18 10:40> (1) Pneumonia Qualifiers: Pneumonia type: due to unspecified organism Laterality: unspecified laterality Lung location: unspecified part of lung Qualified Code(s): J18.9 - Pneumonia, unspecified organism (3) 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 <Jaswinder Crawford - Last Filed: 04/02/18 11:16> (1) Pneumonia Qualifiers: Pneumonia type: due to unspecified organism Laterality: unspecified laterality Lung location: unspecified part of lung Qualified Code(s): J18.9 - Pneumonia, unspecified organism (2) Atrial fibrillation Qualifiers: Atrial fibrillation type: chronic Qualified Code(s): I48.2 - Chronic atrial fibrillation (3) Nicotine dependence with nicotine-induced disorder Qualifiers: Nicotine product type: cigarettes Qualified Code(s): F17.219 - Nicotine dependence, cigarettes, with unspecified nicotine-induced disorders (8) Constipation Qualifiers: Qualified Code(s): K59.03 - Drug induced constipation
--- NOTE | 2018-04-02 14:17 | Electrocardiograph Report ---
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
[2018-04-02] MEDS: Lactulose Oral Soln 20 GM/30 ML UDC GTUBE SCH ×2 (16:47→21:17)
[2018-04-02] MEDS ORDERED: Hydrocortisone Rectal 2.5% CRM 28 GM TUBE RC PRN (21:45)
[2018-04-02] MEDS ORDERED: Ketorolac 30 MG/ML VIAL IM ONE (21:52)
[2018-04-03 01:45] LABS: Hematocrit 29.4 % (37.5-50.1); Hemoglobin 9.3 g/dL (12.9-16.9)
[2018-04-03 05:03] LABS: Basophils % 0.5 %; Eosinophils % 0.5 %; Hematocrit 26.5 % (37.5-50.1); Hemoglobin 8.4 g/dL (12.9-16.9); Immature Granulocytes % 0.4 % (0-4); Lymphocytes # 0.7 K/mcL (0.6-4.6); Lymphocytes % 9.2 %; Mean Corpuscular HGB Conc 31.7 g/dL (31.6-35.5); Mean Corpuscular Hemoglobin 31.5 pg (28.0-33.3); Mean Corpuscular Volume 99.3 fL (83.0-100.0); Mean Platelet Volume 9.3 fL (9.4-12.4); Monocytes # 0.6 K/mcL (0.0-1.3); Monocytes % 7.3 %; Neutrophils # 6.6 K/mcL (1.6-8.9); Platelet Count 133 K/mcL (140-400); Red Blood Count 2.67 M/mcL (4.19-5.50); Red Cell Distribution Width 15.9 % (11.5-14.5); Segmented Neutrophils % 82.1 %
[2018-04-03 05:21] LABS: BUN/Creatinine Ratio 41 (6-26); Blood Urea Nitrogen 26 mg/dL (8-23); Calcium 8.2 mg/dL (8.6-10.3); Carbon Dioxide 33 mEq/L (23-29); Chloride 102 mEq/L (98-107); Glucose 161 mg/dL (70-105); Osmolality,Calculated 296 (280-300); Potassium 4.1 mEq/L (3.5-5.1); Sodium 139 mEq/L (136-145); eGFR For Non-African Americans > 60 (> 60)
[2018-04-03] MEDS: *HR* Enoxaparin 40 MG/0.4 ML SYRINGE SQ SCH (05:48)
--- NOTE | 2018-04-03 06:22 | Event Note ---
Date of Encounter: 04/03/18 Time of Encounter: 06:21 Notified by nurse that patient had bowel movement, and was complaining of irritation from hemorrhoids and pain with bowel movement. Ordered hydrocortisone rectal cream and 1 dose IV toradol for pain. Nurse again notified that patient had another bowel movement, but noted blood in stool. Pt was in no acute distress, vital signs stable. Bleeding possibly secondary to hemorrhoids. H/H was ordered and was consistent with previous reading. Pt currently resting comfortably in no acute distress. Please continue to monitor.
[2018-04-03] MEDS: Aspirin Enteric Coated 81 MG Tablet PO SCH (08:02)
[2018-04-03] MEDS: clonazePAM 0.5 MG TABLET GTUBE SCH ×2 (08:03→21:52)
[2018-04-03] MEDS: Docusate Oral Soln 100 MG/10 ML UDC GTUBE SCH ×2 (08:03→21:52)
[2018-04-03] MEDS: Nicotine 7 MG PATCH.TD24 TD SCH (08:03)
[2018-04-03] MEDS: Lactulose Oral Soln 20 GM/30 ML UDC GTUBE SCH (08:04)
--- NOTE | 2018-04-03 09:08 | Internal Med Progress Note ---
<Dinora Ayers - Last Filed: 04/03/18 10:14> Hospitalist Progress Note - Encounter Date of Encounter: 04/03/18 - Exam Vitals: Temp Pulse Resp BP Pulse Ox 99.3 F 133 18 110/78 94 04/03/18 07:26 04/03/18 07:26 04/03/18 07:26 04/03/18 07:26 04/03/18 07:26 - Assessment and Plan (1) Pneumonia Current Visit: Yes Status: Acute (2) Atrial fibrillation with RVR Current Visit: Yes Status: Chronic (3) COPD (chronic obstructive pulmonary disease) Current Visit: No Status: Chronic (4) HTN (hypertension) Current Visit: No Status: Chronic (5) DVT prophylaxis Current Visit: No Status: Acute (6) CHF (congestive heart failure) Current Visit: No Status: Chronic (7) Esophageal adenocarcinoma Current Visit: Yes Status: Acute (8) Decubitus ulcer of coccyx, stage 2 Current Visit: Yes Status: Acute (9) Constipation Current Visit: Yes Status: Acute (10) Urinary retention Current Visit: Yes Status: Acute - Time Spent with Patient Total time spent is greater than 50% in coordination of care (as documented) at patient's floor/unit and/or counseling patient: Internal Medicine: Result - Labs CBC & Chem 7: 04/03/18 04:50 04/03/18 04:50 Labs: Short CBC 04/03/18 04/03/18 Range/Units 01:37 04:50 WBC 8.0 (4.3-11.1) K/mcL Hgb 9.3 L 8.4 L (12.9-16.9) g/dL Hct 29.4 L 26.5 L (37.5-50.1) % Plt Count 133 L (140-400) K/mcL Neutrophils # 6.6 (1.6-8.9) K/mcL BMP 04/03/18 04:50 Sodium 139 Potassium 4.1 Chloride 102 Carbon Dioxide 33 H BUN 26 H Creatinine 0.63 L Glucose 161 H Calcium 8.2 L - ABG Interpretation ABG results: PT/INR, D-dimer PT 12.9 Seconds (9.4-12.1) H 03/31/18 05:00 Consult Discharge Plan - Plan Referrals: Connie Hyde MD [Primary Care Provider] - (possible ECF) - Attending Attestation The history, physical exam, and medical decision making was performed by medical student Yvette either while I was physically present and actively involved or I personally re-performed the exam and medical decision making. I have verified the accuracy of the medical student's documentation with regards to the history, physical exam findings, and medical decision making. Mr Lloyd has esopahgeal cancer and was admitted with constipation with rectal stool ball requiring manual disimpaction in ED, urinary retention Found to have chronic aspiration changes in the lungs, Ucx without growth, and ct findings of stool ball He developed GIB 04/03 awake, at bedside. she feels he is looking better each day. He has no pain, no abd pain, no further blood today, overall better since moving bowels. Denies fevers, chills, new cough or new wheezing. O2 sats remain stable on home O2. + palpitations today, no cp, pressur o r presyncope. HR 130s and confirmed afib with rate in 120s on ekg this morning. Updated as to plan for gi eval and answered all quesitons. gen- alert, awake,appears stated age eyes- pupils equal round , no conjunctival pallor cv- irreg/irreg rhythm, tachy rate, normal s1,s2, no murmurs appreciated, no le edema, no jvd, radial pulses irreg/irreg and intact lungs- no wheezing rhonchi or crackles, normal resp effort on home 4L NC O2 abd- soft, non tender, non distended, + bs neuro- AAOx3 Afib RVR,- home QID cardizem, home atenolol held this morning due to low normotensive bps, d/w pharmacy will give addl cardizem today and uptitrate as needed and BP permits, no AC given major gib in past and bleeding currently, cont asa, monitor lytes, prn lopressor chronic aspiration changes of lung as evidenced on abd ct-remains afebrile without leukocytosis and no new cough/sputum or resp changes off abx, cont prn nebs and home o2 nc COPD on 4L NC at baseline- nicotine patch, prn nebs Constipation with fecal ball on imaging, possible proctitis, resolved- disimpacted in ed,colace + senna + miralax + lactulose with 2bms yesterday given possible proctitis will check stool studies to rule out infectious (order was cancelled by lab and i d/w them and re ordered today) to my knowledge no radiation hx, this clinical picture is not consistent with inflammatory bowel disease, cont to monitor, if stool studies + would treat with appropriate abx at that time Acute GIB with bloody stool 04/03- serial h/h, ppi, gi aware of consult and will see today acute on chronic anemia 2/2 gi blood loss Chronic anemia, - most recent in 03/14 8.1, prior to that in february 12, suspect related to esophageal cancer and anemia of chronic disea Urinary retention most likely 2/2 constipation- cont jordan cath,flomax, monitor output,ucx neg Diastolic CHF, stable, euvolemic on exam- holding furosemide cont to monitor volume status, hold bb and arb currently, low normal bps, add back as able Esophageal cancer with j tube- follows outpt with oncology Coccyx decub ulcer on admit- wound care following pt/ot evals ordered <Jaswinder Crawford D - Last Filed: 04/03/18 15:48> Hospitalist Progress Note - Encounter Date of Encounter: 04/03/18 Time of Encounter: 08:35 - Subjective Interval History: Mr. Lloyd is a 82 year old male who was seen bedside on hospital day 4 for constipation and urinary retention concerns. Patient was asleep at time of visit, was present at bedside. Patient had 2 bowel movements overnight last night, with the latter of the two being bloody. GI has been consulted as hemoglobin decreased from 9.3 on 04/02/18 to 8.4 on nost recent H&H on 04/03/18. Sputum culture is still pending. Patient was able to be aroused and reports weight loss of 20 lbs over last few months, shortness of breath, wheezes, urinary urgency and frequency, and anxiety and denies fever, chills, night sweats, chest pain, palpitations, cough, heartburn, bloody stool, abdominal pain, and depression. - Exam Vitals: Temp Pulse Resp BP Pulse Ox 99.3 F 133 18 110/78 94 04/03/18 07:26 04/03/18 07:26 04/03/18 07:26 04/03/18 07:26 04/03/18 07:26 Exam: General: Alert, oriented, in no acute distress HEENT: Normocephalic, oral mucosa dry, poor dentition Cardiac: Irregularly irregular heart rate and rhythm, radial pulses 2+ bilateral Respiratory: Diffuse wheezing noted, no accessory muscle use, rhonchi noted at bases Abdomen: Soft, non tender, ecchymoses present across abdomen (patient reports improving), bowel sounds present Extremities: No peripheral edema noted on lower extremities, pulses present bilaterally Neuro: A&Ox3, no focal neurological deficits - Assessment and Plan (1) Pneumonia Current Visit: Yes Status: Ruled-out Assessment and Plan: Patient has chronic aspiration, ruled out aspiration pneumonia with no new consolidation on CXR, remains afebrile without leukocytosis No new cough or respiratory changes. Awaiting sputum culture. Discontinued Unasyn and Vancomycin as cultures were negative. Continue O2 via nasal cannula PRN and ipratropium nebulizer (2) Atrial fibrillation Current Visit: No Status: Chronic Assessment and Plan: Patient currently has heart rate over 130 with EKG confirmed AFib on 04/03. Pharmacy suggested 10mg Cardizem IVP to reduce heart rate which brought the heart rate down to 90. Continue Atenolol for AFib rate control. Increase Cardizem from 30mg QID to 60mg QID. Antiplatelet therapy is 81mg aspirin only due to previous massive GI bleed. (3) Nicotine dependence with nicotine-induced disorder Current Visit: No Status: Chronic Assessment and Plan: Patient on 7 mg nicotine patch daily at home for nicotine dependence Continue nicotine patch. (4) Chronic diastolic congestive heart failure Current Visit: No Status: Chronic Assessment and Plan: Patient has history of diastolic CHF. Echo done in 02/20 shows EF of 40-55%. Continue holding Lopressor, Lasix and losartan due to low BP. Monitor fluid intake and output 2g sodium diet restriction Restart BP medications when blood pressure is stable (5) Esophageal adenocarcinoma Current Visit: Yes Status: Acute Assessment and Plan: Recent diagnosis prior to this admission with J tube in place. Continue following with oncology. Appointment with Dr. Martinez scheduled for yesterday, patient's rescheduled (6) Anxiety Current Visit: No Status: Acute Assessment and Plan: Patient has standing history of anxiety. Patient's noted he had some agitation yesterday. Continue home medications of Klonopin and Zoloft for anxiety. (7) Decubitus ulcer of coccyx, stage 2 Current Visit: Yes Status: Acute Assessment and Plan: Patient has stage II decubitus ulcer likely secondary to immobility, poor nutritional intake Continue rotating patient every 2 hours, wound care Dietary onboard for nutritional recommendations and J-tube feedings (8) Constipation Current Visit: Yes Status: Acute Assessment and Plan: Patient's constipation is resolving with one bowel movement overnight 04/01- 04/02 and two bowel movements overnight 04/02-04/03. Opioids were on board prior to admission; with no opioids prescribed upon admission, expecting regimen of Colace and Senna with Miralax and lactulose addition to relieve constipation. The second bowel movement overnight from 04/02-04/03 was bloody; patient's admits history of current hemorrhoids. GI to consult due to hemoglobin drop from 9.3 04/02 to 8.4 04/03. GI bowel prep for colonoscopy tomorrow per GI. If not clear by 1800, start Miralax. Clear liquid diet today, no red or purple. NPO at midnight. Reintroduction of opioid pain medication will make constipaton worse but it is added due to pain and bowel prep and status as current esophageal adenocarcinoma patient. (9) Urinary retention Current Visit: Yes Status: Acute Assessment and Plan: Urinary retention on admission likely secondary to constipation. Urinalysis showed proctatitis. Jordan catheter in place, patient reported burning on urination but likely due to jordan placement; urine cultures were negative. Unasyn and Vancomycin were discontinued due to urine cultures being discontinued. Continue flomax home medication. (10) Anemia of chronic disease Current Visit: Yes Status: Chronic Assessment and Plan: Patient has underlying esophageal adenocarcinoma with iron studies of: Iron 81 (on 02/12/18) % Saturation 30 (on 02/12/18) Transferrin 190 (on 02/12/18) Hemoglobin 8.4 (03/24/18) Continue monitoring. Recheck Hemoglobin q6h DVT Prophylaxis: Lovenox 40mg subcutaneous - Time Spent with Patient Total time spent is greater than 50% in coordination of care (as documented) at patient's floor/unit and/or counseling patient: Internal Medicine: Result - Labs CBC & Chem 7: 04/03/18 11:02 04/03/18 04:50 Labs: Short CBC 04/03/18 04/03/18 Range/Units 01:37 04:50 WBC 8.0 (4.3-11.1) K/mcL Hgb 9.3 L 8.4 L (12.9-16.9) g/dL Hct 29.4 L 26.5 L (37.5-50.1) % Plt Count 133 L (140-400) K/mcL Neutrophils # 6.6 (1.6-8.9) K/mcL BMP 04/03/18 04:50 Sodium 139 Potassium 4.1 Chloride 102 Carbon Dioxide 33 H BUN 26 H Creatinine 0.63 L Glucose 161 H Calcium 8.2 L - ABG Interpretation ABG results: PT/INR, D-dimer PT 12.9 Seconds (9.4-12.1) H 03/31/18 05:00 <Dinora Ayers - Last Filed: 04/03/18 10:14> (1) Pneumonia Qualifiers: Pneumonia type: due to unspecified organism Laterality: unspecified laterality Lung location: unspecified part of lung Qualified Code(s): J18.9 - Pneumonia, unspecified organism (3) 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 <Jaswinder Crawford - Last Filed: 04/03/18 15:48> (1) Pneumonia Qualifiers: Pneumonia type: due to unspecified organism Laterality: unspecified laterality Lung location: unspecified part of lung Qualified Code(s): J18.9 - Pneumonia, unspecified organism (2) Atrial fibrillation Qualifiers: Atrial fibrillation type: chronic Qualified Code(s): I48.2 - Chronic atrial fibrillation (3) Nicotine dependence with nicotine-induced disorder Qualifiers: Nicotine product type: cigarettes Qualified Code(s): F17.219 - Nicotine dependence, cigarettes, with unspecified nicotine-induced disorders (8) Constipation Qualifiers: Qualified Code(s): K59.03 - Drug induced constipation
--- NOTE | 2018-04-03 10:01 | Electrocardiograph Report ---
[place] [id number] Test Date: 2018-04-03 Pat Name: Cora Lloyd Department: 109 Room: 2A63 Gender: M Zookeeper: : 1935 Requested By: Dinora Ayers Order Number: [id number] Reading MD: Bhavin Heart Measurements Intervals [place] Rate: 122 P: VA: 0 QRS: 10 QRSD: 97 T: 32 QT: 306 QTc: 379 Interpretive Statements ATRIAL FIBRILLATION WITH RAPID VENTRICULAR RESPONSE ABNORMAL RHYTHM ECG Electronically Signed On 04-03-2018 9:58:59 EST by Bhavin Heart
[2018-04-03] MEDS ORDERED: SODIUM CHLORIDE/NAHCO3/KCL/PEG 4,000 ML SOLN.RECON PO ONE (10:15)
[2018-04-03 11:18] LABS: Hematocrit 26.1 % (37.5-50.1); Hemoglobin 8.4 g/dL (12.9-16.9)
--- NOTE | 2018-04-03 11:38 | Gastroenterology Consult Note ---
Date of Encounter: 04/03/18 Time of Encounter: 09:50 - Assessment and plan (1) Anemia Current Visit: Yes Status: Acute Assessment and plan: Hgb on admission 9.3, dropped to 8.3 on 04/01, and today Hgb 8.4. Continue to monitor CBC and transfuse PRBC as needed. Qualifiers: Anemia type: unspecified type Qualified Code(s): D64.9 - Anemia, unspecified (2) Rectal bleeding Current Visit: Yes Status: Acute Assessment and plan: Plan for colonoscopy tomorrow. Start bowel prep this AM, if not clear by 18:00, start Miralax prep. Clear liquid diet today, no red or purple. NPO at midnight. (3) Fecal impaction in rectum Current Visit: Yes Status: Acute Assessment and plan: s/p manual disimpaction. Use Miralax BID. (4) Esophageal adenocarcinoma Current Visit: Yes Status: Acute - Time Spent With Patient Total time spent is greater than 50% in coordination of care (as documented) at patient's floor/unit and/or counseling patient: GI History of Present Illness - Data of Consult Patient: known to practice within the last 3 years Consult date: 04/03/18 Requesting Physician: Dinora Ayers - Consult Narrative Reason for consult: Hematochezia History of present illness: Mr. Lloyd is a 82 year old male with PMHx of atrial fibrillation, diastolic heart failure, COPD wears 2 L nasal Oxygen at night, hypertension and recent diagnosis of esophageal adenocarcinoma recently hospitalized for J-tube placement and treatment for aspiration pneumonia. He presented to the ED with 3 days of inability to defecate or urinate. Since being on opiate pain medications and his constipation has gotten worse. Since he cannot take anything orally he has been taking milk of magnesia through the J-tube and enema which did not relieve his impaction. CT A/P with rectal stool ball with rectal wall thickening and surrounding inflammatory fat stranding. He was manually disimpacted in the ED. He had an episode of hematochezia and hemoglobin dropped from 9.3-8.4. He recently had a PET scan but is still awaiting the final results. Procedures: EGD 02/17/2018 Dr. Riggins: Ulcerated mass at GEJ c/w adenocarcinoma, reflux esophagitis. EGD 06/13/2012: hiatal hernia, acute gastritis, gastric ulcers with clean base, negative for H. pylori or dysplasia normal duodenum. Colonoscopy 07/02/2012: 4 mm benign polyp in the rectum. NSAIDs: ASA Anticoagulation: None Past Med Surg Social Fam HX - Past Medical History Medical history: aortic aneurysm, arthritis, asthma, atrial fibrillation, cancer, CHF, COPD, coronary artery disease, GERD, GI bleed, hyperlipidemia, hypertension, osteoporosis, other Additional medical history: Thoracic aortic aneurysm without rupture. Diastolic heart failureLeft ventriculare hypertrophy. DDD. Myalgia. Lumbar stenosis. esophageal cancer, feeding tube Psychiatric history: no psych history - Past Surgical History Surgical History: cataract, other - Social History Smoking Status: Former smoker Smokeless Tobacco Status: No Alcohol use: none Drug use: none - Family History Father Adopted: No Family Member Ethnicity: Non- Living Status: Hx Family Cancer: Yes (prostate) - Gastrointestinal Gastrointestinal: Present: as per HPI - Constitutional Constitutional: as per HPI - EENT Eyes: as per HPI Ears: Present: as per HPI Nose, mouth and throat: Present: as per HPI - Cardiovascular Cardiovascular ROS: Present: as per HPI - Respiratory Respiratory IM: Present: as per HPI - Genitourinary Genitourinary: Absent: change in color, Urinary frequency - Neurological ROS Neurological GI: Present: as per HPI - Hematologic/Lymphatic Hematologic/Lymphatic pediatric: Present: as per HPI - Musculoskeletal Musculoskeletal ROS GI: Present: as per HPI - Integumentary Integumentary GI: Present: as per HPI - Psychiatric ROS Psychiatric GI: Present: as per HPI - Endocrine Endocrine IM: Present: as per HPI - Constitutional Vitals: Temp Pulse Resp BP Pulse Ox 97.9 F 123 15 117/83 93 04/03/18 11:22 04/03/18 11:22 04/03/18 11:22 04/03/18 11:22 04/03/18 11:22 General appearance: Present: cooperative, A&O X 3, no acute distress, answers questions appropriately - Head Head exam: Present: atraumatic, normocephalic - Eye Eye exam: Present: normal appearance, sclera anicteric - ENT ENT exam: Present: mucous membranes dry - Neck Neck exam general surgery: Present: normal inspection, trachea midline - Respiratory Respiratory exam: Present: decreased breath sounds, CTAB. Absent: rales, rhonchi - Cardiovascular Cardiovascular exam: Present: RRR, +S1, +S2 - GI/Abdominal GI/Abdominal exam: Present: soft, no peritoneal signs. Absent: distended, firm, guarding, tenderness Additional comments: J-tube in place. - Rectal Rectal exam: Present: deferred - Extremities Exam Extremities exam: Present: warm - Neurological Exam Neurological exam: Present: no focal deficits - Psychiatric Psychiatric exam: Present: normal affect, normal mood - Skin Skin exam: Present: dry, intact, normal color, warm Results - Labs CBC & Chem 7: 04/03/18 11:02 04/03/18 04:50 Labs: Last Result Calcium 8.2 mg/dL (8.6-10.3) L 04/03/18 04:50 Entire Visit Hgb 8.4 g/dL (12.9-16.9) L 04/03/18 11:02 Hct 26.1 % (37.5-50.1) L 04/03/18 11:02 PT 12.9 Seconds (9.4-12.1) H 03/31/18 05:00 Total Bilirubin 0.6 mg/dL (0.3-1.0) 04/01/18 05:27 AST 13 Units/L (13-39) 04/01/18 05:27 ALT 10 Units/L (7-52) 04/01/18 05:27 - ABG ABG results: PT/INR, D-dimer PT 12.9 Seconds (9.4-12.1) H 03/31/18 05:00 Consult Discharge Plan - Plan Referrals: Connie Hyde MD [Primary Care Provider] -
[2018-04-03] MEDS: Pantoprazole 40 MG VIAL IVP SCH (12:27)
[2018-04-03 13:22] LABS: C.difficile Toxin A/B Gene PCR Not detected (Not detect); Campylobacter by PCR Not detected (Not detect); Plesiomonas shigelloides PCR Not detected (Not detect)
[2018-04-03 13:23] LABS: Adenovirus F 40/41 PCR Not detected (Not detect); Astrovirus PCR Not detected (Not detect); Cryptosporidium by PCR Not detected (Not detect); Cyclospora cayetanensis PCR Not detected (Not detect); E. coli O157 by PCR Not detected (Not detect); Entamoeba histolytica PCR Not detected (Not detect); Enteroaggregative E.coli(EAEC) Not detected (Not detect); Enteropathogenic E.coli(EPEC) Not detected (Not detect); Enterotoxigenic E.coli (ETEC) Not detected (Not detect); Giardia lamblia PCR Not detected (Not detect); Norovirus GI/GII PCR Not detected (Not detect); Rotavirus A PCR Not detected (Not detect); Salmonella PCR Not detected (Not detect); Sapovirus PCR Not detected (Not detect); Shig/EnteroinvasiveE coli EIEC Not detected (Not detect); Shigalike tox-prod E coli STEC Not detected (Not detect); Vibrio PCR Not detected (Not detect); Vibrio cholerae PCR Not detected (Not detect); Yersinia enterocolitica PCR Not detected (Not detect)
[2018-04-03 16:47] LABS: Hematocrit 27.5 % (37.5-50.1); Hemoglobin 8.6 g/dL (12.9-16.9)
[2018-04-03] MEDS ORDERED: Lidocaine -MPF 1% 5 ML AMPUL ONE (17:19)
--- NOTE | 2018-04-03 19:55 | Event Note ---
Date of Encounter: 04/03/18 Time of Encounter: 16:30 Called in relation to feeding tube dislodging. I attempted to replace with same size tube, but 20Fr red rubber would not fit despite adequate lubrication. A 16fr was able to fit snuggly. It was secured in placed with 0-silk suture; contrast study confirmed placement. Okay to use feeding tube.
[2018-04-03] MEDS: Melatonin 3 MG TABLET PO SCH (21:52)
[2018-04-03] MEDS ORDERED: *HR* LORazepam 2 MG/ML VIAL IVP PRN (23:14)
[2018-04-04 05:01] LABS: Basophils # 0.1 K/mcL (0.0-0.2); Basophils % 0.8 %; Eosinophils # 0.1 K/mcL (0.0-0.6); Eosinophils % 1.6 %; Hematocrit 25.7 % (37.5-50.1); Hemoglobin 8.1 g/dL (12.9-16.9); Immature Granulocytes % 0.5 % (0-4); Mean Corpuscular HGB Conc 31.5 g/dL (31.6-35.5); Mean Corpuscular Hemoglobin 31.3 pg (28.0-33.3); Mean Corpuscular Volume 99.2 fL (83.0-100.0); Mean Platelet Volume 9.8 fL (9.4-12.4); Monocytes # 0.5 K/mcL (0.0-1.3); Monocytes % 7.3 %; Neutrophils # 4.6 K/mcL (1.6-8.9); Platelet Count 131 K/mcL (140-400); Red Blood Count 2.59 M/mcL (4.19-5.50); Red Cell Distribution Width 15.6 % (11.5-14.5); Segmented Neutrophils % 73.8 %
[2018-04-04 05:19] LABS: BUN/Creatinine Ratio 45 (6-26); Blood Urea Nitrogen 27 mg/dL (8-23); Calcium 8.1 mg/dL (8.6-10.3); Carbon Dioxide 33 mEq/L (23-29); Chloride 103 mEq/L (98-107); Glucose 76 mg/dL (70-105); Osmolality,Calculated 294 (280-300); Potassium 3.9 mEq/L (3.5-5.1); Sodium 140 mEq/L (136-145); eGFR For Non-African Americans > 60 (> 60)
--- NOTE | 2018-04-04 06:17 | Event Note ---
Date of Encounter: 04/04/18 Time of Encounter: 06:13 Alerted by nursing staff that feeding tube which had been replaced earlier in the evening was leaking. Dr. Madden was consulted by staff who advised to discontinue using catheter which had been previously placed earlier. Advised switching necessary meds to IV. Nurse alerted me further than a few hours later, replaced feeding tube had been dislodged as well. Dr. Madden was again consulted, and replaced feeding tube with jordan catheter pending re-evaluation in the AM. After discussion with Pharmacy, Cardizem 60mg QID was switched to Cardizem drip at 7mg/hr, and all other medications were held pending re-evaluation this morning. Pt resting comfortably in bed; no acute distress. No other events overnight.
[2018-04-04] MEDS: dilTIAZem HCl 60 MG TABLET PO SCH ×4 (07:35→22:32)
[2018-04-04] MEDS: Nicotine 7 MG PATCH.TD24 TD SCH (07:54)
[2018-04-04] MEDS ORDERED: *HR* FentaNYL (PF) 100 MCG/2 ML VIAL IVP PRN (08:42)
--- NOTE | 2018-04-04 08:45 | Internal Med Progress Note ---
Hospitalist Progress Note - Encounter Date of Encounter: 04/04/18 Time of Encounter: 08:43 - Subjective Interval History: Patient seen examined at bedside. He is alert and oriented times 3. His is at the bedside. He reports that he is having all over pain that is chronic for him. He denies fever, chills, shortness of breath, chest pain, nausea, vomiting, abdominal pain. He has wheezing on example he set this is chronic for him. Overnight his J tube fell out and was replaced by 16 [place]ian but then not fell out that was replaced by Rodriguez catheter. He is unable to have his medicines thru JPEG tube and its that he is getting IV. - Exam Vitals: Temp Pulse Resp BP Pulse Ox 98.7 F 108 20 120/87 99 04/04/18 07:57 04/04/18 07:57 04/04/18 07:57 04/04/18 07:57 04/04/18 07:57 - Assessment and Plan (1) Atrial fibrillation with RVR Current Visit: Yes Status: Chronic (2) Pneumonia Current Visit: Yes Status: Ruled-out (3) COPD (chronic obstructive pulmonary disease) Current Visit: No Status: Chronic (4) HTN (hypertension) Current Visit: No Status: Chronic (5) DVT prophylaxis Current Visit: No Status: Acute (6) CHF (congestive heart failure) Current Visit: No Status: Chronic (7) Esophageal adenocarcinoma Current Visit: Yes Status: Acute (8) Decubitus ulcer of coccyx, stage 2 Current Visit: Yes Status: Acute (9) Constipation Current Visit: Yes Status: Acute (10) Urinary retention Current Visit: Yes Status: Acute - Time Spent with Patient Total time spent is greater than 50% in coordination of care (as documented) at patient's floor/unit and/or counseling patient: Internal Medicine: Result - Labs CBC & Chem 7: 04/04/18 04:14 04/04/18 04:14 Labs: Short CBC 04/03/18 04/03/18 04/04/18 Range/Units 11:02 16:36 04:14 WBC 6.3 (4.3-11.1) K/mcL Hgb 8.4 L 8.6 L 8.1 L (12.9-16.9) g/dL Hct 26.1 L 27.5 L 25.7 L (37.5-50.1) % Plt Count 131 L (140-400) K/mcL Neutrophils # 4.6 (1.6-8.9) K/mcL BMP 04/04/18 04:14 Sodium 140 Potassium 3.9 Chloride 103 Carbon Dioxide 33 H BUN 27 H Creatinine 0.60 L Glucose 76 Calcium 8.1 L - ABG Interpretation ABG results: PT/INR, D-dimer PT 12.9 Seconds (9.4-12.1) H 03/31/18 05:00 - Impressions Impressions KUB X-Ray 04/03/18 19:00 IMPRESSION: Contrast is seen outlining loops of small bowel within the left abdomen with no extravasation of contrast identified. Findings compatible with appropriate positioning of the enteric tube. D/ / Lei Ann MD / Lei Ann MD Interpreting Provider: Lei Ann MD Consult Discharge Plan - Plan Referrals: Connie Hyde MD [Primary Care Provider] - (possible ECF) (2) Pneumonia Qualifiers: Pneumonia type: due to unspecified organism Laterality: unspecified laterality Lung location: unspecified part of lung Qualified Code(s): J18.9 - Pneumonia, unspecified organism (3) 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
[2018-04-04] MEDS: clonazePAM 0.5 MG TABLET GTUBE SCH ×2 (11:23→22:32)
--- NOTE | 2018-04-04 11:24 | Palliative - Consult Note ---
<Larry Baptistebh - Last Filed: 04/04/18 17:33> Date of Encounter: 04/04/18 Time of Encounter: 11:00 - Assessment and Plan (1) Goals of care, counseling/discussion Current Visit: Yes Status: Acute Assessment and plan: Dr Leonard and I spoke to Mr. Lloyd about goals of care. Initially the was mentioning that her is reluctant to aggressive intervention . However, on speaking to the directly it appears that he currently wants to pursue aggressive intervention (radiation and chemotherapy) for his esophageal cancer. He also would like to be full code and wants to be resuscitated if need be (CPR/Breathing tube). Patient currently has a living will. Dr. Leonard and I told the patient that we respect his decision. We explained to the patient the pros and cons of his decision. We told him that CPR / Breathing tube will not change the course of the disease and will likely prolong the dying process. Patient told us that he would like to think a little bit more and will get back to us. Meanwhile, we will continue to follow (2) Pain Current Visit: Yes Status: Acute Assessment and plan: - Patient was complaining of diffuse chest and belly pain which in our opinion is likely opioid withdrawal pain. Patient takes oxycodone 1tab GTUBE Q4H PRN at home for his pain control. Our recommendation is to have him continue his home pain regimen. patient is also on 25 mcg of IV fentanyl q4h PRN here in the hospital. (3) Esophageal adenocarcinoma Current Visit: Yes Status: Acute Assessment and plan: - Patient was recently diagnosed with esophageal adenocarcinoma with placement of J-tube. -Most recent PET scan also showed intensely hypermetabolic mass at the GE junction extending to the gastric cardia consistent with recent diagnosed malignancy. There also some concerns for malignancy in the liver, MRI pending -Patient currently is not on chemotherapy or radiation. Oncology is on board and recommendations are pending -Given oxycodone PRN and fentanyl 25 mcg PRN for pain control (4) Atrial fibrillation with RVR Current Visit: Yes Status: Chronic Assessment and plan: -Currently is on Cardizem drip for A. fib RVR with controlled heart rate. Patient is not on anticoagulation right now because of the Hx of GI bleed and recent bloody stool. - lopressor PRN, (5) Diastolic CHF Current Visit: Yes Status: Acute Assessment and plan: -Has a history of CHF. With the most recent echo showing an EF of 40-55%. -Patient currently on Lasix. Euvolemic on exam, no S3 sound appreciated -Monitor I's/Os fluid restriction, daily weight checks Qualifiers: Qualified Code(s): I50.30 - Unspecified diastolic (congestive) heart failure Palliative-CN HPI - Data of Consult Requesting Physician: Dinora Ayers Primary Care Provider: Connie Hyde - Consult Narrative History of present illness: Mr. Lloyd is a pleasant 82 year old male with a bunch of comorbidies - Afib, HTN, recently diagnosed esophageal adenocarcinoma , COPD (on 2L of home )2), diastolic dysfunction who was recently admitted to the floor because of inability to defecate or urinate. Patient endorses that he has a history of chronic constipation prior to J-tube placement and chronic opioid pain medications. Since being on opiate pain medications, his constipation has gotten worse. He is s/p manual disimpaction of the ED. Patient underwent PET scan not too long ago which showed hypermetabolic mass at the GE junction extending to gastric cardia consistent with recent diagnosed malignancy. There was also evidence of diffuse bilateral pulmonary nodules, evidence of hypodense nodule in segment 2 of the liver, suspicious for metastatic lesion or HCC. He was seeing [place] [facility] but has not started any chemotherapy or radiation treatment. Palliative team was consulted to discuss the goals of care with the patient and for pain management. We met the patient this morning along with his to discuss up goals of care. As per the patient he would like to pursue aggressive treatment for his esophageal cancer. He also would like to be full code and wanted to be resuscitated if need be (CPR/Intubation). Dr. Leonard and I told the patient that we respect his decision. However, we told him that CPR/Intubation will not change the course of the disease and will prolong the dying process. Patient told us that he would like to think a little bit more and will get back to us. Patient takes oxycodone 1tab GTUBE Q4H PRN at home for his cancer pain control. Our recommendation is to have him continue his same pa in regimen, patient is also on 25 mcg of IV fentanyl q4h PRN here in the hospital. CC: Dinora Ayers - Time Spent with Patient Time: Total time spent is greater than 50% in coordination of care (as documented) at patient's floor/unit and/or counseling patient: Past Med Surg Social Fam HX - Past Medical History Medical history: aortic aneurysm, arthritis, asthma, atrial fibrillation, cancer, CHF, COPD, coronary artery disease, GERD, GI bleed, hyperlipidemia, hypertension, osteoporosis, other Additional medical history: Thoracic aortic aneurysm without rupture. Diastolic heart failureLeft ventriculare hypertrophy. DDD. Myalgia. Lumbar stenosis. esophageal cancer, feeding tube Psychiatric history: no psych history - Past Surgical History Surgical History: cataract, other - Social History Smoking Status: Former smoker Smokeless Tobacco Status: No Alcohol use: none Drug use: none - Family History Father Adopted: No Family Member Ethnicity: Non- Living Status: Hx Family Cancer: Yes (prostate) Medications and Allergies Furosemide [Lasix] 40 mg GTUBE BID 11/12/15 [History] Docusate [Colace] 100 mg GTUBE DAILY 11/13/15 [History] Ipratropium/Albuterol Neb [Duoneb] 3 ml IH Q6HR 11/13/15 [History] Ipratropium/Albuterol Sulfate [Combivent Respimat Inhal [place]] 1 puff IH Q6HR PRN 11/13/15 [History] Losartan Potassium [Cozaar] 100 mg GTUBE DAILY 02/16/18 [History] Omeprazole [PriLOSEC] 40 mg GTUBE BID 02/16/18 [History] Tamsulosin [Flomax] 0.4 mg GTUBE DAILY 02/16/18 [History] Atenolol [Tenormin] 50 mg PO BID 03/07/18 [History] Aspirin 81 mg PO DAILY 03/31/18 [History] Diltiazem [Cardizem] 30 mg GTUBE QID 03/31/18 [History] Oxycodone HCl/Acetaminophen [Percocet 5-325 mg Tablet] 1 tab GTUBE Q4H PRN 03/31/18 [History] Sertraline HCl [Zoloft] 100 mg GTUBE DAILY 03/31/18 [History] clonazePAM [Klonopin] 0.5 mg GTUBE BID 03/31/18 [History] Allergy/AdvReac Type Severity Reaction Status Date / Time clonidine Allergy Vomiting Verified 02/16/18 10:08 Warfarin [From Coumadin] AdvReac See Verified 03/31/18 09:25 Comments Palliative Care-Exam - Constitutional Vitals: Temp Pulse Resp BP Pulse Ox 98.7 F 108 20 120/87 99 04/04/18 07:57 04/04/18 07:57 04/04/18 07:57 04/04/18 07:57 04/04/18 07:57 General appearance: Present: average body habitus, cooperative - Respiratory Respiratory exam: Present: wheezes (BILATERAL ) - Cardiovascular Cardiovascular exam: Present: irregular rhythm (rate control on cardizem drip) - GI/Abdominal Exam GI/Abdominal exam: Present: soft additional comments: no guarding or rebound tenderness, has a J tube - Extremities Exam Extremities exam: Present: normal inspection Internal Medicine - CN: Reslt - Labs CBC & Chem 7: 04/04/18 04:14 04/04/18 04:14 Labs: Short CBC 04/03/18 04/04/18 Range/Units 16:36 04:14 WBC 6.3 (4.3-11.1) K/mcL Hgb 8.6 L 8.1 L (12.9-16.9) g/dL Hct 27.5 L 25.7 L (37.5-50.1) % Plt Count 131 L (140-400) K/mcL Neutrophils # 4.6 (1.6-8.9) K/mcL BMP 04/04/18 04:14 Sodium 140 Potassium 3.9 Chloride 103 Carbon Dioxide 33 H BUN 27 H Creatinine 0.60 L Glucose 76 Calcium 8.1 L - ABG Interpretation ABG results: PT/INR, D-dimer PT 12.9 Seconds (9.4-12.1) H 03/31/18 05:00 - Impressions Impressions KUB X-Ray 04/03/18 19:00 IMPRESSION: Contrast is seen outlining loops of small bowel within the left abdomen with no extravasation of contrast identified. Findings compatible with appropriate positioning of the enteric tube. D/ / Lei Ann MD / Lei Ann MD Interpreting Provider: Lei Ann MD Consult Discharge Plan - Plan Referrals: Connie Hyde MD [Primary Care Provider] - (possible ECF) Palliative Quality Palliative Quality: Screen for Code Status: Yes, Screen for Goals of Care: Yes, Screen for Pain: Yes, If Pain Regimen Started, Initiate Bowel Regimen: Yes, Screen for Nausea/Vomitting: No Code Status: 03/31/18 09:28 Resuscitation Status: Active [RES] Routine Comment: Resuscitation Status: Full Code <Julianna Leonard - Last Filed: 04/05/18 09:19> Date of Encounter: 04/05/18 Palliative-CN HPI - Data of Consult Requesting Physician: Dinora Ayers Primary Care Provider: Connie Hyde - Consult Narrative History of present illness: Mr. Lloyd is a 82 year old male CC: Dinora Ayers - Time Spent with Patient Time: Total time spent is greater than 50% in coordination of care (as documented) at patient's floor/unit and/or counseling patient: - Constitutional Constitutional ROS PAL: fatigue, weight loss - EENT Ears, nose, mouth, throat: dysphagia, no dry mouth - Cardiovascular Cardiovascular ROS: rapid heart rate - Respiratory Respiratory: cough, dyspnea on exertion - Gastrointestinal Gastrointestinal: constipation - Genitourinary Genitourinary ROS male: difficulty urinating - Musculoskeletal Musculoskeletal ROS IM: muscle weakness - Integumentary ROS Integumentary: no bleeding lesions - Neurological Neurological ROS: no confusion, no focal weakness - Psychiatric Psychiatric general PM: anxiety Palliative Care-Exam - Constitutional Vitals: Temp Pulse Resp BP Pulse Ox 97.5 F L 81 15 121/80 99 04/05/18 07:40 04/05/18 07:40 04/05/18 07:40 04/05/18 07:40 04/05/18 07:40 General appearance: Present: mild distress (due to shortness of breath) - Head Head Exam: Present: atraumatic - Eye Eye exam: Present: EOMI, PERRL, conjuntiva pink - Respiratory Respiratory exam: Present: accessory muscle use, prolonged expiratory phase - GI/Abdominal Exam GI/Abdominal exam: Present: soft. Absent: tenderness additional comments: J-tube in place, draining greenish fluid to gravity. - Additional comments: jordan in place - Extremities Exam Extremities exam: Present: full ROM. Absent: pedal edema - Neurological Exam Neurological exam: Present: oriented X3. Absent: motor sensory deficit Internal Medicine - CN: Reslt - Labs CBC & Chem 7: 04/05/18 05:40 04/05/18 05:40 Labs: Short CBC 04/04/18 04/05/18 Range/Units 20:00 05:40 WBC 6.9 (4.3-11.1) K/mcL Hgb 8.9 L 8.6 L (12.9-16.9) g/dL Hct 28.3 L 27.7 L (37.5-50.1) % Plt Count 131 L (140-400) K/mcL Neutrophils # 5.1 (1.6-8.9) K/mcL BMP 04/05/18 05:40 Sodium 137 Potassium 4.0 Chloride 102 Carbon Dioxide 34 H BUN 29 H Creatinine 0.67 L Glucose 152 H Calcium 8.4 L - ABG Interpretation ABG results: PT/INR, D-dimer PT 12.9 Seconds (9.4-12.1) H 03/31/18 05:00 - Attending Attestation I was present during history, and physical exam of this patient, my medical decision-making was reviewed with Dr. Baptiste, Resident Physician. I agree with the documented findings, disposition and treatment plan as described except to the extent set forth below. Pt was AAO x 3, in mild distress due to SOB. present at the bedside. GOC discussion: discussed with pt and current medical condition, trajectory of illness and overall poor prognosis. Discussed the pt's advanced COPD on home oxygen, Discussed the results of PET scan concerning for metastatic esophageal ca and possible second primary disease of the liver. Pt expressed his desire to continue full aggressive treatment, and remains agreeable with all invasive procedures, including endoscopy and biopsy. patient said "if I can only urinate and have regular BM on my own I will be fine." Discussed code status with pt, and explained in deph the indications for CPR. Pt was made aware that CPR would not be indicated in his case because it is unlikely to be successful, and would only result in prolongation of dying process. Discussed intubation in relation to his advanced COPD. Pt and verbalized understanding, however he would like sometime to think and for now wants to remain full code. SOB: pt states he is usually SOB and that his breathing is at baseline. however, pt at home is on percocet that likely helps with his breathing. Pt was noted to be anxious during the conversation. Instructed nurse to provide a fan recommend Ativan prn for anxiety Pain: Restarted pt's home dose of percocet 1 pill q4hrs prn Anxiety: recommend Ativan prn Constipation: resolved, pt having regular BM Urinary retention: was likely related to fecal impaction. Recommend discontinue jordan for voiding trial. Discussed with primary hospitalist Dr Chaudhari Palliative Quality Palliative Quality: Screen for Nausea/Vomitting: Yes Code Status: 03/31/18 09:28 Resuscitation Status: Active [RES] Routine Comment: Resuscitation Status: Full Code Palliative Scale - Palliative Performance Scale How ambulatory is this patient?: Mainly sit / lie What is patient's level of activity and evidence of disease?: Unable hobby/housework, Significant disease How much self-care assistance does patient require?: Considerable assistance required How much oral intake does the patient have?: Minimal to sips (J tube feeding) What is this patient's level of consciousness?: Full Palliative Performance Score: 40 %
[2018-04-04] MEDS: Aspirin Enteric Coated 81 MG Tablet PO SCH (11:25)
[2018-04-04] MEDS: Docusate Oral Soln 100 MG/10 ML UDC GTUBE SCH ×2 (11:25→22:33)
[2018-04-04] MEDS: Pantoprazole 40 MG VIAL IVP SCH (11:26)
--- NOTE | 2018-04-04 13:27 | Event Note ---
Date of Encounter: 04/04/18 Time of Encounter: 08:40 The patient was seen and evaluated this morning. Dr. Guzman placed a Rodriguez catheter in the dislodged jejunostomy site last evening. This is draining bilious material. The Rodriguez catheter is in place but not securely taped. I securely taped the Rodriguez catheter in place. This is draining bilious material and the tube is in appropriate placement. The tube may be used for feedings or medicines.
--- NOTE | 2018-04-04 13:49 | Internal Med Progress Note ---
<Dinora Ayers - Last Filed: 04/04/18 14:30> Hospitalist Progress Note - Encounter Date of Encounter: 04/04/18 - Exam Vitals: Temp Pulse Resp BP Pulse Ox 97.5 F L 107 20 128/76 99 04/04/18 12:20 04/04/18 12:20 04/04/18 12:20 04/04/18 12:20 04/04/18 12:20 - Assessment and Plan (1) Pneumonia Current Visit: Yes Status: Ruled-out (2) Atrial fibrillation with RVR Current Visit: Yes Status: Chronic (3) COPD (chronic obstructive pulmonary disease) Current Visit: No Status: Chronic (4) HTN (hypertension) Current Visit: No Status: Chronic (5) DVT prophylaxis Current Visit: No Status: Acute (6) CHF (congestive heart failure) Current Visit: No Status: Chronic (7) Esophageal adenocarcinoma Current Visit: Yes Status: Acute (8) Decubitus ulcer of coccyx, stage 2 Current Visit: Yes Status: Acute (9) Constipation Current Visit: Yes Status: Acute (10) Urinary retention Current Visit: Yes Status: Acute - Time Spent with Patient Total time spent is greater than 50% in coordination of care (as documented) at patient's floor/unit and/or counseling patient: Internal Medicine: Result - Labs CBC & Chem 7: 04/04/18 04:14 04/04/18 04:14 Labs: Short CBC 04/03/18 04/04/18 Range/Units 16:36 04:14 WBC 6.3 (4.3-11.1) K/mcL Hgb 8.6 L 8.1 L (12.9-16.9) g/dL Hct 27.5 L 25.7 L (37.5-50.1) % Plt Count 131 L (140-400) K/mcL Neutrophils # 4.6 (1.6-8.9) K/mcL BMP 04/04/18 04:14 Sodium 140 Potassium 3.9 Chloride 103 Carbon Dioxide 33 H BUN 27 H Creatinine 0.60 L Glucose 76 Calcium 8.1 L - ABG Interpretation ABG results: PT/INR, D-dimer PT 12.9 Seconds (9.4-12.1) H 03/31/18 05:00 - Impressions Impressions KUB X-Ray 04/03/18 19:00 IMPRESSION: Contrast is seen outlining loops of small bowel within the left abdomen with no extravasation of contrast identified. Findings compatible with appropriate positioning of the enteric tube. D/ / Lei Ann MD / Lei Ann MD Interpreting Provider: Lei Ann MD Consult Discharge Plan - Plan Referrals: Connie Hyde MD [Primary Care Provider] - (possible ECF) - Attending Attestation The history, physical exam, and medical decision making was performed by medical student Yvette either while I was physically present and actively involved or I personally re-performed the exam and medical decision making. I have verified the accuracy of the medical student's documentation with regards to the history, physical exam findings, and medical decision making. Mr Gabino has esopahgeal cancer and was admitted with constipation with rectal stool ball requiring manual disimpaction in ED, urinary retention He developed GIB 04/03 awake, at bedside. jtube now in place and funcitoning, + all over body pain. informed no cscope today due to inability to do prep last night and will be recommneded by gi to do outpt. states he likely won't come back for it and pt confirms he doesn't want scope, is tired of being here and tired of living. after discussion with pt and his they would like palliative care consult gen- alert, awake,appears stated age eyes- pupils equal round , no conjunctival pallor cv- irreg/irreg rhythm, normal rate, normal s1,s2, no murmurs appreciated, no le edema lungs- no wheezing rhonchi or crackles, normal resp effort on home 4L NC O2 abd- soft, non tender, non distended, + bs, jtibe in palce and draining neuro- AAOx3 Afib RVR,- cardizem gtt started when pt j tube access lost, cont gtt with good control of hr and bp stable, no AC given major gib in past and recent single bloody stool this admit, cont asa,ppi monitor lytes, prn lopressor chronic aspiration changes of lung as evidenced on abd ct-remains afebrile without leukocytosis prn nebs and home o2 nc COPD on 4L NC at baseline- nicotine patch, prn nebs Constipation with fecal ball on imaging, possible proctitis, resolved- colace + senna + miralax given possible proctitis stool studies cehcked and neg, no radiation hx to pelvis, this clinical picture is not c/w IBD Acute GIB with bloody stool 04/03- hgb stable, no scope today due to no bowel prep overnight due to j tube coming out, d/w gi team today- rec is outpt cscope acute on chronic anemia 2/2 gi blood loss, - most recent in 03/14 8.1 Diastolic CHF, stable, euvolemic on exam- holding furosemide cont to monitor volume status, hold bb and arb currently, low normal bps on cardizem gtt, add back as able Esophageal cancer with j tube- follows outpt with oncology, surgery following for loss of j tube this admit Coccyx decub ulcer on admit- wound care following palliative care consult Oncology consulted to discuss outpt pet scan result and concern for liver mets <Jaswinder Crawford D - Last Filed: 04/04/18 15:32> Hospitalist Progress Note - Encounter Date of Encounter: 04/04/18 Time of Encounter: 09:30 - Subjective Interval History: Mr. Lloyd is a 82 year old male who was seen bedside on hospital day 5 for constipation and urinary retention concerns. Patient was awake and in some discomfort at time of visit, was bedside. Patient had multiple bowel movements overnight last night, with no bloody stools noted. Bowel prep was to be initiated yesterday but J tube fell out yesterday and had to be replaced, resulting in a timeline that made bowel prep yesterday impossible. Sputum culture is still pending. Patient reports weight loss of 20 lbs over last few months, shortness of breath, wheezes, urinary urgency and frequency, anxiety and depression and denies fever, chills, night sweats, chest pain, palpitations, cough, heartburn, abdominal pain, bloody stool, abdominal pain, and depression. Patient notes that his stomach feels like he "has to use the bathroom" but notes no abdominal pain. Palliative medicine and Oncology were consulted today to meet with patient due to patient's verbalized desire to get out of the hospital, go home and have nothing done. - Exam Vitals: Temp Pulse Resp BP Pulse Ox 97.5 F L 107 20 128/76 99 04/04/18 12:20 04/04/18 12:20 04/04/18 12:20 04/04/18 12:20 04/04/18 12:20 Exam: General: Alert, oriented, in no acute distress HEENT: Normocephalic, oral mucosa dry, poor dentition Cardiac: Irregularly irregular heart rate and rhythm, radial pulses 2+ bilateral Respiratory: Diffuse wheezing noted, no accessory muscle use, rhonchi noted at bases Abdomen: Soft, non tender, ecchymoses present across abdomen (significantly improved since admission), bowel sounds present, soft jordan present in left abdomen where J tube previously was present Extremities: No peripheral edema noted on lower extremities, pulses present b ilaterally Neuro: A&Ox3, no focal neurological deficits - Assessment and Plan (1) Atrial fibrillation Current Visit: No Status: Chronic Assessment and Plan: Known/chronic AFib with RVR. Patient had heart rate over 130 with EKG confirmed AFib on 04/03; after Cardizem 10mg IVP brought down to 90. Cardizem was increased to 60mg QID (from 30mg QID) and Atenolol continued. Heart rate most recently at 107 at 1220 04/04/18. With J tube taken out yesterday, pharmacy approved change from Cardizem 60mg QID to 7mg/hr IV drip. Continue Atenolol for AFib rate control. Continue Cardizem 7mg/hr IV drip. Antiplatelet therapy is 81mg aspirin only due to previous massive GI bleed. (2) Chronic diastolic congestive heart failure Current Visit: No Status: Chronic Assessment and Plan: Patient has history of diastolic CHF. Echo done in 02/20 shows EF of 40-55%. Continue holding Lopressor, Lasix and losartan due to low BP. Monitor fluid intake and output 2g sodium diet restriction Restart BP medications when blood pressure is stable (3) Esophageal adenocarcinoma Current Visit: Yes Status: Acute Assessment and Plan: Recent diagnosis prior to this admission with J tube previously in place. J tube fell out yesterday, was replaced with jordan catheter in left abdomen where J tube was placed previously. Oncology met with patient today. Continue following with oncology. (4) Anxiety Current Visit: No Status: Acute Assessment and Plan: Patient has standing history of anxiety. Patient noted significant anxiety and agitation today. Continue home medications of Klonopin and Zoloft for anxiety. (5) Decubitus ulcer of coccyx, stage 2 Current Visit: Yes Status: Acute Assessment and Plan: Patient has stage II decubitus ulcer likely secondary to immobility, poor nutritional intake. Present upon admission. Continue rotating patient every 2 hours, wound care Dietary onboard for nutritional recommendations and tube feedings (6) Constipation Current Visit: Yes Status: Acute Assessment and Plan: Patient's constipation is resolving with one bowel movement overnight 04/01- 04/02 and two bowel movements overnight 04/02-04/03. Opioids were on board prior to admission; with no opioids prescribed upon admission, expecting regimen of Colace and Senna with Miralax and lactulose addition to relieve constipation. The second bowel movement overnight from 04/02-04/03 was bloody; patient's admits history of current hemorrhoids. GI to consult due to hemoglobin drop from 9.3 04/02 to 8.4 04/03. GI bowel prep yesterday failed due to J tube falling out. Jordan now in place, but intention of patient and GI is to do colonoscopy outpatient now (not during this hospital stay). Monitoring bowel movements, continue Colace, Senna and Miralax laxatives. Patient is on opioid pain medication in order to control pain; aware that this will worsen constipation but prescribed due to patient's status as current esophageal adenocarcinoma patient. (7) Urinary retention Current Visit: Yes Status: Acute Assessment and Plan: Urinary retention on admission likely secondary to constipation. Urinalysis showed proctatitis. Jordan catheter in place, patient reported burning on urination but likely due to jordan placement; urine cultures were negative. Unasyn and Vancomycin were discontinued due to urine cultures being discontinued . Continue flomax home medication. We are going to remove jordan cath to attempt voiding trial to see if urinary retention has resolved. (8) Anemia of chronic disease Current Visit: Yes Status: Chronic Assessment and Plan: Patient has underlying esophageal adenocarcinoma with iron studies of: Iron 81 (on 02/12/18) % Saturation 30 (on 02/12/18) Transferrin 190 (on 02/12/18) Hemoglobin 8.1 (04/04/18) Hemoglobin is slightly decreased, no signs of obvious bleeding. Recheck Hemoglobin at 8 PM Continue monitoring. (9) Pneumonia Current Visit: Yes Status: Ruled-out Assessment and Plan: Pneumonia is ruled out; chronic aspiration changes noted on abdominal CT. Patient is afebrile without leukocytosis; no new cough or respiratory changes off antibiotics. Continue Duonebs PRN and home O2 on nasal cannula (10) Nicotine dependence with nicotine-induced disorder Current Visit: No Status: Chronic Assessment and Plan: Patient on 7 mg nicotine patch daily at home for nicotine dependence Continue nicotine patch. DVT Prophylaxis: Lovenox 40mg subcutaneous - Time Spent with Patient Total time spent is greater than 50% in coordination of care (as documented) at patient's floor/unit and/or counseling patient: Internal Medicine: Result - Labs CBC & Chem 7: 04/04/18 04:14 04/04/18 04:14 Labs: Short CBC 04/03/18 04/04/18 Range/Units 16:36 04:14 WBC 6.3 (4.3-11.1) K/mcL Hgb 8.6 L 8.1 L (12.9-16.9) g/dL Hct 27.5 L 25.7 L (37.5-50.1) % Plt Count 131 L (140-400) K/mcL Neutrophils # 4.6 (1.6-8.9) K/mcL BMP 04/04/18 04:14 Sodium 140 Potassium 3.9 Chloride 103 Carbon Dioxide 33 H BUN 27 H Creatinine 0.60 L Glucose 76 Calcium 8.1 L - ABG Interpretation ABG results: PT/INR, D-dimer PT 12.9 Seconds (9.4-12.1) H 03/31/18 05:00 - Impressions Impressions KUB X-Ray 04/03/18 19:00 IMPRESSION: Contrast is seen outlining loops of small bowel within the left abdomen with no extravasation of contrast identified. Findings compatible with appropriate positioning of the enteric tube. D/ / Lei Ann MD / Lei Ann MD Interpreting Provider: Lei Ann MD <Dinora Ayers M - Last Filed: 04/04/18 14:30> (1) Pneumonia Qualifiers: Pneumonia type: due to unspecified organism Laterality: unspecified laterality Lung location: unspecified part of lung Qualified Code(s): J18.9 - Pneumonia, unspecified organism (3) 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 <Jaswinder Crawford D - Last Filed: 04/04/18 15:32> (1) Atrial fibrillation Qualifiers: Atrial fibrillation type: chronic Qualified Code(s): I48.2 - Chronic atrial fibrillation (6) Constipation Qualifiers: Qualified Code(s): K59.03 - Drug induced constipation (9) Pneumonia Qualifiers: Pneumonia type: due to unspecified organism Laterality: unspecified laterality Lung location: unspecified part of lung Qualified Code(s): J18.9 - Pneumonia, unspecified organism (10) Nicotine dependence with nicotine-induced disorder Qualifiers: Nicotine product type: cigarettes Qualified Code(s): F17.219 - Nicotine dependence, cigarettes, with unspecified nicotine-induced disorders
--- NOTE | 2018-04-04 14:20 | Oncology Inp Consult Note ---
<Jorge Valverde - Last Filed: 04/04/18 16:37> Date of Encounter: 04/04/18 Time of Encounter: 16:40 - Data of Consult Requesting Physician: Dinora Ayers Primary Care Provider: Connie Hyde Medications and Allergies Furosemide [Lasix] 40 mg GTUBE BID 11/12/15 [History] Docusate [Colace] 100 mg GTUBE DAILY 11/13/15 [History] Ipratropium/Albuterol Neb [Duoneb] 3 ml IH Q6HR 11/13/15 [History] Ipratropium/Albuterol Sulfate [Combivent Respimat Inhal [place]] 1 puff IH Q6HR PRN 11/13/15 [History] Losartan Potassium [Cozaar] 100 mg GTUBE DAILY 02/16/18 [History] Omeprazole [PriLOSEC] 40 mg GTUBE BID 02/16/18 [History] Tamsulosin [Flomax] 0.4 mg GTUBE DAILY 02/16/18 [History] Atenolol [Tenormin] 50 mg PO BID 03/07/18 [History] Aspirin 81 mg PO DAILY 03/31/18 [History] Diltiazem [Cardizem] 30 mg GTUBE QID 03/31/18 [History] Oxycodone HCl/Acetaminophen [Percocet 5-325 mg Tablet] 1 tab GTUBE Q4H PRN 03/31/18 [History] Sertraline HCl [Zoloft] 100 mg GTUBE DAILY 03/31/18 [History] clonazePAM [Klonopin] 0.5 mg GTUBE BID 03/31/18 [History] Allergy/AdvReac Type Severity Reaction Status Date / Time clonidine Allergy Vomiting Verified 02/16/18 10:08 Warfarin [From Coumadin] AdvReac See Verified 03/31/18 09:25 Comments Consult Discharge Plan - Plan Referrals: Connie Hyde MD [Primary Care Provider] - (possible ECF) Inpatient Charges Provider: Dr. Crystal Valverde Consult - Inpatient: [id number] - Attending Attestation I examined this patient and my medical decision-making was reviewed with the Advanced Practice Nurse. I agree with the documented findings, disposition and treatment plan as described except to the extent set forth below. -Will check MRI of the Abdomen w/ and w/o contrast to evaluate liver lesion. -Based on results, will determine need for biopsy of liver lesion versus one of the lung lesions. -He may have a second primary malignancy -We will optimize pain medications. <Allison Dewey - Last Filed: 04/04/18 18:37> Date of Encounter: 04/04/18 Assessment and Plan (1) Anemia Status: Acute Assessment and plan: Normocytic normochromic anemia with hemoglobin of 8.1 Downtrending since February In the setting of malignancy as well as melena following manual disimpaction Plan: GI has been consulted and planning for colonoscopy today however this appears to have been postponed secondary to patient requiring replacement of J-tube, he subsequently did not receive full bowel prep Will assess anemia workup with iron profile, ferritin, B12, folate and LDH Qualifiers: Anemia type: unspecified type Qualified Code(s): D64.9 - Anemia, unspecified (2) Esophageal adenocarcinoma Status: Acute Assessment and plan: As described in history of present illness, relating PET/CT results and his most previous clinic appointment to discuss treatment management Discussed PET scan results with patient and patient's at bedside today. PET/CT on 03/26/2018 revealed intensely hypermetabolic mass at the GE junction, diffuse bilateral pulmonary nodules right greater than left with some nodules demonstrating intense uptake, ill-defined hypodense hepatic nodule with intense uptake, moderately hypermetabolic precarinal lymph node and mildly have him metabolic subcarinal lymph node as well as moderate bilateral hilar uptake, intense osseous uptake at the C1/C2 that likely correlates with history of prior cervical fracture. Plan: He appears to have radiographic evidence concerning for widespread metastatic disease. Obtain MRI abdomen to further evaluate liver lesions Considering biopsy on Saturday to establish pathological evidence of metastatic adenocarcinoma versus potential second primary--->will review abdominal MRI in AM to decide on location of biopsy Will need to hold tube feedings for 2 hours prior to bx - Data of Consult Patient: new to practice Requesting Physician: Dinora Ayers Primary Care Provider: Connie Hyde - Consult Narrative Reason for consult: Adenocarcinoma of the GE Junction History of present illness: 82-year-old male with COPD and newly diagnosed adenocarcinoma of the GE junction in the setting of weight loss and dysphagia status post J-tube placement. Patient with Dr. Martinez and Dr. Bui. At his most recent visit to discuss next steps in treatment there was evidence at that time of what appeared to be locally advanced esophageal cancer however PET/CT was needed for final staging. Patient underwent PET/CT on 03/26/2018 which revealed intensely hypermetabolic mass at the GE junction, diffuse bilateral pulmonary nodules right greater than left with some nodules demonstrating intense uptake, ill-defined hypodense hepatic nodule with intense uptake, moderately hypermetabolic precarinal lymph node and mildly have him metabolic subcarinal lymph node as well as moderate bilateral hilar uptake, intense osseous uptake at the C1/C2 that likely correlates with history of prior cervical fracture. Patient's performance status overall is quite poor. Following discussions from his treating oncologists he may be a candidate for palliative radiotherapy if he has evidence of metastatic disease, he is unlikely a candidate for esophagectomy and not a good candidate for concurrent chemoradiation Patient [facility] ED on 03/31/2018 for constipation unrelieved by supportive medications. He had a CT of the abdomen and pelvis which revealed small rectal stool ball with rectal wall thickening and surrounding inflammatory fat stranding, no findings to suggest perforation. He was manually disimpacted in the emergency room. Following this he developed melena as well as decrease in hemoglobin. He was admitted for further evaluation. Mr. Lloyd continues to reside in longterm. He states he is not ambulated since his admission to longterm. Per patient, he is able to be assisted to stand at bedside with moderate assistance. He continues to utilize J tube for feedings and is NPO Past Med Surg Social Fam HX - Past Medical History Medical history: aortic aneurysm, arthritis, asthma, atrial fibrillation, cancer, CHF, COPD, coronary artery disease, GERD, GI bleed, hyperlipidemia, hypertension, osteoporosis, other Additional medical history: Thoracic aortic aneurysm without rupture. Diastolic heart failureLeft ventriculare hypertrophy. DDD. Myalgia. Lumbar stenosis. esophageal cancer, feeding tube Psychiatric history: no psych history - Past Surgical History Surgical History: cataract, other - Social History Smoking Status: Former smoker Smokeless Tobacco Status: No Alcohol use: none Drug use: none - Family History Father Adopted: No Family Member Ethnicity: Non- Living Status: Hx Family Cancer: Yes (prostate) Constitutional: Present: fatigue, weakness. Absent: chills, fever(s), frequent falls Eyes: Absent: blurry vision Nose, mouth and throat: Present: dysphagia. Absent: mouth lesions Cardiovascular: Absent: chest pain, palpitations Respiratory: Present: cough, dyspnea on exertion. Absent: hemoptysis Gastrointestinal: Present: hematochezia, melena. Absent: abdominal pain, nausea, vomiting Additional comments: constipation which led to admission now resolved Additional comments: difficulty with urinating on admission, currently has jordan catheter Musculoskeletal: Present: muscle weakness Integumentary: Absent: rash, wounds Neurological: Absent: focal weakness, frequent falls Psychiatric: Present: anxiety, depression Hematologic/Lymphatic: Present: as per HPI Oncology - Exam - Constitutional General appearance: cooperative, no acute distress, no febrile - Head Head exam: Present: atraumatic - ENT ENT exam: Present: mucous membranes moist, normal oropharynx - Respiratory Respiratory exam: Present: decreased breath sounds. Absent: respiratory distress - Cardiovascular Cardiovascular exam: Present: irregular rhythm, +S1, +S2 - GI/Abdominal GI/Abdominal exam: Present: normal bowel sounds, soft, tenderness. Absent: guarding, rebound Additional comments: jordan catheter j tube in place - Extremities Exam Extremities exam: Present: normal inspection. Absent: calf tenderness - Neurological Exam Neurological exam: Present: alert, oriented X3, no focal deficits, strengths equal and symetr throughout - Psychiatric Psychiatric exam: Present: normal affect, normal mood - Skin Skin exam: Present: dry, intact, pallor, warm
[2018-04-04] MEDS: *HR* OxyCODONE/APAP 5/325 TABLET GTUBE PRN (14:42)
[2018-04-04] MEDS ORDERED: Gadolinium Contrast Agent (WT Based) IV PRN (16:51)
[2018-04-04 20:10] LABS: Hematocrit 28.3 % (37.5-50.1); Hemoglobin 8.9 g/dL (12.9-16.9)
[2018-04-04] MEDS: Melatonin 3 MG TABLET PO SCH (22:32)
[2018-04-05 05:55] LABS: Basophils % 0.6 %; Eosinophils # 0.3 K/mcL (0.0-0.6); Eosinophils % 3.6 %; Hematocrit 27.7 % (37.5-50.1); Hemoglobin 8.6 g/dL (12.9-16.9); Immature Granulocytes % 0.6 % (0-4); Lymphocytes # 0.9 K/mcL (0.6-4.6); Lymphocytes % 13.6 %; Mean Corpuscular Hemoglobin 30.8 pg (28.0-33.3); Mean Corpuscular Volume 99.3 fL (83.0-100.0); Mean Platelet Volume 9.7 fL (9.4-12.4); Monocytes # 0.6 K/mcL (0.0-1.3); Monocytes % 7.9 %; Neutrophils # 5.1 K/mcL (1.6-8.9); Platelet Count 131 K/mcL (140-400); Red Blood Count 2.79 M/mcL (4.19-5.50); Red Cell Distribution Width 15.5 % (11.5-14.5); Segmented Neutrophils % 73.7 %
[2018-04-05 06:09] LABS: BUN/Creatinine Ratio 43 (6-26); Blood Urea Nitrogen 29 mg/dL (8-23); Calcium 8.4 mg/dL (8.6-10.3); Carbon Dioxide 34 mEq/L (23-29); Chloride 102 mEq/L (98-107); Glucose 152 mg/dL (70-105); Magnesium 1.8 mg/dL (1.6-2.6); Osmolality,Calculated 293 (280-300); Sodium 137 mEq/L (136-145); eGFR For Non-African Americans > 60 (> 60)
[2018-04-05] MEDS ORDERED: *HR* FentaNYL (PF) 100 MCG/2 ML VIAL IVP PRN (07:49)
[2018-04-05] MEDS: Docusate Oral Soln 100 MG/10 ML UDC GTUBE SCH ×2 (09:04→21:10)
[2018-04-05] MEDS: clonazePAM 0.5 MG TABLET GTUBE SCH ×2 (09:04→21:11)
[2018-04-05] MEDS: Pantoprazole 40 MG VIAL IVP SCH (09:04)
[2018-04-05] MEDS: Aspirin Enteric Coated 81 MG Tablet PO SCH (09:05)
[2018-04-05] MEDS: dilTIAZem HCl 60 MG TABLET PO SCH ×4 (09:05→21:11)
--- NOTE | 2018-04-05 10:24 | Internal Med Progress Note ---
<Ayah Canas - Last Filed: 04/05/18 13:15> Hospitalist Progress Note - Encounter Date of Encounter: 04/05/18 Time of Encounter: 10:22 - Subjective Interval History: Patient seen and examined at bedside. He is alert and oriented times 3. He denies fever, chills, chest pain, shortness of breath. He reported that he is not had a bowel movement in a couple days. He reported that his generalized pain is controlled. Per reports the patient had had the fully catheter placed again as he was having urinary retention. - Exam Vitals: Temp Pulse Resp BP Pulse Ox 97.5 F L 81 15 121/80 99 04/05/18 07:40 04/05/18 07:40 04/05/18 07:40 04/05/18 07:40 04/05/18 09:40 Exam: General: Alert, oriented, in no acute distress HEENT: Normocephalic, oral mucosa dry, poor dentition Cardiac: Irregularly irregular heart rate and rhythm, radial pulses 2+ bilateral Respiratory: clear to auscultation bilaterally, no accessory muscle use Abdomen: Soft, non tender, ecchymoses present across abdomen (significantly improved since admission), bowel sounds present, soft jordan present in left abdomen where J tube previously was present Extremities: No peripheral edema noted on lower extremities, pulses present bilaterally Neuro: A&Ox3, no focal neurological deficits - Assessment and Plan (1) Atrial fibrillation with RVR Current Visit: Yes Status: Chronic Assessment and Plan: The patient has known chronic atrial fibrillation. He has been admitted to be in a fib with RVR. EKG confirmed AFib on 04/03 Heart rate controlled patient not on anticoagulation due to massive G.I. bleed in the past -Cardizem drip has been stopped and the patient has been transitioning to oral Cardizem. Oral Cardizem increased to 60 mg QID (previously 30 mg QID). -Continue atenolol, aspirin -continue to monitor with telemetry (2) Pneumonia Current Visit: Yes Status: Ruled-out Assessment and Plan: Pneumonia ruled out. Patient has chronic aspiration changes that are noted on abdominal CT. No upper history signs of infection such as shortness of breath, cough. -Continue with duonebs PRN and home oxygen on nasal cannula (3) Esophageal adenocarcinoma Current Visit: Yes Status: Acute Assessment and Plan: Patient recently diagnosed with esophageal adenocarcinoma, has not started any chemotherapy or radiation therapy. Patient has J-tube in place. Recent PET scan done demonstrating multiple lesions sites that may be consistent with metastatic disease. Oncology has been consulted and has inform patient of metastases. -Oncology following and ordered MRI of abdomen to evaluate liver lesions -oncology planning for biopsy on Saturday. They document to hold to feeds 2 hours prior to biopsy. (4) Constipation Current Visit: Yes Status: Acute Assessment and Plan: Patient has constipation secondary to his opiate use for cancer related pain. Constipation has improved however he is not had a bowel movement today. -Continue bowel regimen of miralax, Senna, Colace -restarted lactulose (5) COPD (chronic obstructive pulmonary disease) Current Visit: No Status: Chronic Assessment and Plan: Known history of COPD, patient uses 2 L nasal cane auction at home while at rest - Continue nasal cannula oxygen - Dual nebs when necessary (6) CHF (congestive heart failure) Current Visit: No Status: Chronic Assessment and Plan: History of diastolic heart failure with a recent echocardiogram 02/2018 demonstrating EF of 40-55% - not exacerbation - Monitor fluid intake and output - 2 g sodium diet restriction - Daily weights -continue home atenolol and increased dose of Cardizem -Continue holding Lopressor, Lasix and losartan due to low BP. (7) Decubitus ulcer of coccyx, stage 2 Current Visit: Yes Status: Acute Assessment and Plan: Patient has stage II decubitus ulcer likely secondary to immobility, poor nutritional intake. Present upon admission. Continue rotating patient every 2 hours, wound care Dietary onboard for nutritional recommendations and tube feedings (8) HTN (hypertension) Current Visit: No Status: Chronic Assessment and Plan: History of hypertension -plan as documented above (9) DVT prophylaxis Current Visit: No Status: Acute Assessment and Plan: Subcutaneous Lovenox (10) Urinary retention Current Visit: Yes Status: Acute Assessment and Plan: Patient has urinary retention. Thought to be secondary to constipation. Abdominal CT showed proctitis -The patient had urinary retention yesterday after the Jordan catheter was removed so had to be placed back in. -Continue home Flomax -will continue to monitor urine output and reattempt discontinuing the Jordan catheter at a later time - Time Spent with Patient Total time spent is greater than 50% in coordination of care (as documented) at patient's floor/unit and/or counseling patient: Internal Medicine: Result - Labs CBC & Chem 7: 04/05/18 05:40 04/05/18 05:40 Labs: Short CBC 04/04/18 04/05/18 Range/Units 20:00 05:40 WBC 6.9 (4.3-11.1) K/mcL Hgb 8.9 L 8.6 L (12.9-16.9) g/dL Hct 28.3 L 27.7 L (37.5-50.1) % Plt Count 131 L (140-400) K/mcL Neutrophils # 5.1 (1.6-8.9) K/mcL BMP 04/05/18 05:40 Sodium 137 Potassium 4.0 Chloride 102 Carbon Dioxide 34 H BUN 29 H Creatinine 0.67 L Glucose 152 H Calcium 8.4 L - ABG Interpretation ABG results: PT/INR, D-dimer PT 12.9 Seconds (9.4-12.1) H 03/31/18 05:00 Consult Discharge Plan - Plan Referrals: Connie Hyde MD [Primary Care Provider] - (possible ECF) <Dinora Ayers - Last Filed: 04/05/18 14:10> Hospitalist Progress Note - Encounter Date of Encounter: 04/05/18 - Exam Vitals: Temp Pulse Resp BP Pulse Ox 97.6 F 92 15 119/67 100 04/05/18 11:21 04/05/18 11:21 04/05/18 11:21 04/05/18 11:21 04/05/18 11:21 - Assessment and Plan (1) Pneumonia Current Visit: Yes Status: Ruled-out (2) Atrial fibrillation with RVR Current Visit: Yes Status: Chronic (3) COPD (chronic obstructive pulmonary disease) Current Visit: No Status: Chronic (4) HTN (hypertension) Current Visit: No Status: Chronic (5) DVT prophylaxis Current Visit: No Status: Acute (6) CHF (congestive heart failure) Current Visit: No Status: Chronic (7) Esophageal adenocarcinoma Current Visit: Yes Status: Acute (8) Decubitus ulcer of coccyx, stage 2 Current Visit: Yes Status: Acute (9) Constipation Current Visit: Yes Status: Acute (10) Urinary retention Current Visit: Yes Status: Acute - Time Spent with Patient Total time spent is greater than 50% in coordination of care (as documented) at patient's floor/unit and/or counseling patient: Internal Medicine: Result - Labs CBC & Chem 7: 04/05/18 05:40 04/05/18 05:40 Labs: Short CBC 04/04/18 04/05/18 Range/Units 20:00 05:40 WBC 6.9 (4.3-11.1) K/mcL Hgb 8.9 L 8.6 L (12.9-16.9) g/dL Hct 28.3 L 27.7 L (37.5-50.1) % Plt Count 131 L (140-400) K/mcL Neutrophils # 5.1 (1.6-8.9) K/mcL BMP 04/05/18 05:40 Sodium 137 Potassium 4.0 Chloride 102 Carbon Dioxide 34 H BUN 29 H Creatinine 0.67 L Glucose 152 H Calcium 8.4 L - ABG Interpretation ABG results: PT/INR, D-dimer PT 12.9 Seconds (9.4-12.1) H 03/31/18 05:00 - Attending Attestation I examined this patient and my medical decision-making was reviewed with the Resident Physician Dr Canas. I agree with the documented findings, disposition and treatment plan as described except to the extent set forth below. Mr Lloyd has esophageal cancer and was admitted with constipation with rectal stool ball requiring manual disimpaction in ED, urinary retention requiring jordan cath. Afib with rvr on cardizem gtt He had bloody stool x1 which prompted GI eval. His jtube dislodged prompting surg eval and intervention His onc team is now following after he had d/w Palliative team desiring aggressive treatment and would like pt onc would like to have liver bx for recent pet with concern for liver mets. awake, at bedside, no pain, no bm yesterday or today, no n/v. no palpitations, cp, sob. gen- alert, awake,appears stated age eyes- pupils equal round , no conjunctival pallor cv- irreg/irreg rhythm, normal rate, normal s1,s2, no murmurs appreciated, no le edema lungs- no wheezing rhonchi or crackles, normal resp effort on home NC O2 abd- soft, non tender, non distended, + bs, jtube neuro- AAOx3 Afib RVR,- cardizem gtt started when pt j tube access lost, transition to PO regimen today. no AC given major gib in past and recent single bloody stool this admit, cont asa,ppi monitor lytes, prn lopressor chronic aspiration changes of lung as evidenced on abd ct-remains afebrile without leukocytosis prn nebs and home o2 nc COPD on 4L NC at baseline- nicotine patch, prn nebs Constipation with fecal ball on imaging, possible proctitis, resolved- colace + senna + miralax given possible proctitis stool studies checked and neg, no radiation hx to pelvis, this clinical picture is not c/w IBD Acute GIB with bloody stool 04/03- hgb stable, no scope due to no bowel prep due to j tube coming out, d/w gi team - rec is outpt cscope acute on chronic anemia 2/2 gi blood loss, - most recent in 03/14 8.1 Diastolic CHF, stable, euvolemic on exam- holding furosemide cont to monitor volume status, resume home bb and arb has bp permits Esophageal cancer with j tube- follows outpt with oncology, surgery following for loss of j tube this admit Coccyx decub ulcer on admit- wound care following palliative care consult was prompted by pt making statements that he was tired of having treatment done, due to recent pet scan and concern for liver mets, oncology team got involved to help with goals of care/treatment options- evals done and pt now desires aggressive treatment -onc would like liver bx, mri ordered by that team <yAah Canas - Last Filed: 04/05/18 13:15> (2) Pneumonia Qualifiers: Pneumonia type: due to unspecified organism Laterality: unspecified laterality Lung location: unspecified part of lung Qualified Code(s): J18.9 - Pneumonia, unspecified organism (4) Constipation Qualifiers: Qualified Code(s): K59.03 - Drug induced constipation (5) 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 (6) CHF (congestive heart failure) Qualifiers: Heart failure type: systolic Heart failure chronicity: chronic Qualified Code(s): I50.22 - Chronic systolic (congestive) heart failure (8) HTN (hypertension) Qualifiers: Hypertension type: essential hypertension Qualified Code(s): I10 - Essential (primary) hypertension <Dinora Ayers - Last Filed: 04/05/18 14:10> (1) Pneumonia Qualifiers: Pneumonia type: due to unspecified organism Laterality: unspecified laterality Lung location: unspecified part of lung Qualified Code(s): J18.9 - Pneumonia, unspecified organism (3) 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
--- NOTE | 2018-04-05 10:49 | Event Note ---
Date of Encounter: 04/05/18 Time of Encounter: 09:30 Patient getting ready to go down to MRI. Spoke with his briefly at bedside. He had Lorazepam for premedication and is sleeping soundly at this time. She states he has been comfortable. Has only utilized pain medication x1 last 24 hours. Will reassess in am.
[2018-04-05] MEDS: Nicotine 7 MG PATCH.TD24 TD SCH (11:25)
[2018-04-05] MEDS: *HR* OxyCODONE/APAP 5/325 TABLET GTUBE PRN ×2 (13:08→17:08)
[2018-04-05] MEDS: Lactulose Oral Soln 20 GM/30 ML UDC GTUBE SCH (21:10)
[2018-04-05] MEDS: Melatonin 3 MG TABLET PO SCH (21:11)
[2018-04-06 05:28] LABS: Basophils # 0.1 K/mcL (0.0-0.2); Basophils % 0.9 %; Eosinophils # 0.3 K/mcL (0.0-0.6); Eosinophils % 4.6 %; Hematocrit 27.3 % (37.5-50.1); Hemoglobin 8.5 g/dL (12.9-16.9); Immature Granulocytes % 0.4 % (0-4); Lymphocytes # 0.8 K/mcL (0.6-4.6); Lymphocytes % 14.8 %; Mean Corpuscular HGB Conc 31.1 g/dL (31.6-35.5); Mean Corpuscular Hemoglobin 30.9 pg (28.0-33.3); Mean Corpuscular Volume 99.3 fL (83.0-100.0); Mean Platelet Volume 9.9 fL (9.4-12.4); Monocytes # 0.5 K/mcL (0.0-1.3); Monocytes % 8.1 %; Platelet Count 124 K/mcL (140-400); Red Blood Count 2.75 M/mcL (4.19-5.50); Red Cell Distribution Width 15.7 % (11.5-14.5); Segmented Neutrophils % 71.2 %
[2018-04-06 05:45] LABS: BUN/Creatinine Ratio 42 (6-26); Blood Urea Nitrogen 26 mg/dL (8-23); Calcium 8.3 mg/dL (8.6-10.3); Carbon Dioxide 36 mEq/L (23-29); Chloride 100 mEq/L (98-107); Glucose 136 mg/dL (70-105); Osmolality,Calculated 289 (280-300); Potassium 4.1 mEq/L (3.5-5.1); Sodium 136 mEq/L (136-145); eGFR For Non-African Americans > 60 (> 60)
[2018-04-06] MEDS: Ipratropium Neb 0.5 MG NEBULIZER IH PRN ×2 (05:45→11:10)
[2018-04-06] MEDS: Levalbuterol Neb 1.25 MG/3 ML IH SCH ×4 (06:08→22:13)
[2018-04-06] MEDS: Nicotine 7 MG PATCH.TD24 TD SCH (08:10)
[2018-04-06] MEDS: Lactulose Oral Soln 20 GM/30 ML UDC GTUBE SCH (08:10)
[2018-04-06] MEDS: Docusate Oral Soln 100 MG/10 ML UDC GTUBE SCH ×2 (08:10→20:18)
[2018-04-06] MEDS: Pantoprazole 40 MG VIAL IVP SCH (08:10)
[2018-04-06] MEDS: clonazePAM 0.5 MG TABLET GTUBE SCH ×2 (08:11→20:17)
[2018-04-06] MEDS: Aspirin Enteric Coated 81 MG Tablet PO SCH (08:11)
[2018-04-06] MEDS: dilTIAZem HCl 60 MG TABLET PO SCH ×4 (08:11→20:17)
--- NOTE | 2018-04-06 09:33 | Internal Med Progress Note ---
<Dinora Ayers - Last Filed: 04/06/18 13:45> Hospitalist Progress Note - Encounter Date of Encounter: 04/06/18 - Exam Vitals: Temp Pulse Resp BP Pulse Ox 98.6 F 73 18 113/68 99 04/06/18 12:36 04/06/18 12:36 04/06/18 12:36 04/06/18 12:36 04/06/18 12:36 - Assessment and Plan (1) Pneumonia Current Visit: Yes Status: Ruled-out (2) Atrial fibrillation with RVR Current Visit: Yes Status: Chronic (3) COPD (chronic obstructive pulmonary disease) Current Visit: No Status: Chronic (4) HTN (hypertension) Current Visit: No Status: Chronic (5) DVT prophylaxis Current Visit: No Status: Acute (6) CHF (congestive heart failure) Current Visit: No Status: Chronic (7) Esophageal adenocarcinoma Current Visit: Yes Status: Acute (8) Decubitus ulcer of coccyx, stage 2 Current Visit: Yes Status: Acute (9) Constipation Current Visit: Yes Status: Acute (10) Urinary retention Current Visit: Yes Status: Acute - Time Spent with Patient Total time spent is greater than 50% in coordination of care (as documented) at patient's floor/unit and/or counseling patient: Internal Medicine: Result - Labs CBC & Chem 7: 04/06/18 04:47 04/06/18 04:47 Labs: Short CBC 04/06/18 Range/Units 04:47 WBC 5.7 (4.3-11.1) K/mcL Hgb 8.5 L (12.9-16.9) g/dL Hct 27.3 L (37.5-50.1) % Plt Count 124 L (140-400) K/mcL Neutrophils # 4.0 (1.6-8.9) K/mcL BMP 04/06/18 04:47 Sodium 136 Potassium 4.1 Chloride 100 Carbon Dioxide 36 H BUN 26 H Creatinine 0.62 L Glucose 136 H Calcium 8.3 L - ABG Interpretation ABG results: PT/INR, D-dimer PT 12.9 Seconds (9.4-12.1) H 03/31/18 05:00 - Impressions Impressions Abdomen MRI 04/05/18 16:51 IMPRESSION: 1. Motion artifact partially degrades the images, thereby partially limiting evaluation. 2. Suboptimal visualization of the known malignancy appearing centered near the gastric cardia. 3. At least seven indeterminate lesions in the liver, the largest in segment 2 corresponding with the PET/CT finding measuring up to 1.0 cm x 0.6 cm. The appearance favors cysts, but the degree of uptake in the largest lesion remains suggestive of malignancy. Recommend evaluation with liver protocol CT to minimize the potential for motion artifact. 4. Incompletely seen pulmonary nodules, the largest in the right middle lobe. Considerations include an infectious or inflammatory process versus metastatic disease. 5. Increased small bilateral pleural effusions. D/ / Kenneth Woodard MD / Kenneth Woodard MD Interpreting Provider: Kenneth Woodard MD Consult Discharge Plan - Plan Referrals: Connie Hyde MD [Primary Care Provider] - (possible ECF) - Attending Attestation I examined this patient and my medical decision-making was reviewed with the Resident Physician Dr Canas. I agree with the documented findings, disposition and treatment plan as described except to the extent set forth below. Mr Gabino has esophageal cancer and was admitted with constipation with rectal stool ball requiring manual disimpaction in ED, urinary retention requiring jordan cath. Afib with rvr on cardizem gtt He had bloody stool x1 which prompted GI eval. His jtube dislodged prompting surg eval and intervention His onc team is now following after he had d/w Palliative team desiring aggressive treatment and would like pt onc would like to have liver bx for recent pet with concern for liver mets. awake, at bedside, no current pain, deneis palpitations, presyncope or chest pain. poor sleep at night but sleeping most of the mornings with at bedside. gen- alert, awake,appears stated age eyes- pupils equal round , no conjunctival pallor cv- irreg/irreg rhythm, normal rate, normal s1,s2, no murmurs appreciated, no le edema lungs-faint scattered wheezing, no rhonchi or crackles, normal resp effort on home NC O2 abd- soft, non tender, non distended, + bs, jtube neuro- AAOx3 Afib RVR,now rate controlled- PO cardizem and adjust as needed. no AC given major gib in past and recent single bloody stool this admit, cont asa, monitor lytes, prn lopressor Constipation with fecal ball on imaging, possible proctitis, resolved- colace + senna + miralax + lactulose given possible proctitis stool studies checked and neg, no radiation hx to pelvis, this clinical picture is not c/w IBD Acute GIB with bloody stool 04/03 none since hx hemorrhoids - hgb stable in mid 8s, no scope due to no bowel prep due to j tube coming out, d/w gi team - rec is outpt cscope acute on chronic anemia 2/2 gi blood loss, - most recent in 03/14 8.1, appears to be at his recent baseline Diastolic CHF, stable, euvolemic on exam- holding furosemide cont to monitor volume status, resume home bb and arb has bp permits Esophageal cancer with j tube- follows outpt with oncology, surgery following for loss of j tube this admit palliative care consult was prompted by pt making statements that he was tired of having treatment done, due to recent pet scan and concern for liver mets, oncology team got involved to help with goals of care/treatment options- evals done and pt now desires aggressive treatment -onc would like liver bx, mri showing seveal heaptic lesions and lung nodules -TF off at midnight for bx further diagnoses and plan as documented by resident <Ayah Canas - Last Filed: 04/06/18 15:15> Hospitalist Progress Note - Encounter Date of Encounter: 04/06/18 Time of Encounter: 09:25 - Subjective Interval History: Patient seen and examined at bedside. He is alert and oriented times 3. He denies fever, chills, chest pain, shortness of breath. He has been able to have multiple bowel movements. He reported that his generalized pain is controlled. Per reports the patient had had the fully catheter placed again as he was having urinary retention. - Exam Vitals: Temp Pulse Resp BP Pulse Ox 97.8 F 133 16 120/80 98 04/06/18 07:58 04/06/18 07:58 04/06/18 07:58 04/06/18 07:58 04/06/18 07:58 Exam: General: Alert, oriented, in no acute distress HEENT: Normocephalic, oral mucosa dry, poor dentition Cardiac: Irregularly irregular heart rate and rhythm, radial pulses 2+ bilateral Respiratory: clear to auscultation bilaterally, no accessory muscle use Abdomen: Soft, non tender, ecchymoses present across abdomen (significantly improved since admission), bowel sounds present, soft jordan present in left abdomen where J tube previously was present Extremities: No peripheral edema noted on lower extremities, pulses present bilaterally Neuro: A&Ox3, no focal neurological deficits - Assessment and Plan (1) Atrial fibrillation with RVR Current Visit: Yes Status: Chronic Assessment and Plan: The patient has known chronic atrial fibrillation. He has been admitted to be in a fib with RVR. EKG confirmed AFib on 04/03 Heart rate controlled patient not on anticoagulation due to massive G.I. bleed in the past -Continue Oral Cardizem increased to 60 mg QID (previously 30 mg QID). -Continue atenolol, aspirin -continue to monitor with telemetry -will continue to hold Lovenox in setting of anemia and blood in stool (2) Esophageal adenocarcinoma Current Visit: Yes Status: Acute Assessment and Plan: Patient recently diagnosed with esophageal adenocarcinoma, has not started any chemotherapy or radiation therapy. Patient has J-tube in place. Recent PET scan done demonstrating multiple lesions sites that may be consistent with metastatic disease. Oncology has been consulted and has inform patient of metastases. MRI of abdomen-demonstrated 7 liver lesions some appear assist however the largest is concerning for malignancy. Small bilateral pleural effusions. Right pulmonary nodule and right middle lobe. -oncology planning for biopsy on Saturday. They document to hold to feeds 2 hours prior to biopsy. (3) Constipation Current Visit: Yes Status: Acute Assessment and Plan: Patient has constipation secondary to his opiate use for cancer related pain. Patient has been able to have multiple bowel movements since receiving lactulose yesterday. -Continue bowel regimen of miralax, Senna, Colace -lactulose stopped (4) Urinary retention Current Visit: Yes Status: Acute Assessment and Plan: Patient has urinary retention. Thought to be secondary to constipation. Abdominal CT showed proctitis -Continue Jordan catheter. Will be discharged with Jordan catheter in place with voiding trial after discharge. -Continue home Flomax (5) COPD (chronic obstructive pulmonary disease) Current Visit: No Status: Chronic Assessment and Plan: Known history of COPD, patient uses 2 L nasal cane auction at home while at rest - Continue nasal cannula oxygen - Dual nebs when necessary (6) CHF (congestive heart failure) Current Visit: No Status: Chronic Assessment and Plan: History of diastolic heart failure with a recent echocardiogram 02/2018 demonstrating EF of 40-55% - not exacerbation - Monitor fluid intake and output - 2 g sodium diet restriction - Daily weights -continue home atenolol and increased dose of Cardizem -Continue holding Lopressor, Lasix and losartan due to low BP. (7) Decubitus ulcer of coccyx, stage 2 Current Visit: Yes Status: Acute Assessment and Plan: Patient has stage II decubitus ulcer likely secondary to immobility, poor nutritional intake. Present upon admission. Continue rotating patient every 2 hours, wound care Dietary onboard for nutritional recommendations and tube feedings (8) Anemia Current Visit: Yes Status: Acute Assessment and Plan: Anemia in setting of esophageal cancer. Hemoglobin on admission 9.3. This appears to be acute on chronic anemia secondary to G.I. blood loss. hemoglobin 8.5 stable patient had an episode of blood in stool however there has not been any since. The patient was to have a scope however due to no bowel prep because of J-tube coming-out the recommendation per G.I. is doing outpatient colonoscopy. -Holding Lovenox due to anemia and blood in stool. Will continue to monitor hemoglobin (9) HTN (hypertension) Current Visit: No Status: Chronic Assessment and Plan: History of hypertension -plan as documented above (10) Pneumonia Current Visit: Yes Status: Ruled-out Assessment and Plan: Pneumonia ruled out. Patient has chronic aspiration changes that are noted on abdominal CT. No upper history signs of infection such as shortness of breath, cough. -Continue with duonebs PRN and home oxygen on nasal cannula (11) DVT prophylaxis Current Visit: No Status: Acute Assessment and Plan: scd in setting of anemia - Time Spent with Patient Total time spent is greater than 50% in coordination of care (as documented) at patient's floor/unit and/or counseling patient: Internal Medicine: Result - Labs CBC & Chem 7: 04/06/18 04:47 04/06/18 04:47 Labs: Short CBC 04/06/18 Range/Units 04:47 WBC 5.7 (4.3-11.1) K/mcL Hgb 8.5 L (12.9-16.9) g/dL Hct 27.3 L (37.5-50.1) % Plt Count 124 L (140-400) K/mcL Neutrophils # 4.0 (1.6-8.9) K/mcL BMP 04/06/18 04:47 Sodium 136 Potassium 4.1 Chloride 100 Carbon Dioxide 36 H BUN 26 H Creatinine 0.62 L Glucose 136 H Calcium 8.3 L - ABG Interpretation ABG results: PT/INR, D-dimer PT 12.9 Seconds (9.4-12.1) H 03/31/18 05:00 - Impressions Impressions Abdomen MRI 04/05/18 16:51 IMPRESSION: 1. Motion artifact partially degrades the images, thereby partially limiting evaluation. 2. Suboptimal visualization of the known malignancy appearing centered near the gastric cardia. 3. At least seven indeterminate lesions in the liver, the largest in segment 2 corresponding with the PET/CT finding measuring up to 1.0 cm x 0.6 cm. The appearance favors cysts, but the degree of uptake in the largest lesion remains suggestive of malignancy. Recommend evaluation with liver protocol CT to minimize the potential for motion artifact. 4. Incompletely seen pulmonary nodules, the largest in the right middle lobe. Considerations include an infectious or inflammatory process versus metastatic disease. 5. Increased small bilateral pleural effusions. D/ / Kenneth Woodard MD / Kenneth Woodard MD Interpreting Provider: Kenneth Woodard MD <Dinora Ayers - Last Filed: 04/06/18 13:45> (1) Pneumonia Qualifiers: Pneumonia type: due to unspecified organism Laterality: unspecified laterality Lung location: unspecified part of lung Qualified Code(s): J18.9 - Pneumonia, unspecified organism (3) 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 <Ayah Canas - Last Filed: 04/06/18 15:15> (3) Constipation Qualifiers: Qualified Code(s): K59.03 - Drug induced constipation (5) 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 (6) CHF (congestive heart failure) Qualifiers: Heart failure type: systolic Heart failure chronicity: chronic Qualified Code(s): I50.22 - Chronic systolic (congestive) heart failure (8) Anemia Qualifiers: Anemia type: unspecified type Qualified Code(s): D64.9 - Anemia, unspecified (9) HTN (hypertension) Qualifiers: Hypertension type: essential hypertension Qualified Code(s): I10 - Essential (primary) hypertension (10) Pneumonia Qualifiers: Pneumonia type: due to unspecified organism Laterality: unspecified laterality Lung location: unspecified part of lung Qualified Code(s): J18.9 - Pneumonia, unspecified organism
[2018-04-06] MEDS ORDERED: Acetylcysteine 10% 2 ML INHSOL IH SCH (10:00)
[2018-04-06] MEDS: Melatonin 3 MG TABLET PO SCH (20:17)
[2018-04-07] MEDS: Levalbuterol Neb 1.25 MG/3 ML IH SCH ×4 (04:28→22:11)
[2018-04-07 07:08] LABS: Basophils % 0.7 %; Eosinophils # 0.1 K/mcL (0.0-0.6); Eosinophils % 2.3 %; Hematocrit 27.2 % (37.5-50.1); Hemoglobin 8.7 g/dL (12.9-16.9); Immature Granulocytes % 0.3 % (0-4); Lymphocytes # 1.1 K/mcL (0.6-4.6); Lymphocytes % 18.2 %; Mean Corpuscular Hemoglobin 31.3 pg (28.0-33.3); Mean Corpuscular Volume 97.8 fL (83.0-100.0); Mean Platelet Volume 10.1 fL (9.4-12.4); Monocytes # 0.5 K/mcL (0.0-1.3); Neutrophils # 4.3 K/mcL (1.6-8.9); Platelet Count 129 K/mcL (140-400); Red Blood Count 2.78 M/mcL (4.19-5.50); Red Cell Distribution Width 15.2 % (11.5-14.5); Segmented Neutrophils % 70.5 %
[2018-04-07 07:14] LABS: INR 1.2; Prothrombin Time 13.8 Seconds (9.4-12.1)
[2018-04-07 07:57] LABS: BUN/Creatinine Ratio 32 (6-26); Blood Urea Nitrogen 19 mg/dL (8-23); Calcium 8.4 mg/dL (8.6-10.3); Carbon Dioxide 28 mEq/L (23-29); Chloride 99 mEq/L (98-107); Glucose 91 mg/dL (70-105); Osmolality,Calculated 278 (280-300); Potassium 4.2 mEq/L (3.5-5.1); Sodium 133 mEq/L (136-145); eGFR For Non-African Americans > 60 (> 60)
[2018-04-07] MEDS: Nicotine 7 MG PATCH.TD24 TD SCH (10:04)
[2018-04-07] MEDS: Docusate Oral Soln 100 MG/10 ML UDC GTUBE SCH ×2 (10:04→20:54)
[2018-04-07] MEDS: Pantoprazole 40 MG VIAL IVP SCH (10:04)
[2018-04-07] MEDS: Aspirin Enteric Coated 81 MG Tablet PO SCH (10:05)
[2018-04-07] MEDS: clonazePAM 0.5 MG TABLET GTUBE SCH ×2 (10:05→20:53)
[2018-04-07] MEDS: dilTIAZem HCl 60 MG TABLET PO SCH ×4 (10:06→20:54)
--- NOTE | 2018-04-07 10:32 | Internal Med Progress Note ---
<Dinora Ayers - Last Filed: 04/07/18 12:19> Hospitalist Progress Note - Encounter Date of Encounter: 04/07/18 - Exam Vitals: Temp Pulse Resp BP Pulse Ox 97.7 F 115 16 139/84 100 04/07/18 06:52 04/07/18 06:52 04/07/18 06:52 04/07/18 06:52 04/07/18 06:52 - Assessment and Plan (1) Pneumonia Current Visit: Yes Status: Ruled-out (2) Atrial fibrillation with RVR Current Visit: Yes Status: Chronic (3) COPD (chronic obstructive pulmonary disease) Current Visit: No Status: Chronic (4) HTN (hypertension) Current Visit: No Status: Chronic (5) DVT prophylaxis Current Visit: No Status: Acute (6) CHF (congestive heart failure) Current Visit: No Status: Chronic (7) Esophageal adenocarcinoma Current Visit: Yes Status: Acute (8) Decubitus ulcer of coccyx, stage 2 Current Visit: Yes Status: Acute (9) Constipation Current Visit: Yes Status: Acute (10) Urinary retention Current Visit: Yes Status: Acute - Time Spent with Patient Total time spent is greater than 50% in coordination of care (as documented) at patient's floor/unit and/or counseling patient: Internal Medicine: Result - Labs CBC & Chem 7: 04/07/18 06:33 04/07/18 06:33 Labs: Short CBC 04/07/18 Range/Units 06:33 WBC 6.0 (4.3-11.1) K/mcL Hgb 8.7 L (12.9-16.9) g/dL Hct 27.2 L (37.5-50.1) % Plt Count 129 L (140-400) K/mcL Neutrophils # 4.3 (1.6-8.9) K/mcL BMP 04/07/18 06:33 Sodium 133 L Potassium 4.2 Chloride 99 Carbon Dioxide 28 BUN 19 Creatinine 0.59 L Glucose 91 Calcium 8.4 L - ABG Interpretation ABG results: PT/INR, D-dimer PT 13.8 Seconds (9.4-12.1) H 04/07/18 06:33 Consult Discharge Plan - Plan Referrals: Connie Hyde MD [Primary Care Provider] - (possible ECF) - Attending Attestation The history, physical exam, and medical decision making was performed by medical student Yvette either while I was physically present and actively involved or I personally re-performed the exam and medical decision making. I have verified the accuracy of the medical student's documentation with regards to the history, physical exam findings, and medical decision making. Mr Gabino has esophageal cancer and was admitted with constipation with rectal stool ball requiring manual disimpaction in ED, urinary retention requiring jordan cath. Afib with rvr on cardizem gtt He had bloody stool x1 which prompted GI eval. His jtube dislodged prompting surg eval and intervention His onc team is now following after he had d/w Palliative team desiring aggressive treatment and would like pt onc would like to have liver bx for recent pet with concern for liver mets. awake, at bedside, no cp , palpitations. no abd pain. denies any body pain. wheezing he states is at baseline and he has no sob. discussed with his safety concerns regarding how he will dc to home. she notes she herself gets him out of bed, into wc and takes him wherever he wants to go. has hospital bed and wc. will bring in tf bag to check compatibility with new tube. agreeable to home therapy if recommended. will get pt/ot evals (numerous missed visits this admit). He has gone home w jordan in past with uro fu. gen- alert, awake,appears stated age eyes- pupils equal round , no conjunctival pallor cv- irreg/irreg rhythm, normal rate, normal s1,s2, no murmurs appreciated, no le edema lungs-faint scattered wheezing, no rhonchi or crackles, normal resp effort on home NC O2 abd- soft, non tender, non distended, + bs, jtube neuro- AAOx3 Afib RVR,now rate controlled with hr elevation sin am awaiting am med pass- PO cardizem and adjust as needed + home atenolol. no AC given major gib in past and recent single bloody stool this admit, cont asa, monitor lytes, prn lopressor Constipation with fecal ball on imaging, possible proctitis, resolved- colace + senna + miralax daily and then lactulose daily prn given possible proctitis stool studies checked and neg, no radiation hx to pelvis, this clinical picture is not c/w IBD Acute GIB with bloody stool 04/03 none since hx hemorrhoids - hgb stable in mid 8s, no scope due to no bowel prep due to j tube coming out, d/w gi team - rec is outpt cscope acute on chronic anemia 2/2 gi blood loss, - most recent in 03/14 8.1, appears to be at his recent baseline Diastolic CHF, stable, euvolemic on exam- holding furosemide cont to monitor volume status, resume home arb has bp permits Esophageal cancer with j tube- follows outpt with oncology, surgery following for loss of j tube this admit palliative care consult was prompted by pt making statements that he was tired of having treatment done, due to recent pet scan and concern for liver mets, oncology team got involved to help with goals of care/treatment options- evals done and pt now desires aggressive treatment -onc would like liver bx, mri showing seveal heaptic lesions and lung nodules bx today <Jaswinder Crawford - Last Filed: 04/07/18 15:14> Hospitalist Progress Note - Encounter Date of Encounter: 04/07/18 Time of Encounter: 09:30 - Subjective Interval History: Mr. Lloyd is a 82 year old male who was seen bedside on hospital day 8 for constipation and urinary retention concerns. Patient's constipation was resolved with initation of colace, senna, miralax therapy. Urinary retention still standing, jordan in place. Patient had abdominal MRI 04/05/18, showed at least seven indeterminate lesions in liver, multiple pulmonary nodules, and known malignancy near gastric cardia. He is getting liver biopsied today. Patient admitted fatigue, shortness of breath, and wheeze and denied fever, chills, chest pain, palpitations, chest pressure, cough, abdominal pain, nausea. Patient's heart rate was elevated at 115 this morning and blood pressure was 139/84. PT/OT ordered for ambulation order. - Exam Vitals: Temp Pulse Resp BP Pulse Ox 97.7 F 115 16 139/84 100 04/07/18 06:52 04/07/18 06:52 04/07/18 06:52 04/07/18 06:52 04/07/18 06:52 Exam: General: Alert, oriented, in no acute distress HEENT: Normocephalic, oral mucosa dry, poor dentition Cardiac: Irregularly irregular heart rate and rhythm, radial pulses 2+ bilateral Respiratory: clear to auscultation bilaterally, no accessory muscle use Abdomen: Soft, non tender, ecchymoses present across abdomen (significantly improved since admission), bowel sounds present, soft jordan present in left abdomen where J tube previously was present Extremities: No peripheral edema noted on lower extremities, pulses present bila terally Neuro: A&Ox3, no focal neurological deficits - Assessment and Plan (1) Atrial fibrillation with RVR Current Visit: Yes Status: Chronic Assessment and Plan: The patient has known chronic atrial fibrillation. He has been admitted to be in a fib with RVR. EKG confirmed AFib on 04/03 Heart rate controlled patient not on anticoagulation due to massive G.I. bleed in the past -Continue Oral Cardizem increased to 60 mg QID (previously 30 mg QID). -Continue atenolol, aspirin -continue to monitor with telemetry -will continue to hold Lovenox in setting of anemia and blood in stool Upon discharge, continue atenolol and continue to hold losartan due to blood pressure being intolerant of addition of losartan therapy (2) Chronic diastolic congestive heart failure Current Visit: No Status: Chronic Assessment and Plan: History of diastolic heart failure with a recent echocardiogram 02/2018 demonstrating EF of 40-55% - not exacerbation - Monitor fluid intake and output - 2 g sodium diet restriction - Daily weights -continue home atenolol and increased dose of Cardizem -Continue holding Lopressor, Lasix and losartan due to low BP. (3) Esophageal adenocarcinoma Current Visit: Yes Status: Acute Assessment and Plan: Patient recently diagnosed with esophageal adenocarcinoma, has not started any chemotherapy or radiation therapy. Patient had J tube in place which fell out; surgery replaced it with a jordan catheter. Surgery is okay with keeping jordan in as J tube replacement assisted. Recent PET scan done demonstrating multiple lesions sites that may be consistent with metastatic disease. Oncology has been consulted and has inform patient of metastases. MRI of abdomen-demonstrated 7 liver lesions some appear assist however the largest is concerning for malignancy. Small bilateral pleural effusions. Right pulmonary nodule and right middle lobe. Oncology planning biopsy today. Hold feeds 2 hours prior to biopsy. Nutrition consult for Jordan/J-tube feeding. (4) Anxiety Current Visit: No Status: Acute Assessment and Plan: Patient has standing history of anxiety. Patient noted significant anxiety and agitation today. Continue home medications of Klonopin and Zoloft for anxiety. (5) Decubitus ulcer of coccyx, stage 2 Current Visit: Yes Status: Acute Assessment and Plan: Patient has stage II decubitus ulcer likely secondary to immobility, poor nutritional intake. Present upon admission. Continue rotating patient every 2 hours, wound care Dietary onboard for nutritional recommendations and tube feedings (6) Constipation Current Visit: Yes Status: Acute Assessment and Plan: Patient has constipation secondary to his opiate use for cancer related pain. Patient has been able to have multiple bowel movements since receiving lactulose yesterday. -Continue bowel regimen of miralax, Senna, Colace -lactulose stopped Upon discharge, goal is 1 bowel movement per day. Plan for D/C is to continue colace, senna, miralax with lactulose daily PRN with no bowel movement for 24 ho urs. (7) Urinary retention Current Visit: Yes Status: Acute Assessment and Plan: Patient has urinary retention. Thought to be secondary to constipation. Abdominal CT showed proctitis -Continue Jordan catheter. Will be discharged with Jordan catheter in place with voiding trial after discharge. -Continue home Flomax -Schedule urology outpatient appointment later this week for jordan removal/voiding trial (8) Anemia of chronic disease Current Visit: Yes Status: Chronic Assessment and Plan: Anemia in setting of esophageal cancer. Hemoglobin on admission 9.3. This appears to be acute on chronic anemia secondary to G.I. blood loss. hemoglobin 8.5 stable patient had an episode of blood in stool however there has not been any since. The patient was to have a scope however due to no bowel prep because of J-tube coming-out the recommendation per G.I. is doing outpatient colonoscopy. -Holding Lovenox due to anemia and blood in stool. Will continue to monitor hemoglobin (9) Pneumonia Current Visit: Yes Status: Ruled-out Assessment and Plan: Pneumonia is ruled out; chronic aspiration changes noted on abdominal CT. Patient is afebrile without leukocytosis; no new cough or respiratory changes off antibiotics. Continue Duonebs PRN and home O2 on nasal cannula (10) Nicotine dependence with nicotine-induced disorder Current Visit: No Status: Chronic Assessment and Plan: Home prescription 7mg nicotine patch. Continue nicotine patch DVT Prophylaxis: Lovenox 40mg subcutaneous - Time Spent with Patient Total time spent is greater than 50% in coordination of care (as documented) at patient's floor/unit and/or counseling patient: Internal Medicine: Result - Labs CBC & Chem 7: 04/07/18 06:33 04/07/18 06:33 Labs: Short CBC 04/07/18 Range/Units 06:33 WBC 6.0 (4.3-11.1) K/mcL Hgb 8.7 L (12.9-16.9) g/dL Hct 27.2 L (37.5-50.1) % Plt Count 129 L (140-400) K/mcL Neutrophils # 4.3 (1.6-8.9) K/mcL BMP 04/07/18 06:33 Sodium 133 L Potassium 4.2 Chloride 99 Carbon Dioxide 28 BUN 19 Creatinine 0.59 L Glucose 91 Calcium 8.4 L - ABG Interpretation ABG results: PT/INR, D-dimer PT 13.8 Seconds (9.4-12.1) H 04/07/18 06:33 <Dinora Ayers - Last Filed: 04/07/18 12:19> (1) Pneumonia Qualifiers: Pneumonia type: due to unspecified organism Laterality: unspecified laterality Lung location: unspecified part of lung Qualified Code(s): J18.9 - Pneumonia, unspecified organism (3) 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 <Jaswinder Crawford - Last Filed: 04/07/18 15:14> (6) Constipation Qualifiers: Qualified Code(s): K59.03 - Drug induced constipation (9) Pneumonia Qualifiers: Pneumonia type: due to unspecified organism Laterality: unspecified laterality Lung location: unspecified part of lung Qualified Code(s): J18.9 - Pneumonia, unspecified organism (10) Nicotine dependence with nicotine-induced disorder Qualifiers: Nicotine product type: cigarettes Qualified Code(s): F17.219 - Nicotine dependence, cigarettes, with unspecified nicotine-induced disorders
--- NOTE | 2018-04-07 10:36 | Palliative Progress Note ---
Date of Encounter: 04/07/18 Time of Encounter: 10:34 - Assessment and plan (1) COPD (chronic obstructive pulmonary disease) Current Visit: No Status: Chronic Assessment and plan: pt states his breathing is at base line. continue home medications. Qualifiers: COPD type: emphysema Emphysema type: unspecified Qualified Code(s): 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, unspecified (2) Esophageal adenocarcinoma Current Visit: Yes Status: Acute Assessment and plan: MRI showed at least 7 lesions in the liver, cyst vs malignancy. For liver biopsy today. (3) Anxiety Current Visit: No Status: Acute Assessment and plan: on Clonazepam 0.5 mg BID and Sertraline 100 mg qd (4) Constipation Current Visit: Yes Status: Acute Assessment and plan: -Continue bowel regimen of miralax, Senna, and lactulose prn. may d/c colace. Qualifiers: Qualified Code(s): K59.03 - Drug induced constipation (5) Urinary retention Current Visit: Yes Status: Acute Assessment and plan: Pt failed voiding trial. -continue flomax, -Jordan in place, voiding trial as outpatient. (6) Goals of care, counseling/discussion Current Visit: Yes Status: Acute Assessment and plan: Discussed with pt and at the bedside. pt would like to continue current plan of care with oncology, including biopsy today and further treatment as per oncology. He remains full code. (7) Pain Current Visit: Yes Status: Acute - Time Spent With Patient Total time spent is greater than 50% in coordination of care (as documented) at patient's floor/unit and/or counseling patient: 25 - 35 minutes - Subjective Interval history: Pt was lying comfortably in bed, in no acute distress, stated to be feeling overal fine. When asked about pain, he states that he is not really having pain, but generalized body aches, controlled on current medications. As per pt his breathing remains at baseline. He denies excessive cough or phlegm. Jordan was noted to be in place, pt stated that he failed voiding trial. - Constitutional Vitals: Abnormal lab results RBC 2.78 M/mcL (4.19-5.50) L 04/07/18 06:33 Hgb 8.7 g/dL (12.9-16.9) L 04/07/18 06:33 Hct 27.2 % (37.5-50.1) L 04/07/18 06:33 RDW 15.2 % (11.5-14.5) H 04/07/18 06:33 Plt Count 129 K/mcL (140-400) L 04/07/18 06:33 PT 13.8 Seconds (9.4-12.1) H 04/07/18 06:33 APTT 37.1 Seconds (26.0-36.0) H 03/31/18 05:00 Sodium 133 mEq/L (136-145) L 04/07/18 06:33 Creatinine 0.59 mg/dL (0.70-1.30) L 04/07/18 06:33 BUN/Creatinine Ratio 32 (6-26) H 04/07/18 06:33 POC Glucose 104 mg/dL (70-99) H 04/07/18 05:12 Calculated Osmolality 278 (280-300) L 04/07/18 06:33 Calcium 8.4 mg/dL (8.6-10.3) L 04/07/18 06:33 Serum Total Protein 5.2 g/dL (6.4-8.9) L 04/01/18 05:27 Albumin 2.5 g/dL (3.5-5.7) L 04/01/18 05:27 Albumin/Globulin Ratio 0.9 (1.1-2.2) L 04/01/18 05:27 Urine Color [place] (Yellow) A 03/31/18 04:55 Ur Specific [place] 1.009 (1.010-1.025) L 03/31/18 04:55 Urine Nitrite Positive (Negative) A 03/31/18 04:55 Urine Urobilinogen 2.0 mg/dL (Normal) H 03/31/18 04:55 Ur Leukocyte Esterase Trace (Negative) H 03/31/18 04:55 Ur Squamous Epith Cells Many per lpf (None-Few) H 03/31/18 04:55 Ur Culture Indicated? NO. (NO) A 03/31/18 04:55 Nasal Screen MRSA (PCR) Positive (Negative) A 04/01/18 08:00 Exam: General appearance: Present: mild distress (due to shortness of breath) - Head Head Exam: Present: atraumatic - Eye Eye exam: Present: EOMI, PERRL, conjuntiva pink - Respiratory Respiratory exam: Present: accessory muscle use, prolonged expiratory phase - GI/Abdominal Exam GI/Abdominal exam: Present: soft. Absent: tenderness additional comments: J-tube in place, clean insertion site. - Additional comments: jordan in place - Extremities Exam Extremities exam: Present: full ROM. Absent: pedal edema - Neurological Exam Neurological exam: Present: oriented X3. Absent: motor sensory deficit Palliative Quality Palliative Quality: Screen for Code Status: Yes, Screen for Goals of Care: Yes, Screen for Pain: Yes, If Pain Regimen Started, Initiate Bowel Regimen: Yes, Screen for Nausea/Vomitting: Yes Code Status: 03/31/18 09:28 Resuscitation Status: Active [RES] Routine Comment: Resuscitation Status: Full Code - Labs CBC & Chem 7: 04/07/18 06:33 04/07/18 06:33 Labs: Laboratory Results - last 24 hr 04/06/18 04/06/18 04/06/18 08:02 11:50 16:52 WBC RBC Hgb Hct MCV MCH MCHC RDW Plt Count MPV Immature Gran % Seg Neutrophils % Lymphocytes % Monocytes % Eosinophils % Basophils % Neutrophils # Lymphocytes # Monocytes # Eosinophils # Basophils # PT INR Sodium Potassium Chloride Carbon Dioxide BUN Creatinine Est GFR ( Amer) Est GFR (Non-Af Amer) BUN/Creatinine Ratio Glucose POC Glucose 153 H 157 H 136 H Calculated Osmolality Calcium 04/06/18 04/07/18 04/07/18 20:11 05:12 06:33 WBC 6.0 RBC 2.78 L Hgb 8.7 L Hct 27.2 L MCV 97.8 MCH 31.3 MCHC 32.0 RDW 15.2 H Plt Count 129 L MPV 10.1 Immature Gran % 0.3 Seg Neutrophils % 70.5 Lymphocytes % 18.2 Monocytes % 8.0 Eosinophils % 2.3 Basophils % 0.7 Neutrophils # 4.3 Lymphocytes # 1.1 Monocytes # 0.5 Eosinophils # 0.1 Basophils # 0.0 PT INR Sodium Potassium Chloride Carbon Dioxide BUN Creatinine Est GFR ( Amer) Est GFR (Non-Af Amer) BUN/Creatinine Ratio Glucose POC Glucose 145 H 104 H Calculated Osmolality Calcium 04/07/18 04/07/18 06:33 06:33 WBC RBC Hgb Hct MCV MCH MCHC RDW Plt Count MPV Immature Gran % Seg Neutrophils % Lymphocytes % Monocytes % Eosinophils % Basophils % Neutrophils # Lymphocytes # Monocytes # Eosinophils # Basophils # PT 13.8 H INR 1.2 Sodium 133 L Potassium 4.2 Chloride 99 Carbon Dioxide 28 BUN 19 Creatinine 0.59 L Est GFR ( Amer) > 60 Est GFR (Non-Af Amer) > 60 BUN/Creatinine Ratio 32 H Glucose 91 POC Glucose Calculated Osmolality 278 L Calcium 8.4 L - ABG Interpretation ABG results: PT/INR, D-dimer PT 13.8 Seconds (9.4-12.1) H 04/07/18 06:33 Palliative Scale - Palliative Performance Scale How ambulatory is this patient?: Mainly sit / lie What is patient's level of activity and evidence of disease?: Unable hobby/housework, Significant disease How much self-care assistance does patient require?: Considerable assistance required How much oral intake does the patient have?: Minimal to sips (J tube feeding) What is this patient's level of consciousness?: Full Palliative Performance Score: 40 % Consult Discharge Plan - Plan Referrals: Connie Hyde MD [Primary Care Provider] - (possible ECF)
--- NOTE | 2018-04-07 13:49 | Oncology Inp Progress Note ---
<Jorge Valverde - Last Filed: 04/07/18 16:13> Date of Encounter: 04/07/18 Oncology: Obj Data - Labs CBC & Chem 7: 04/07/18 06:33 04/07/18 06:33 Consult Discharge Plan - Plan Referrals: Connie Hyde MD [Primary Care Provider] - (possible ECF) Inpatient Charges Provider: Dr. Crystal Valverde Follow up - Inpatient: [id number] - Attending Attestation I examined this patient and my medical decision-making was reviewed with the Advanced Practice Nurse. I agree with the documented findings, disposition and treatment plan as described except to the extent set forth below. -RML biopsy performed this am. Patient resting comfortably this afternoon. -Will follow up on path results as an outpatient. -Okay to d/c from our perspective once clinically stable. <Allison Dewey - Last Filed: 04/07/18 16:27> Date of Encounter: 04/07/18 Time of Encounter: 13:00 (1) Anemia Current Visit: Yes Status: Acute Assessment and plan: Normocytic normochromic anemia with hemoglobin of 8.1 Downtrending since February In the setting of malignancy as well as melena following manual disimpaction Plan: Hgb stable GI has been consulted and now planning for outpatient colonoscopy, this was initially postponed secondary to displacement of J-Tube Will assess anemia workup with iron profile, ferritin, B12, folate and LDH Qualifiers: Anemia type: unspecified type Qualified Code(s): D64.9 - Anemia, unspecified (2) Esophageal adenocarcinoma Current Visit: Yes Status: Acute Assessment and plan: PET/CT on 03/26/2018 revealed intensely hypermetabolic mass at the GE junction, diffuse bilateral pulmonary nodules right greater than left with some nodules demonstrating intense uptake, ill-defined hypodense hepatic nodule with intense uptake, moderately hypermetabolic precarinal lymph node and mildly have him metabolic subcarinal lymph node as well as moderate bilateral hilar uptake, intense osseous uptake at the C1/C2 that likely correlates with history of prior cervical fracture. MRI abdomen reveals at least 7 indeterminate lesions in the liver with the largest tumor corresponding with PET CT findings measuring up to 1.0 x 0.6 cm, appearance favors cysts but the degree of uptake in the largest lesions suggestive of malignancy. Incompletely seen pulmonary nodules with the largest in the right middle lobe. Plan: He appears to have radiographic evidence concerning for widespread metastatic disease versus potential second primary malignancy Discussed with Dr. Valverde-Consultation to IR for biopsy of right middle lobe nodule Pathology will take 3-5 days to result, will plan to discuss pathology and treatment options once final pathology resulted, likely as an outpatient Oncology will otherwise plan to sign off, will arrange for outpatient follow up with Dr. Martinez, please feel free to contact with any other questions or concerns Oncology: Subj Interval history: Mr. Lloyd is sitting up in chair. Pain well controlled. Denies fevers, chills, nausea, vomiting, parasthesias, saddle anesthesia, focal weakness or gait changes, chest pain or increased SOB. According to patient, jordan cath was attempted to be removed over weekend which was unsuccessful. He had multiple bowel movements yesterday, no BM yet today. continues on multiple medications for bowel regimen. is at bedside - Constitutional General appearance: cooperative, no acute distress, no febrile - Head Head exam: Present: atraumatic - ENT ENT exam: Present: mucous membranes moist - Respiratory Respiratory exam: Present: decreased breath sounds, CTAB. Absent: respiratory distress - Cardiovascular Cardiovascular exam: Present: RRR, +S1, +S2 - GI/Abdominal GI/Abdominal exam: Present: normal bowel sounds, soft. Absent: guarding, rebound, tenderness - Extremities Exam Extremities exam: Present: normal inspection. Absent: calf tenderness - Neurological Exam Neurological exam: Present: alert, oriented X3, no focal deficits, strengths equal and symetr throughout - Psychiatric Psychiatric exam: Present: normal affect, normal mood - Skin Skin exam: Present: dry, intact, normal color, warm Oncology: Obj Data - Labs CBC & Chem 7: 04/07/18 06:33 04/07/18 06:33 Inpatient Charges Provider: Dr. Crystal Valverde Follow up - Inpatient: [id number]
[2018-04-07] MEDS ORDERED: 0.9 % Sodium Chloride 500 ML ONE (14:00)
--- NOTE | 2018-04-07 14:37 | IR Procedure Note ---
Date of procedure: 04/07/18 Consent Obtained: Verbal consent, Written consent Timeout: Correct patient and procedure verified, Correct site verified, Time out performed, Skin prep completed Local anesthetic: Lidocaine 1% Indications: Lung lesions Procedure Performed: CT guided biopsy Was there an nurse practitioner physicians assistant present: No Site/Technique: CT guided right middle lobe nodule biopsy Results/Findings: 3 20 gauge biopsies obtained from right middle lobe mass Estimated blood loss (cc): 1 Complications: None; Tolerated procedure well Post Procedure Treatment Plan: CXR in one hour Specimen: 3 20 gauge core needle biopsies
--- NOTE | 2018-04-07 17:00 | Event Note ---
Date of Encounter: 04/07/18 Time of Encounter: 16:35 I was contacted by the patient's nurse that his Rodriguez catheter replacement of jejunostomy tube was clogged. I removed the Rodriguez catheter and replaced a red rubber catheter with the tip cut off. This was easily passed into the bowel without difficulty. The site is mature and controlled with a Witzel tunnel. The catheter aspirated and flushed normally. This was taped to the abdominal wall for security. Tolerated this very well. The tube can be used immediately.
[2018-04-07] MEDS: *HR* OxyCODONE/APAP 5/325 TABLET GTUBE PRN (17:07)
[2018-04-07] MEDS: Melatonin 3 MG TABLET PO SCH (20:54)
[2018-04-08] MEDS: *HR* OxyCODONE/APAP 5/325 TABLET GTUBE PRN ×3 (03:38→23:00)
[2018-04-08] MEDS: Levalbuterol Neb 1.25 MG/3 ML IH SCH ×4 (03:55→22:41)
[2018-04-08 06:07] LABS: Basophils % 0.8 %; Eosinophils # 0.2 K/mcL (0.0-0.6); Eosinophils % 2.9 %; Hematocrit 27.9 % (37.5-50.1); Hemoglobin 8.9 g/dL (12.9-16.9); Immature Granulocytes % 0.4 % (0-4); Lymphocytes # 1.1 K/mcL (0.6-4.6); Lymphocytes % 20.6 %; Mean Corpuscular HGB Conc 31.9 g/dL (31.6-35.5); Mean Corpuscular Hemoglobin 30.9 pg (28.0-33.3); Mean Corpuscular Volume 96.9 fL (83.0-100.0); Mean Platelet Volume 9.8 fL (9.4-12.4); Monocytes # 0.4 K/mcL (0.0-1.3); Monocytes % 8.2 %; Neutrophils # 3.5 K/mcL (1.6-8.9); Platelet Count 130 K/mcL (140-400); Red Blood Count 2.88 M/mcL (4.19-5.50); Red Cell Distribution Width 15.2 % (11.5-14.5); Segmented Neutrophils % 67.1 %
[2018-04-08 06:33] LABS: Alanine Aminotransferase 13 Units/L (7-52); Albumin 2.5 g/dL (3.5-5.7); Alkaline Phosphatase 91 Units/L (34-104); Aspartate Amino Transferase 15 Units/L (13-39); BUN/Creatinine Ratio 33 (6-26); Bilirubin,Total 0.6 mg/dL (0.3-1.0); Blood Urea Nitrogen 21 mg/dL (8-23); Calcium 8.2 mg/dL (8.6-10.3); Carbon Dioxide 33 mEq/L (23-29); Chloride 99 mEq/L (98-107); Globulin 2.6 g/dL (2.4-3.5); Glucose 155 mg/dL (70-105); Osmolality,Calculated 284 (280-300); Potassium 3.9 mEq/L (3.5-5.1); Sodium 134 mEq/L (136-145); Total Protein 5.1 g/dL (6.4-8.9); eGFR For Non-African Americans > 60 (> 60)
[2018-04-08 06:34] LABS: % Iron Saturation 15 % (20-55); Iron 33 mcg/dL (65-175); Lactate Dehydrogenase 115 Units/L (140-271); Transferrin 154 mg/dL (203-362)
[2018-04-08 06:51] LABS: Ferritin 76 ng/mL (20-250)
[2018-04-08 06:57] LABS: Folate > 22.3 ng/mL (3.0-16.0); Vitamin B12 212 pg/mL (250-1100)
[2018-04-08] MEDS: clonazePAM 0.5 MG TABLET GTUBE SCH ×2 (08:17→20:30)
[2018-04-08] MEDS: dilTIAZem HCl 60 MG TABLET PO SCH ×5 (08:17→23:00)
[2018-04-08] MEDS: Aspirin Enteric Coated 81 MG Tablet PO SCH (08:18)
[2018-04-08] MEDS: Docusate Oral Soln 100 MG/10 ML UDC GTUBE SCH ×2 (08:18→20:30)
[2018-04-08] MEDS: Nicotine 7 MG PATCH.TD24 TD SCH (08:18)
[2018-04-08] MEDS: Pantoprazole 40 MG VIAL IVP SCH (08:18)
--- NOTE | 2018-04-08 08:49 | Internal Med Progress Note ---
Hospitalist Progress Note - Encounter Date of Encounter: 04/08/18 Time of Encounter: 08:47 - Exam Vitals: Temp Pulse Resp BP Pulse Ox 97.4 F L 99 20 147/72 99 04/08/18 07:59 04/08/18 07:59 04/08/18 07:59 04/08/18 07:59 04/08/18 07:59 - Assessment and Plan (1) Pneumonia Current Visit: Yes Status: Ruled-out (2) Atrial fibrillation with RVR Current Visit: Yes Status: Chronic (3) COPD (chronic obstructive pulmonary disease) Current Visit: No Status: Chronic (4) HTN (hypertension) Current Visit: No Status: Chronic (5) DVT prophylaxis Current Visit: No Status: Acute (6) CHF (congestive heart failure) Current Visit: No Status: Chronic (7) Esophageal adenocarcinoma Current Visit: Yes Status: Acute (8) Decubitus ulcer of coccyx, stage 2 Current Visit: Yes Status: Acute (9) Constipation Current Visit: Yes Status: Acute (10) Urinary retention Current Visit: Yes Status: Acute - Time Spent with Patient Total time spent is greater than 50% in coordination of care (as documented) at patient's floor/unit and/or counseling patient: Internal Medicine: Result - Labs CBC & Chem 7: 04/08/18 05:44 04/08/18 05:44 Labs: Short CBC 04/08/18 Range/Units 05:44 WBC 5.2 (4.3-11.1) K/mcL Hgb 8.9 L (12.9-16.9) g/dL Hct 27.9 L (37.5-50.1) % Plt Count 130 L (140-400) K/mcL Neutrophils # 3.5 (1.6-8.9) K/mcL BMP 04/08/18 05:44 Sodium 134 L Potassium 3.9 Chloride 99 Carbon Dioxide 33 H BUN 21 Creatinine 0.64 L Glucose 155 H Calcium 8.2 L Liver Function 04/08/18 Range/Units 05:44 Total Bilirubin 0.6 (0.3-1.0) mg/dL AST 15 (13-39) Units/L ALT 13 (7-52) Units/L Alkaline Phosphatase 91 (34-104) Units/L Albumin 2.5 L (3.5-5.7) g/dL - ABG Interpretation ABG results: PT/INR, D-dimer PT 13.8 Seconds (9.4-12.1) H 04/07/18 06:33 - Impressions Impressions Lung Biopsy CT 04/07/18 00:00 IMPRESSION: Successful CT guided core biopsy of a right middle lobe nodule. No immediate complications. Pathology is pending. D/ / Tye Reeder MD / Tye Reeder MD Interpreting Provider: Tye Reeder MD Chest X-Ray 04/07/18 15:30 IMPRESSION: No pneumothorax status post percutaneous right middle lobe nodule biopsy. D/ / Tye Reeder MD / Tye Reeder MD Interpreting Provider: Tye Reeder MD Consult Discharge Plan - Plan Referrals: Connie Hyde MD [Primary Care Provider] - (possible ECF) (1) Pneumonia Qualifiers: Pneumonia type: due to unspecified organism Laterality: unspecified laterality Lung location: unspecified part of lung Qualified Code(s): J18.9 - Pneumonia, unspecified organism (3) 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
--- NOTE | 2018-04-08 08:50 | Discharge Summary ---
<BhaktaSirenaCong Chula - Last Filed: 04/08/18 15:56> - NOTES TO OUTPATIENT PROVIDER Notes to Outpatient Provider: Mr. Lloyd was admitted for urinary retention and constipation. He had recently had a j-tube placed secondary to esophageal adenocarcinoma. He was disimpacted in the ED and admitted. During hospital work up he was treated for constipation, urinary retention, AFib RVR, CHF, HTN, COPD. He was also found to have lung and liver lesions likely to be esophageal adenocarcinoma metastases. Surgery, Oncology, Palliative were consulted. J-tube managed by surgery. Lung lesion biposied by Interventional Radiology at the request of Oncology who will now follow outpatient. Patient was able to have multiple bowel movements and will be discharged with home bowel regimen as well as PRN lactulose. Jordan will stay in place until outpatient voiding trial and Urology follow up who Mr. Lloyd already sees. Patient will also follow outpatient with surgery. PT has recommended 10 daily sessions PT home health at discharge. Orders not resulted at time of discharge: Pending orders 04/01/18 08:04 Culture,Sputum with Gram Stain [RM] Stat 04/07/18 10:03 Surgical Pathology [PTH] Routine Date of Encounter: 04/08/18 Time of Encounter: 08:50 - Discharge Diagnosis (1) Constipation Priority: Primary Status: Acute Assessment and Plan: Patient has constipation secondary to his opiate use for cancer related pain. Patient has been able to have multiple bowel movements since receiving lactulose. -Continue bowel regimen of miralax, Senna, Colace -will discharge with home meds with additional PRN lactulose for constipation Qualifiers: Constipation type: other constipation type Qualified Code(s): K59.09 - Other constipation (2) Atrial fibrillation with RVR Priority: Secondary Status: Chronic Assessment and Plan: The patient has known chronic atrial fibrillation. He has been admitted to be in a fib with RVR. EKG confirmed AFib on 04/03 Heart rate controlled patient not on anticoagulation due to massive G.I. bleed in the past -Continue Oral Cardizem increased to 60 mg QID (previously 30 mg QID). -Continue atenolol, aspirin -continue to monitor with telemetry -will continue to hold Lovenox in setting of anemia and blood in stool Upon discharge, continue atenolol and continue to hold losartan due to blood pressure being intolerant of addition of losartan therapy (3) CHF (congestive heart failure) Priority: Secondary Status: Chronic Assessment and Plan: History of diastolic heart failure with a recent echocardiogram 02/2018 demonstrating EF of 40-55% - not exacerbation - Monitor fluid intake and output - 2 g sodium diet restriction - Daily weights -continue home atenolol and increased dose of Cardizem -resume home meds except losartan at discharge Qualifiers: Heart failure type: systolic Heart failure chronicity: chronic Qualified Code(s): I50.22 - Chronic systolic (congestive) heart failure (4) COPD (chronic obstructive pulmonary disease) Priority: Secondary Status: Chronic Assessment and Plan: Known history of COPD, patient uses 2 L nasal cane auction at home while at rest - Continue nasal cannula oxygen and home meds at discharge Qualifiers: COPD type: emphysema Emphysema type: unspecified Qualified Code(s): 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, unspecified (5) HTN (hypertension) Priority: Secondary Status: Chronic Assessment and Plan: History of hypertension -plan as documented above Qualifiers: Hypertension type: essential hypertension Qualified Code(s): I10 - Essential (primary) hypertension (6) Esophageal adenocarcinoma Priority: Secondary Status: Chronic Assessment and Plan: Patient recently diagnosed with esophageal adenocarcinoma, has not started any chemotherapy or radiation therapy. Patient has J-tube in place. Recent PET scan done demonstrating multiple lesions sites that may be consistent with metastatic disease. Oncology has been consulted and has inform patient of metastases. MRI of abdomen-demonstrated 7 liver lesions some appear assist however the largest is concerning for malignancy. Small bilateral pleural effusions. Right pulmonary nodule and right middle lobe. -Biopsy of RML lung lesion performed without complication. Oncology will follow up outpatient and ok with discharge when stable. (7) Decubitus ulcer of coccyx, stage 2 Priority: Secondary Status: Chronic Assessment and Plan: Patient has stage II decubitus ulcer likely secondary to immobility, poor nutritional intake. Present upon admission. and home health nursing will resume wound care and position management after discharge (8) DVT prophylaxis Priority: Secondary Status: Acute Assessment and Plan: scd in setting of anemia (9) Urinary retention Priority: Secondary Status: Acute Assessment and Plan: Patient has urinary retention. Thought to be secondary to constipation. Abdominal CT showed proctitis -Continue Jordan catheter. Will be discharged with Jordan catheter in place with voiding trial after discharge. -Continue home [facility] Hospital course: Mr. Lloyd is an 82 year old male who presented to the emergency room on 03/31/18 for urinary retention for the previous 2 days and constipation for the previous 10 days. He has a past medical history of a recent diagnosis of esophageal adenocarcinoma with J tube in place, AFib with RVR, chronic aspiration, diastolic CHF, COPD, GERD, HLD, HTN, longstanding grade II coccyx decubitus ulcer, and previous massive GI bleed which necessitated patient being on no anticoagulation except for [address] of the abdomen and pelvis noted rectal stool ball which was disimpacted in the ED prior to admission; this was also thought to have caused the urinary retention, but a jordan catheter was placed to relieve the urinary retention. CXR in the ED showed right sided basilar opacities and right sided pleural effusion. Upon admission, patient was started on vancomycin and unasyn IV to treat suspected pneumonia, which was subsequently ruled to be chronic aspiration and not aspiration pneumonia as previously suspected. He was put on his Cardizem 30mg QID and atenolol on hospital day 2 to try to control AFib with RVR, subsequently the atenolol was held due to low BP and the Cardizem was uptitrated to 60mg (on hospital day 4 switched to 7mg/hr drip due to J tube loss and change to soft jordan; switched back to 60mg QID via feeding tube on hospital day 5) to try to bring heart rate down. Atenolol was added back on hospital day 4 for blood pressure control. No anticoagulation was added due to previous massive GI bleed. Patient was put on Colace, Senna, Miralax combination therapy to initiate bowel movements, these were successful on hospital day 2 to cause a bowel movement to occur. Addition of lactulose on hospital day 2 was successful in causing multiple bowel movements to occur. GI consult wanted to do a colonoscopy due to second bowel movement post-hospital day 2 being bloody (patient has longstanding history of hemorrhoids), however the bowel prep was unsuccessful due to J tube falling out. Surgery tried to replace J tube but eventually only a soft Jordan catheter was successfully reinstated. Lactulose was added again to the patients bowel regimen on hospital day 5. Palliative and Oncology consulted on patient on hospital day 4 due to status as esophageal adenocarcinoma patient with multiple metastases seen on PET scan; patient initially described desire to have nothing done to hospitalist team but upon consultation by Palliative and Oncology decided he wanted to have aggressive treatment and do whatever possible. Palliative agreed that continuation of BID Percocet would adequately control patients pain. Abdominal MRI on hospital day 5 showed multiple indeterminate lesions in the liver and lung and increased bilateral pleural effusions. As a result oncology ordered biopsy. IR conducted CT guided biopsy on right middle lung lobe nodule on hospital day 7; post procedure CXR showed no change from previous. On hospital day 7 post procedure Surgery replaced the Jordan catheter in patients abdomen with red rubber catheter with tip cut off. Patient determined to be stable for discharge with outpatient specialist follow up. Discharge discussed with: patient, family, wound care center consultant - Time Spent with Patient Total time spent providing and/or coordinating discharge services: - Discharge Medications Prescriptions: Cyanocobalamin (B-12) [Vitamin B12] 1,000 mcg SQ AD #8 mls dilTIAZem HCl [Cardizem] 60 mg PO QID 30 Days #120 tablet Supplies [SUPPLIES] 1 each .ROUTE AD #8 each Home Medications: Furosemide [Lasix] 40 mg GTUBE BID 11/12/15 [History] Docusate [Colace] 100 mg GTUBE DAILY 11/13/15 [History] Ipratropium/Albuterol Neb [Duoneb] 3 ml IH Q6HR 11/13/15 [History] Ipratropium/Albuterol Sulfate [Combivent Respimat Inhal [place]] 1 puff IH Q6HR PRN 11/13/15 [History] Omeprazole [PriLOSEC] 40 mg GTUBE BID 02/16/18 [History] Tamsulosin [Flomax] 0.4 mg GTUBE DAILY 02/16/18 [History] Atenolol [Tenormin] 50 mg PO BID 03/07/18 [History] Aspirin 81 mg PO DAILY 03/31/18 [History] Oxycodone HCl/Acetaminophen [Percocet 5-325 mg Tablet] 1 tab GTUBE Q4H PRN 03/31/18 [History] Sertraline HCl [Zoloft] 100 mg GTUBE DAILY 03/31/18 [History] clonazePAM [Klonopin] 0.5 mg GTUBE BID 03/31/18 [History] Cyanocobalamin (B-12) [Vitamin B12] 1,000 mcg SQ AD #8 mls 04/08/18 [Rx] Polyethylene Glycol 3350 [MiraLAX] 17 gm PO DAILY powd.pack 04/08/18 [Rx] Sennosides [Senna] 17.6 mg GTUBE BID udc 04/08/18 [Rx] Supplies [SUPPLIES] 1 each .ROUTE AD #8 each 04/08/18 [Rx] dilTIAZem HCl [Cardizem] 60 mg PO QID 30 Days #120 tablet 04/08/18 [Rx] Allergies/Adverse Reactions: Allergy/AdvReac Type Severity Reaction Status Date / Time clonidine Allergy Vomiting Verified 02/16/18 10:08 Warfarin [From Coumadin] AdvReac See Verified 03/31/18 09:25 Comments Date of admission: 03/31/18 07:23 Primary care physician: Connie Hyde Consults: 03/31/18 10:15 Consult to Nutrition [CONS] Stat Comment: Consulting Provider: NUTRITION Reason for Dietary Consult: Tube Feed Start & Manage 03/31/18 10:16 Consult to Wound Care [CONS] Stat Reason for Consult: Decubitus ulcer coccyx Call Completed: No 04/03/18 07:57 Consult to Gastroenterology [CONS] Routine Consulting Provider: [facility] Reason for Consult: hematochezia with drop in Hgb from 9.3 to 8.4. Hx esophageal carcinoma Call Completed: No 04/03/18 16:38 Consult to Surgery [CONS] Routine Consulting Provider: [facility] Reason for Consult: esophageal cancer, jtube by Dr Ramirez previously--j tube just fell out (d/w Dr Madden) Call Completed: Yes 04/04/18 10:22 Consult to Palliative Care [CONS] Routine Comment: Consulting Provider: [facility] Reason for Consult: pt request, esophageal can, goc discussion Call Completed: Yes 04/04/18 10:55 Consult to Oncology Hematology [CONS] Routine Consulting Provider: Allison Dewey Reason for Consult: esophageal cancer. wants to see palliative Call Completed: Yes 04/06/18 05:06 Consult to Respiratory Therapy [CONS] Routine Reason for Consult: Please add flutter valve to pts. breathing txs Call Completed: Yes 04/07/18 07:33 Consult to Physical Therapy [CONS] Routine Comment: Evaluate, develop and implement POC Reason for Consult: deconditioned, esophageal cancer Does patient have active BEDREST order?: No Is patient medically & hemodynamically stable?: Yes Patient assessed for mobility or mobilized this visit?: No OT [Consult to Occupational Therapy] [CONS] Routine Comment: Evaluate, develop and implement POC Reason for Consult: deconditioned, esophageal cancer Does patient have active BEDREST order?: No Is patient medically & hemodynamically stable?: Yes Patient assessed for mobility or mobilized this visit?: No 04/07/18 10:03 Consult to Interventional Radiology [CONS] Routine Consulting Provider: Radiology Interventional [facility] Reason for Consult: ct guided bx right middle lobe nodule 1.6x1.3cm noted on MRI abdomen Call Completed: Yes Discharging clinician: Cong Bhakta Anticipated date of discharge: 04/08/18 - Constitutional Vitals: Temp Pulse Resp BP Pulse Ox 97.4 F L 99 20 147/72 99 04/08/18 07:59 04/08/18 07:59 04/08/18 07:59 04/08/18 07:59 04/08/18 07:59 Exam: General: Alert, oriented, in no acute distress HEENT: Normocephalic, oral mucosa dry, poor dentition Cardiac: Irregularly irregular rhythm, regular rate, radial pulses 2+ bilateral Respiratory: clear to auscultation bilaterally, no accessory muscle use Abdomen: Soft, non tender, ecchymoses present across abdomen (significantly improved since admission), bowel sounds present, red rubber catheter present in left abdomen where J tube previously was present Extremities: No peripheral edema noted on lower extremities, pulses present bilaterally Neuro: A&Ox3, no focal neurological deficits - Patient Status Disposition: Home Health Service Condition: Fair Functional capacity at discharge: wheelchair bound Overall status at discharge: patient is progressing back to baseline - Discharge Instructions Instructions: Atrial Fibrillation (DC), Constipation (GEN), Urinary Retention in Men (GEN), Jordan Catheter Placement and Care (GEN) Follow Up With: On[facility] [Provider Group] [facility] [Provider Group] [facility] [Provider Group] Connie Hyde MD [Primary Care Provider] - (possible ECF) Forms: ED Satisfaction Letter - Diet and Activity Activity: as per physical therapy Diet: advance to your usual diet <Aamir Kumari - Last Filed: 04/08/18 19:07> Orders not resulted at time of discharge: Pending orders 04/01/18 08:04 Culture,Sputum with Gram Stain [RM] Stat 04/07/18 10:03 Surgical Pathology [PTH] Routine 04/09/18 04:00 BMP [Basic Metabolic Panel] AM 0400 Complete Blood Count [HEME] AM 0400 Date of Encounter: 04/08/18 - Discharge Diagnosis (1) Atrial fibrillation with RVR Status: Chronic (2) COPD (chronic obstructive pulmonary disease) Status: Chronic Qualifiers: COPD type: emphysema Emphysema type: unspecified Qualified Code(s): 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, unspecified (3) HTN (hypertension) Status: Chronic Qualifiers: Hypertension type: essential hypertension Qualified Code(s): I10 - Essential (primary) hypertension (4) DVT prophylaxis Status: Acute (5) CHF (congestive heart failure) Status: Chronic Qualifiers: Heart failure type: systolic Heart failure chronicity: chronic Qualified Code(s): I50.22 - Chronic systolic (congestive) heart failure (6) Esophageal adenocarcinoma Status: Chronic (7) Decubitus ulcer of coccyx, stage 2 Status: Chronic (8) Constipation Status: Resolved Qualifiers: Constipation type: other constipation type Qualified Code(s): K59.09 - Other constipation (9) Urinary retention Status: Acute (10) Atrial fibrillation Priority: Secondary Status: Chronic Qualifiers: Atrial fibrillation type: chronic Qualified Code(s): I48.2 - Chronic atrial fibrillation Hospital course: Mr. Lloyd is a 82 year old male - Time Spent with Patient Total time spent providing and/or coordinating discharge services: 40min Date of admission: 03/31/18 07:23 Primary care physician: Connie Hyde Consults: 03/31/18 10:15 Consult to Nutrition [CONS] Stat Comment: Consulting Provider: NUTRITION Reason for Dietary Consult: Tube Feed Start & Manage 03/31/18 10:16 Consult to Wound Care [CONS] Stat Reason for Consult: Decubitus ulcer coccyx Call Completed: No 04/03/18 07:57 Consult to Gastroenterology [CONS] Routine Consulting Provider: Gastroenterology [facility] Reason for Consult: hematochezia with drop in Hgb from 9.3 to 8.4. Hx esophageal carcinoma Call Completed: No 04/03/18 16:38 Consult to Surgery [CONS] Routine Consulting Provider: [facility] Reason for Consult: esophageal cancer, jtube by Dr Ramirez previously--j tube just fell out (d/w Dr Madden) Call Completed: Yes 04/04/18 10:22 Consult to Palliative Care [CONS] Routine Comment: Consulting Provider: [facility] Reason for Consult: pt request, esophageal can, goc discussion Call Completed: Yes 04/04/18 10:55 Consult to Oncology Hematology [CONS] Routine Consulting Provider: Allison Dewey Reason for Consult: esophageal cancer. wants to see palliative Call Completed: Yes 04/06/18 05:06 Consult to Respiratory Therapy [CONS] Routine Reason for Consult: Please add flutter valve to pts. breathing txs Call Completed: Yes 04/07/18 07:33 Consult to Physical Therapy [CONS] Routine Comment: Evaluate, develop and implement POC Reason for Consult: deconditioned, esophageal cancer Does patient have active BEDREST order?: No Is patient medically & hemodynamically stable?: Yes Patient assessed for mobility or mobilized this visit?: No OT [Consult to Occupational Therapy] [CONS] Routine Comment: Evaluate, develop and implement POC Reason for Consult: deconditioned, esophageal cancer Does patient have active BEDREST order?: No Is patient medically & hemodynamically stable?: Yes Patient assessed for mobility or mobilized this visit?: No 04/07/18 10:03 Consult to Interventional Radiology [CONS] Routine Consulting Provider: Radiology Interventional [facility] Reason for Consult: ct guided bx right middle lobe nodule 1.6x1.3cm noted on MRI abdomen Call Completed: Yes 04/08/18 17:53 Consult to Interventional Radiology [CONS] Routine Consulting Provider: Radiology Interventional [facility] Reason for Consult: CT guided biopsy liver lesion-please refer to MRI Abdomen and PET/CT-hoping to biopsy largest and PET avid lesion- will call in AM Call Completed: Yes Consult to Pulmonology [CONS] Routine Consulting Provider: [facility]m [facility] Reason for Consult: evaluation for potential aspiration pneumonia, need for bronch? Biopsy lung nodule shows bacterial infection concerning for aspiration-will call in AM Call Completed: Yes - Constitutional Vitals: Temp Pulse Resp BP Pulse Ox 98.6 F 77 20 118/71 99 04/08/18 16:40 04/08/18 16:40 04/08/18 16:40 12/04/18 16:40 04/08/18 16:40 - Attending Attestation I examined this patient and my medical decision-making was reviewed with the Resident Physician on 04/08/18. I agree with the documented findings, disposition and treatment plan as described except to the extent set forth below. Mr Lloyd has been admitted for constipation, A fib and dislodged G tube. He is now tolerating tube feeds. Due to bleeding Lovenox stopped. He had G tube replaced. His B12 and iron were low and replaced. At this time he is afebrile and ready for discharge home. Exam Alert Comfortable at this time Mucus membranes dry Heart not tachy No wheeze abd soft No edema Plan D/C home with [facility] Outpatient follow up. Addendum entered and electronically signed by Aamir Kumari DO 04/10/18 18:58: Pt was not discharged until 04/10
[2018-04-08] MEDS ORDERED: Lidocaine/EPI 1:100k 1% 20 ML VIAL INFILT ONE (12:39)
--- NOTE | 2018-04-08 14:47 | Event Note ---
Date of Encounter: 04/08/18 Time of Encounter: 09:00 Patient was seen this morning, sitting in bed, with at his bedside. He staed to be feeling well, and looking forward t be discharged home today. He still feels generalized body aches, but feels that percocet as prescribed has been keeping him comfortable. Pt requesting about 2 pills daily. Pt to follow up with oncology as outpatient. Patient is having regular BM, on Senna BID. Will need Miralax prn on discharge. Pt's GOC are clear at this time, Palliative care will sign off. Thank you for allowing us to participate in the care of this patient, please re-consult prn.
--- NOTE | 2018-04-08 15:59 | Physician Discharge Referral ---
Home Health/Hosp Referral Info Transfer to: Home Health Attending Provider: Quoc Provider in Charge Post Discharge: PCP - Diagnosis (1) Constipation Priority: Primary Status: Resolved (2) Atrial fibrillation with RVR Priority: Secondary Status: Chronic (3) CHF (congestive heart failure) Priority: Secondary Status: Chronic (4) COPD (chronic obstructive pulmonary disease) Priority: Secondary Status: Chronic (5) HTN (hypertension) Priority: Secondary Status: Chronic (6) Esophageal adenocarcinoma Priority: Secondary Status: Chronic (7) Decubitus ulcer of coccyx, stage 2 Priority: Secondary Status: Chronic (8) Urinary retention Priority: Secondary Status: Acute (9) DVT prophylaxis Priority: Secondary Status: Acute - Respiratory Orders Oxygen / L per min (2LNC) Smoking Cessation: Smoking cessation has been advised. For more information, call the [employer] Quit Line at [phone]-NOW. - Dressing/Wound Care Site: chronic sacral decubitus ulcer - Diet/Nutrition Diet/Nutrition Orders: Mechanical Soft (tube feed) - Activity Activity Orders: Chair - Services Needed Following services are medically necessary services: Home Health Aide, Physical Therapy, Occupational Therapy - Transfer Medications Prescriptions: Cyanocobalamin (B-12) [Vitamin B12] 1,000 mcg SQ AD #8 mls Supplies [SUPPLIES] 1 each .ROUTE AD #8 each Home Medications: Furosemide [Lasix] 40 mg GTUBE BID 11/12/15 [History] Docusate [Colace] 100 mg GTUBE DAILY 11/13/15 [History] Ipratropium/Albuterol Neb [Duoneb] 3 ml IH Q6HR 11/13/15 [History] Ipratropium/Albuterol Sulfate [Combivent Respimat Inhal [place]] 1 puff IH Q6HR PRN 11/13/15 [History] Losartan Potassium [Cozaar] 100 mg GTUBE DAILY 02/16/18 [History] Omeprazole [PriLOSEC] 40 mg GTUBE BID 02/16/18 [History] Tamsulosin [Flomax] 0.4 mg GTUBE DAILY 02/16/18 [History] Atenolol [Tenormin] 50 mg PO BID 03/07/18 [History] Aspirin 81 mg PO DAILY 03/31/18 [History] Diltiazem [Cardizem] 30 mg GTUBE QID 03/31/18 [History] Oxycodone HCl/Acetaminophen [Percocet 5-325 mg Tablet] 1 tab GTUBE Q4H PRN 03/31/18 [History] Sertraline HCl [Zoloft] 100 mg GTUBE DAILY 03/31/18 [History] clonazePAM [Klonopin] 0.5 mg GTUBE BID 03/31/18 [History] Cyanocobalamin (B-12) [Vitamin B12] 1,000 mcg SQ AD #8 mls 04/08/18 [Rx] Supplies [SUPPLIES] 1 each .ROUTE AD #8 each 04/08/18 [Rx] Allergies/Adverse Reactions: Allergy/AdvReac Type Severity Reaction Status Date / Time clonidine Allergy Vomiting Verified 02/16/18 10:08 Warfarin [From Coumadin] AdvReac See Verified 03/31/18 09:25 Comments Certification: Further, I certify that my clinical findings support that this patient is homebound (i.e. absences from home require considerable and taxing effort and are for medical reasons or scientologist services or infrequently or short duration when for other reasons) because: Homebound Reason: Patient requires assistance of a person or device to safely leave home Attestation: My signature below is to certify that this patient is under my care and that I, or nurse practitioner, or a physician's hospital administrative assistant working with me, has a face -to-face encounter with this patient.
--- NOTE | 2018-04-08 16:05 | Oncology Inp Progress Note ---
<Jorge Valverde - Last Filed: 04/08/18 17:35> Date of Encounter: 04/08/18 Oncology: Obj Data - Labs CBC & Chem 7: 04/08/18 05:44 04/08/18 05:44 Consult Discharge Plan - Plan Instructions: Atrial Fibrillation (DC), Constipation (GEN), Urinary Retention in Men (GEN), Rodriguez Catheter Placement and Care (GEN) Referrals: [facility] [Provider Group] [facility] [Provider Group] [facility] [place] [Provider Group] Connie Hyde MD [Primary Care Provider] - (possible ECF) Prescriptions: Cyanocobalamin (B-12) [Vitamin B12] 1,000 mcg SQ AD #8 mls dilTIAZem HCl [Cardizem] 60 mg PO QID 30 Days #120 tablet Supplies [SUPPLIES] 1 each .ROUTE AD #8 each Inpatient Charges Provider: Dr. Crystal Valverde Follow up - Inpatient: [id number] - Attending Attestation I examined this patient and my medical decision-making was reviewed with the Advanced Practice Nurse. I agree with the documented findings, disposition and treatment plan as described except to the extent set forth below. -Fe 33, % sat 15%, Transferrin 154, Ferritin 76. Will give Venofer 300 mg IV. -B12 212. Will start on Vit B12 1000 mcg SQ injections. -RML biopsy nondiagnostic. Will perform CT guided liver biopsy. -Evidence of aspiration PNA on RML biopsy, will c/s pulmonary for evaluation and possible bronchoscopy. <Allison Dewey - Last Filed: 04/09/18 09:24> Date of Encounter: 04/08/18 Time of Encounter: 13:00 (1) Anemia Current Visit: Yes Status: Acute Assessment and plan: Normocytic normochromic anemia with hemoglobin of 8.1 Down trending since February In the setting of malignancy as well as melena following manual disimpaction Melena has since resolved Plan: Hgb stable GI has been consulted and now planning for outpatient colonoscopy, this was initially postponed secondary to displacement of J-Tube Administer venofer 250 mg IV x1 B12 resulted at 212, d/w nursing staff that education is needed with patients for home injections-B12 1000 mcg SQ daily x4 days followed by weekly x4 Qualifiers: Anemia type: unspecified type Qualified Code(s): D64.9 - Anemia, unspecified (2) Esophageal adenocarcinoma Current Visit: Yes Status: Chronic Assessment and plan: PET/CT on 03/26/2018 revealed intensely hypermetabolic mass at the GE junction, diffuse bilateral pulmonary nodules right greater than left with some nodules demonstrating intense uptake, ill-defined hypodense hepatic nodule with intense uptake, moderately hypermetabolic precarinal lymph node and mildly have him metabolic subcarinal lymph node as well as moderate bilateral hilar uptake, intense osseous uptake at the C1/C2 that likely correlates with history of prior cervical fracture. MRI abdomen reveals at least 7 indeterminate lesions in the liver with the largest tumor corresponding with PET CT findings measuring up to 1.0 x 0.6 cm, appearance favors cysts but the degree of uptake in the largest lesions suggestive of malignancy. Incompletely seen pulmonary nodules with the largest in the right middle lobe. Plan: He appears to have radiographic evidence concerning for widespread metastatic disease versus potential second primary malignancy S/P biopsy of right middle lobe nodule-->Dr. Valverde d/w pathology and this is consistent with infectious source concerning for aspiration pneumonia Consultation with pulmonology was placed for further evaluation, will call in AM Dr. Valverde wishes to pursue biopsy of largest liver lesion corresponding with PET activity-order placed for liver lesion bx with IR tomorrow Pathology will take 3-5 days to result, will plan to discuss pathology and treatment options once final pathology resulted, likely as an outpatient Oncology will otherwise plan to sign off, patient has been arranged to follow up with Dr. Martinez as an outpatient end of next week Oncology: Subj Interval history: Mr. Lloyd is resting in bed, no acute events noted overnight. Reports pain is controlled. He has been OOB with assistance and ambulated to door, sat up in chair for good portion of the day. No BM in 2 days. Denies nausea, vomiting, chest pain, SOB above baseline, visual changes, headache, dizziness or calf pain. Rodriguez catheter in place. - Constitutional General appearance: cooperative, no acute distress, no febrile - Head Head exam: Present: atraumatic - ENT ENT exam: Present: mucous membranes moist, normal oropharynx - Respiratory Respiratory exam: Present: decreased breath sounds. Absent: respiratory distress - Cardiovascular Cardiovascular exam: Present: RRR, +S1, +S2 - GI/Abdominal GI/Abdominal exam: Present: normal bowel sounds, soft. Absent: guarding, rebound, tenderness Additional comments: J tube with continuous TF - Extremities Exam Extremities exam: Present: normal inspection. Absent: calf tenderness - Neurological Exam Neurological exam: Present: alert, oriented X3, no focal deficits, strengths equal and symetr throughout - Psychiatric Psychiatric exam: Present: normal affect, normal mood - Skin Skin exam: Present: dry, intact, normal color, warm Oncology: Obj Data - Labs CBC & Chem 7: 04/09/18 06:08 04/09/18 06:08 Inpatient Charges Provider: Dr. Crystal Valverde Follow up - Inpatient: [id number]
[2018-04-08] MEDS ORDERED: Iron Sucrose Complex 250 MG in 0.9 % Sodium Chloride 250 ML IVPB ONE (20:00)
[2018-04-08] MEDS: Melatonin 3 MG TABLET PO SCH (20:30)
[2018-04-08] MEDS: Cyanocobalamin (B-12) 1,000 MCG/ML VIAL SQ SCH (20:31)
[2018-04-09] MEDS: Levalbuterol Neb 1.25 MG/3 ML IH SCH ×4 (04:04→22:38)
[2018-04-09 06:24] LABS: Basophils # 0.1 K/mcL (0.0-0.2); Basophils % 0.9 %; Eosinophils # 0.2 K/mcL (0.0-0.6); Eosinophils % 2.8 %; Hemoglobin 9.1 g/dL (12.9-16.9); Immature Granulocytes % 0.4 % (0-4); Lymphocytes # 1.2 K/mcL (0.6-4.6); Lymphocytes % 21.5 %; Mean Corpuscular HGB Conc 32.5 g/dL (31.6-35.5); Mean Corpuscular Hemoglobin 31.2 pg (28.0-33.3); Mean Corpuscular Volume 95.9 fL (83.0-100.0); Mean Platelet Volume 9.6 fL (9.4-12.4); Monocytes # 0.5 K/mcL (0.0-1.3); Monocytes % 9.1 %; Neutrophils # 3.7 K/mcL (1.6-8.9); Platelet Count 128 K/mcL (140-400); Red Blood Count 2.92 M/mcL (4.19-5.50); Red Cell Distribution Width 15.2 % (11.5-14.5); Segmented Neutrophils % 65.3 %
[2018-04-09 06:46] LABS: BUN/Creatinine Ratio 31 (6-26); Blood Urea Nitrogen 19 mg/dL (8-23); Calcium 8.4 mg/dL (8.6-10.3); Carbon Dioxide 31 mEq/L (23-29); Chloride 100 mEq/L (98-107); Glucose 89 mg/dL (70-105); Osmolality,Calculated 282 (280-300); Sodium 135 mEq/L (136-145); eGFR For Non-African Americans > 60 (> 60)
[2018-04-09] MEDS: clonazePAM 0.5 MG TABLET GTUBE SCH ×2 (08:57→20:37)
[2018-04-09] MEDS: dilTIAZem HCl 60 MG TABLET PO SCH ×4 (08:57→20:37)
[2018-04-09] MEDS: Aspirin Enteric Coated 81 MG Tablet PO SCH (08:57)
[2018-04-09] MEDS: Docusate Oral Soln 100 MG/10 ML UDC GTUBE SCH ×2 (08:57→20:37)
[2018-04-09] MEDS: Nicotine 7 MG PATCH.TD24 TD SCH (08:58)
--- NOTE | 2018-04-09 10:26 | Internal Med Progress Note ---
<Aamir Kumari - Last Filed: 04/09/18 18:08> Hospitalist Progress Note - Encounter Date of Encounter: 04/09/18 - Exam Vitals: Temp Pulse Resp BP Pulse Ox 97.1 F L 68 20 101/61 100 04/09/18 17:35 04/09/18 17:35 04/09/18 17:35 04/09/18 17:35 04/09/18 17:35 - Assessment and Plan (1) Atrial fibrillation with RVR Current Visit: Yes Status: Chronic (2) COPD (chronic obstructive pulmonary disease) Current Visit: No Status: Chronic (3) HTN (hypertension) Current Visit: No Status: Chronic (4) DVT prophylaxis Current Visit: No Status: Acute (5) CHF (congestive heart failure) Current Visit: No Status: Chronic (6) Esophageal adenocarcinoma Current Visit: Yes Status: Chronic (7) Decubitus ulcer of coccyx, stage 2 Current Visit: Yes Status: Chronic (8) Constipation Current Visit: Yes Status: Resolved (9) Urinary retention Current Visit: Yes Status: Acute (10) Atrial fibrillation Current Visit: No Status: Chronic (11) Aspiration pneumonia Current Visit: No Status: Acute - Time Spent with Patient Total time spent is greater than 50% in coordination of care (as documented) at patient's floor/unit and/or counseling patient: Internal Medicine: Result - Labs CBC & Chem 7: 04/09/18 06:08 04/09/18 06:08 Labs: Short CBC 04/09/18 Range/Units 06:08 WBC 5.6 (4.3-11.1) K/mcL Hgb 9.1 L (12.9-16.9) g/dL Hct 28.0 L (37.5-50.1) % Plt Count 128 L (140-400) K/mcL Neutrophils # 3.7 (1.6-8.9) K/mcL BMP 04/09/18 06:08 Sodium 135 L Potassium 4.0 Chloride 100 Carbon Dioxide 31 H BUN 19 Creatinine 0.62 L Glucose 89 Calcium 8.4 L - ABG Interpretation ABG results: PT/INR, D-dimer PT 13.8 Seconds (9.4-12.1) H 04/07/18 06:33 Consult Discharge Plan - Plan Instructions: Atrial Fibrillation (DC), Constipation (GEN), Urinary Retention in Men (GEN), Rodriguez Catheter Placement and Care (GEN) Referrals: [facility] [Provider Group] [facility] [Provider Group] [facility] [place] [Provider Group] Connie Hyde MD [Primary Care Provider] - (possible ECF) Prescriptions: Cyanocobalamin (B-12) [Vitamin B12] 1,000 mcg SQ AD #8 mls dilTIAZem HCl [Cardizem] 60 mg PO QID 30 Days #120 tablet Supplies [SUPPLIES] 1 each .ROUTE AD #8 each - Attending Attestation I examined this patient and my medical decision-making was reviewed with the Resident Physician on 04/09/18. I agree with the documented findings, disp osition and treatment plan as described except to the extent set forth below. Mr Lloyd is currently admitted for urinary retention, atrial fibrillation and J tube issues. He remains moderate to high risk due to potential for worsening clinical status. Mr Lloyd is resting. He is apparently to have a liver biopsy today. His lung biopsy shows signs of aspiration. No fever or chills now. No CP. Exam Alert. Comfortable Mucus membranes dry Heart distant and irreg. Not tachy No wheeze abd soft I/P 1. Atrial fib 2. Probable aspiration Further diagnoses and plan as above. <Cong Bhakta - Last Filed: 04/09/18 18:55> Hospitalist Progress Note - Encounter Date of Encounter: 04/09/18 Time of Encounter: 10:24 - Subjective Interval History: Plan was to discharge the patient, however lung biopsy results came back as possible aspiration pneumonia. Oncology recommended Pulm consultation for that and liver biopsy while inpatient. Patient understood and agreed. No acute events overnight and no acute complaints today. - Exam Vitals: Temp Pulse Resp BP Pulse Ox 98.1 F 121 20 141/95 100 04/09/18 07:55 04/09/18 07:55 04/09/18 07:55 04/09/18 07:55 04/09/18 07:55 Exam: General: Alert, oriented, in no acute distress HEENT: Normocephalic, oral mucosa dry, poor dentition Cardiac: Irregularly irregular rhythm, regular rate, radial pulses 2+ bilateral Respiratory: scattered diffuse wheeze, no rales or rhonchi, no accessory muscle use Abdomen: Soft, non tender, bowel sounds present, red rubber catheter present in left abdomen where J tube previously was present Extremities: No peripheral edema noted on lower extremities, pulses present bilaterally Neuro: A&Ox3, no focal neurological deficits - Assessment and Plan (1) Atrial fibrillation with RVR Current Visit: Yes Status: Chronic Assessment and Plan: The patient has known chronic atrial fibrillation. He has been admitted to be in a fib with RVR. EKG confirmed AFib on 04/03 Heart rate controlled now patient not on anticoagulation due to massive G.I. bleed in the past -Continue Oral Cardizem increased to 60 mg QID (previously 30 mg QID). -Continue atenolol, aspirin -continue to monitor with telemetry -will continue to hold Lovenox in setting of anemia and blood in stool Upon discharge, continue atenolol and continue to hold losartan due to blood pressure being intolerant of addition of losartan therapy (2) COPD (chronic obstructive pulmonary disease) Current Visit: No Status: Chronic Assessment and Plan: Known history of COPD, patient uses 2 L nasal cane auction at home while at rest - Continue nasal cannula oxygen and home meds at discharge Pulmonology consulted for possible aspiration pna found on lung biopsy Recommended Augmentin, bronch not currently recommended Augmentin 875 BIDWM started (3) HTN (hypertension) Current Visit: No Status: Chronic Assessment and Plan: History of hypertension -plan as documented above (4) DVT prophylaxis Current Visit: No Status: Acute Assessment and Plan: scd in setting of anemia (5) CHF (congestive heart failure) Current Visit: No Status: Chronic Assessment and Plan: History of diastolic heart failure with a recent echocardiogram 02/2018 demonstrating EF of 40-55% - not exacerbation - Monitor fluid intake and output - 2 g sodium diet restriction - Daily weights -continue home atenolol and increased dose of Cardizem -resume home meds except losartan at discharge (6) Esophageal adenocarcinoma Current Visit: Yes Status: Chronic Assessment and Plan: Patient recently diagnosed with esophageal adenocarcinoma, has not started any chemotherapy or radiation therapy. Patient has J-tube in place. Recent PET scan done demonstrating multiple lesions sites that may be consistent with metastatic disease. Oncology has been consulted and has inform patient of metastases. MRI of abdomen-demonstrated 7 liver lesions some appear assist however the largest is concerning for malignancy. Small bilateral pleural effusions. Right pulmonary nodule and right middle lobe. -Biopsy of RML lung lesion performed without complication. Oncology will follow up outpatient and ok with discharge when stable. -Liver lesion biopsy planned for today (7) Decubitus ulcer of coccyx, stage 2 Current Visit: Yes Status: Chronic Assessment and Plan: Patient has stage II decubitus ulcer likely secondary to immobility, poor nutritional intake. Present upon admission. and home health nursing will resume wound care and position management after discharge (8) Constipation Current Visit: Yes Status: Resolved Assessment and Plan: Patient has constipation secondary to his opiate use for cancer related pain. Patient has been able to have multiple bowel movements since receiving lactulose. -Continue bowel regimen of miralax, Senna, Colace, lactulose PRN -will discharge with home meds with additional PRN lactulose for constipation (9) Urinary retention Current Visit: Yes Status: Acute Assessment and Plan: Patient has urinary retention. Thought to be secondary to constipation. Abdominal CT showed proctitis -Continue Rodriguez catheter. Will be discharged with Rodriguez catheter in place with voiding trial after discharge. -Continue home Flomax - Time Spent with Patient Total time spent is greater than 50% in coordination of care (as documented) at patient's floor/unit and/or counseling patient: Internal Medicine: Result - Labs CBC & Chem 7: 04/09/18 06:08 04/09/18 06:08 Labs: Short CBC 04/09/18 Range/Units 06:08 WBC 5.6 (4.3-11.1) K/mcL Hgb 9.1 L (12.9-16.9) g/dL Hct 28.0 L (37.5-50.1) % Plt Count 128 L (140-400) K/mcL Neutrophils # 3.7 (1.6-8.9) K/mcL BMP 04/09/18 06:08 Sodium 135 L Potassium 4.0 Chloride 100 Carbon Dioxide 31 H BUN 19 Creatinine 0.62 L Glucose 89 Calcium 8.4 L - ABG Interpretation ABG results: PT/INR, D-dimer PT 13.8 Seconds (9.4-12.1) H 04/07/18 06:33 <Aamir Kumari - Last Filed: 04/09/18 18:08> (2) 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 (10) Atrial fibrillation Qualifiers: Atrial fibrillation type: chronic Qualified Code(s): I48.2 - Chronic atrial fibrillation (11) Aspiration pneumonia Qualifiers: Aspiration pneumonia type: due to regurgitated food Laterality: bilateral Lung location: lower lobe of lung Qualified Code(s): J69.0 - Pneumonitis due to inhalation of food and vomit <Cong Bhakta - Last Filed: 04/09/18 18:55> (2) 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
--- NOTE | 2018-04-09 12:30 | Pulmonology Consult Note ---
Date of Encounter: 04/09/18 Time of Encounter: 12:30 Assessment and Plan (1) Chronic pulmonary aspiration Current Visit: Yes Status: Acute The patient has evidence of chronic aspiration in the right lower lobe this may have been precipitated by J-tube malfunction in the context of constipation and now with revision I am hopeful that the situation will remedy itself. Nevertheless the patient would benefit from at least a ten-day course of antibiotics for aspiration this can be a beta-lactam based therapy such as Augmentin and can complete a 10 day course with a repeat CT scan to evaluate for lung nodule size as well as resolution of bronchiolitis in the right lower lobe. Do not think the patient would benefit from bronchoscopy at this time If there is evidence of persistent aspiration despite treatment would need surgical evaluation for modification of J-tube and optimization of GI status. We appreciate this consultation pulmonary will sign off please call with any questions Qualifiers: Qualified Code(s): T17.908A - Unspecified foreign body in respiratory tract, part unspecified causing other injury, initial encounter (2) Lung nodule Current Visit: Yes Status: Acute This appears related to inflammatory process likely secondary to infection final path report pending (3) Acute exacerbation of chronic obstructive pulmonary disease (COPD) Current Visit: No Status: Acute Appears to be having a mild flare during this admission. He would benefit from a short burst of glucocorticoid recommend a 5 day course of the prednisone 40 mg or the equivalent which can be dosed IV Start Symbicort 160/4.52 puffs twice a day Continue schedule duo nebs Supplemental oxygen to keep saturation greater than 88% at all time (4) Esophageal adenocarcinoma Current Visit: Yes Status: Chronic Management per oncology who is following actively History of Present Illness Consult date: 04/09/18 Requesting physician: Allison Dewey Reason for consult: abnormal CXR/CT Chief complaint: Lung Nodule History of present illness: This is a pleasant 82-year-old gentleman past medical history of COPD and as well as chronic respiratory failure including wearing oxygen at night (2 L and (unfortunately his recent diagnosis of adenocarcinoma of the gastrointestinal track and and had a J-tube placed recently for this reason. He had she presented for constipation but is part of evaluation including outpatient evaluation had PET/CT performed which was notable for a right middle lobe lung nodule. Patient was evaluated by oncology and this prompted a CT-guided biopsy. Preliminary results were concerning for an infectious process and pulmonary was consulted for further evaluation of this. Of note the patient recently had J- tube malfunction and had revision during this hospitalization. When I spoke with him he is in discomfort related to filling bladder fullness d espite having a a Rodriguez catheter in place. He is a former heavy smoker of half a pack to a pack a day starting in adolescence he has not smoked in last 5 weeks however. He does take Spiriva at home along with inhaled nebulized treatments because of cost. Denies any fevers or chills shortness of breath appears to be at baseline. He denies eating anything over the last few weeks since the J-tube was placed. Prior to that he did notice that he had difficulty with regurgitation of food and cough Past Med Surg Social Fam HX - Past Medical History Medical history: aortic aneurysm, arthritis, asthma, atrial fibrillation, cancer , CHF, COPD, coronary artery disease, GERD, GI bleed, hyperlipidemia, hypertension, osteoporosis, other Additional medical history: Thoracic aortic aneurysm without rupture. Diastolic heart failureLeft ventriculare hypertrophy. DDD. Myalgia. Lumbar stenosis. esophageal cancer, feeding tube Psychiatric history: no psych history - Past Surgical History Surgical History: cataract, other - Social History Smoking Status: Former smoker Smokeless Tobacco Status: No Alcohol use: none Drug use: none - Family History Father Adopted: No Family Member Ethnicity: Non- Living Status: Hx Family Cancer: Yes (prostate) Medications and Allergies Furosemide [Lasix] 40 mg GTUBE BID 11/12/15 [History] Docusate [Colace] 100 mg GTUBE DAILY 11/13/15 [History] Ipratropium/Albuterol Neb [Duoneb] 3 ml IH Q6HR 11/13/15 [History] Ipratropium/Albuterol Sulfate [Combivent Respimat Inhal [place]] 1 puff IH Q6HR PRN 11/13/15 [History] Omeprazole [PriLOSEC] 40 mg GTUBE BID 02/16/18 [History] Tamsulosin [Flomax] 0.4 mg GTUBE DAILY 02/16/18 [History] Atenolol [Tenormin] 50 mg PO BID 03/07/18 [History] Aspirin 81 mg PO DAILY 03/31/18 [History] Oxycodone HCl/Acetaminophen [Percocet 5-325 mg Tablet] 1 tab GTUBE Q4H PRN 03/07 10/21 [History] Sertraline HCl [Zoloft] 100 mg GTUBE DAILY 03/31/18 [History] clonazePAM [Klonopin] 0.5 mg GTUBE BID 03/31/18 [History] Cyanocobalamin (B-12) [Vitamin B12] 1,000 mcg SQ AD #8 mls 04/08/18 [Rx] Polyethylene Glycol 3350 [MiraLAX] 17 gm PO DAILY powd.pack 04/08/18 [Rx] Sennosides [Senna] 17.6 mg GTUBE BID udc 04/08/18 [Rx] Supplies [SUPPLIES] 1 each .ROUTE AD #8 each 04/08/18 [Rx] dilTIAZem HCl [Cardizem] 60 mg PO QID 30 Days #120 tablet 04/08/18 [Rx] Allergy/AdvReac Type Severity Reaction Status Date / Time clonidine Allergy Vomiting Verified 02/16/18 10:08 Warfarin [From Coumadin] AdvReac See Verified 03/31/18 09:25 Comments All Systems: The remainder of the systems were reviewed and are negative Physical Examination Vital Signs: Vital Signs, Last 4 Hours Temp Pulse Resp BP Pulse Ox 04/09/18 11:59 98.2 F 87 20 117/78 98 General appearance: appears uncomfortable Eyes: nonicteric ENT: oropharynx dry Neck: supple Effort: normal Auscultation: bilateral: wheezes (Diffuse inspiratory and expiratory wheezes noted) Cardiovascular: regular rate and rhythm Gastrointestinal: normoactive bowel sounds, soft, non-tender, other (J-tube site and noted that there is some mild surrounding bruising but no evidence of bleeding or infection) Integumentary: normal Extremities: edema (Trace lower extremity edema) Musculoskeletal: no deformities normal mental status, non-focal exam depressed Results - Laboratory Findings CBC and BMP: 04/09/18 06:08 04/09/18 06:08 PT/INR, D-dimer PT 13.8 Seconds (9.4-12.1) H 04/07/18 06:33 Abnormal lab findings: Abnormal lab results RBC 2.92 M/mcL (4.19-5.50) L 04/09/18 06:08 Hgb 9.1 g/dL (12.9-16.9) L 04/09/18 06:08 Hct 28.0 % (37.5-50.1) L 04/09/18 06:08 RDW 15.2 % (11.5-14.5) H 04/09/18 06:08 Plt Count 128 K/mcL (140-400) L 04/09/18 06:08 PT 13.8 Seconds (9.4-12.1) H 04/07/18 06:33 APTT 37.1 Seconds (26.0-36.0) H 03/31/18 05:00 Sodium 135 mEq/L (136-145) L 04/09/18 06:08 Carbon Dioxide 31 mEq/L (23-29) H 04/09/18 06:08 Creatinine 0.62 mg/dL (0.70-1.30) L 04/09/18 06:08 BUN/Creatinine Ratio 31 (6-26) H 04/09/18 06:08 POC Glucose 175 mg/dL (70-99) H 04/08/18 12:23 Calcium 8.4 mg/dL (8.6-10.3) L 04/09/18 06:08 Iron 33 mcg/dL (65-175) L 04/08/18 05:44 % Saturation 15 % (20-55) L 04/08/18 05:44 Transferrin 154 mg/dL (203-362) L 04/08/18 05:44 Lactate Dehydrogenase 115 Units/L (140-271) L 04/08/18 05:44 Serum Total Protein 5.1 g/dL (6.4-8.9) L 04/08/18 05:44 Albumin 2.5 g/dL (3.5-5.7) L 04/08/18 05:44 Albumin/Globulin Ratio 1.0 (1.1-2.2) L 04/08/18 05:44 Vitamin B12 212 pg/mL (250-1100) L 04/08/18 05:44 Folate > 22.3 ng/mL (3.0-16.0) H 04/08/18 05:44 Urine Color [place] (Yellow) A 03/31/18 04:55 Ur Specific [place] 1.009 (1.010-1.025) L 03/31/18 04:55 Urine Nitrite Positive (Negative) A 03/31/18 04:55 Urine Urobilinogen 2.0 mg/dL (Normal) H 03/31/18 04:55 Ur Leukocyte Esterase Trace (Negative) H 03/31/18 04:55 Ur Squamous Epith Cells Many per lpf (None-Few) H 03/31/18 04:55 Ur Culture Indicated? NO. (NO) A 03/31/18 04:55 Nasal Screen MRSA (PCR) Positive (Negative) A 04/01/18 08:00 - Diagnostic Findings Chest x-ray: report reviewed, image reviewed CT scan - chest: report reviewed, image reviewed - Clinical Findings Intake & Output: Intake & Output 04/08/18 04/09/18 04/09/18 23:59 07:59 15:59 Intake Total 150 / 150 Output Total 650 / 650 450 / 450 Balance -500 / -500 -450 / -450 Weight 87.6 kg Consult Discharge Plan - Plan Instructions: Atrial Fibrillation (DC), Constipation (GEN), Urinary Retention in Men (GEN), Rodriguez Catheter Placement and Care (GEN) Referrals: [facility] [Provider Group] [facility] [Provider Group] [facility] [place] [Provider Group] Connie Hyde MD [Primary Care Provider] - (possible ECF) Prescriptions: Cyanocobalamin (B-12) [Vitamin B12] 1,000 mcg SQ AD #8 mls dilTIAZem HCl [Cardizem] 60 mg PO QID 30 Days #120 tablet Supplies [SUPPLIES] 1 each .ROUTE AD #8 each
[2018-04-09] MEDS: *HR* OxyCODONE/APAP 5/325 TABLET GTUBE PRN ×3 (13:02→21:26)
[2018-04-09] MEDS: Melatonin 3 MG TABLET PO SCH (20:37)
[2018-04-09] MEDS: Cyanocobalamin (B-12) 1,000 MCG/ML VIAL SQ SCH (20:38)
[2018-04-10 04:21] LABS: Basophils # 0.1 K/mcL (0.0-0.2); Basophils % 0.9 %; Eosinophils # 0.2 K/mcL (0.0-0.6); Eosinophils % 3.3 %; Hematocrit 28.8 % (37.5-50.1); Hemoglobin 9.1 g/dL (12.9-16.9); Immature Granulocytes % 0.6 % (0-4); Lymphocytes # 1.3 K/mcL (0.6-4.6); Lymphocytes % 24.7 %; Mean Corpuscular HGB Conc 31.6 g/dL (31.6-35.5); Mean Corpuscular Hemoglobin 30.3 pg (28.0-33.3); Mean Platelet Volume 9.9 fL (9.4-12.4); Monocytes # 0.5 K/mcL (0.0-1.3); Monocytes % 8.6 %; Neutrophils # 3.3 K/mcL (1.6-8.9); Platelet Count 135 K/mcL (140-400); Red Cell Distribution Width 15.2 % (11.5-14.5); Segmented Neutrophils % 61.9 %
[2018-04-10] MEDS: Levalbuterol Neb 1.25 MG/3 ML IH SCH ×2 (04:37→10:54)
[2018-04-10 04:41] LABS: BUN/Creatinine Ratio 33 (6-26); Blood Urea Nitrogen 21 mg/dL (8-23); Calcium 8.3 mg/dL (8.6-10.3); Carbon Dioxide 32 mEq/L (23-29); Chloride 99 mEq/L (98-107); Glucose 79 mg/dL (70-105); Osmolality,Calculated 282 (280-300); Potassium 4.1 mEq/L (3.5-5.1); Sodium 135 mEq/L (136-145); eGFR For Non-African Americans > 60 (> 60)
[2018-04-10 08:21] VITALS: BP 142/89
[2018-04-10 08:55] LABS: Magnesium 1.8 mg/dL (1.6-2.6); Phosphorous 3.5 mg/dL (2.7-4.5)
[2018-04-10] MEDS ORDERED: PrednisoLONE Oral Soln 15 MG/5 ML UDC PO SCH (09:00)
--- NOTE | 2018-04-10 09:16 | Internal Med Progress Note ---
<Cong Bhakta - Last Filed: 04/10/18 11:40> Hospitalist Progress Note - Encounter Date of Encounter: 04/10/18 Time of Encounter: 09:14 - Subjective Interval History: . Patient is still awaiting liver biopsy before discharge. I spoke with IR who stated he is on the board for today. Pulm consultation yesterday recommended A ugmentin, steroids, and symbicort, and I have started those. Patient is stable for discharge once biopsy is complete. No acute events overnight. - Exam Vitals: Temp Pulse Resp BP Pulse Ox 98.9 F 110 18 142/89 99 04/10/18 08:20 04/10/18 08:20 04/10/18 08:20 04/10/18 08:20 04/10/18 08:20 Exam: General: Alert, oriented, in no acute distress HEENT: Normocephalic, oral mucosa dry, poor dentition Cardiac: Irregularly irregular rhythm, regular rate, radial pulses 2+ bilateral Respiratory: scattered diffuse wheeze, no rales or rhonchi, no accessory muscle use Abdomen: Soft, non tender, bowel sounds present, red rubber catheter present in left abdomen where J tube previously was present Extremities: No peripheral edema noted on lower extremities, pulses present bilaterally Neuro: A&Ox3, no focal neurological deficits - Assessment and Plan (1) Esophageal adenocarcinoma Status: Chronic Assessment and Plan: Patient recently diagnosed with esophageal adenocarcinoma, has not started any chemotherapy or radiation therapy. Patient has J-tube in place. Recent PET scan done demonstrating multiple lesions sites that may be consistent with metastatic disease. Oncology has been consulted and has inform patient of me tastases. MRI of abdomen-demonstrated 7 liver lesions some appear assist however the largest is concerning for malignancy. Small bilateral pleural effusions. Right pulmonary nodule in right middle lobe. -Biopsy of RML lung lesion performed without complication. Oncology will follow up outpatient and ok with discharge when stable. -Liver lesion biopsy planned for today, stable for discharge afterwards (2) Atrial fibrillation with RVR Status: Chronic Assessment and Plan: The patient has known chronic atrial fibrillation. He has been admitted to be in a fib with RVR. EKG confirmed AFib on 04/03 Heart rate controlled now patient not on anticoagulation due to massive G.I. bleed in the past -Continue Oral Cardizem increased to 60 mg QID (previously 30 mg QID). -Continue atenolol, aspirin -continue to monitor with telemetry -will continue to hold Lovenox in setting of anemia and blood in stool Upon discharge, continue atenolol and continue to hold losartan due to blood pressure being intolerant of addition of losartan therapy (3) COPD (chronic obstructive pulmonary disease) Status: Chronic Assessment and Plan: Known history of COPD, patient uses 2 L nasal cane auction at home while at rest - Continue nasal cannula oxygen and home meds at discharge Pulmonology consulted for possible aspiration pna found on lung biopsy Recommended 10 days Augmentin, 5 days steroids, symbicort, bronch not currently recommended Augmentin 875 BIDWM started, symbicort, 5 days prednisolone (4) HTN (hypertension) Status: Chronic Assessment and Plan: History of hypertension -plan as documented above (5) DVT prophylaxis Status: Acute Assessment and Plan: scd in setting of anemia (6) CHF (congestive heart failure) Status: Chronic Assessment and Plan: History of diastolic heart failure with a recent echocardiogram 02/2018 demonstrating EF of 40-55% - not exacerbation - Monitor fluid intake and output - 2 g sodium diet restriction - Daily weights -continue home atenolol and increased dose of Cardizem -resume home meds except losartan at discharge (7) Decubitus ulcer of coccyx, stage 2 Status: Chronic Assessment and Plan: Patient has stage II decubitus ulcer likely secondary to immobility, poor nutritional intake. Present upon admission. and home health nursing will resume wound care and position management after discharge (8) Constipation Status: Resolved Assessment and Plan: Patient has constipation secondary to his opiate use for cancer related pain. Patient has been able to have multiple bowel movements since receiving lactulose. -Continue bowel regimen of miralax, Senna, Colace, lactulose PRN -will discharge with home meds with additional PRN lactulose for constipation (9) Urinary retention Status: Acute Assessment and Plan: Patient has urinary retention. Thought to be secondary to constipation. Abdominal CT showed proctitis -Continue Rodriguez catheter. Will be discharged with Rodriguez catheter in place with voiding trial after discharge. -Continue home Flomax - Time Spent with Patient Total time spent is greater than 50% in coordination of care (as documented) at patient's floor/unit and/or counseling patient: Internal Medicine: Result - Labs CBC & Chem 7: 04/10/18 03:55 04/10/18 03:55 Labs: Short CBC 04/10/18 Range/Units 03:55 WBC 5.4 (4.3-11.1) K/mcL Hgb 9.1 L (12.9-16.9) g/dL Hct 28.8 L (37.5-50.1) % Plt Count 135 L (140-400) K/mcL Neutrophils # 3.3 (1.6-8.9) K/mcL BMP 04/10/18 03:55 Sodium 135 L Potassium 4.1 Chloride 99 Carbon Dioxide 32 H BUN 21 Creatinine 0.64 L Glucose 79 Calcium 8.3 L - ABG Interpretation ABG results: PT/INR, D-dimer PT 13.8 Seconds (9.4-12.1) H 04/07/18 06:33 Consult Discharge Plan - Plan Instructions: Atrial Fibrillation (DC), Constipation (GEN), Urinary Retention in Men (GEN), Rodriguez Catheter Placement and Care (GEN) Referrals: [facility] [Provider Group] - 04/17/18 8:30 am [facility] [Provider Group] - 04/22/18 10:10 am [facility] [place] [Provider Group] - 04/17/18 9:30 am Connie Hyde MD [Primary Care Provider] - 04/16/18 11:15 am () Prescriptions: RX: Amoxicillin/Clavulanate [Augmentin] 875 mg PO BIDWM 8 Days #17 tablet RX: Budesonide/Formoterol 160/4.5 [Symbicort 160/4.5] 2 puff IH BIDR 30 Days #1 inh RX: Cyanocobalamin (B-12) [Vitamin B12] 1,000 mcg SQ AD #8 mls RX: dilTIAZem HCl [Cardizem] 60 mg PO QID 30 Days #120 tablet RX: Lactulose 20 gm PO DAILY PRN 30 Days #30 solution PRN Reason: Constipation RX: prednisoLONE [Prelone] 40 mg PO DAILY 4 Days #4 udc Supplies [SUPPLIES] 1 each .ROUTE AD #8 each <Aamir Kumari - Last Filed: 04/10/18 18:56> Hospitalist Progress Note - Encounter Date of Encounter: 04/10/18 - Exam Vitals: Temp Pulse Resp BP Pulse Ox 98.9 F 110 18 142/89 99 04/10/18 08:20 04/10/18 08:20 04/10/18 08:20 04/10/18 08:20 04/10/18 08:20 - Assessment and Plan (1) Atrial fibrillation with RVR Status: Chronic (2) COPD (chronic obstructive pulmonary disease) Status: Chronic (3) HTN (hypertension) Status: Chronic (4) DVT prophylaxis Status: Acute (5) CHF (congestive heart failure) Status: Chronic (6) Esophageal adenocarcinoma Status: Chronic (7) Decubitus ulcer of coccyx, stage 2 Status: Chronic (8) Constipation Status: Resolved (9) Urinary retention Status: Acute (10) Aspiration pneumonia Status: Acute (11) Atrial fibrillation Status: Chronic - Time Spent with Patient Total time spent is greater than 50% in coordination of care (as documented) at patient's floor/unit and/or counseling patient: Internal Medicine: Result - Labs CBC & Chem 7: 04/10/18 03:55 04/10/18 03:55 Labs: Short CBC 04/10/18 Range/Units 03:55 WBC 5.4 (4.3-11.1) K/mcL Hgb 9.1 L (12.9-16.9) g/dL Hct 28.8 L (37.5-50.1) % Plt Count 135 L (140-400) K/mcL Neutrophils # 3.3 (1.6-8.9) K/mcL BMP 04/10/18 03:55 Sodium 135 L Potassium 4.1 Chloride 99 Carbon Dioxide 32 H BUN 21 Creatinine 0.64 L Glucose 79 Calcium 8.3 L - ABG Interpretation ABG results: PT/INR, D-dimer PT 13.8 Seconds (9.4-12.1) H 04/07/18 06:33 - Attending Attestation I examined this patient and my medical decision-making was reviewed with the Resident Physician on 04/10/18. I agree with the documented findings, disposition and treatment plan as described except to the extent set forth below. Mr Lloyd is currently admitted for dislodged G tube and probable aspiration. He did not have liver biopsy yesterday and IR does not feel they have anything to biopsy. He is afebrile and will be discharged home today. Exam alert Comfortable Mucus membranes dry Heart not tachy No wheeze I/P D/C home today Further diagnoses and plan as above. <Cong Bhakta - Last Filed: 04/10/18 11:40> (3) 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 (4) HTN (hypertension) Qualifiers: Hypertension type: essential hypertension Qualified Code(s): I10 - Essential (primary) hypertension (6) CHF (congestive heart failure) Qualifiers: Heart failure type: systolic Heart failure chronicity: chronic Qualified Code(s): I50.22 - Chronic systolic (congestive) heart failure (8) Constipation Qualifiers: Constipation type: other constipation type Qualified Code(s): K59.09 - Other constipation <Aamir Kumari - Last Filed: 04/10/18 18:56> (2) 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 (10) Aspiration pneumonia Qualifiers: Aspiration pneumonia type: due to regurgitated food Laterality: bilateral Lung location: lower lobe of lung Qualified Code(s): J69.0 - Pneumonitis due to inhalation of food and vomit (11) Atrial fibrillation Qualifiers: Atrial fibrillation type: chronic Qualified Code(s): I48.2 - Chronic atrial fibrillation
[2018-04-10] MEDS: Nicotine 7 MG PATCH.TD24 TD SCH (09:34)
[2018-04-10] MEDS: clonazePAM 0.5 MG TABLET GTUBE SCH (09:35)
[2018-04-10] MEDS: dilTIAZem HCl 60 MG TABLET PO SCH (09:35)
[2018-04-10] MEDS: Docusate Oral Soln 100 MG/10 ML UDC GTUBE SCH (09:36)
[2018-04-10] MEDS: Aspirin Enteric Coated 81 MG Tablet PO SCH (09:36)
[2018-04-10] MEDS ORDERED: Budesonide/Formoterol 160/4.5 1 PUFF INH IH SCH (10:00)
[2018-04-10] MEDS ORDERED: 0.9 % Sodium Chloride 500 ML ONE (10:56)
--- NOTE | 2018-04-10 11:31 | IR Consult Note ---
Date of Encounter: 04/10/18 Assessment and Plan (1) Cancer Current Visit: Yes Status: Acute Physicians: Aamir Kumari, DO Consult Comment: Thank you for the consult. Call [facility] with questions or concerns. Past Med Surg Social Fam HX - Past Medical History Medical history: aortic aneurysm, arthritis, asthma, atrial fibrillation, cancer, CHF, COPD, coronary artery disease, GERD, GI bleed, hyperlipidemia, hypertension, osteoporosis, other Additional medical history: Thoracic aortic aneurysm without rupture. Diastolic heart failureLeft ventriculare hypertrophy. DDD. Myalgia. Lumbar stenosis. esophageal cancer, feeding tube Psychiatric history: no psych history - Past Surgical History Surgical History: cataract, other - Social History Smoking Status: Former smoker Smokeless Tobacco Status: No Alcohol use: none Drug use: none - Family History Father Adopted: No Family Member Ethnicity: Non- Living Status: Hx Family Cancer: Yes (prostate) Medications and Allergies Furosemide [Lasix] 40 mg GTUBE BID 11/12/15 [History] Docusate [Colace] 100 mg GTUBE DAILY 11/13/15 [History] Ipratropium/Albuterol Neb [Duoneb] 3 ml IH Q6HR 11/13/15 [History] Ipratropium/Albuterol Sulfate [Combivent Respimat Inhal [place]] 1 puff IH Q6HR PRN 11/13/15 [History] Omeprazole [PriLOSEC] 40 mg GTUBE BID 02/16/18 [History] Tamsulosin [Flomax] 0.4 mg GTUBE DAILY 02/16/18 [History] Atenolol [Tenormin] 50 mg PO BID 03/07/18 [History] Aspirin 81 mg PO DAILY 03/31/18 [History] Oxycodone HCl/Acetaminophen [Percocet 5-325 mg Tablet] 1 tab GTUBE Q4H PRN 03/31/18 [History] Sertraline HCl [Zoloft] 100 mg GTUBE DAILY 03/31/18 [History] clonazePAM [Klonopin] 0.5 mg GTUBE BID 03/31/18 [History] Cyanocobalamin (B-12) [Vitamin B12] 1,000 mcg SQ AD #8 mls 04/08/18 [Rx] Polyethylene Glycol 3350 [MiraLAX] 17 gm PO DAILY powd.pack 04/08/18 [Rx] Sennosides [Senna] 17.6 mg GTUBE BID udc 04/08/18 [Rx] Supplies [SUPPLIES] 1 each .ROUTE AD #8 each 04/08/18 [Rx] dilTIAZem HCl [Cardizem] 60 mg PO QID 30 Days #120 tablet 04/08/18 [Rx] Allergy/AdvReac Type Severity Reaction Status Date / Time clonidine Allergy Vomiting Verified 02/16/18 10:08 Warfarin [From Coumadin] AdvReac See Verified 03/31/18 09:25 Comments Exam Vital Signs, Last 4 Hours Temp Pulse Resp BP Pulse Ox 04/10/18 08:20 98.9 F 110 18 142/89 99 Results Reviewed 04/10/18 03:55 04/10/18 03:55 Lab Results 04/10/18 04/10/18 04/10/18 08:27 03:55 03:55 WBC 5.4 RBC 3.00 L Hgb 9.1 L Hct 28.8 L MCV 96.0 MCH 30.3 MCHC 31.6 RDW 15.2 H Plt Count 135 L MPV 9.9 Neutrophils # 3.3 Lymphocytes # 1.3 Monocytes # 0.5 Eosinophils # 0.2 Basophils # 0.1 Sodium 135 L Potassium 4.1 Chloride 99 Carbon Dioxide 32 H BUN 21 Creatinine 0.64 L Est GFR ( Amer) > 60 Est GFR (Non-Af Amer) > 60 BUN/Creatinine Ratio 33 H Glucose 79 Calcium 8.3 L Phosphorus 3.5 Magnesium 1.8 04/09/18 04/09/18 04/08/18 06:08 06:08 05:44 WBC 5.6 RBC 2.92 L Hgb 9.1 L Hct 28.0 L MCV 95.9 MCH 31.2 MCHC 32.5 RDW 15.2 H Plt Count 128 L MPV 9.6 Neutrophils # 3.7 Lymphocytes # 1.2 Monocytes # 0.5 Eosinophils # 0.2 Basophils # 0.1 Sodium 135 L 134 L Potassium 4.0 3.9 Chloride 100 99 Carbon Dioxide 31 H 33 H BUN 19 21 Creatinine 0.62 L 0.64 L Est GFR ( Amer) > 60 > 60 Est GFR (Non-Af Amer) > 60 > 60 BUN/Creatinine Ratio 31 H 33 H Glucose 89 155 H Calcium 8.4 L 8.2 L Phosphorus Magnesium 04/08/18 05:44 WBC 5.2 RBC 2.88 L Hgb 8.9 L Hct 27.9 L MCV 96.9 MCH 30.9 MCHC 31.9 RDW 15.2 H Plt Count 130 L MPV 9.8 Neutrophils # 3.5 Lymphocytes # 1.1 Monocytes # 0.4 Eosinophils # 0.2 Basophils # 0.0 Sodium Potassium Chloride Carbon Dioxide BUN Creatinine Est GFR ( Amer) Est GFR (Non-Af Amer) BUN/Creatinine Ratio Glucose Calcium Phosphorus Magnesium Consult Discharge Plan - Plan Instructions: Atrial Fibrillation (DC), Constipation (GEN), Urinary Retention in Men (GEN), Rodriguez Catheter Placement and Care (GEN) Referrals: [facility] [Provider Group] [facility] [Provider Group] [facility] [place] [Provider Group] Connie Hyde MD [Primary Care Provider] - (possible ECF) Prescriptions: Cyanocobalamin (B-12) [Vitamin B12] 1,000 mcg SQ AD #8 mls dilTIAZem HCl [Cardizem] 60 mg PO QID 30 Days #120 tablet Supplies [SUPPLIES] 1 each .ROUTE AD #8 each
--- NOTE | 2018-04-10 11:37 | IR Progress Note ---
Vital Signs: Vital Signs/O2 Sat, Most Current Temp Pulse Resp BP Pulse Ox 98.9 F 110 18 142/89 99 04/10/18 08:20 04/10/18 08:20 04/10/18 08:20 04/10/18 08:20 04/10/18 08:20 Recent Labs: Lab Results 04/10/18 04/10/18 04/10/18 08:27 03:55 03:55 WBC 5.4 RBC 3.00 L Hgb 9.1 L Hct 28.8 L MCV 96.0 MCH 30.3 MCHC 31.6 RDW 15.2 H Plt Count 135 L MPV 9.9 Neutrophils # 3.3 Lymphocytes # 1.3 Monocytes # 0.5 Eosinophils # 0.2 Basophils # 0.1 Sodium 135 L Potassium 4.1 Chloride 99 Carbon Dioxide 32 H BUN 21 Creatinine 0.64 L Est GFR ( Amer) > 60 Est GFR (Non-Af Amer) > 60 BUN/Creatinine Ratio 33 H Glucose 79 Calcium 8.3 L Phosphorus 3.5 Magnesium 1.8 04/09/18 04/09/18 04/08/18 06:08 06:08 05:44 WBC 5.6 RBC 2.92 L Hgb 9.1 L Hct 28.0 L MCV 95.9 MCH 31.2 MCHC 32.5 RDW 15.2 H Plt Count 128 L MPV 9.6 Neutrophils # 3.7 Lymphocytes # 1.2 Monocytes # 0.5 Eosinophils # 0.2 Basophils # 0.1 Sodium 135 L 134 L Potassium 4.0 3.9 Chloride 100 99 Carbon Dioxide 31 H 33 H BUN 19 21 Creatinine 0.62 L 0.64 L Est GFR ( Amer) > 60 > 60 Est GFR (Non-Af Amer) > 60 > 60 BUN/Creatinine Ratio 31 H 33 H Glucose 89 155 H Calcium 8.4 L 8.2 L Phosphorus Magnesium 04/08/18 05:44 WBC 5.2 RBC 2.88 L Hgb 8.9 L Hct 27.9 L MCV 96.9 MCH 30.9 MCHC 31.9 RDW 15.2 H Plt Count 130 L MPV 9.8 Neutrophils # 3.5 Lymphocytes # 1.1 Monocytes # 0.4 Eosinophils # 0.2 Basophils # 0.0 Sodium Potassium Chloride Carbon Dioxide BUN Creatinine Est GFR ( Amer) Est GFR (Non-Af Amer) BUN/Creatinine Ratio Glucose Calcium Phosphorus Magnesium Assessment and Plan Reviewed imaging. Liver lesions are almost invisible on CT scan which is the guiding mechanism for biopsy. Procedure cancelled as there is no safe imaging target for a biopsy.
== END 2018-04-10 13:43 | disposition home health service (06) | DRG 392 ==
LOC: EMEROOARM 04:11 → ICNU 07:23 → SUATTDRO 07:23 → 2ANU 09:17
PROVIDERS: ADMIT Hospitalist; ATTEND Internal Medicine
PROC: IRLIVER (2018-04-10 14:00)